=== PATIENT | female | born 1965 | race American Indian/Alaskan Native ===

== ENCOUNTER 2017-04-13 20:10 | Emergency (ER) | payer BC, OTHER ==
[2017-04-13 22:52] LABS: CHLORIDE,CL 107 mmol/L (101-111); SODIUM,NA 141 mmol/L (135-145)
[2017-04-14] MEDS ORDERED: Sodium Chloride 0.9% 10 ML Syringe FLUSH PRN (01:39)
[2017-04-14] MEDS ORDERED: HYDROmorphone 1 MG/ML Syringe IVPUSH ONE (01:39)
[2017-04-14] MEDS ORDERED: Sodium Chloride 0.9% 1,000 ML IV ONE (01:39)
[2017-04-14] MEDS ORDERED: Iopamidol 612 MG/ML 100 ML Bottle IVPUSH ONE (02:24)
--- NOTE | 2017-04-14 03:04 | EDM.PDOC ---
ED HPI GENERAL MEDICAL PROBLEM - General Chief Complaint: Abdominal Pain Stated Complaint: STOMACH PAIN Time Seen by Provider: 04/14/17 01:32 Source of Information: Reports: Patient, RN, RN Notes Reviewed History Limitations: Reports: No Limitations - History of Present Illness INITIAL COMMENTS - FREE TEXT/NARRATIVE: Pt presents to ER with c/o pain in the LUQ. She states the pain began early evening today, and the pain comes and goes. She states the pain is a sharp pain and rates the pain 7/10 when present. Patient admits to chills, but denies N/V/D , CP, SOB, constipation. Onset: Today Right Upper Abdomen Pain Score (Numeric/FACES): 7 - Related Data Allergies Allergy/AdvReac Type Severity Reaction Status Date / Time nitrofurantoin Allergy Fever Verified 04/13/17 21:55 [From Macrobid] Home Meds: Home Meds Aspirin [Halfprin] 81 mg PO DAILY 02/20/13 [History] Folic Acid 1 mg PO DAILY 02/20/13 [History] Hydrocodone/Acetaminophen [Hydrocodon-Acetaminophen 5-500] 1 tab PO Q4H PRN [History] Ibuprofen [Advil] 200 mg PO Q6H PRN 02/20/13 [History] Methotrexate 12.5 mg SUBCUT ASDIRECTED 02/20/13 [History] Pnv51/Iron Fum/Fa/Om-3/Dha/Epa [ Multi + Dha Softgel] 1 each PO DAILY [History] amLODIPine [Norvasc] 5 mg PO DAILY 02/20/13 [History] predniSONE [Prednisone] 1 tab PO BID 10/22/13 [History] Adalimumab [Humira Pen] 40 mg SQ ASDIRECTED 10/23/14 [History] Past Medical History HEENT History: Reports: Impaired Vision Other HEENT History: Glasses Cardiovascular History: Reports: High Cholesterol, Hypertension Respiratory History: Reports: None Gastrointestinal History: Reports: GERD Genitourinary History: Reports: None 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: Musculoskeletal History: Reports: Arthritis, RA Other Musculoskeletal History: left ankle pain; DDD CERVICAL Neurological History: Reports: None Psychiatric History: Reports: Depression Endocrine/Metabolic History: Reports: Obesity/BMI 30+ Hematologic History: Reports: Anemia Immunologic History: Reports: None Oncologic (Cancer) History: Reports: None Dermatologic History: Reports: None - Infectious Disease History Infectious Disease History: Reports: Chicken Pox - Past Surgical History Head Surgeries/Procedures: Reports: None GI Surgical History: Reports: Appendectomy Musculoskeletal Surgical History: Reports: Arthroscopic Knee Social & Family History - Family History Family Medical History: Noncontributory - Tobacco Use Smoking Status *Q: Never Smoker Second Hand Smoke Exposure: No - Caffeine Use Caffeine Use: Reports: Soda - Alcohol Use Days Per Week of Alcohol Use: 0 - Recreational Drug Use Recreational Drug Use: No ED ROS GENERAL - Review of Systems Review Of Systems: ROS reveals no pertinent complaints other than HPI. ED EXAM, GI/ABD - Physical Exam Exam: See Below Exam Limited By: No Limitations General Appearance: Alert, WD/WN, Moderate Distress Eyes: Bilateral: Normal Appearance, EOMI Ears: Normal External Exam, Hearing Grossly Normal Nose: Normal Inspection Throat/Mouth: Normal Inspection, Normal Voice, No Airway Compromise Head: Atraumatic, Normocephalic Neck: Normal Inspection, Supple, Non-Tender, Full Range of Motion Respiratory/Chest: No Respiratory Distress, Lungs Clear, Normal Breath Sounds, No Accessory Muscle Use, Chest Non-Tender Cardiovascular: Normal Peripheral Pulses, Regular Rate, Rhythm, No Edema, No Gallop, No JVD, No Murmur, No Rub GI/Abdominal Exam: Normal Bowel Sounds, Soft, No Organomegaly, No Distention, No Abnormal Bruit, No Mass, Tender (RUQ) (Female) Exam: Deferred Rectal (Female) Exam: Deferred Back Exam: Normal Inspection, Full Range of Motion Extremities: Normal Inspection, Normal Range of Motion, Non-Tender, Normal Capillary Refill, No Pedal Edema Neurological: Alert, Oriented, CN II-XII Intact, Normal Cognition, Normal Gait, Normal Reflexes, No Motor/Sensory Deficits Psychiatric: Anxious, Tearful Skin Exam: Warm, Dry, Intact, Normal Color, No Rash Lymphatic: No Adenopathy Course - Vital Signs Last Recorded V/S: Last Vital Signs Temp 96.4 F 04/13/17 21:56 Pulse 78 04/14/17 03:17 Resp 18 04/14/17 03:17 BP 144/56 H 04/14/17 03:17 Pulse Ox 98 04/14/17 03:17 - Orders/Labs/Meds Orders: Active Orders 24 hr Category Date Time Status Peripheral IV Care [RC] . DIRECTED Care 04/14/17 01:40 Active Abdomen Pelvis w Cont [CT] Urgent Exams 04/14/17 01:37 Taken CULTURE BLOOD [BC] Stat Lab 04/13/17 22:25 Received CULTURE BLOOD [BC] Stat Lab 04/13/17 22:28 Received Blood Culture x2 Reflex Set [OM.PC] Stat Oth 04/13/17 22:10 Ordered Peripheral IV Insertion Adult [OM.PC] Stat Oth 04/14/17 01:39 Ordered Labs: Laboratory Tests 04/13/17 04/13/17 04/13/17 Range/Units 22:15 22:25 22:28 WBC 9.5 (5.0-10.0) 10^3/uL RBC 4.15 L (4.2-5.4) 10^6/uL Hgb 12.1 (12.0-16.0) g/dL Hct 36.3 L (37.0-47.0) % MCV 87.5 (80-100) fL MCH 29.2 (27.0-34.0) pg MCHC 33.3 (33.0-35.0) g/dL Plt Count 284 (150-450) 10^3/uL Neut % (Auto) 56.0 (42.2-75.2) % Lymph % (Auto) 30.2 (20.5-50.1) % [place] % (Auto) 10.5 H (2-8) % Eos % (Auto) 3.1 H (1.0-3.0) % Baso % (Auto) 0.2 (0.0-1.0) % Sodium 141 (135-145) mmol/L Potassium 3.6 (3.6-5.0) mmol/L Chloride 107 (101-111) mmol/L Carbon Dioxide 25.0 (21.0-31.0) mmol/L Anion Gap 12.6 BUN 12 (7-18) mg/dL Creatinine 0.5 L (0.6-1.3) mg/dL Est Cr Clr Drug Dosing 135.79 mL/min Estimated GFR (MDRD) > 60 BUN/Creatinine Ratio 24.00 Glucose 113 H (74-105) mg/dL Lactic Acid (0.5-2.2) mmol/L Calcium 8.7 (8.4-10.2) mg/dl Total Bilirubin 0.7 (0.2-1.0) mg/dL AST 35 (10-42) IU/L ALT 31 (10-60) IU/L Alkaline Phosphatase 65 (42-121) IU/L Total Protein 7.5 (6.7-8.2) g/dl Albumin 3.9 (3.2-5.5) g/dl Globulin 3.6 Albumin/Globulin Ratio 1.08 Amylase 40 (28-100) U/L Lipase 22 (22-51) U/L Urine Color Dark yellow (YELLOW) Urine Appearance Cloudy (CLEAR) Urine pH 5.5 (5.0-9.0) Ur Specific [place] >= 1.030 (1.005-1.030) Urine Protein Trace H (NEGATIVE) Urine Glucose (UA) Negative (NEGATIVE) Urine Ketones Negative (NEGATIVE) Urine Occult Blood Negative (NEGATIVE) Urine Nitrite Negative (NEGATIVE) Urine Bilirubin Negative (NEGATIVE) Urine Urobilinogen 0.2 (0.2-1.0) mg/dL Ur Leukocyte Esterase Negative (NEGATIVE) Urine RBC 0-5 /HPF Urine WBC 5-10 H (0-5/HPF) /HPF Ur Epithelial Cells Moderate H /HPF Amorphous Sediment Few (0/HPF) /HPF Urine Bacteria Rare (0-FEW/HPF) /HPF Urine Mucus Many H /LPF 04/13/17 Range/Units 22:28 WBC (5.0-10.0) 10^3/uL RBC (4.2-5.4) 10^6/uL Hgb (12.0-16.0) g/dL Hct (37.0-47.0) % MCV (80-100) fL MCH (27.0-34.0) pg MCHC (33.0-35.0) g/dL Plt Count (150-450) 10^3/uL Neut % (Auto) (42.2-75.2) % Lymph % (Auto) (20.5-50.1) % [place] % (Auto) (2-8) % Eos % (Auto) (1.0-3.0) % Baso % (Auto) (0.0-1.0) % Sodium (135-145) mmol/L Potassium (3.6-5.0) mmol/L Chloride (101-111) mmol/L Carbon Dioxide (21.0-31.0) mmol/L Anion Gap BUN (7-18) mg/dL Creatinine (0.6-1.3) mg/dL Est Cr Clr Drug Dosing mL/min Estimated GFR (MDRD) BUN/Creatinine Ratio Glucose (74-105) mg/dL Lactic Acid 1.6 (0.5-2.2) mmol/L Calcium (8.4-10.2) mg/dl Total Bilirubin (0.2-1.0) mg/dL AST (10-42) IU/L ALT (10-60) IU/L Alkaline Phosphatase (42-121) IU/L Total Protein (6.7-8.2) g/dl Albumin (3.2-5.5) g/dl Globulin Albumin/Globulin Ratio Amylase (28-100) U/L Lipase (22-51) U/L Urine Color (YELLOW) Urine Appearance (CLEAR) Urine pH (5.0-9.0) Ur Specific [place] (1.005-1.030) Urine Protein (NEGATIVE) Urine Glucose (UA) (NEGATIVE) Urine Ketones (NEGATIVE) Urine Occult Blood (NEGATIVE) Urine Nitrite (NEGATIVE) Urine Bilirubin (NEGATIVE) Urine Urobilinogen (0.2-1.0) mg/dL Ur Leukocyte Esterase (NEGATIVE) Urine RBC /HPF Urine WBC (0-5/HPF) /HPF Ur Epithelial Cells /HPF Amorphous Sediment (0/HPF) /HPF Urine Bacteria (0-FEW/HPF) /HPF Urine Mucus /LPF Meds: Medications Discontinued Medications Generic Name Dose Route Start Last Admin Trade Name Freq PRN Reason Stop Dose Admin Hydromorphone HCl 0.5 mg 04/14/17 01:39 04/14/17 02:36 Dilaudid IVPUSH 04/14/17 01:40 0.5 mg ONETIME ONE Administration Sodium Chloride 1,000 mls @ 999 mls/hr 04/14/17 01:39 04/14/17 02:35 Normal Saline IV 04/14/17 02:39 999 mls/hr .BOLUS ONE Administration Iopamidol 100 ml 04/14/17 02:24 04/14/17 02:27 Isovue-300 (61%) IVPUSH 04/14/17 02:25 100 ml ONETIME ONE Administration Sodium Chloride 10 ml 04/14/17 01:39 04/14/17 02:36 Saline Flush FLUSH 10 ml ASDIRECTED PRN Administration Keep Vein Open - Radiology Interpretation Free Text/Narrative:: Chest/Abdomen/Pelvis CT: No acute findings See rad report Departure - Departure Time of Disposition: 03:03 Disposition: Home, Self-Care 01 Condition: Fair Clinical Impression: Abdominal pain Qualifiers: Abdominal location: right upper quadrant Qualified Code(s): R10.11 - Right upper quadrant pain - Discharge Information Instructions: Abdominal Pain, Adult, [id number] Forms: ED Department Discharge Additional Instructions: Drink plenty of water May use Miralax or like generic once or twice per day to increase bowel movements Follow up with your primary care facility this week - My Orders Last 24 Hours: My Active Orders 04/13/17 22:10 Blood Culture x2 Reflex Set [OM.PC] Stat 04/13/17 22:25 CULTURE BLOOD [BC] Stat 04/13/17 22:28 CULTURE BLOOD [BC] Stat 04/14/17 01:37 Abdomen Pelvis w Cont [CT] Urgent 04/14/17 01:39 Peripheral IV Insertion Adult [OM.PC] Stat 04/14/17 01:40 Peripheral IV Care [RC] . DIRECTED - Assessment/Plan Last 24 Hours: My Active Orders 04/13/17 22:10 Blood Culture x2 Reflex Set [OM.PC] Stat 04/13/17 22:25 CULTURE BLOOD [BC] Stat 04/13/17 22:28 CULTURE BLOOD [BC] Stat 04/14/17 01:37 Abdomen Pelvis w Cont [CT] Urgent 04/14/17 01:39 Peripheral IV Insertion Adult [OM.PC] Stat 04/14/17 01:40 Peripheral IV Care [RC] . DIRECTED
[2017-04-14 03:19] VITALS: BP 144/56
== END 2017-04-14 03:15 | disposition home or self-care (01) ==
LOC: DL.ED 20:10
DX: R10.11 Right upper quadrant pain (principal); I10 Essential (primary) hypertension; E78.00 Pure hypercholesterolemia, unspecified; K21.9 Gastro-esophageal reflux disease without esophagitis; F32.9 Major depressive disorder, single episode, unspecified; Z79.899 Other long term (current) drug therapy; Z79.82 Long term (current) use of aspirin; Z88.8 Allergy status to other drugs, medicaments and biological substances
CPT/HCPCS: 36415; 74177; 80053; 81001; 82150; 83605; 83690; 85025; 87040; 96365; 96375; 99284; J1170; J7030; J7050; Q9967

== ENCOUNTER 2017-07-06 21:35 | Emergency (ER) | payer BC ==
[2017-07-07] MEDS ORDERED: Iopamidol 612 MG/ML 100 ML Bottle IVPUSH ONE (00:28)
[2017-07-07] MEDS ORDERED: GI Cocktail Oral Solution 30 ML PO ONE (03:34)
[2017-07-07] MEDS ORDERED: Acetaminophen/HYDROcodone 325-10 MG Tab PO ONE (03:34)
[2017-07-07 07:41] LABS: ANION GAP 9.7; CHLORIDE,CL 108 mmol/L (101-111); SODIUM,NA 139 mmol/L (135-145)
== END 2017-07-07 03:46 | disposition home or self-care (01) ==
LOC: DL.ED 21:35
DX: K59.00 Constipation, unspecified (principal)
CPT/HCPCS: 36415; 74177; 80053; 82150; 83690; 85025; 96360; 96361; 99284; Q9967; A9270-GY

== ENCOUNTER 2017-07-23 07:01 | Day surgery (SDC) | payer BC, OTHER ==
[~2017-07-23 07:01] MED LIST: Dextrose 5%-0.45% NaCl 1,000 ML IV SCH; Midazolam 1 MG/ML 2 ML SDV ONE; Sodium Chloride 0.9% 10 ML Syringe FLUSH PRN; fentaNYL 100 MCG/2 ML SDV ONE
[2017-07-23] MEDS ORDERED: fentaNYL 100 MCG/2 ML SDV IV ONE ×3 (07:02→08:07)
[2017-07-23] MEDS ORDERED: Midazolam 1 MG/ML 2 ML SDV IV ONE ×3 (07:02→08:08)
--- NOTE | 2017-07-23 09:41 | OR ---
DATE: 07/23/2017 PROCEDURE PERFORMED: Esophagogastroduodenoscopy and multiple pinch biopsies. INSTRUMENT USED: GIF-Q180 Olympus video panendoscope. PREMEDICATIONS: No oral topical anesthesia used. Fentanyl 100 mcg intravenous and Versed 2 mg intravenous. The procedure was done under pulse oximetry, BP recording, and cardiac exercise physiologist. INDICATIONS: The patient with intermittent high dysphagia as well as regurgitation and dyspepsia, unexplained and not responsive to medical measures, on long-term NSAIDs with history of rheumatoid arthritis. Esophagogastroduodenoscopy is performed for detection of any active erosive lesions, Perez esophagus and/or malignancy also under consideration, H. pylori status to be determined, esophageal dilatations if indicated, endoscopic hemostasis therapy if needed. DESCRIPTION OF PROCEDURE: The scope was passed with ease. Adequate visualization of the esophagus was made from proximal to distal areas. No upper esophageal lesions identified. No distal esophageal stricture. No uphill or downhill esophageal varices. No Kaylene-Reagan tear. No evidence of erosive esophagitis by [place] criteria. No esophageal polyp or tumor mass identified. Z-line was seen at around 40 cm distal to the oral verge, configuration consistent with grade 1 by ZAP classification. No proximal gastric varices noted. Gastric fundus examination by retroflexion showed no polypoid lesions. No gastric ulcer, malignant mass, or vascular ectasia identified. Numerous gastric antral erosions were noted without bleeding from them. Duodenal bulb showed no ulcer. Visualized second part of the duodenum was unremarkable. Multiple pinch biopsies were taken from the gastric antrum and proximal body and sent for PyloriTek test for H. pylori, and if negative in an hour, tissue was to be sent for histopathology. No bleeding was noted from any of the visualized areas at the completion of the examination. IMPRESSION: Gastric antral erosions. The patient tolerated the procedure well. [facility] /[id number]
[2017-07-23 11:24] VITALS: BP 124/70
--- NOTE | 2017-07-23 12:41 | LETTER ---
07/23/2017 SANDRA Dorantes [facility] [address] [place] [address] RE: GABBY METZ : 1965 Dear Ms. Mejiael: Ms. Gabby Metz had esophagogastroduodenoscopy done this morning and she tolerated the procedure well. I herewith send a copy of the endoscopy note and photographs for your review. She is being recommended to keep away from NSAIDs and is put on omeprazole 20 mg p.o. b.i.d. for now. Thank you. Sincerely, [facility] /[id number]
== END 2017-07-23 10:16 | disposition home or self-care (01) ==
LOC: DL.ENDO 07:01
PROVIDERS: ATTEND Internal Medicine Gastroenterology
DX: R13.19 Other dysphagia (principal); K29.50 Unspecified chronic gastritis without bleeding; K31.9 Disease of stomach and duodenum, unspecified; E66.09 Other obesity due to excess calories; K21.9 Gastro-esophageal reflux disease without esophagitis; M06.9 Rheumatoid arthritis, unspecified; F41.1 Generalized anxiety disorder; Z79.1 Long term (current) use of non-steroidal anti-inflammatories (NSAID); Z88.5 Allergy status to narcotic agent
CPT/HCPCS: 43239; 87077; J7042; J2250; J3010

== ENCOUNTER 2017-07-29 06:12 | Day surgery (SDC) | payer BC, OTHER ==
[2017-07-29] MEDS ORDERED: fentaNYL 100 MCG/2 ML SDV IV ONE ×5 (06:13→06:59)
[2017-07-29] MEDS ORDERED: Midazolam 1 MG/ML 2 ML SDV IV ONE ×9 (06:13→07:04)
[2017-07-29] MEDS ORDERED: Midazolam 1 MG/ML 2 ML SDV ONE (06:16)
[2017-07-29] MEDS ORDERED: fentaNYL 100 MCG/2 ML SDV ONE (06:16)
[2017-07-29] MEDS ORDERED: Dextrose 5%-0.45% NaCl 1,000 ML IV SCH (06:30)
--- NOTE | 2017-07-29 07:51 | OR ---
DATE: 07/29/2017 PROCEDURE PERFORMED: Total colonoscopy. INSTRUMENT USED: CF-H180AL Olympus videocolonoscope. PREMEDICATIONS: Fentanyl 150 mcg intravenous and Versed 5 mg intravenous. Nasal O2 cannula. The procedure was done under pulse oximetry, BP recording, and nurse monitoring. INDICATIONS: The patient with progressive constipation and rectal bleeding, unexplained and not responsive to medical measures. Colonoscopic examination is done for detection of any polypoid lesions and removal, endoscopic hemostasis therapy if needed. DESCRIPTION OF PROCEDURE: Initial rectal exam was unremarkable. Rigid anoscopy showed small internal hemorrhoids without bleeding from them. The colonoscope was passed with ease. Few scattered diverticula were noted in the distal left colon along with some deformity. The colon was found to be tortuous and redundant. There was some moderate amount of fecal material that had to be aspirated, bowel preparation was less than adequate. The scope was passed with ease up to the ileocecal area, photographs were taken of the normal-appearing cecum identified by double-bulged ileocecal folds. No bleeding was noted from any of the visualized areas at the commencement of the examination. No stricture. No vascular ectasia. No large isolated ulcerations seen. No evidence of diffuse inflammatory bowel disease in the form of friability, contact bleeding, or ulcerations. No polyp or tumor mass identified. Probing the proximal sides of folds and flexures, using adequate distention and clearing of the stool material, withdrawal of the scope was made, cecum to rectum time over 6 minutes. No bleeding was noted from any of the visualized areas at the completion of examination. IMPRESSION: 1. Internal hemorrhoids. 2. Diverticulosis. The patient tolerated the procedure well. [facility] /[id number]
[2017-07-29 10:14] VITALS: BP 142/87
--- NOTE | 2017-07-29 14:20 | LETTER ---
07/29/2017 Edith Ventura NP [facility] [address] [place] [address] RE: GABBY METZ : 1965 Dear Ms. Ventura: Ms. Gabby Metz had colonoscopic examination done this mornin and she tolerated the procedure well. I herewith send a copy of the endoscopy note and photographs for your review. She is put on Citrucel 1 tablespoon p.o. daily, response to be noted. Thank you. Sincerely, [facility] /[id number]
== END 2017-07-29 09:15 | disposition home or self-care (01) ==
LOC: DL.ENDO 06:12
PROVIDERS: ATTEND Internal Medicine Gastroenterology
DX: K59.00 Constipation, unspecified (principal); K62.5 Hemorrhage of anus and rectum; K64.8 Other hemorrhoids; K57.30 Diverticulosis of large intestine without perforation or abscess without bleeding; E66.09 Other obesity due to excess calories; F41.1 Generalized anxiety disorder; K21.9 Gastro-esophageal reflux disease without esophagitis; K58.9 Irritable bowel syndrome, unspecified; Z88.5 Allergy status to narcotic agent; Z88.8 Allergy status to other drugs, medicaments and biological substances
CPT/HCPCS: 45378; J2250; J3010; J7042

== ENCOUNTER 2017-07-31 20:14 | Emergency (ER) | payer OTHER, BC ==
[2017-07-31 21:07] VITALS: BP 148/72
--- NOTE | 2017-07-31 22:28 | EDM.PDOC ---
ED HPI GENERAL MEDICAL PROBLEM - General Chief Complaint: Lower Extremity Injury/Pain Stated Complaint: LEG PAIN [id number] Time Seen by Provider: 07/31/17 22:24 Source of Information: Reports: Patient History Limitations: Reports: No Limitations - History of Present Illness INITIAL COMMENTS - FREE TEXT/NARRATIVE: fell while at work in bathroom on wet slippery floor. Pain to left ankle and lateral knee. No loss of consciousness. 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 Left Ankle Pain Score (Numeric/FACES): 5 - Related Data Allergies Allergy/AdvReac Type Severity Reaction Status Date / Time hydrocodone Allergy Itching Verified 07/31/17 21:02 nitrofurantoin Allergy Fever Verified 07/31/17 21:02 [From Macrobid] tramadol Allergy Itching Verified 07/31/17 21:02 Home Meds: Home Meds Aspirin [Halfprin] 81 mg PO DAILY 02/20/13 [History] Folic Acid 1 mg PO DAILY 02/20/13 [History] Methotrexate 12.5 mg SUBCUT ASDIRECTED 02/20/13 [History] amLODIPine [Norvasc] 5 mg PO DAILY 02/20/13 [History] Adalimumab [Humira Pen] 40 mg SQ ASDIRECTED 10/23/14 [History] Cholecalciferol (Vitamin D3) [Vitamin D3] 1,000 units PO DAILY 07/21/17 [History ] Cyclobenzaprine [Flexeril] 10 mg PO ASDIRECTED PRN 07/21/17 [History] Gabapentin [Neurontin] 300 mg PO TID 07/21/17 [History] Metoprolol Succinate [Toprol XL] 25 mg PO DAILY 07/21/17 [History] Omeprazole 20 mg PO DAILY 07/21/17 [History] Past Medical History HEENT History: Reports: Impaired Vision Other HEENT History: Glasses Cardiovascular History: Reports: High Cholesterol, Hypertension Other Cardiovascular History: CHOLESTEROL IS IMPROVED PER PATIENT Respiratory History: Reports: None Gastrointestinal History: Reports: GERD, Other (See Below) Other Gastrointestinal History: HAS BEEN GETTING CONSTIPATION WILL HAVE COLONOSCOPY Genitourinary History: Reports: None 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: , 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 (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 Below) 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 Musculoskeletal History: Reports: Arthritis, RA Other Musculoskeletal History: left ankle pain; DDD CERVICAL Neurological History: Reports: None Psychiatric History: Reports: None Endocrine/Metabolic History: Reports: Obesity/BMI 30+ Hematologic History: Reports: Anemia Immunologic History: Reports: None Oncologic (Cancer) History: Reports: None Dermatologic History: Reports: None - Infectious Disease History Infectious Disease History: Reports: Chicken Pox - Past Surgical History Head Surgeries/Procedures: Reports: None HEENT Surgical History: Reports: None Cardiovascular Surgical History: Reports: None GI Surgical History: Reports: Appendectomy Female Surgical History: Reports: Cystoscopy, Tubal Ligation, Other (See Below) Other Female Surgeries/Procedures: CYSTOSCOPY; VAGINAL D & C Endocrine Surgical History: Reports: None Musculoskeletal Surgical History: Reports: Arthroscopic Knee, Shoulder Surgery, Other (See Below) Other Musculoskeletal Surgeries/Procedures:: EMG 2 EXTREMITIES. S/P LEFT ANKLE STABILIZATION. X2 ROTATOR CUFF SURGERY TO LEFT AND X1 TO RIGHT SHOULDER Social & Family History - Family History Family Medical History: Noncontributory - Tobacco Use Smoking Status *Q: Unknown Ever Smoked - Caffeine Use Caffeine Use: Reports: Soda Other Caffeine Use: 1-2 cans DAILY - Recreational Drug Use Recreational Drug Use: No Review of Systems - Review of Systems Review Of Systems: ROS reveals no pertinent complaints other than HPI. ED EXAM, GENERAL - Physical Exam Exam: See Below Exam Limited By: No Limitations General Appearance: Alert, No Apparent Distress Eye Exam: Bilateral Eye: EOMI Nose: Normal Inspection Throat/Mouth: Normal Voice Head: Atraumatic, Normocephalic Neck: Full Range of Motion Respiratory/Chest: No Respiratory Distress Cardiovascular: Normal Peripheral Pulses, Regular Rate, Rhythm Extremities: Normal Range of Motion (slow), Limited Range of Motion (mild left ankle, lateral swelling no ecchymosis), Other (2cm swelling lateral lower patella, mild effsion. ). No: Redness Neurological: Alert, Oriented, Normal Cognition Psychiatric: Normal Affect, Normal Mood Skin Exam: Warm, Dry, Intact, Normal Color Course - Vital Signs Last Recorded V/S: Last Vital Signs Temp 97.2 F 07/31/17 21:05 Pulse 98 07/31/17 21:05 Resp 16 07/31/17 21:05 BP 148/72 H 07/31/17 21:05 Pulse Ox 98 07/31/17 21:05 - Radiology Interpretation Free Text/Narrative:: xray left knee and ankle negative for fracture. Departure - Departure Time of Disposition: 22:26 Disposition: Home, Self-Care 01 Condition: Good Clinical Impression: Sprain of left ankle Qualifiers: Encounter type: initial encounter Involved ligament of ankle: unspecified ligament Qualified Code(s): S93.402A - Sprain of unspecified ligament of left ankle, initial encounter Left knee sprain Qualifiers: Encounter type: initial encounter Involved ligament of knee: lateral collateral ligament Qualified Code(s): S83.422A - Sprain of lateral collateral ligament of left knee, initial encounter Contusion of knee, left Qualifiers: Encounter type: initial encounter Qualified Code(s): S80.02XA - Contusion of left knee, initial encounter - Discharge Information Instructions: Ankle Sprain, [id number], Knee Sprain, Adult, [id number] Forms: ED Department Discharge Additional Instructions: ice rest elevation, franci wrap tylenol or ibuprofen for discomfort weight bearing as tolerated follow up if not improving
== END 2017-07-31 22:35 | disposition home or self-care (01) ==
LOC: DL.ED 20:14
DX: S93.402A Sprain of unspecified ligament of left ankle, initial encounter (principal); S83.422A Sprain of lateral collateral ligament of left knee, initial encounter; W19.XXXA Unspecified fall, initial encounter; Y99.0 Civilian activity done for income or pay
CPT/HCPCS: 73562-LT; 73610-LT; 99283

== ENCOUNTER 2018-03-17 07:28 | Day surgery (SDC) | payer OTHER ==
[2018-03-17] MEDS ORDERED: Dexamethasone 4 MG/ML SDV IV ONE (07:29)
[2018-03-17] MEDS ORDERED: Midazolam 1 MG/ML 2 ML SDV IV ONE (07:29)
[2018-03-17] MEDS ORDERED: Sodium Chloride 0.9% 10 ML Syringe IV ONE (07:29)
[2018-03-17] MEDS ORDERED: Timolol Maleate 0.5% Ophth Soln 5 ML Bottle EYELF ONE (07:30)
[2018-03-17] MEDS ORDERED: Povidone-Iodine 5% Sterile Ophth Soln 30 ML Bottle EYELF ONE ×2 (07:30→09:08)
[2018-03-17] MEDS ORDERED: Proparacaine 0.5% Ophth Soln 15 ML Bottle EYELF ONE (07:30)
[2018-03-17] MEDS ORDERED: Moxifloxacin 0.5% Ophth Soln 3 ML Bottle EYELF ONE (07:30)
[2018-03-17] MEDS ORDERED: Phenylephrine 10% Ophth Soln 5 ML Bot EYELF ONE (07:30)
[2018-03-17] MEDS ORDERED: Ondansetron 4 MG/2 ML SDV IVPUSH PRN (07:30)
[2018-03-17] MEDS ORDERED: Sodium Chloride 0.9% 10 ML Syringe FLUSH PRN (07:30)
[2018-03-17] MEDS ORDERED: Acetaminophen 325 MG Tab PO PRN (07:30)
[2018-03-17] MEDS ORDERED: Phenylephrine 10% Ophth Soln 5 ML Bot EYELF PRN (07:30)
[2018-03-17] MEDS ORDERED: Cataract Ophth Solution EYELF ONE (07:30)
[2018-03-17] MEDS ORDERED: Tetracaine HCl/PF 0.5% 4 ML Bottle EYELF ONE (09:08)
[2018-03-17] MEDS ORDERED: Apraclonidine 0.5% Ophth Soln 5 ML Bot EYELF ONE (09:09)
[2018-03-17] MEDS ORDERED: Diclofenac Sodium 0.1% Ophth Soln 5 ML Bottle EYELF ONE (09:09)
[2018-03-17] MEDS ORDERED: Chondroitin Sulfate/Hyaluronate Sodium Ophth Inj 0.75 ML Syringe EYELF ONE (09:10)
[2018-03-17] MEDS ORDERED: Dexamethasone/Neomycin/Polymyxin B Ophth Oint 3.5 GM Tube EYELF ONE (09:10)
[2018-03-17] MEDS ORDERED: Balanced Salt Solution Ophth Irrig 500 ML Bottle IOCULAR ONE (09:10)
[2018-03-17] MEDS ORDERED: Lidocaine 1% 30 ML SDV ONE (09:11)
[2018-03-17] MEDS ORDERED: Vancomycin 500 MG SDV EYELF ONE (09:11)
--- NOTE | 2018-03-17 09:41 | OR ---
DATE: 03/17/2018 PREOPERATIVE DIAGNOSIS: Visually significant mixed cataract, left eye. POSTOPERATIVE DIAGNOSIS: Visually significant mixed cataract, left eye. PROCEDURE: Extracapsular cataract extraction with intraocular lens implant, left eye. ANESTHESIA: Topical/local MAC. COMPLICATIONS: None. INDICATION: Ms. Metz was seen in the clinic with complaints of blurred vision, difficulty with bright lights and glare and halos. Examination reveals mixed nuclear and posterior subcapsular cataract. I explained options; I offered surgery; and I explained risks including the potential for infection, retinal detachment, and loss of vision amongst others. She has significant preexisting corneal astigmatism. We have discussed implant options, and she requested a toric implant. She understands that she may still require glasses for some activities. OPERATIVE DESCRIPTION: After informed consent was obtained and the risks, benefits, and alternatives were explained, the patient was brought to the operative suite and topical anesthesia was administered. The patient was then prepped and draped in the sterile fashion, and attention was placed on the left eye. A sterile lid speculum was placed into the left eye to allow operative exposure. A full-thickness paracentesis was made in the temporal portion of the operative eye. Preservative-free lidocaine 0.1 mL was injected into the anterior chamber followed by viscoelastic. A full-thickness corneal incision was then made into the anterior chamber. A bent needle cystotome was used to create a small esther in the anterior capsule. The capsulorrhexis forceps was then used to create a 360-degree curvilinear capsulorrhexis. The nucleus was then removed using a phacoemulsification handpiece, and the remaining cortical material was then removed with irrigation and aspiration handpiece. Following removal of the cortical material, the capsular bag was then inspected and noted to be free of any holes or tears. Viscoelastic was then injected into the capsular bag, and the intraocular lens was inserted into the capsular bag. The implant was oriented to correspond with preoperative corneal maguire made with the patient in the upright position. The viscoelastic material was then removed from both the anterior and posterior chambers and from behind the IOL. The lens and capsular bag were then reinspected. The IOL was well centered and the capsular bag intact. The wound and paracentesis sites were inspected and hydrated with balanced saline solution. Both were found to be self-sealing. The intraocular pressure was assessed digitally and found to be within normal range. A good red reflex was noted at the completion of the procedure. No complications occurred during the operation. At the completion of the procedure, Maxitrol, Voltaren, and Iopidine drops were placed into the operative eye. A sterile eye shield was placed over the operative eye, and the patient was transported to the postoperative recovery area having tolerated the procedure well. Postoperative instructions were given along with a postoperative appointment. The patient was advised to call with any questions or concerns. [facility] /[id number]
[2018-03-17 13:22] VITALS: BP 129/70
== END 2018-03-17 10:21 | disposition home or self-care (01) ==
LOC: DL.SDS 07:28
PROVIDERS: ATTEND Ophthalmology
DX: H25.812 Combined forms of age-related cataract, left eye (principal); H26.9 Unspecified cataract; I10 Essential (primary) hypertension; E66.01 Morbid (severe) obesity due to excess calories; Z68.41 Body mass index [BMI] 40.0-44.9, adult; E03.9 Hypothyroidism, unspecified; K21.9 Gastro-esophageal reflux disease without esophagitis; Z87.891 Personal history of nicotine dependence; Z79.890 Hormone replacement therapy; Z79.899 Other long term (current) drug therapy
CPT/HCPCS: 66984; A9270; J1100; J2250; J3370; 00142; V2787

== ENCOUNTER 2018-03-24 09:52 | Day surgery (SDC) | payer OTHER ==
[2018-03-24] MEDS ORDERED: Midazolam 1 MG/ML 2 ML SDV IV ONE (09:53)
[2018-03-24] MEDS ORDERED: Dexamethasone 4 MG/ML SDV IV ONE (09:53)
[2018-03-24] MEDS ORDERED: Sodium Chloride 0.9% 10 ML Syringe IV ONE (09:53)
[2018-03-24] MEDS ORDERED: Moxifloxacin 0.5% Ophth Soln 3 ML Bottle EYERT ONE (10:00)
[2018-03-24] MEDS ORDERED: Timolol Maleate 0.5% Ophth Soln 5 ML Bottle EYERT ONE (10:00)
[2018-03-24] MEDS ORDERED: Sodium Chloride 0.9% 10 ML Syringe FLUSH PRN (10:00)
[2018-03-24] MEDS ORDERED: Cataract Ophth Solution EYERT ONE (10:00)
[2018-03-24] MEDS ORDERED: Acetaminophen 325 MG Tab PO PRN (10:00)
[2018-03-24] MEDS ORDERED: Proparacaine 0.5% Ophth Soln 15 ML Bottle EYERT ONE (10:00)
[2018-03-24] MEDS ORDERED: Ondansetron 4 MG/2 ML SDV IVPUSH PRN (10:00)
[2018-03-24] MEDS ORDERED: Phenylephrine 10% Ophth Soln 5 ML Bot EYERT PRN (10:00)
[2018-03-24] MEDS ORDERED: Povidone-Iodine 5% Sterile Ophth Soln 30 ML Bottle EYERT ONE ×2 (10:00→10:46)
[2018-03-24] MEDS ORDERED: Phenylephrine 10% Ophth Soln 5 ML Bot EYERT ONE (10:00)
[2018-03-24] MEDS ORDERED: Tetracaine HCl/PF 0.5% 4 ML Bottle EYERT ONE (10:46)
[2018-03-24] MEDS ORDERED: Lidocaine 1% 30 ML SDV ONE (10:46)
[2018-03-24] MEDS ORDERED: Apraclonidine 0.5% Ophth Soln 5 ML Bot EYERT ONE (10:47)
[2018-03-24] MEDS ORDERED: Diclofenac Sodium 0.1% Ophth Soln 5 ML Bottle EYERT ONE (10:47)
[2018-03-24] MEDS ORDERED: Dexamethasone/Neomycin/Polymyxin B Ophth Oint 3.5 GM Tube EYERT ONE (10:47)
[2018-03-24] MEDS ORDERED: Balanced Salt Solution Ophth Irrig 500 ML Bottle IOCULAR ONE (10:48)
[2018-03-24] MEDS ORDERED: Chondroitin Sulfate/Hyaluronate Sodium Ophth Inj 0.75 ML Syringe EYERT ONE (10:48)
[2018-03-24] MEDS ORDERED: Vancomycin 500 MG SDV EYERT ONE (10:48)
[2018-03-24 12:16] VITALS: BP 126/83
--- NOTE | 2018-03-24 14:05 | OR ---
DATE: 03/24/2018 PREOPERATIVE DIAGNOSIS: Visually significant mixed cataract, right eye. POSTOPERATIVE DIAGNOSIS: Visually significant mixed cataract, right eye. PROCEDURE: Extracapsular cataract extraction with intraocular lens implant, right eye. ANESTHESIA: Topical/local MAC. COMPLICATIONS: None. INDICATION: Ms. Metz was seen in the clinic. She is unhappy with her vision. She has difficulty with glare and halo and difficulty with bright lights. Examination reveals mixed nuclear and posterior subcapsular cataract. I explained options; offered cataract surgery; and I explained risks preoperatively including the potential for infection, retinal detachment, loss of vision, and need for additional surgery amongst others. We discussed implant options. She requested surgery with a toric implant. She understands that she may still require glasses for some activities. She voiced an understanding with respect to risks, limitations, and wished to proceed. OPERATIVE DESCRIPTION: After informed consent was obtained and the risks, benefits, and alternatives were explained, the patient was brought to the operative suite and topical anesthesia was administered. The patient was then prepped and draped in the sterile fashion, and attention was placed on the right eye. A sterile lid speculum was placed into the right eye to allow operative exposure. A full-thickness paracentesis was made in the temporal portion of the operative eye. Preservative-free lidocaine 0.1 mL was injected into the anterior chamber followed by viscoelastic. A full-thickness corneal incision was then made into the anterior chamber. A bent needle cystotome was used to create a small esther in the anterior capsule. The capsulorrhexis forceps was then used to create a 360-degree curvilinear capsulorrhexis. The nucleus was then removed using a phacoemulsification handpiece, and the remaining cortical material was then removed with irrigation and aspiration handpiece. Following removal of the cortical material, the capsular bag was then inspected and noted to be free of any holes or tears. Viscoelastic was then injected into the capsular bag, and the intraocular lens was inserted into the capsular bag. The implant was oriented to correspond with preoperative corneal maguire made with the patient in the upright position. The viscoelastic material was then removed from both the anterior and posterior chambers and from behind the IOL. The lens and capsular bag were then reinspected. The IOL was well centered and the capsular bag intact. The wound and paracentesis sites were inspected and hydrated with balanced saline solution. Both were found to be self-sealing. The intraocular pressure was assessed digitally and found to be within normal range. A good red reflex was noted at the completion of the procedure. No complications occurred during the operation. At the completion of the procedure, Maxitrol, Voltaren, and Iopidine drops were placed into the operative eye. A sterile eye shield was placed over the operative eye, and the patient was transported to the postoperative recovery area having tolerated the procedure well. Postoperative instructions were given along with a postoperative appointment. The patient was advised to call with any questions or concerns. [facility] /[phone]
== END 2018-03-24 11:50 | disposition home or self-care (01) ==
LOC: DL.SDS 09:52
PROVIDERS: ATTEND Ophthalmology
DX: H25.811 Combined forms of age-related cataract, right eye (principal); I10 Essential (primary) hypertension; K21.9 Gastro-esophageal reflux disease without esophagitis; E03.9 Hypothyroidism, unspecified; Z87.891 Personal history of nicotine dependence; Z79.890 Hormone replacement therapy; Z88.1 Allergy status to other antibiotic agents; Z98.42 Cataract extraction status, left eye
CPT/HCPCS: 00142; 66984; A9270; J1100; J2250; J3370; V2787

== ENCOUNTER 2018-07-14 11:03 | Emergency (ER) | payer OTHER ==
[2018-07-14 10:26] VITALS: BP 150/85
[~2018-07-14 11:03] MED LIST changes: -Dextrose 5%-0.45% NaCl 1,000 ML IV SCH; +Metoclopramide 10 MG/2 ML SDV IVPUSH ONE; -Midazolam 1 MG/ML 2 ML SDV ONE; +Sodium Chloride 0.9% 1,000 ML IV ONE; -Sodium Chloride 0.9% 10 ML Syringe FLUSH PRN; -fentaNYL 100 MCG/2 ML SDV ONE
--- NOTE | 2018-07-14 11:04 | EDM.PDOC ---
ED HPI GENERAL MEDICAL PROBLEM - General Chief Complaint: Headache Stated Complaint: HEADACHE Time Seen by Provider: 07/14/18 10:50 Source of Information: Reports: Patient History Limitations: Reports: No Limitations - History of Present Illness INITIAL COMMENTS - FREE TEXT/NARRATIVE: This 52 yo female patient was sent to the ED from the [facility] due to a 2 month history of a headache. The patient reports her headache got much worse last night. The patient reports she has been taking Oxycodone and Tylenol , but has not been having any symptom relief. The patient reports she has been seen several times for her headaches, but has not had any further testing at this time. 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: Reports: Acetaminophen, Other Medication(s) (Oxycodone) Headache Pain Score (Numeric/FACES): 7 - Related Data Allergies Allergy/AdvReac Type Severity Reaction Status Date / Time hydrocodone Allergy Itching Verified 07/14/18 10:22 nitrofurantoin Allergy Fever Verified 07/14/18 10:22 [From Macrobid] tramadol Allergy Itching Verified 07/14/18 10:22 Home Meds: Home Meds Aspirin [Halfprin] 81 mg PO DAILY 02/20/13 [History] Folic Acid 1 mg PO DAILY 02/20/13 [History] Methotrexate 22.5 mg SUBCUT ASDIRECTED 02/20/13 [History] amLODIPine [Norvasc] 5 mg PO BEDTIME 02/20/13 [History] Cyclobenzaprine [Flexeril] 20 mg PO BEDTIME PRN 07/21/17 [History] Gabapentin [Neurontin] 300 mg PO TID 07/21/17 [History] Metoprolol Succinate [Toprol XL] 25 mg PO BEDTIME 07/21/17 [History] Omeprazole 20 mg PO DAILY 07/21/17 [History] InFLIXimab [Remicade] 100 mg SQ ASDIRECTED 03/01/18 [History] Docusate Sodium [Stool Softener] 100 mg PO ASDIRECTED 03/16/18 [History] Levothyroxine [Synthroid] 50 mcg PO DAILY 03/16/18 [History] Moxifloxacin [Vigamox 0.5% Ophth Soln] 1 drop EYELF ASDIRECTED 03/16/18 [History ] oxyCODONE HCl/Acetaminophen [Oxycodone-Acetaminophen 5-325] 1 - 2 tab PO Q4HR [History] Past Medical History HEENT History: Reports: Cataract, Impaired Vision Other HEENT History: Glasses Cardiovascular History: Reports: High Cholesterol, Hypertension Other Cardiovascular History: CHOLESTEROL IS IMPROVED PER PATIENT Respiratory History: Reports: Bronchitis, Recurrent Gastrointestinal History: Reports: Chronic Constipation, GERD, Other (See Below) Other Gastrointestinal History: HAS BEEN GETTING CONSTIPATION WILL HAVE COLONOSCOPY Genitourinary History: Reports: None DENTURE CONTOUR WIRE SPECIALIST History: Reports: , Other (See Below) Other DENTURE CONTOUR WIRE SPECIALIST History: ELECTIVE TERMINATION Musculoskeletal History: Reports: Arthritis, RA Other Musculoskeletal History: left ankle pain; DDD CERVICAL Neurological History: Reports: None Psychiatric History: Reports: None Endocrine/Metabolic History: Reports: Hypothyroidism, Obesity/BMI 30+ Hematologic History: Reports: Anemia Immunologic History: Reports: None Oncologic (Cancer) History: Reports: None Dermatologic History: Reports: Other (See Below) Other Dermatologic History: skin to right shoulder area - Infectious Disease History Infectious Disease History: Reports: Chicken Pox, Influenza, MRSA - Past Surgical History Head Surgeries/Procedures: Reports: None HEENT Surgical History: Reports: Cataract Surgery Cardiovascular Surgical History: Reports: None GI Surgical History: Reports: Appendectomy, Colonoscopy, EGD Female Surgical History: Reports: Cystoscopy, Tubal Ligation, Other (See Below) Other Female Surgeries/Procedures: CYSTOSCOPY; VAGINAL D & C Musculoskeletal Surgical History: Reports: Arthroscopic Knee, Shoulder Surgery, Other (See Below) Other Musculoskeletal Surgeries/Procedures:: EMG 2 EXTREMITIES. S/P LEFT ANKLE STABILIZATION. X2 ROTATOR CUFF SURGERY TO LEFT AND X1 TO RIGHT SHOULDER Dermatological Surgical History: Reports: Skin Graft Social & Family History - Family History Family Medical History: Noncontributory - Tobacco Use Smoking Status *Q: Former Smoker Used Tobacco, but Quit: Yes Month/Year Tobacco Last Used: ? - Caffeine Use Caffeine Use: Reports: Soda Other Caffeine Use: 1-2 cans daily - Recreational Drug Use Recreational Drug Use: No - Living Situation & Occupation Living situation: Reports: , with Spouse ED ROS GENERAL - Review of Systems Review Of Systems: ROS reveals no pertinent complaints other than HPI. - Physical Exam Exam: See Below Exam Limited By: No Limitations General Appearance: Alert, WD/WN, Moderate Distress Eye Exam: Bilateral Eye: EOMI, Normal Inspection, PERRL Ears: Normal External Exam, Normal Canal, Hearing Grossly Normal, Normal TMs Nose: Normal Inspection, Normal Mucosa, No Blood Throat/Mouth: Normal Inspection, Normal Lips, Normal Teeth, Normal Gums, Normal Oropharynx, Normal Voice, No Airway Compromise Head Exam: Atraumatic, Normocephalic Neck: Normal Inspection, Supple, Non-Tender, Full Range of Motion Respiratory/Chest: No Respiratory Distress Cardiovascular: Normal Peripheral Pulses, Regular Rate, Rhythm, No Edema, No Gallop, No JVD, No Murmur, No Rub GI/Abdominal: Normal Bowel Sounds, Soft, Non-Tender, No Organomegaly, No Distention, No Abnormal Bruit, No Mass (Female) Exam: Deferred Rectal (Female) Exam: Deferred Neuro Exam (Abbreviated): Alert, Oriented, CN II-XII Intact, Normal Cognition, Normal Gait, Normal Reflexes, No Motor/Sensory Deficits Back Exam: Normal Inspection, Full Range of Motion, NT Extremities: Normal Inspection, No Pedal Edema, Normal Capillary Refill, Other ( The patient has pain in her right shoulder due to skin grafting and chronic pain in her right hip) Psychiatric: Depressed Mood, Tearful Skin Exam: Warm, Dry, Intact, Normal Color, No Rash Course - Vital Signs Last Recorded V/S: Last Vital Signs Temp 36.2 C 07/14/18 10:22 Pulse 66 07/14/18 10:22 Resp 16 07/14/18 10:22 BP 150/85 H 07/14/18 10:22 Pulse Ox 98 07/14/18 10:22 - Orders/Labs/Meds Orders: Active Orders 24 hr Category Date Time Status EKG Documentation Completion [RC] URGENT Care 07/14/18 10:18 Ordered CULTURE URINE [RM] Stat Lab 07/14/18 10:37 Received Labs: Laboratory Tests 07/14/18 07/14/18 07/14/18 Range/Units 10:37 10:37 11:05 WBC 9.8 (5.0-10.0) 10^3/uL RBC 4.70 (4.2-5.4) 10^6/uL Hgb 11.9 L (12.0-16.0) g/dL Hct 38.1 (37.0-47.0) % MCV 81.1 (80-100) fL MCH 25.3 L (27.0-34.0) pg MCHC 31.2 L (33.0-35.0) g/dL Plt Count 344 (150-450) 10^3/uL Neut % (Auto) 65.2 (42.2-75.2) % Lymph % (Auto) 21.9 (20.5-50.1) % [place] % (Auto) 9.1 H (2-8) % Eos % (Auto) 3.5 H (1.0-3.0) % Baso % (Auto) 0.3 (0.0-1.0) % Sodium (135-145) mmol/L Potassium (3.6-5.0) mmol/L Chloride (101-111) mmol/L Carbon Dioxide (21.0-31.0) mmol/L Anion Gap BUN (7-18) mg/dL Creatinine (0.6-1.3) mg/dL Est Cr Clr Drug Dosing mL/min Estimated GFR (MDRD) BUN/Creatinine Ratio Glucose (74-105) mg/dL Calcium (8.4-10.2) mg/dl Total Bilirubin (0.2-1.0) mg/dL AST (10-42) IU/L ALT (10-60) IU/L Alkaline Phosphatase (42-121) IU/L Ammonia (11-35) umol/L Troponin I (0.00-0.02) ng/ml Total Protein (6.7-8.2) g/dl Albumin (3.2-5.5) g/dl Globulin Albumin/Globulin Ratio Urine Color Yellow (YELLOW) Urine Appearance Clear (CLEAR) Urine pH 6.0 (5.0-9.0) Ur Specific [place] 1.015 (1.005-1.030) Urine Protein Negative (NEGATIVE) Urine Glucose (UA) Negative (NEGATIVE) Urine Ketones Negative (NEGATIVE) Urine Occult Blood Negative (NEGATIVE) Urine Nitrite Negative (NEGATIVE) Urine Bilirubin Negative (NEGATIVE) Urine Urobilinogen 0.2 (0.2-1.0) mg/dL Ur Leukocyte Esterase Trace H (NEGATIVE) Urine RBC 0-5 /HPF Urine WBC 5-10 H (0-5/HPF) /HPF Ur Epithelial Cells Few (NOT SEEN) /HPF Urine Bacteria Moderate H (0-FEW/HPF) /HPF Urine Mucus Few H (NOT SEEN) /LPF Urine Opiates Screen Negative (NEGATIVE) Ur Oxycodone Screen Positive H (NEGATIVE) Urine Methadone Screen Negative (NEGATIVE) Ur Barbiturates Screen Negative (NEGATIVE) U Tricyclic Antidepress Negative (NEGATIVE) Ur Phencyclidine Scrn Negative (NEGATIVE) Ur Amphetamine Screen Negative (NEGATIVE) U Methamphetamines Scrn Negative (NEGATIVE) Urine MDMA Screen Negative (NEGATIVE) U Benzodiazepines Scrn Negative (NEGATIVE) Urine Cocaine Screen Negative (NEGATIVE) U Marijuana (THC) Screen Negative (NEGATIVE) Ethyl Alcohol mg/dL 07/14/18 07/14/18 07/14/18 Range/Units 11:05 11:05 11:05 WBC (5.0-10.0) 10^3/uL RBC (4.2-5.4) 10^6/uL Hgb (12.0-16.0) g/dL Hct (37.0-47.0) % MCV (80-100) fL MCH (27.0-34.0) pg MCHC (33.0-35.0) g/dL Plt Count (150-450) 10^3/uL Neut % (Auto) (42.2-75.2) % Lymph % (Auto) (20.5-50.1) % [place] % (Auto) (2-8) % Eos % (Auto) (1.0-3.0) % Baso % (Auto) (0.0-1.0) % Sodium 139 (135-145) mmol/L Potassium 4.1 (3.6-5.0) mmol/L Chloride 107 (101-111) mmol/L Carbon Dioxide 23.0 (21.0-31.0) mmol/L Anion Gap 13.1 BUN 12 (7-18) mg/dL Creatinine 0.6 (0.6-1.3) mg/dL Est Cr Clr Drug Dosing 111.90 mL/min Estimated GFR (MDRD) > 60 BUN/Creatinine Ratio 20.00 Glucose 112 H (74-105) mg/dL Calcium 8.7 (8.4-10.2) mg/dl Total Bilirubin 0.5 (0.2-1.0) mg/dL AST 51 H (10-42) IU/L ALT 37 (10-60) IU/L Alkaline Phosphatase 64 (42-121) IU/L Ammonia 15 (11-35) umol/L Troponin I < 0.02 (0.00-0.02) ng/ml Total Protein 7.2 (6.7-8.2) g/dl Albumin 3.7 (3.2-5.5) g/dl Globulin 3.5 Albumin/Globulin Ratio 1.06 Urine Color (YELLOW) Urine Appearance (CLEAR) Urine pH (5.0-9.0) Ur Specific [place] (1.005-1.030) Urine Protein (NEGATIVE) Urine Glucose (UA) (NEGATIVE) Urine Ketones (NEGATIVE) Urine Occult Blood (NEGATIVE) Urine Nitrite (NEGATIVE) Urine Bilirubin (NEGATIVE) Urine Urobilinogen (0.2-1.0) mg/dL Ur Leukocyte Esterase (NEGATIVE) Urine RBC /HPF Urine WBC (0-5/HPF) /HPF Ur Epithelial Cells (NOT SEEN) /HPF Urine Bacteria (0-FEW/HPF) /HPF Urine Mucus (NOT SEEN) /LPF Urine Opiates Screen (NEGATIVE) Ur Oxycodone Screen (NEGATIVE) Urine Methadone Screen (NEGATIVE) Ur Barbiturates Screen (NEGATIVE) U Tricyclic Antidepress (NEGATIVE) Ur Phencyclidine Scrn (NEGATIVE) Ur Amphetamine Screen (NEGATIVE) U Methamphetamines Scrn (NEGATIVE) Urine MDMA Screen (NEGATIVE) U Benzodiazepines Scrn (NEGATIVE) Urine Cocaine Screen (NEGATIVE) U Marijuana (THC) Screen (NEGATIVE) Ethyl Alcohol < 5 mg/dL Meds: Medications Discontinued Medications Generic Name Dose Route Start Last Admin Trade Name Malissa PRN Reason Stop Dose Admin Sodium Chloride 1,000 mls @ 999 mls/hr 07/14/18 10:31 07/14/18 11:16 Normal Saline IV 07/14/18 11:31 999 mls/hr .BOLUS ONE Administration Ketorolac Tromethamine 30 mg 07/14/18 11:38 07/14/18 11:44 Toradol IVPUSH 07/14/18 11:39 30 mg ONETIME ONE Administration Metoclopramide HCl 10 mg 07/14/18 10:33 07/14/18 11:16 Reglan IVPUSH 07/14/18 10:34 10 mg ONETIME ONE Administration - Re-Assessments/Exams Free Text/Narrative Re-Assessment/Exam: 07/14/18 11:45 The patient reports her headache has somewhat improved, but it continues to be present. The patient reports increased pressure and pain with palpation of her entire head. Departure - Departure Time of Disposition: 12:24 Disposition: Home, Self-Care 01 Condition: Fair Clinical Impression: Migraine - Discharge Information *PRESCRIPTION DRUG MONITORING PROGRAM REVIEWED*: Not Applicable *COPY OF PRESCRIPTION DRUG MONITORING REPORT IN PATIENT BLAKE: Not Applicable Instructions: Migraine Headache, [id number] Forms: ED Department Discharge Care Plan Goals: The patient was advised of the examination, CT and lab results during the visit. The patient was given IV fluids and IV Toradol while in the ED. The patient was encouraged to increase her oral fluid intake over the next 48 hours. The patient should continue to take her medications as prescribed. The patient should follow-up with her primary care facility for continued evaluation and management. If the patient has any additional symptoms or concerns, the patient should either return to the emergency department or visit her primary care facility. - My Orders Last 24 Hours: My Active Orders 07/14/18 10:18 EKG Documentation Completion [RC] URGENT 07/14/18 10:37 CULTURE URINE [RM] Stat - Assessment/Plan Last 24 Hours: My Active Orders 07/14/18 10:18 EKG Documentation Completion [RC] URGENT 07/14/18 10:37 CULTURE URINE [RM] Stat
[2018-07-14 11:35] LABS: ANION GAP 13.1; CHLORIDE,CL 107 mmol/L (101-111); SODIUM,NA 139 mmol/L (135-145)
[2018-07-14] MEDS ORDERED: Ketorolac 30 MG/ML SDV IVPUSH ONE (11:38)
--- NOTE | 2018-07-14 12:05 | CT ---
Clinical history: 52-year-old female with increasing headache over the past 2 months. Rule out intracranial mass, hydrocephalus or other abnormality. No known trauma. Scan technique: Volume acquisition of data unenhanced emergency CT scan of the head and brain obtained with the patient was lying supine on a Siemens multi slice scanner [place], [place]. All data archived in the PACS system for storage, reformatting axial/sagittal/coronal planes and study (bone/brain windows). Interpretation: 1. Physiologic dense midline pineal and symmetric choroid plexus calcifications (extracranial hair "Bun", posteriorly). 2. Symmetric abbott-white matter pattern with underlying mirror-image normal ventricular system. 3. Cerebellum/brainstem unremarkable. Symmetric pneumatization paranasal sinuses. Sclerotic mastoid sinuses. 4. No supratentorial or posterior fossa mass lesion. Normal TMJs. 5. No focal areas of ischemic infarct or signs of encephalomalacia. No intracranial arachnoid cysts. 6. No sign of acute intracerebral/intraventricular/subarachnoid bleed. No extracerebral/intracranial epidural/subdural hematoma. CONCLUSION: Negative exam.
== END 2018-07-14 12:54 | disposition home or self-care (01) ==
LOC: DL.ED 11:03
DX: G43.909 Migraine, unspecified, not intractable, without status migrainosus (principal); E78.00 Pure hypercholesterolemia, unspecified; I10 Essential (primary) hypertension; E03.9 Hypothyroidism, unspecified; Z87.891 Personal history of nicotine dependence; Z88.5 Allergy status to narcotic agent; Z88.8 Allergy status to other drugs, medicaments and biological substances; Z79.899 Other long term (current) drug therapy; Z79.82 Long term (current) use of aspirin
CPT/HCPCS: 36415; 70450; 80053; 80305; 81001; 82140; 84484; 85025; 87086; 93005; 96361; 96374; 96375; 99284; G0480; J1885; J2765; J7030; 87088; 87186

== ENCOUNTER 2019-02-22 00:20 | Emergency (ER) | payer OTHER ==
[2019-02-22 00:35] VITALS: BP 142/75; PULSE 85
[2019-02-22] MEDS ORDERED: HYDROmorphone 1 MG/ML Syringe IVPUSH ONE (00:58)
[2019-02-22] MEDS ORDERED: Metoclopramide 10 MG/2 ML SDV IVPUSH ONE (01:01)
[2019-02-22 01:12] LABS: CHLORIDE,CL 108 mmol/L (101-111); SODIUM,NA 142 mmol/L (135-145)
--- NOTE | 2019-02-22 01:12 | EDM.PDOC ---
ED HPI GENERAL MEDICAL PROBLEM - General Chief Complaint: Abdominal Pain Stated Complaint: SICK Time Seen by Provider: 02/22/19 00:57 Source of Information: Reports: Patient, RN History Limitations: Reports: No Limitations - History of Present Illness INITIAL COMMENTS - FREE TEXT/NARRATIVE: 53-year-old female who presents to the ER with complaints of abdominal pain 6 hours. Patient reports pain began after eating fried potatoes. Pain was gradual from the onset and then became intense. Pain is rated as a 7 on a 10 and describes a shooting. Pain is worst in the right upper quadrant and also generalized. Pain does not radiate.Patient reports nausea and vomiting 3 episodes. She denies any fevers or chills. Patient states she's had this abdominal pain before but it was not related to food. She denies any history of similar fluids. Denies any hematemesis, or diarrhea. She does have a history of chronic constipation and acid reflux. She reports taking ibuprofen prior to ER visit with no relief. Treatments PATIENT SUPPORT TECH: Reports: IV/IO Right Upper Abdomen Pain Score (Numeric/FACES): 7 - Related Data Allergies Allergy/AdvReac Type Severity Reaction Status Date / Time hydrocodone Allergy Itching Verified 02/22/19 00:36 nitrofurantoin Allergy Fever Verified 02/22/19 00:36 [From Macrobid] tramadol Allergy Itching Verified 02/22/19 00:36 Home Meds: Home Meds Aspirin [Halfprin] 81 mg PO DAILY 02/20/13 [History] Folic Acid 1 mg PO DAILY 02/20/13 [History] Methotrexate 22.5 mg SUBCUT ASDIRECTED 02/20/13 [History] amLODIPine [Norvasc] 5 mg PO BEDTIME 02/20/13 [History] Cyclobenzaprine [Flexeril] 20 mg PO BEDTIME PRN 07/21/17 [History] Gabapentin [Neurontin] 300 mg PO TID 07/21/17 [History] Metoprolol Succinate [Toprol XL] 25 mg PO BEDTIME 07/21/17 [History] Omeprazole 20 mg PO DAILY 07/21/17 [History] Docusate Sodium [Stool Softener] 100 mg PO ASDIRECTED 03/16/18 [History] Levothyroxine [Synthroid] 50 mcg PO DAILY 03/16/18 [History] Moxifloxacin [Vigamox 0.5% Ophth Soln] 1 drop EYELF ASDIRECTED 03/16/18 [History ] Past Medical History HEENT History: Reports: Cataract, Impaired Vision Other HEENT History: Glasses Cardiovascular History: Reports: High Cholesterol, Hypertension Other Cardiovascular History: CHOLESTEROL IS IMPROVED PER PATIENT Respiratory History: Reports: Bronchitis, Recurrent Gastrointestinal History: Reports: Chronic Constipation, GERD Other Gastrointestinal History: HAS BEEN GETTING CONSTIPATION WILL HAVE COLONOSCOPY Genitourinary History: Reports: None STONE CIRCULAR SAWYER History: Reports: , Other (See Below) Other STONE CIRCULAR SAWYER History: ELECTIVE TERMINATION Musculoskeletal History: Reports: Arthritis, RA Other Musculoskeletal History: left ankle pain; DDD CERVICAL Neurological History: Reports: None Psychiatric History: Reports: None Endocrine/Metabolic History: Reports: Hypothyroidism, Obesity/BMI 30+ Hematologic History: Reports: Anemia Immunologic History: Reports: None Oncologic (Cancer) History: Reports: None Dermatologic History: Reports: Other (See Below) Other Dermatologic History: skin to right shoulder area - Infectious Disease History Infectious Disease History: Reports: Chicken Pox, Influenza, MRSA - Past Surgical History Head Surgeries/Procedures: Reports: None HEENT Surgical History: Reports: Cataract Surgery Cardiovascular Surgical History: Reports: None GI Surgical History: Reports: Appendectomy, Colonoscopy, EGD Female Surgical History: Reports: Cystoscopy, Tubal Ligation, Other (See Below) Other Female Surgeries/Procedures: CYSTOSCOPY; VAGINAL D & C Musculoskeletal Surgical History: Reports: Arthroscopic Knee, Shoulder Surgery, Other (See Below) Other Musculoskeletal Surgeries/Procedures:: EMG 2 EXTREMITIES. S/P LEFT ANKLE STABILIZATION. X2 ROTATOR CUFF SURGERY TO LEFT AND X1 TO RIGHT SHOULDER Dermatological Surgical History: Reports: Skin Graft Social & Family History - Family History Family Medical History: Noncontributory - Tobacco Use Smoking Status *Q: Never Smoker Second Hand Smoke Exposure: No - Caffeine Use Caffeine Use: Reports: Soda Other Caffeine Use: 1-2 cans daily - Recreational Drug Use Recreational Drug Use: No - Living Situation & Occupation Living situation: Reports: , with Spouse ED ROS GENERAL - Review of Systems Review Of Systems: Comprehensive ROS is negative, except as noted in HPI. ED EXAM, GI/ABD - Physical Exam Exam: See Below Exam Limited By: No Limitations General Appearance: Alert, Moderate Distress Respiratory/Chest: No Respiratory Distress, Lungs Clear, Normal Breath Sounds, No Accessory Muscle Use, Chest Non-Tender Cardiovascular: Normal Peripheral Pulses, Regular Rate, Rhythm, No Edema, No Gallop, No JVD, No Murmur, No Rub GI/Abdominal Exam: Soft, Tender (Generalized) Neurological: Alert, Oriented, CN II-XII Intact, Normal Cognition, Normal Gait, Normal Reflexes, No Motor/Sensory Deficits Skin Exam: Warm, Dry, Intact, Normal Color, No Rash Lymphatic: No Adenopathy Course - Vital Signs Last Recorded V/S: Last Vital Signs Temp 98.3 F 02/22/19 00:34 Pulse 85 02/22/19 00:34 Resp 18 02/22/19 00:34 BP 142/75 H 02/22/19 00:34 Pulse Ox 97 02/22/19 00:34 - Orders/Labs/Meds Labs: Laboratory Tests 02/22/19 02/22/19 02/22/19 Range/Units 00:35 00:35 00:35 WBC 8.8 (5.0-10.0) 10^3/uL RBC 4.42 (4.2-5.4) 10^6/uL Hgb 12.8 (12.0-16.0) g/dL Hct 38.7 (37.0-47.0) % MCV 87.6 D (80-100) fL MCH 29.0 (27.0-34.0) pg MCHC 33.1 (33.0-35.0) g/dL Plt Count 233 (150-450) 10^3/uL Neut % (Auto) 77.8 H (42.2-75.2) % Lymph % (Auto) 12.2 L (20.5-50.1) % Morris % (Auto) 6.3 (2-8) % Eos % (Auto) 3.5 H (1.0-3.0) % Baso % (Auto) 0.2 (0.0-1.0) % Sodium 142 (135-145) mmol/L Potassium 4.0 (3.6-5.0) mmol/L Chloride 108 (101-111) mmol/L Carbon Dioxide 26.0 (21.0-31.0) mmol/L Anion Gap 12.0 BUN 16 (7-18) mg/dL Creatinine 0.7 (0.6-1.3) mg/dL Est Cr Clr Drug Dosing 94.84 mL/min Estimated GFR (MDRD) > 60 BUN/Creatinine Ratio 22.85 Glucose 103 (74-105) mg/dL Lactic Acid 1.3 (0.5-2.2) mmol/L Calcium 8.4 (8.4-10.2) mg/dl Total Bilirubin 0.8 (0.2-1.0) mg/dL AST 87 H (10-42) IU/L ALT 90 H (10-60) IU/L Alkaline Phosphatase 79 (42-121) IU/L C-Reactive Protein (0.0-1.3) mg/dL Total Protein 7.5 (6.7-8.2) g/dl Albumin 4.0 (3.2-5.5) g/dl Globulin 3.5 Albumin/Globulin Ratio 1.14 Amylase 45 (28-100) U/L Lipase 46 (22-51) U/L 02/22/19 Range/Units 00:35 WBC (5.0-10.0) 10^3/uL RBC (4.2-5.4) 10^6/uL Hgb (12.0-16.0) g/dL Hct (37.0-47.0) % MCV (80-100) fL MCH (27.0-34.0) pg MCHC (33.0-35.0) g/dL Plt Count (150-450) 10^3/uL Neut % (Auto) (42.2-75.2) % Lymph % (Auto) (20.5-50.1) % Morris % (Auto) (2-8) % Eos % (Auto) (1.0-3.0) % Baso % (Auto) (0.0-1.0) % Sodium (135-145) mmol/L Potassium (3.6-5.0) mmol/L Chloride (101-111) mmol/L Carbon Dioxide (21.0-31.0) mmol/L Anion Gap BUN (7-18) mg/dL Creatinine (0.6-1.3) mg/dL Est Cr Clr Drug Dosing mL/min Estimated GFR (MDRD) BUN/Creatinine Ratio Glucose (74-105) mg/dL Lactic Acid (0.5-2.2) mmol/L Calcium (8.4-10.2) mg/dl Total Bilirubin (0.2-1.0) mg/dL AST (10-42) IU/L ALT (10-60) IU/L Alkaline Phosphatase (42-121) IU/L C-Reactive Protein 1.0 (0.0-1.3) mg/dL Total Protein (6.7-8.2) g/dl Albumin (3.2-5.5) g/dl Globulin Albumin/Globulin Ratio Amylase (28-100) U/L Lipase (22-51) U/L Meds: Medications Discontinued Medications Generic Name Dose Route Start Last Admin Trade Name Freq PRN Reason Stop Dose Admin Hydromorphone HCl 0.5 mg 02/22/19 00:58 02/22/19 01:11 Dilaudid IVPUSH 02/22/19 00:59 0.5 mg ONETIME ONE Administration Iopamidol 100 ml 02/22/19 01:27 02/22/19 02:04 Isovue-300 (61%) IVPUSH 02/22/19 01:28 100 ml ONETIME ONE Administration Metoclopramide HCl 10 mg 02/22/19 01:01 02/22/19 01:11 Reglan IVPUSH 02/22/19 01:02 10 mg ONETIME ONE Administration - Radiology Interpretation Free Text/Narrative:: PROCEDURE INFORMATION: Exam: CT Abdomen And Pelvis With Contrast Exam date and time: 02/22/2019 1:49 AM Age: 53 years old Clinical indication: Abdominal pain; Localized; Upper; Prior surgery; Surgery date: 6+ months; Surgery type: Appendectomy; Additional info: Cholecystitis? TECHNIQUE: Imaging protocol: Computed tomography of the abdomen and pelvis with intravenous contrast. Radiation optimization: All CT scans at this facility use at least one of these dose optimization techniques: automated exposure control; mA and/or kV adjustment per patient size (includes targeted exams where dose is matched to clinical indication); or iterative reconstruction. Contrast material: ISOVUE 300; Contrast volume: 100 ml; Contrast route: LAC; COMPARISON: CT Abdomen Pelvis wo Cont 09/26/2018 8:35 PM FINDINGS: Liver: There is hypoattenuation of the hepatic parenchyma compatible with fatty infiltration. Gallbladder and bile ducts: Normal. No calcified stones. No ductal dilation. Pancreas: Normal. No ductal dilation. Spleen: Normal. No splenomegaly. Adrenals: Normal. No mass. Kidneys and ureters: Normal. No hydronephrosis. Stomach and bowel: Unremarkable. No obstruction. No mucosal thickening. Appendix: Status post appendectomy. Intraperitoneal space: Unremarkable. No free air. No significant fluid collection. Vasculature: Unremarkable. No abdominal aortic aneurysm. Lymph nodes: Unremarkable. No enlarged lymph nodes. Bladder: Unremarkable as visualized. Reproductive: Calcifications are seen within the uterus compatible with calcified uterine fibroids. Bones/joints: Unremarkable. No acute fracture. Soft tissues: Unremarkable. IMPRESSION: 1. There are no acute abdominal findings. 2. Fatty infiltration of the liver 3. Calcified uterine fibroids Thank you for allowing us to participate in the care of your patient. Dictated and Authenticated by: Spencer Corrigan MD 02/22/2019 3:24 AM Central Time ([place] & [place]) - Re-Assessments/Exams Free Text/Narrative Re-Assessment/Exam: 53 year old female who presents to the ER with complaints of generalized abdominal pain with nausea that was relieved with Reglan. Pain was treated with 0.5 mg of Dilaudid. Pain and nausea resolved. Labs and CT abdomen done and results discussed with patient. She was encouraged to avoid fatty and fried foods. Instructions included in the AVS. Departure - Departure Time of Disposition: 00:34 Disposition: Home, Self-Care 01 Condition: Fair Clinical Impression: Fatty liver Abdominal pain Qualifiers: Abdominal location: generalized Qualified Code(s): R10.84 - Generalized abdominal pain - Discharge Information Instructions: Fatty Liver Referrals: Molina Dowling MD [Primary Care Provider] - Forms: ED Department Discharge Additional Instructions: Follow-up with PCP at clinic. Sepsis Event Note - Evaluation Sepsis Screening Result: No Definite Risk - Focused Exam Date Exam was Performed: 02/23/19 Time Exam was Performed: 03:40
[2019-02-22] MEDS ORDERED: Iopamidol 612 MG/ML 100 ML Bottle IVPUSH ONE (01:27)
== END 2019-02-22 03:37 | disposition home or self-care (01) ==
LOC: DL.ED 00:20
DX: K76.0 Fatty (change of) liver, not elsewhere classified (principal); R10.84 Generalized abdominal pain; I10 Essential (primary) hypertension; K21.9 Gastro-esophageal reflux disease without esophagitis; E03.9 Hypothyroidism, unspecified; E66.9 Obesity, unspecified; Z88.5 Allergy status to narcotic agent; Z88.1 Allergy status to other antibiotic agents; Z79.82 Long term (current) use of aspirin; Z79.899 Other long term (current) drug therapy; Z79.890 Hormone replacement therapy; Z68.38 Body mass index [BMI] 38.0-38.9, adult
CPT/HCPCS: 36415; 74177; 80053; 82150; 83605; 83690; 85025; 86140; 96374; 96375; 99283; 99284; J1170; J2765; Q9967

== ENCOUNTER 2019-03-08 22:12 | Emergency (ER) | payer OTHER ==
[2019-03-08 22:21] VITALS: BP 148/76; PULSE 90
[2019-03-08 22:45] LABS: ANION GAP 12.5; CHLORIDE,CL 108 mmol/L (101-111); SODIUM,NA 141 mmol/L (135-145)
[2019-03-08] MEDS ORDERED: Ondansetron 4 MG/2 ML SDV IVPUSH ONE (22:53)
--- NOTE | 2019-03-08 22:58 | EDM.PDOC ---
ED HPI GENERAL MEDICAL PROBLEM - General Chief Complaint: Abdominal Pain Stated Complaint: STOMACH PAIN Time Seen by Provider: 03/08/19 22:45 Source of Information: Reports: Patient History Limitations: Reports: No Limitations - History of Present Illness INITIAL COMMENTS - FREE TEXT/NARRATIVE: This 53 yo female patient reports to the ED with right upper quadrant abdominal pain. The patient reports she was seen in the ED on [address] for similar symptoms. The patient reports she did follow-up in the clinic yesterday and had a ultrasound today. The patient reports her provider was going to order a dye study to be done in the near future to check the functioning of the gallbladder. The patient reports she had chicken broth and jello for lunch and jello this evening. The patient reports she took Zofran at 1700 today and took Tylenol at about 2000 tonight, but continues to have increased abdominal pain. Onset: Today Duration: Constant, Getting Worse Location: Reports: Abdomen (RUQ) Quality: Reports: Ache, Sharp, Stabbing Severity: Moderate Improves with: Reports: None Worsens with: Reports: None Context: Reports: Other Associated Symptoms: Reports: No Other Symptoms Treatments SUPERVISOR CHLORINE LIQUEFACTION: Reports: Acetaminophen, Other Medication(s) (Zofran) Right Upper Abdomen Pain Score (Numeric/FACES): 7 - Related Data Allergies Allergy/AdvReac Type Severity Reaction Status Date / Time hydrocodone Allergy Itching Verified 03/08/19 22:21 nitrofurantoin Allergy Fever Verified 03/08/19 22:21 [From Macrobid] tramadol Allergy Itching Verified 03/08/19 22:21 Home Meds: Home Meds Aspirin [Halfprin] 81 mg PO DAILY 02/20/13 [History] Folic Acid 1 mg PO DAILY 02/20/13 [History] Methotrexate 22.5 mg SUBCUT ASDIRECTED 02/20/13 [History] amLODIPine [Norvasc] 5 mg PO BEDTIME 02/20/13 [History] Cyclobenzaprine [Flexeril] 20 mg PO BEDTIME PRN 07/21/17 [History] Gabapentin [Neurontin] 300 mg PO TID 07/21/17 [History] Metoprolol Succinate [Toprol XL] 25 mg PO BEDTIME 07/21/17 [History] Omeprazole 20 mg PO DAILY 07/21/17 [History] Docusate Sodium [Stool Softener] 100 mg PO ASDIRECTED 03/16/18 [History] Levothyroxine [Synthroid] 50 mcg PO DAILY 03/16/18 [History] Moxifloxacin [Vigamox 0.5% Ophth Soln] 1 drop EYELF ASDIRECTED 03/16/18 [History ] Past Medical History HEENT History: Reports: Cataract, Impaired Vision Other HEENT History: Glasses Cardiovascular History: Reports: High Cholesterol, Hypertension Other Cardiovascular History: CHOLESTEROL IS IMPROVED PER PATIENT Respiratory History: Reports: Bronchitis, Recurrent Gastrointestinal History: Reports: Chronic Constipation, GERD Other Gastrointestinal History: HAS BEEN GETTING CONSTIPATION WILL HAVE COLONOSCOPY Genitourinary History: Reports: None ACUTE CARE ASSISTANT History: Reports: , Other (See Below) Other ACUTE CARE ASSISTANT History: ELECTIVE TERMINATION Musculoskeletal History: Reports: Arthritis, RA Other Musculoskeletal History: left ankle pain; DDD CERVICAL Neurological History: Reports: None Psychiatric History: Reports: None Endocrine/Metabolic History: Reports: Hypothyroidism, Obesity/BMI 30+ Hematologic History: Reports: Anemia Immunologic History: Reports: None Oncologic (Cancer) History: Reports: None Dermatologic History: Reports: Other (See Below) Other Dermatologic History: skin to right shoulder area - Infectious Disease History Infectious Disease History: Reports: Chicken Pox, Influenza, MRSA - Past Surgical History Head Surgeries/Procedures: Reports: None HEENT Surgical History: Reports: Cataract Surgery Cardiovascular Surgical History: Reports: None GI Surgical History: Reports: Appendectomy, Colonoscopy, EGD Female Surgical History: Reports: Cystoscopy, Tubal Ligation, Other (See Below) Other Female Surgeries/Procedures: CYSTOSCOPY; VAGINAL D & C Musculoskeletal Surgical History: Reports: Arthroscopic Knee, Shoulder Surgery, Other (See Below) Other Musculoskeletal Surgeries/Procedures:: EMG 2 EXTREMITIES. S/P LEFT ANKLE STABILIZATION. X2 ROTATOR CUFF SURGERY TO LEFT AND X1 TO RIGHT SHOULDER Dermatological Surgical History: Reports: Skin Graft Social & Family History - Family History Family Medical History: Noncontributory - Tobacco Use Smoking Status *Q: Never Smoker - Caffeine Use Caffeine Use: Reports: None Other Caffeine Use: 1-2 cans daily - Recreational Drug Use Recreational Drug Use: No - Living Situation & Occupation Living situation: Reports: , with Spouse ED ROS GENERAL - Review of Systems Review Of Systems: Comprehensive ROS is negative, except as noted in HPI. ED EXAM, GI/ABD - Physical Exam Exam: See Below Exam Limited By: No Limitations General Appearance: Alert, WD/WN, Moderate Distress Eyes: Bilateral: Normal Appearance, EOMI Ears: Normal External Exam, Normal Canal, Hearing Grossly Normal, Normal TMs Nose: Normal Inspection, Normal Mucosa, No Blood Throat/Mouth: Normal Inspection, Normal Lips, Normal Teeth, Normal Gums, Normal Oropharynx, Normal Voice, No Airway Compromise Head: Atraumatic, Normocephalic Neck: Normal Inspection, Supple, Non-Tender, Full Range of Motion Respiratory/Chest: No Respiratory Distress, Lungs Clear, Normal Breath Sounds, No Accessory Muscle Use, Chest Non-Tender Cardiovascular: Normal Peripheral Pulses, Regular Rate, Rhythm, No Edema, No Gallop, No JVD, No Murmur, No Rub GI/Abdominal Exam: Guarding, Tender (RUQ) (Female) Exam: Deferred Rectal (Female) Exam: Deferred Back Exam: Normal Inspection, Full Range of Motion, NT Extremities: Normal Inspection, Normal Range of Motion, Non-Tender, Normal Capillary Refill, No Pedal Edema Neurological: Alert, Oriented, CN II-XII Intact, Normal Cognition, Normal Gait, Normal Reflexes, No Motor/Sensory Deficits Psychiatric: Normal Affect, Normal Mood Skin Exam: Warm, Dry, Intact, Normal Color, No Rash Lymphatic: No Adenopathy Course - Vital Signs Last Recorded V/S: Last Vital Signs Temp 36.4 C 03/08/19 22:17 Pulse 90 03/08/19 22:17 Resp 20 03/08/19 22:17 BP 148/76 H 03/08/19 22:17 Pulse Ox 97 03/08/19 22:17 - Orders/Labs/Meds Orders: Active Orders 24 hr Category Date Time Status CULTURE BLOOD [BC] Stat Lab 03/08/19 22:26 Received CULTURE URINE [RM] Urgent Lab 03/08/19 22:55 Received Labs: Laboratory Tests 03/08/19 03/08/19 03/08/19 Range/Units 22:26 22:26 22:26 WBC (5.0-10.0) 10^3/uL RBC (4.2-5.4) 10^6/uL Hgb (12.0-16.0) g/dL Hct (37.0-47.0) % MCV (80-100) fL MCH (27.0-34.0) pg MCHC (33.0-35.0) g/dL Plt Count (150-450) 10^3/uL Neut % (Auto) (42.2-75.2) % Lymph % (Auto) (20.5-50.1) % Wells % (Auto) (2-8) % Eos % (Auto) (1.0-3.0) % Baso % (Auto) (0.0-1.0) % Sodium (135-145) mmol/L Potassium (3.6-5.0) mmol/L Chloride (101-111) mmol/L Carbon Dioxide (21.0-31.0) mmol/L Anion Gap BUN (7-18) mg/dL Creatinine (0.6-1.3) mg/dL Est Cr Clr Drug Dosing mL/min Estimated GFR (MDRD) BUN/Creatinine Ratio Glucose (74-105) mg/dL Lactic Acid 1.0 (0.5-2.0) mmol/L Calcium (8.4-10.2) mg/dl Total Bilirubin (0.2-1.0) mg/dL AST (10-42) IU/L ALT (10-60) IU/L Alkaline Phosphatase (42-121) IU/L Ammonia 47 H (11-35) umol/L Total Protein (6.7-8.2) g/dl Albumin (3.2-5.5) g/dl Globulin Albumin/Globulin Ratio Amylase 43 (28-100) U/L Lipase 45 (22-51) U/L Urine Color (YELLOW) Urine Appearance (CLEAR) Urine pH (5.0-9.0) Ur Specific Eldridge (1.005-1.030) Urine Protein (NEGATIVE) Urine Glucose (UA) (NEGATIVE) Urine Ketones (NEGATIVE) Urine Occult Blood (NEGATIVE) Urine Nitrite (NEGATIVE) Urine Bilirubin (NEGATIVE) Urine Urobilinogen (0.2-1.0) mg/dL Ur Leukocyte Esterase (NEGATIVE) Urine RBC /HPF Urine WBC (0-5/HPF) /HPF Ur Epithelial Cells (NOT SEEN) /HPF Amorphous Sediment (NOT SEEN) /HPF Urine Bacteria (0-FEW/HPF) /HPF Urine Mucus (NOT SEEN) /LPF 03/08/19 03/08/19 03/08/19 Range/Units 22:26 22:26 22:55 WBC 7.6 (5.0-10.0) 10^3/uL RBC 4.37 (4.2-5.4) 10^6/uL Hgb 12.7 (12.0-16.0) g/dL Hct 37.4 (37.0-47.0) % MCV 85.6 (80-100) fL MCH 29.1 (27.0-34.0) pg MCHC 34.0 (33.0-35.0) g/dL Plt Count 267 (150-450) 10^3/uL Neut % (Auto) 61.7 (42.2-75.2) % Lymph % (Auto) 21.0 (20.5-50.1) % Wells % (Auto) 12.1 H (2-8) % Eos % (Auto) 4.9 H (1.0-3.0) % Baso % (Auto) 0.3 (0.0-1.0) % Sodium 141 (135-145) mmol/L Potassium 3.5 L (3.6-5.0) mmol/L Chloride 108 (101-111) mmol/L Carbon Dioxide 24.0 (21.0-31.0) mmol/L Anion Gap 12.5 BUN 9 (7-18) mg/dL Creatinine 0.6 (0.6-1.3) mg/dL Est Cr Clr Drug Dosing 110.64 mL/min Estimated GFR (MDRD) > 60 BUN/Creatinine Ratio 15.00 Glucose 89 (74-105) mg/dL Lactic Acid (0.5-2.0) mmol/L Calcium 9.2 (8.4-10.2) mg/dl Total Bilirubin 0.6 (0.2-1.0) mg/dL AST 47 H (10-42) IU/L ALT 53 (10-60) IU/L Alkaline Phosphatase 70 (42-121) IU/L Ammonia (11-35) umol/L Total Protein 7.8 (6.7-8.2) g/dl Albumin 4.1 (3.2-5.5) g/dl Globulin 3.7 Albumin/Globulin Ratio 1.11 Amylase (28-100) U/L Lipase (22-51) U/L Urine Color Light yellow (YELLOW) Urine Appearance Clear (CLEAR) Urine pH 6.5 (5.0-9.0) Ur Specific Eldridge 1.010 (1.005-1.030) Urine Protein Negative (NEGATIVE) Urine Glucose (UA) Negative (NEGATIVE) Urine Ketones Negative (NEGATIVE) Urine Occult Blood Negative (NEGATIVE) Urine Nitrite Negative (NEGATIVE) Urine Bilirubin Negative (NEGATIVE) Urine Urobilinogen 0.2 (0.2-1.0) mg/dL Ur Leukocyte Esterase Small H (NEGATIVE) Urine RBC 0-5 /HPF Urine WBC 5-10 H (0-5/HPF) /HPF Ur Epithelial Cells Rare (NOT SEEN) /HPF Amorphous Sediment Rare (NOT SEEN) /HPF Urine Bacteria Rare (0-FEW/HPF) /HPF Urine Mucus Rare (NOT SEEN) /LPF Meds: Medications Discontinued Medications Generic Name Dose Route Start Last Admin Trade Name Freq PRN Reason Stop Dose Admin Hydromorphone HCl 0.5 mg 03/08/19 23:39 Dilaudid IVPUSH 03/08/19 23:40 ONETIME ONE Ondansetron HCl 4 mg 03/08/19 22:53 03/08/19 23:00 Zofran IVPUSH 03/08/19 22:54 4 mg ONETIME ONE Administration - Re-Assessments/Exams Free Text/Narrative Re-Assessment/Exam: 03/08/19 23:40 The patient was advised of the lab result. The patient reports her nausea seems to be better, but she continues to have abdominal pain. The patient does want to have the remainder of the testing done through the clinic as she has planned. The patient was given an IV dose of Dilaudid for her abdominal pain while in the ED. 03/08/19 23:55 The patient reports the medication given for pain was helping and she is ready to go home. The patient agrees to follow-up with her primary care facility for continued evaluation and management. Departure - Departure Time of Disposition: 23:55 Disposition: Home, Self-Care 01 Condition: Fair Clinical Impression: Abdominal pain Qualifiers: Abdominal location: generalized Qualified Code(s): R10.84 - Generalized abdominal pain - Discharge Information *PRESCRIPTION DRUG MONITORING PROGRAM REVIEWED*: Yes *COPY OF PRESCRIPTION DRUG MONITORING REPORT IN PATIENT BLAKE: Yes Instructions: Abdominal Pain, Adult, [id number] Forms: ED Department Discharge Care Plan Goals: The patient was advised of the examination and lab results during the visit. The patient was given IV Zofran and IV Dilaudid while in the ED. The patient was encouraged to follow-up with her primary care facility for continued evaluation and further treatment. If the patient has any additional symptoms or concerns, the patient should either return to the emergency department or visit her primary care facility. Sepsis Event Note - Evaluation Sepsis Screening Result: No Definite Risk - Focused Exam Vital Signs: Vital Signs Temp Pulse Resp BP Pulse Ox 03/08/19 22:17 36.4 C 90 20 148/76 H 97 Date Exam was Performed: 03/08/19 Time Exam was Performed: 23:40 - My Orders Last 24 Hours: My Active Orders 03/08/19 22:26 CULTURE BLOOD [BC] Stat 03/08/19 22:55 CULTURE URINE [RM] Urgent - Assessment/Plan Last 24 Hours: My Active Orders 03/08/19 22:26 CULTURE BLOOD [BC] Stat 03/08/19 22:55 CULTURE URINE [RM] Urgent
[2019-03-08] MEDS ORDERED: HYDROmorphone 1 MG/ML Syringe IVPUSH ONE (23:39)
== END 2019-03-09 | disposition home or self-care (01) ==
LOC: DL.ED 22:12
DX: R10.84 Generalized abdominal pain (principal); I10 Essential (primary) hypertension; K21.9 Gastro-esophageal reflux disease without esophagitis; E03.9 Hypothyroidism, unspecified; E66.9 Obesity, unspecified; Z88.5 Allergy status to narcotic agent; Z88.1 Allergy status to other antibiotic agents; Z79.82 Long term (current) use of aspirin; Z79.899 Other long term (current) drug therapy; Z79.890 Hormone replacement therapy; Z68.37 Body mass index [BMI] 37.0-37.9, adult
CPT/HCPCS: 36415; 80053; 81001; 82140; 82150; 83605; 83690; 85025; 87040; 87086; 99283; J1170; J2405; 96374; 96375; 99284-25

== ENCOUNTER 2019-03-09 17:06 | Emergency (ER) | payer OTHER ==
[2019-03-09 17:10] VITALS: BP 125/58; PULSE 67
[2019-03-09 17:52] LABS: ANION GAP 11.4; CHLORIDE,CL 106 mmol/L (101-111); SODIUM,NA 140 mmol/L (135-145)
[2019-03-09] MEDS ORDERED: Butorphanol 2 MG/ML SDV IM ONE (18:15)
--- NOTE | 2019-03-09 18:21 | EDM.PDOC ---
ED HPI GENERAL MEDICAL PROBLEM - General Chief Complaint: Abdominal Pain Stated Complaint: UNKNOWN Time Seen by Provider: 03/09/19 18:16 Source of Information: Reports: Patient, Old Records History Limitations: Reports: No Limitations - History of Present Illness INITIAL COMMENTS - FREE TEXT/NARRATIVE: been having this pain since August. been in monthly with mostly normal labs. was at [facility] today and was told to come here since GB US showed no stones and HIDA scan won't be till . been eating fatless foods past few months and still waiting for surgical consult. Right Upper Abdomen Pain Score (Numeric/FACES): 3 - Related Data Allergies Allergy/AdvReac Type Severity Reaction Status Date / Time hydrocodone Allergy Itching Verified 03/09/19 17:14 nitrofurantoin Allergy Fever Verified 03/09/19 17:14 [From Macrobid] tramadol Allergy Itching Verified 03/09/19 17:14 Home Meds: Home Meds Aspirin [Halfprin] 81 mg PO DAILY 02/20/13 [History] Folic Acid 1 mg PO DAILY 02/20/13 [History] Methotrexate 22.5 mg SUBCUT ASDIRECTED 02/20/13 [History] amLODIPine [Norvasc] 5 mg PO BEDTIME 02/20/13 [History] Cyclobenzaprine [Flexeril] 20 mg PO BEDTIME PRN 07/21/17 [History] Gabapentin [Neurontin] 300 mg PO TID 07/21/17 [History] Metoprolol Succinate [Toprol XL] 25 mg PO BEDTIME 07/21/17 [History] Omeprazole 20 mg PO DAILY 07/21/17 [History] Docusate Sodium [Stool Softener] 100 mg PO ASDIRECTED 03/16/18 [History] Levothyroxine [Synthroid] 50 mcg PO DAILY 03/16/18 [History] Moxifloxacin [Vigamox 0.5% Ophth Soln] 1 drop EYELF ASDIRECTED 03/16/18 [History ] Past Medical History HEENT History: Reports: Cataract, Impaired Vision Other HEENT History: Glasses Cardiovascular History: Reports: High Cholesterol, Hypertension Other Cardiovascular History: CHOLESTEROL IS IMPROVED PER PATIENT Respiratory History: Reports: Bronchitis, Recurrent Gastrointestinal History: Reports: Chronic Constipation, GERD Other Gastrointestinal History: HAS BEEN GETTING CONSTIPATION WILL HAVE COLONOSCOPY Genitourinary History: Reports: None MANAGER MECHANICAL History: Reports: , Other (See Below) Other MANAGER MECHANICAL History: ELECTIVE TERMINATION Musculoskeletal History: Reports: Arthritis, RA Other Musculoskeletal History: left ankle pain; DDD CERVICAL Neurological History: Reports: None Psychiatric History: Reports: None Endocrine/Metabolic History: Reports: Hypothyroidism, Obesity/BMI 30+ Hematologic History: Reports: Anemia Immunologic History: Reports: None Oncologic (Cancer) History: Reports: None Dermatologic History: Reports: Other (See Below) Other Dermatologic History: skin to right shoulder area - Infectious Disease History Infectious Disease History: Reports: Chicken Pox, Influenza, MRSA - Past Surgical History Head Surgeries/Procedures: Reports: None HEENT Surgical History: Reports: Cataract Surgery Cardiovascular Surgical History: Reports: None GI Surgical History: Reports: Appendectomy, Colonoscopy, EGD Female Surgical History: Reports: Cystoscopy, Tubal Ligation, Other (See Below) Other Female Surgeries/Procedures: CYSTOSCOPY; VAGINAL D & C Musculoskeletal Surgical History: Reports: Arthroscopic Knee, Shoulder Surgery, Other (See Below) Other Musculoskeletal Surgeries/Procedures:: EMG 2 EXTREMITIES. S/P LEFT ANKLE STABILIZATION. X2 ROTATOR CUFF SURGERY TO LEFT AND X1 TO RIGHT SHOULDER Dermatological Surgical History: Reports: Skin Graft Social & Family History - Family History Family Medical History: Noncontributory - Tobacco Use Smoking Status *Q: Never Smoker Second Hand Smoke Exposure: No - Caffeine Use Caffeine Use: Reports: Soda Other Caffeine Use: 1-2 cans daily - Recreational Drug Use Recreational Drug Use: No - Living Situation & Occupation Living situation: Reports: , with Spouse ED ROS GENERAL - Review of Systems Review Of Systems: Comprehensive ROS is negative, except as noted in HPI. ED EXAM, GI/ABD - Physical Exam Exam: See Below Exam Limited By: No Limitations General Appearance: Alert, WD/WN, Mild Distress, Moderate Distress, Other ( crying). No: Active Emesis Ears: Hearing Grossly Normal Throat/Mouth: Normal Voice, No Airway Compromise Head: Atraumatic Neck: Non-Tender, Full Range of Motion Respiratory/Chest: No Respiratory Distress Cardiovascular: Regular Rate, Rhythm GI/Abdominal Exam: Tender, Other (upper abd). No: Distended, Guarding, Rigid, Rebound Neurological: Alert, Oriented, Normal Cognition, Normal Gait, No Motor/Sensory Deficits Psychiatric: Flat Affect, Tearful Skin Exam: Warm, Dry, Normal Color Lymphatic: No Adenopathy Course - Vital Signs Last Recorded V/S: Last Vital Signs Temp 36.3 C 03/09/19 17:09 Pulse 67 03/09/19 17:09 Resp 18 03/09/19 17:09 BP 125/58 L 03/09/19 17:09 Pulse Ox 92 L 03/09/19 17:09 - Orders/Labs/Meds Labs: Laboratory Tests 03/09/19 03/09/19 Range/Units 17:25 17:25 WBC 7.1 (5.0-10.0) 10^3/uL RBC 4.24 (4.2-5.4) 10^6/uL Hgb 12.2 (12.0-16.0) g/dL Hct 36.8 L (37.0-47.0) % MCV 86.8 (80-100) fL MCH 28.8 (27.0-34.0) pg MCHC 33.2 (33.0-35.0) g/dL Plt Count 275 (150-450) 10^3/uL Neut % (Auto) 56.1 (42.2-75.2) % Lymph % (Auto) 28.4 (20.5-50.1) % Wake % (Auto) 10.4 H (2-8) % Eos % (Auto) 4.8 H (1.0-3.0) % Baso % (Auto) 0.3 (0.0-1.0) % Sodium 140 (135-145) mmol/L Potassium 3.4 L (3.6-5.0) mmol/L Chloride 106 (101-111) mmol/L Carbon Dioxide 26.0 (21.0-31.0) mmol/L Anion Gap 11.4 BUN 12 (7-18) mg/dL Creatinine 0.7 (0.6-1.3) mg/dL Est Cr Clr Drug Dosing 94.84 mL/min Estimated GFR (MDRD) > 60 BUN/Creatinine Ratio 17.14 Glucose 92 (74-105) mg/dL Calcium 8.9 (8.4-10.2) mg/dl Total Bilirubin 0.7 (0.2-1.0) mg/dL AST 64 H (10-42) IU/L ALT 61 H (10-60) IU/L Alkaline Phosphatase 62 (42-121) IU/L Total Protein 7.5 (6.7-8.2) g/dl Albumin 4.0 (3.2-5.5) g/dl Globulin 3.5 Albumin/Globulin Ratio 1.14 Amylase 41 (28-100) U/L Lipase 42 (22-51) U/L Meds: Medications Discontinued Medications Generic Name Dose Route Start Last Admin Trade Name Freq PRN Reason Stop Dose Admin Butorphanol Tartrate 2 mg 03/09/19 18:15 Stadol IM 03/09/19 18:16 ONETIME ONE - Re-Assessments/Exams Free Text/Narrative Re-Assessment/Exam: 03/09/19 18:19 results discussed with pt. Departure - Departure Time of Disposition: 18:20 Disposition: Home, Self-Care 01 Condition: Good Clinical Impression: Fatty liver, Elevated LFTs Abdominal pain Qualifiers: Abdominal location: generalized Qualified Code(s): R10.84 - Generalized abdominal pain - Discharge Information Additional Instructions: 1) return Thursday to see surgeon rx givne; bentyl 10mg bid x 12 Sepsis Event Note - Evaluation Sepsis Screening Result: No Definite Risk - Focused Exam Vital Signs: Vital Signs Temp Pulse Resp BP Pulse Ox 03/09/19 17:09 36.3 C 67 18 125/58 L 92 L Date Exam was Performed: 03/09/19 Time Exam was Performed: 18:16
== END 2019-03-09 18:28 | disposition home or self-care (01) ==
LOC: DL.ED 17:06
DX: K76.0 Fatty (change of) liver, not elsewhere classified (principal); R94.5 Abnormal results of liver function studies; R10.84 Generalized abdominal pain; Z88.5 Allergy status to narcotic agent; Z88.1 Allergy status to other antibiotic agents; Z88.6 Allergy status to analgesic agent; Z79.82 Long term (current) use of aspirin; I10 Essential (primary) hypertension; E66.9 Obesity, unspecified; E03.9 Hypothyroidism, unspecified; Z79.890 Hormone replacement therapy; Z79.899 Other long term (current) drug therapy; K21.9 Gastro-esophageal reflux disease without esophagitis
CPT/HCPCS: 36415; 80053; 82150; 83690; 85025; 96372; 99284; J0595

== ENCOUNTER 2019-04-14 06:22 | Day surgery (SDC) | payer OTHER ==
[~2019-04-14 06:22] MED LIST changes: +Benzocaine 20% Topical Spray UD MUCMEM ONE; +Dextrose 5%-0.45% NaCl 1,000 ML IV SCH; -Metoclopramide 10 MG/2 ML SDV IVPUSH ONE; +Midazolam 1 MG/ML 2 ML SDV ONE; -Sodium Chloride 0.9% 1,000 ML IV ONE; +fentaNYL 100 MCG/2 ML SDV ONE
[2019-04-14] MEDS ORDERED: fentaNYL 100 MCG/2 ML SDV IV ONE ×4 (06:23→08:07)
[2019-04-14] MEDS ORDERED: Midazolam 1 MG/ML 2 ML SDV IV ONE ×5 (06:23→07:56)
[2019-04-14] MEDS ORDERED: Benzocaine 20% Topical Spray UD MUCMEM ONE (07:53)
--- NOTE | 2019-04-14 08:40 | OR ---
DATE: 04/14/2019 PREOPERATIVE DIAGNOSIS: Abdominal pain. POSTOPERATIVE DIAGNOSIS: Abdominal pain. PROCEDURE: Total colonoscopy. ANESTHESIA: Conscious sedation. SPECIMEN: None. OPERATIVE FINDINGS: Normal colonoscopy with only a few scattered left-sided diverticula. These should be of no consequence. INDICATIONS FOR PROCEDURE: This 53-year-old female presented to the Surgery Clinic for evaluation of abdominal pain, mostly in the right upper quadrant. She has an ultrasound and HIDA scan that were negative as their thoughts were related to gallbladder disease. However, her symptoms do not appear to be that. She has not had a colonoscopy for over 10 years. PROCEDURE IN DETAIL: After adequate preparation, a colonoscope was inserted into the rectum. This was easily passed all the way to the cecum. Confirmation of the cecum was made by visualization of the ileocecal valve and the appendiceal opening. The patient has had appendectomy, but I could still see the appendiceal ostomy. The bowel prep was very good. On withdrawal of the scope, the only abnormalities noted were 2 or 3 visible diverticula in the left colon. These were very small and would be of no consequence. Anal and rectal examinations are normal by scope. Air was suctioned from the colon and the scope removed. [facility] /[id number]
--- NOTE | 2019-04-14 10:05 | OR ---
DATE: 04/14/2019 PREOPERATIVE DIAGNOSES: Gastroesophageal reflux disease and epigastric right upper quadrant abdominal pain. POSTOPERATIVE DIAGNOSES: Gastroesophageal reflux disease and epigastric right upper quadrant abdominal pain. PROCEDURE: Esophagogastroduodenoscopy. ANESTHESIA: Conscious sedation with IV Versed and fentanyl. SPECIMEN: None. OPERATIVE FINDINGS: Normal esophagogastroduodenoscopy. RECOMMENDATION: Followup as needed. INDICATION FOR PROCEDURE: This 53-year-old female had presented to my clinic with complaints of epigastric and right upper quadrant pain. She has some reflux symptoms. Initially, her clinic felt this was related to gallbladder disease, but her ultrasound and HIDA ejection fraction are normal. PROCEDURE IN DETAIL: After adequate preparation, the gastroscope was inserted into the esophagus. This was passed down to the EG junction. Examination shows no evidence of reflux esophagitis or hiatal hernia. The scope was advanced into the stomach. Both forward and retroflexed views were done and are normal. The scope was advanced through the pylorus and the first and second part of the duodenum were also normal. Air was suctioned from the stomach, and the scope removed. [facility] /[id number] CC: Molina Dowling MD [facility] [address] [place] [address]
[2019-04-14 10:42] VITALS: BP 130/77; PULSE 59
== END 2019-04-14 10:27 | disposition home or self-care (01) ==
LOC: DL.ENDO 06:22
PROVIDERS: ATTEND Surgery
DX: K21.9 Gastro-esophageal reflux disease without esophagitis (principal); K57.30 Diverticulosis of large intestine without perforation or abscess without bleeding; R10.11 Right upper quadrant pain; I10 Essential (primary) hypertension; Z90.49 Acquired absence of other specified parts of digestive tract; Z88.1 Allergy status to other antibiotic agents; Z79.899 Other long term (current) drug therapy
CPT/HCPCS: 43235; 45378; A9270; J2250; J3010; J7042; G0121

== ENCOUNTER 2020-01-17 21:05 | Observation (INO) | payer OTHER ==
[2020-01-17] MEDS ORDERED: Aspirin 81 MG Tab.Chew PO ONE (21:10)
--- NOTE | 2020-01-17 21:10 | EDM.PDOC ---
ED HPI GENERAL MEDICAL PROBLEM - General Stated Complaint: LEFT SHOULDER NUMB, CHEST PAINS Time Seen by Provider: 01/17/20 21:15 Source of Information: Reports: Patient History Limitations: Reports: No Limitations - History of Present Illness INITIAL COMMENTS - FREE TEXT/NARRATIVE: ED with c/o chest pain onset one hour ago, intermittent pressure chest sharp to left shoulder, SOB at onset, less at rest. Cardiology workup last week for stable angina, Cardiac cath scheduled for Thursday. Had nitro at home but has not used. Walking in [employer] with first onset, worse after carrying dogfood into daughter's house. No dizziness. Pain improved now 7-8 at worst, currently 2- 3/10. No nausea or sweating. COVID testing done Thursday Left Chest Pain Score (Numeric/FACES): 3 - Related Data Allergies Allergy/AdvReac Type Severity Reaction Status Date / Time hydrocodone Allergy Itching Verified 04/14/19 06:41 nitrofurantoin Allergy Fever Verified 04/14/19 06:41 [From Macrobid] tramadol Allergy Itching Verified 04/14/19 06:41 Home Meds: Home Meds Aspirin [Halfprin] 81 mg PO DAILY 02/20/13 [History] Folic Acid 1 mg PO DAILY 02/20/13 [History] Methotrexate 22.5 mg SUBCUT .WEEKLY 02/20/13 [History] amLODIPine [Norvasc] 5 mg PO BEDTIME 02/20/13 [History] Metoprolol Succinate [Toprol XL] 25 mg PO BEDTIME 07/21/17 [History] Omeprazole 20 mg PO DAILY 07/21/17 [History] Docusate Sodium [Stool Softener] 100 mg PO BEDTIME 03/16/18 [History] Levothyroxine [Synthroid] 50 mcg PO DAILY 03/16/18 [History] Calcium Carbonate/Vitamin D3 [Calcium 250+D] 1 tab PO BEDTIME 04/12/19 [History] Multivit with Iron,Minerals [Complete Senior] 1 tab PO BEDTIME 04/12/19 [History] Potassium Chloride 20 meq PO BEDTIME 04/12/19 [History] Tofacitinib Citrate [Xeljanz Xr] 11 mg PO BEDTIME 04/12/19 [History] Past Medical History HEENT History: Reports: Cataract, Impaired Vision Other HEENT History: Glasses Cardiovascular History: Reports: High Cholesterol, Hypertension Other Cardiovascular History: CHOLESTEROL IS IMPROVED PER PATIENT Respiratory History: Reports: Bronchitis, Recurrent Gastrointestinal History: Reports: Chronic Constipation, Colon Polyp, GERD, Other (See Below) Other Gastrointestinal History: HAS BEEN GETTING CONSTIPATION WILL HAVE COLONOSCOPY Genitourinary History: Reports: None 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: , 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 , 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 , Other (See Below) Other TUNNEL KILN FIRER History: ELECTIVE TERMINATION Musculoskeletal History: Reports: Arthritis, RA Other Musculoskeletal History: left ankle pain; DDD CERVICAL Neurological History: Reports: None Psychiatric History: Reports: None Endocrine/Metabolic History: Reports: Hypothyroidism, Obesity/BMI 30+ Hematologic History: Reports: Anemia Immunologic History: Reports: None Oncologic (Cancer) History: Reports: None Dermatologic History: Reports: Other (See Below) Other Dermatologic History: skin to right shoulder area - Infectious Disease History Infectious Disease History: Reports: Chicken Pox, Influenza, MRSA - Past Surgical History Head Surgeries/Procedures: Reports: None HEENT Surgical History: Reports: Cataract Surgery, Oral Surgery Cardiovascular Surgical History: Reports: None Respiratory Surgical History: Reports: None GI Surgical History: Reports: Appendectomy, Colonoscopy, EGD, Polypectomy Female Surgical History: Reports: Cystoscopy, D&C, Tubal Ligation, Other (See Below) Other Female Surgeries/Procedures: CYSTOSCOPY; VAGINAL D & C. BLADDER SLING Endocrine Surgical History: Reports: None Neurological Surgical History: Reports: None Musculoskeletal Surgical History: Reports: Arthroscopic Knee, Shoulder Surgery, Other (See Below) Other Musculoskeletal Surgeries/Procedures:: EMG 2 EXTREMITIES. S/P LEFT ANKLE STABILIZATION. X2 ROTATOR CUFF SURGERY TO LEFT AND X1 TO RIGHT SHOULDER Oncologic Surgical History: Reports: None Dermatological Surgical History: Reports: Plastic Surgical Reconstruction/Repair, Skin Graft Social & Family History - Family History Family Medical History: No Pertinent Family History - Caffeine Use Caffeine Use: Reports: Soda Other Caffeine Use: 1-2 cans daily - Living Situation & Occupation Living situation: Reports: , with Spouse ED ROS GENERAL - Review of Systems Review Of Systems: Comprehensive ROS is negative, except as noted in HPI. ED EXAM, GENERAL - Physical Exam Exam: See Below Exam Limited By: No Limitations General Appearance: Alert, Anxious, Mild Distress Eye Exam: Bilateral Eye: EOMI, PERRL Ears: Normal External Exam, Hearing Grossly Normal Nose: Normal Inspection Throat/Mouth: Normal Inspection Head: Atraumatic, Normocephalic Neck: Normal Inspection Respiratory/Chest: No Respiratory Distress, Lungs Clear, Normal Breath Sounds Cardiovascular: Normal Peripheral Pulses, Regular Rate, Rhythm, No Murmur GI/Abdominal: Normal Bowel Sounds, Soft, Non-Tender Extremities: Normal Inspection Neurological: Alert, Oriented, Normal Cognition Psychiatric: Anxious (mild) Skin Exam: Warm, Dry, Intact, Normal Color Course - Vital Signs Last Recorded V/S: Last Vital Signs Temp 97.8 F 01/17/20 21:12 Pulse 90 01/17/20 21:12 Resp 18 01/17/20 21:12 BP 145/67 H 01/17/20 21:31 Pulse Ox 97 01/17/20 21:12 - Orders/Labs/Meds Orders: Active Orders 24 hr Category Date Time Status Admission Diagnosis [ADT] Stat ADT 01/17/20 22:20 Ordered Admission Status [Patient Status] [ADT] Routine ADT 01/17/20 22:20 Ordered Cardiac Monitoring [RC] . DIRECTED Care 01/17/20 22:20 Ordered EKG Documentation Completion [RC] AM Care 01/17/20 21:07 Active Sodium Chloride 0.9% [Normal Saline] 1,000 ml Med 01/17/20 21:24 Active IV .BOLUS Medication Orders Sodium Chloride (Normal Saline) 1,000 mls @ 25 mls/hr IV .BOLUS ONE Stop: 01/19/20 13:23 Last Admin: 01/17/20 21:32 Dose: 25 mls/hr Documented by: ELI Labs: Laboratory Tests 01/17/20 01/17/20 01/17/20 Range/Units 21:19 21:19 21:19 WBC 9.4 (5.0-10.0) 10^3/uL RBC 4.23 (4.2-5.4) 10^6/uL Hgb 12.7 (12.0-16.0) g/dL Hct 37.5 (37.0-47.0) % MCV 88.7 (80-100) fL MCH 30.0 (27.0-34.0) pg MCHC 33.9 (33.0-35.0) g/dL Plt Count 296 (150-450) 10^3/uL Neut % (Auto) 65.5 (42.2-75.2) % Lymph % (Auto) 24.0 (20.5-50.1) % [place]shaw % (Auto) 7.8 (2-8) % Eos % (Auto) 2.4 (1.0-3.0) % Baso % (Auto) 0.3 (0.0-1.0) % PT 9.9 (9.0-12.0) SEC INR 1.0 (0.9-1.2) D-Dimer, Quantitative 388 (0-400) ng/mL Sodium 141 (136-145) mmol/L Potassium 3.4 L (3.5-5.1) mmol/L Chloride 104 (98-107) mmol/L Carbon Dioxide 24 (21-32) mmol/L Anion Gap 16.4 H (7-13) mEq/L BUN 11 (7-18) mg/dL Creatinine 0.80 (0.55-1.02) mg/dL Est Cr Clr Drug Dosing 79.08 mL/min Estimated GFR (MDRD) > 60 BUN/Creatinine Ratio 13.8 (No establ ref range) Glucose 118 H (74-99) mg/dL Calcium 8.8 (8.5-10.1) mg/dL Magnesium 1.8 (1.8-2.4) mg/dL Total Bilirubin 0.4 (0.2-1.0) mg/dL AST 26 (15-37) U/L ALT 40 (14-59) U/L Alkaline Phosphatase 81 (46-116) U/L Troponin I < 0.017 (0.000-0.056) ng/mL B-Natriuretic Peptide (0-100) pg/ml Total Protein 7.8 (6.4-8.2) g/dL Albumin 3.8 (3.4-5.0) g/dL Globulin 4.0 Albumin/Globulin Ratio 0.9 TSH, Ultra Sensitive (0.36-3.74) uIU/mL 11/17/20 Range/Units 21:19 WBC (5.0-10.0) 10^3/uL RBC (4.2-5.4) 10^6/uL Hgb (12.0-16.0) g/dL Hct (37.0-47.0) % MCV (80-100) fL MCH (27.0-34.0) pg MCHC (33.0-35.0) g/dL Plt Count (150-450) 10^3/uL Neut % (Auto) (42.2-75.2) % Lymph % (Auto) (20.5-50.1) % [place]shaw % (Auto) (2-8) % Eos % (Auto) (1.0-3.0) % Baso % (Auto) (0.0-1.0) % PT (9.0-12.0) SEC INR (0.9-1.2) D-Dimer, Quantitative (0-400) ng/mL Sodium (136-145) mmol/L Potassium (3.5-5.1) mmol/L Chloride (98-107) mmol/L Carbon Dioxide (21-32) mmol/L Anion Gap (7-13) mEq/L BUN (7-18) mg/dL Creatinine (0.55-1.02) mg/dL Est Cr Clr Drug Dosing mL/min Estimated GFR (MDRD) BUN/Creatinine Ratio (No establ ref range) Glucose (74-99) mg/dL Calcium (8.5-10.1) mg/dL Magnesium (1.8-2.4) mg/dL Total Bilirubin (0.2-1.0) mg/dL AST (15-37) U/L ALT (14-59) U/L Alkaline Phosphatase (46-116) U/L Troponin I (0.000-0.056) ng/mL B-Natriuretic Peptide 12 (0-100) pg/ml Total Protein (6.4-8.2) g/dL Albumin (3.4-5.0) g/dL Globulin Albumin/Globulin Ratio TSH, Ultra Sensitive 5.36 H (0.36-3.74) uIU/mL Meds: Medications Generic Name Dose Route Start Last Admin Trade Name Freq PRN Reason Stop Dose Admin Sodium Chloride 1,000 mls @ 25 mls/hr 01/17/20 21:24 01/17/20 21:32 Normal Saline IV 01/19/20 13:23 25 mls/hr .BOLUS ONE Administration Discontinued Medications Generic Name Dose Route Start Last Admin Trade Name Freq PRN Reason Stop Dose Admin Aspirin 324 mg 01/17/20 21:10 01/17/20 21:21 Aspirin PO 01/17/20 21:11 324 mg ONETIME ONE Administration Nitroglycerin 0.4 mg 01/17/20 21:24 01/17/20 21:31 Nitrostat SL 01/17/20 21:25 0.4 mg ONETIME ONE Administration - Re-Assessments/Exams Free Text/Narrative Re-Assessment/Exam: 01/17/20 21:56 chest pain improving. "Almost gone". Initial troponin negative. 01/17/20 22:[address] [facility], EKG reviewed non specific T wave. Recommend repeat troponin 2-4 hours, if negative discharge home on Lipitor and Imdur and plan for Cardiac cath as scheduled on Thursday, If repeat positve then will need tx. [facility] no beds currently available. 01/17/20 22:[address] Yolanda MOSS Hospitalist, will admit Observation, stable angina with repeat Troponin in 4 hours Departure - Departure Time of Disposition: 22:22 Disposition: Refer to Observation Condition: Good Clinical Impression: Anginal pain, Exertional dyspnea, Hx of rheumatoid arthritis, Hypothyroidism Sepsis Event Note (ED) - Focused Exam Vital Signs: Vital Signs Temp Pulse Resp BP BP Pulse Ox 01/17/20 21:31 145/67 H 01/17/20 21:12 97.8 F 90 18 145/67 H 97 - My Orders Last 24 Hours: My Active Orders 01/17/20 21:07 EKG Documentation Completion [RC] AM 01/17/20 21:24 Sodium Chloride 0.9% [Normal Saline] 1,000 ml IV .BOLUS 01/17/20 22:20 Admission Diagnosis [ADT] Stat Admission Status [Patient Status] [ADT] Routine Cardiac Monitoring [RC] . DIRECTED - Assessment/Plan Last 24 Hours: My Active Orders 01/17/20 21:07 EKG Documentation Completion [RC] AM 01/17/20 21:24 Sodium Chloride 0.9% [Normal Saline] 1,000 ml IV .BOLUS 01/17/20 22:20 Admission Diagnosis [ADT] Stat Admission Status [Patient Status] [ADT] Routine Cardiac Monitoring [RC] . DIRECTED
[2020-01-17] MEDS ORDERED: Sodium Chloride 0.9% 1,000 ML IV ONE (21:24)
[2020-01-17] MEDS ORDERED: Nitroglycerin 0.4 MG Tab.SL SL ONE (21:24)
--- NOTE | 2020-01-17 21:43 | CR ---
PROCEDURE INFORMATION: Exam: XR Chest, 1 View Exam date and time: 01/17/2020 9:29 PM Age: 54 years old Clinical indication: Chest pain; Type not specified TECHNIQUE: Imaging protocol: XR of the chest Views: 1 view. COMPARISON: CR Chest 2V 03/01/2018 1:06 PM FINDINGS: Lungs: Unremarkable. No consolidation. Pleural space: Unremarkable. No pleural effusion. No pneumothorax. Heart/Mediastinum: Unremarkable. No cardiomegaly. Bones/joints: Unremarkable. IMPRESSION: No acute findings.
[2020-01-17 21:48] LABS: ANION GAP 16.4 mEq/L (7-13); CHLORIDE,CL 104 mmol/L (98-107); SODIUM,NA 141 mmol/L (136-145)
[2020-01-17] MEDS ORDERED: Acetaminophen 325 MG Tab PO PRN (23:21)
[2020-01-17] MEDS ORDERED: TOFACITINIB CITRATE 11 MG PO SCH (23:25)
[2020-01-17] MEDS ORDERED: Potassium Chloride 10 MEQ Tab.ER PO ONE (23:27)
--- NOTE | 2020-01-17 23:27 | PCM.HP ---
H&P History of Present Illness - General Date of Service: 01/17/20 Admit Problem/Dx: Admission Diagnosis/Problem Admission Diagnosis/Problem Chest pain Source of Information: Patient History Limitations: Reports: No Limitations - History of Present Illness Initial Comments - Free Text/Narative: Patient is a 54-year-old female with a medical history of hypertension, hypothyroidism, rheumatoid arthritis, GERD, hypercholesterolemia, anemia, recent diagnosis of stable angina who presented with complaint of chest pain. Patient has been having exertional chest pain and she recently had a stress EKG and nuclear medicine stress test which showed reversible ischemia in the inf erior wall. She is scheduled for an angiogram on 01/20/2020. Today, patient was [facility] [employer] when she suddenly developed severe, sharp left-sided chest pain that was nonradiating. She had to stop and pain forward. The pain resolved after about 1 minute. She did not take the s ublingual nitroglycerin that she had because she was not sure whether to use it. She decided to drive home, and while driving the symptom return but this time it felt more like chest pressure and numbness of her left arm. She came to the ER instead. Her symptom resolved after receiving sublingual nitroglycerin in the ER. Labs showed potassium of 3.4, troponin was negative, EKG had no acute ST changes. Left Chest Pain Score (Numeric/FACES): 3 - Related Data Allergies/Adverse Reactions: Allergies Allergy/AdvReac Type Severity Reaction Status Date / Time hydrocodone Allergy Itching Verified 01/17/20 23:02 nitrofurantoin Allergy Fever Verified 01/17/20 23:02 [From Macrobid] tramadol Allergy Itching Verified 01/17/20 23:02 Home Medications: Home Meds Aspirin [Halfprin] 81 mg PO DAILY 02/20/13 [History] Folic Acid 1 mg PO DAILY 02/20/13 [History] amLODIPine [Norvasc] 5 mg PO BEDTIME 02/20/13 [History] Metoprolol Succinate [Toprol XL] 25 mg PO BEDTIME 07/21/17 [History] Omeprazole 20 mg PO DAILY 07/21/17 [History] Levothyroxine [Synthroid] 50 mcg PO DAILY 03/16/18 [History] Calcium Carbonate/Vitamin D3 [Calcium 250+D] 1 tab PO BEDTIME 04/12/19 [History] Multivit with Iron,Minerals [Complete Senior] 1 tab PO BEDTIME 04/12/19 [History] Potassium Chloride 20 meq PO BEDTIME 04/12/19 [History] Tofacitinib Citrate [Xeljanz Xr] 11 mg PO BEDTIME 04/12/19 [History] Methotrexate 10 mg PO WEEKLY 01/17/20 [History] Past Medical History HEENT History: Reports: Cataract, Impaired Vision Other HEENT History: Glasses Cardiovascular History: Reports: High Cholesterol, Hypertension Other Cardiovascular History: CHOLESTEROL IS IMPROVED PER PATIENT Respiratory History: Reports: Bronchitis, Recurrent Gastrointestinal History: Reports: Chronic Constipation, Colon Polyp, GERD, Other (See Below) Other Gastrointestinal History: HAS BEEN GETTING CONSTIPATION WILL HAVE COLONOSCOPY Genitourinary History: Reports: None 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: Reports: , Spontaneous , Therapeutic , Other (See Below) 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 Musculoskeletal History: Reports: Arthritis, RA Other Musculoskeletal History: left ankle pain; DDD CERVICAL Neurological History: Reports: None Psychiatric History: Reports: None Endocrine/Metabolic History: Reports: Hypothyroidism, Obesity/BMI 30+ Hematologic History: Reports: Anemia Immunologic History: Reports: None Oncologic (Cancer) History: Reports: None Dermatologic History: Reports: Other (See Below) Other Dermatologic History: skin to right shoulder area - Infectious Disease History Infectious Disease History: Reports: Chicken Pox, Influenza, MRSA - Past Surgical History Head Surgeries/Procedures: Reports: None HEENT Surgical History: Reports: Cataract Surgery, Oral Surgery Cardiovascular Surgical History: Reports: None Respiratory Surgical History: Reports: None GI Surgical History: Reports: Appendectomy, Colonoscopy, EGD, Polypectomy Female Surgical History: Reports: Cystoscopy, D&C, Tubal Ligation, Other (See Below) Other Female Surgeries/Procedures: CYSTOSCOPY; VAGINAL D & C. BLADDER SLING Endocrine Surgical History: Reports: None Neurological Surgical History: Reports: None Musculoskeletal Surgical History: Reports: Arthroscopic Knee, Shoulder Surgery, Other (See Below) Other Musculoskeletal Surgeries/Procedures:: EMG 2 EXTREMITIES. S/P LEFT ANKLE STABILIZATION. X2 ROTATOR CUFF SURGERY TO LEFT AND X1 TO RIGHT SHOULDER Oncologic Surgical History: Reports: None Dermatological Surgical History: Reports: Plastic Surgical Reconstruction/Repair, Skin Graft Social & Family History - Family History Family Medical History: No Pertinent Family History - Tobacco Use Tobacco Use Status *Q: Former Tobacco User Years of Tobacco use: 15 Packs/Tins Daily: 0.5 Used Tobacco, but Quit: Yes Month/Year Tobacco Last Used: Second Hand Smoke Exposure: No - Caffeine Use Caffeine Use: Reports: None Other Caffeine Use: 1-2 cans daily - Recreational Drug Use Recreational Drug Use: No - Living Situation & Occupation Living situation: Reports: , with Spouse H&P Review of Systems - Review of Systems: Review Of Systems: See Below General: Reports: No Symptoms HEENT: Reports: No Symptoms Pulmonary: Reports: No Symptoms Cardiovascular: Reports: Chest Pain Gastrointestinal: Reports: No Symptoms Genitourinary: Reports: No Symptoms Musculoskeletal: Reports: No Symptoms Skin: Reports: No Symptoms Psychiatric: Reports: No Symptoms Neurological: Reports: No Symptoms Hematologic/Lymphatic: Reports: No Symptoms Immunologic: Reports: No Symptoms Exam - Exam Exam: See Below - Vital Signs Vital Signs: Last Vital Signs Temp 97.8 F 01/17/20 21:12 Pulse 90 01/17/20 21:12 Resp 18 01/17/20 21:12 BP 145/67 H 01/17/20 21:31 Pulse Ox 97 01/17/20 21:12 Weight: 239 lb 6 oz - Exam General: Alert, Oriented, 4 HEENT: PERRLA, Hearing Intact, Mucosa Moist & [place], Nares Patent, Normal Nasal Septum, Posterior Pharynx Clear, Conjunctiva Clear, EOMI, EACs Clear, TMs Clear Neck: Supple, Trachea Midline, 2 Lungs: Clear to Auscultation, Normal Respiratory Effort Cardiovascular: Regular Rate, Regular Rhythm GI/Abdominal Exam: Normal Bowel Sounds, Soft, Non-Tender, No Organomegaly, No Distention, No Abnormal Bruit, No Mass, Pelvis Stable Back Exam: Normal Inspection, Full Range of Motion, NT Extremities: Normal Inspection, Normal Range of Motion, Non-Tender, No Pedal Edema, Normal Capillary Refill Skin: Warm, Dry, Intact Neurological: Cranial Nerves Intact, Reflexes Equal Bilateral Neuro Extensive - Mental Status: Alert, Oriented x3, Normal Mood/Affect, Normal Cognition Neuro Extensive - Motor, Sensory, Reflexes: CN II-XII Intact, Normal Gait, Normal Reflexes Psychiatric: Alert, Normal Affect, Normal Mood - Patient Data Lab Results Last 24 hrs: Laboratory Results - last 24 hr 01/17/20 01/17/20 01/17/20 Range/Units 21:19 21:19 21:19 WBC 9.4 (5.0-10.0) 10^3/uL RBC 4.23 (4.2-5.4) 10^6/uL Hgb 12.7 (12.0-16.0) g/dL Hct 37.5 (37.0-47.0) % MCV 88.7 (80-100) fL MCH 30.0 (27.0-34.0) pg MCHC 33.9 (33.0-35.0) g/dL Plt Count 296 (150-450) 10^3/uL Neut % (Auto) 65.5 (42.2-75.2) % Lymph % (Auto) 24.0 (20.5-50.1) % [place] % (Auto) 7.8 (2-8) % Eos % (Auto) 2.4 (1.0-3.0) % Baso % (Auto) 0.3 (0.0-1.0) % PT 9.9 (9.0-12.0) SEC INR 1.0 (0.9-1.2) D-Dimer, Quantitative 388 (0-400) ng/mL Sodium 141 (136-145) mmol/L Potassium 3.4 L (3.5-5.1) mmol/L Chloride 104 (98-107) mmol/L Carbon Dioxide 24 (21-32) mmol/L Anion Gap 16.4 H (7-13) mEq/L BUN 11 (7-18) mg/dL Creatinine 0.80 (0.55-1.02) mg/dL Est Cr Clr Drug Dosing 79.08 mL/min Estimated GFR (MDRD) > 60 BUN/Creatinine Ratio 13.8 (No establ ref range) Glucose 118 H (74-99) mg/dL Calcium 8.8 (8.5-10.1) mg/dL Magnesium 1.8 (1.8-2.4) mg/dL Total Bilirubin 0.4 (0.2-1.0) mg/dL AST 26 (15-37) U/L ALT 40 (14-59) U/L Alkaline Phosphatase 81 (46-116) U/L Troponin I < 0.017 (0.000-0.056) ng/mL B-Natriuretic Peptide (0-100) pg/ml Total Protein 7.8 (6.4-8.2) g/dL Albumin 3.8 (3.4-5.0) g/dL Globulin 4.0 Albumin/Globulin Ratio 0.9 TSH, Ultra Sensitive (0.36-3.74) uIU/mL //20 Range/Units 21:19 WBC (5.0-10.0) 10^3/uL RBC (4.2-5.4) 10^6/uL Hgb (12.0-16.0) g/dL Hct (37.0-47.0) % MCV (80-100) fL MCH (27.0-34.0) pg MCHC (33.0-35.0) g/dL Plt Count (150-450) 10^3/uL Neut % (Auto) (42.2-75.2) % Lymph % (Auto) (20.5-50.1) % [place] % (Auto) (2-8) % Eos % (Auto) (1.0-3.0) % Baso % (Auto) (0.0-1.0) % PT (9.0-12.0) SEC INR (0.9-1.2) D-Dimer, Quantitative (0-400) ng/mL Sodium (136-145) mmol/L Potassium (3.5-5.1) mmol/L Chloride (98-107) mmol/L Carbon Dioxide (21-32) mmol/L Anion Gap (7-13) mEq/L BUN (7-18) mg/dL Creatinine (0.55-1.02) mg/dL Est Cr Clr Drug Dosing mL/min Estimated GFR (MDRD) BUN/Creatinine Ratio (No establ ref range) Glucose (74-99) mg/dL Calcium (8.5-10.1) mg/dL Magnesium (1.8-2.4) mg/dL Total Bilirubin (0.2-1.0) mg/dL AST (15-37) U/L ALT (14-59) U/L Alkaline Phosphatase (46-116) U/L Troponin I (0.000-0.056) ng/mL B-Natriuretic Peptide 12 (0-100) pg/ml Total Protein (6.4-8.2) g/dL Albumin (3.4-5.0) g/dL Globulin Albumin/Globulin Ratio TSH, Ultra Sensitive 5.36 H (0.36-3.74) uIU/mL Result Diagrams: 01/17/20 21:19 01/17/20 21:19 Problem List Initiated/Reviewed/Updated: Yes (1) Orders Last 24hrs: Active Orders 24 hr Category Date Time Status Admission Diagnosis [ADT] Stat ADT 01/17/20 22:20 Ordered Admission Status [Patient Status] [ADT] Routine ADT 01/17/20 22:20 Active Cardiac Monitoring [RC] . DIRECTED Care 01/17/20 22:20 Active EKG Documentation Completion [RC] AM Care 01/17/20 21:07 Active Oxygen Therapy [RC] PRN Care 01/17/20 23:21 Ordered Up ad Marilyn [RC] ASDIRECTED Care 01/17/20 23:21 Ordered VTE/DVT Education [RC] PER UNIT ROUTINE Care 01/17/20 23:21 Ordered Vital Signs [RC] Q4H Care 01/17/20 23:21 Ordered Regular Diet [DIET] Diet 01/17/20 Breakfast Ordered TROPONIN I [CHEM] Q4H Lab 01/18/20 02:00 Ordered TROPONIN I [CHEM] Q4H Lab 01/18/20 06:00 Ordered Acetaminophen [TylenoL] Med 01/17/20 23:21 Ordered 650 mg PO Q4H PRN Aspirin [Halfprin] Med 01/18/20 09:00 Ordered 81 mg PO DAILY Calcium Carbonate/Vitamin D3 [Calcium 250+D] Med 01/18/20 21:00 Ordered 1 tab PO BEDTIME Enoxaparin [Lovenox] Med 01/18/20 09:00 Ordered 40 mg SUBCUT DAILY Folic Acid Med 01/18/20 09:00 Ordered 1 mg PO DAILY Levothyroxine [Synthroid] Med 01/18/20 09:00 Ordered 50 mcg PO DAILY Metoprolol Succinate [Toprol XL] Med 01/18/20 21:00 Ordered 25 mg PO BEDTIME Multivit with Iron,Minerals [Complete Senior] Med 01/18/20 21:00 Ordered 1 tab PO BEDTIME Omeprazole Med 01/18/20 09:00 Ordered 20 mg PO DAILY Potassium Chloride [Potassium Chloride] Med 01/18/20 21:00 Ordered 20 meq PO BEDTIME Sodium Chloride 0.9% [Normal Saline] 1,000 ml Med 01/17/20 21:24 Active IV .BOLUS Tofacitinib Citrate [Xeljanz Xr] Med 01/17/20 23:25 Ordered 11 mg PO BEDTIME amLODIPine [Norvasc] Med 01/18/20 21:00 Ordered 5 mg PO BEDTIME Resuscitation Status Routine Resus Stat 01/17/20 23:21 Ordered Medication Orders Acetaminophen (Tylenol) 650 mg PO Q4H PRN PRN Reason: Pain (Mild 1-3)/fever Aspirin (Halfprin) 81 mg PO DAILY N[facility] Enoxaparin Sodium (Lovenox) 40 mg SUBCUT DAILY N[facility] Folic Acid (Folic Acid) 1 mg PO DAILY [facility] Sodium Chloride (Normal Saline) 1,000 mls @ 25 mls/hr IV .BOLUS ONE Stop: 01/19/20 13:23 Last Admin: 01/17/20 21:32 Dose: 25 mls/hr Documented by: ELI Levothyroxine Sodium (Synthroid) 50 mcg PO DAILY [facility] Metoprolol Succinate (Toprol Xl) 25 mg PO BEDTIME N[facility] Non-Formulary Medication (Amlodipine [Norvasc]) 5 mg PO BEDTIME N[facility] Non-Formulary Medication (Calcium Carbonate/Vitamin D3 [Calcium 250+D]) 1 tab PO BEDTIME N[facility] Non-Formulary Medication (Multivit With Iron,Minerals [Complete Senior]) 1 tab PO BEDTIME N[facility] Non-Formulary Medication (Potassium Chloride [Potassium Chloride]) 20 meq PO BEDTIME N[facility] Non-Formulary Medication (Tofacitinib Citrate [Xeljanz Xr]) 11 mg PO BEDTIME [facility] Omeprazole (Omeprazole) 20 mg PO DAILY [facility] Assessment/Plan Comment:: Stable angina Troponin negative and initial EKG without acute ST changes. Trend troponin every 4 hourly As needed sublingual nitroglycerin Discharge in a.m. if negative troponin. Patient to follow-up with her plans for angiogram. Hypokalemia Potassium 3.4 Replaced Hypothyroidism Resume home Synthroid Hypertension Resume home antihypertensives GERD Resume home PPI Rheumatoid arthritis Resume home Xeljanz DVT prophylaxis: Lovenox CODE STATUS: Full code
[2020-01-17] MEDS ORDERED: Sodium Chloride 0.9% 10 ML Syringe FLUSH PRN (23:59)
[2020-01-18] MEDS ORDERED: Nitroglycerin 0.4 MG Tab.SL SL PRN
[2020-01-18] MEDS ORDERED: Omeprazole 20 MG Cap.CR PO SCH (06:00)
[2020-01-18] MEDS ORDERED: Levothyroxine 50 MCG Tab PO SCH (06:00)
[2020-01-18 07:32] LABS: ANION GAP 15.8 mEq/L (7-13); CHLORIDE,CL 106 mmol/L (98-107); SODIUM,NA 143 mmol/L (136-145)
[2020-01-18] MEDS ORDERED: metFORMIN 500 MG Tab PO SCH (08:00)
[2020-01-18] MEDS ORDERED: Enoxaparin 40 MG/0.4 ML Syringe SUBCUT SCH (09:00)
[2020-01-18] MEDS ORDERED: Aspirin 81 MG Tab.EC PO SCH (09:00)
[2020-01-18] MEDS ORDERED: Folic Acid 1 MG Tab PO SCH (09:00)
--- NOTE | 2020-01-18 10:51 | PCM.PN ---
- General Info Date of Service: 01/18/20 Admission Dx/Problem (Free Text): Admission Diagnosis/Problem Admission Diagnosis/Problem Chest pain - Patient Data Vitals - Most Recent: Last Vital Signs Temp 97.4 F 01/17/20 23:21 Pulse 80 01/17/20 23:21 Resp 16 01/17/20 23:21 BP 138/67 01/17/20 23:21 Pulse Ox 95 01/17/20 23:21 Weight - Most Recent: 239 lb 6 oz I&O - Last 24 Hours: Intake & Output 01/17/20 01/18/20 01/18/20 22:59 06:59 14:59 Intake Total 100 Balance 100 Lab Results Last 24 Hours: Laboratory Results - last 24 hr 01/17/20 01/17/20 01/17/20 Range/Units 21:19 21:19 21:19 WBC 9.4 (5.0-10.0) 10^3/uL RBC 4.23 (4.2-5.4) 10^6/uL Hgb 12.7 (12.0-16.0) g/dL Hct 37.5 (37.0-47.0) % MCV 88.7 (80-100) fL MCH 30.0 (27.0-34.0) pg MCHC 33.9 (33.0-35.0) g/dL Plt Count 296 (150-450) 10^3/uL Neut % (Auto) 65.5 (42.2-75.2) % Lymph % (Auto) 24.0 (20.5-50.1) % [place] % (Auto) 7.8 (2-8) % Eos % (Auto) 2.4 (1.0-3.0) % Baso % (Auto) 0.3 (0.0-1.0) % PT 9.9 (9.0-12.0) SEC INR 1.0 (0.9-1.2) D-Dimer, Quantitative 388 (0-400) ng/mL Sodium 141 (136-145) mmol/L Potassium 3.4 L (3.5-5.1) mmol/L Chloride 104 (98-107) mmol/L Carbon Dioxide 24 (21-32) mmol/L Anion Gap 16.4 H (7-13) mEq/L BUN 11 (7-18) mg/dL Creatinine 0.80 (0.55-1.02) mg/dL Est Cr Clr Drug Dosing 79.08 mL/min Estimated GFR (MDRD) > 60 BUN/Creatinine Ratio 13.8 (No establ ref range) Glucose 118 H (74-99) mg/dL Calcium 8.8 (8.5-10.1) mg/dL Magnesium 1.8 (1.8-2.4) mg/dL Total Bilirubin 0.4 (0.2-1.0) mg/dL AST 26 (15-37) U/L ALT 40 (14-59) U/L Alkaline Phosphatase 81 (46-116) U/L Troponin I < 0.017 (0.000-0.056) ng/mL B-Natriuretic Peptide (0-100) pg/ml Total Protein 7.8 (6.4-8.2) g/dL Albumin 3.8 (3.4-5.0) g/dL Globulin 4.0 Albumin/Globulin Ratio 0.9 TSH, Ultra Sensitive (0.36-3.74) uIU/mL 01/17/20 01/18/20 01/18/20 Range/Units 21:19 02:03 06:25 WBC (5.0-10.0) 10^3/uL RBC (4.2-5.4) 10^6/uL Hgb (12.0-16.0) g/dL Hct (37.0-47.0) % MCV (80-100) fL MCH (27.0-34.0) pg MCHC (33.0-35.0) g/dL Plt Count (150-450) 10^3/uL Neut % (Auto) (42.2-75.2) % Lymph % (Auto) (20.5-50.1) % [place] % (Auto) (2-8) % Eos % (Auto) (1.0-3.0) % Baso % (Auto) (0.0-1.0) % PT (9.0-12.0) SEC INR (0.9-1.2) D-Dimer, Quantitative (0-400) ng/mL Sodium (136-145) mmol/L Potassium (3.5-5.1) mmol/L Chloride (98-107) mmol/L Carbon Dioxide (21-32) mmol/L Anion Gap (7-13) mEq/L BUN (7-18) mg/dL Creatinine (0.55-1.02) mg/dL Est Cr Clr Drug Dosing mL/min Estimated GFR (MDRD) BUN/Creatinine Ratio (No establ ref range) Glucose (74-99) mg/dL Calcium (8.5-10.1) mg/dL Magnesium (1.8-2.4) mg/dL Total Bilirubin (0.2-1.0) mg/dL AST (15-37) U/L ALT (14-59) U/L Alkaline Phosphatase (46-116) U/L Troponin I < 0.017 < 0.017 (0.000-0.056) ng/mL B-Natriuretic Peptide 12 (0-100) pg/ml Total Protein (6.4-8.2) g/dL Albumin (3.4-5.0) g/dL Globulin Albumin/Globulin Ratio TSH, Ultra Sensitive 5.36 H (0.36-3.74) uIU/mL 01/18/20 01/18/20 Range/Units 06:25 06:25 WBC 6.8 (5.0-10.0) 10^3/uL RBC 4.08 L (4.2-5.4) 10^6/uL Hgb 12.0 (12.0-16.0) g/dL Hct 36.5 L (37.0-47.0) % MCV 89.5 (80-100) fL MCH 29.4 (27.0-34.0) pg MCHC 32.9 L (33.0-35.0) g/dL Plt Count 274 (150-450) 10^3/uL Neut % (Auto) (42.2-75.2) % Lymph % (Auto) (20.5-50.1) % [place] % (Auto) (2-8) % Eos % (Auto) (1.0-3.0) % Baso % (Auto) (0.0-1.0) % PT (9.0-12.0) SEC INR (0.9-1.2) D-Dimer, Quantitative (0-400) ng/mL Sodium 143 (136-145) mmol/L Potassium 3.8 (3.5-5.1) mmol/L Chloride 106 (98-107) mmol/L Carbon Dioxide 25 (21-32) mmol/L Anion Gap 15.8 H (7-13) mEq/L BUN 12 (7-18) mg/dL Creatinine 0.64 (0.55-1.02) mg/dL Est Cr Clr Drug Dosing 102.55 mL/min Estimated GFR (MDRD) > 60 BUN/Creatinine Ratio (No establ ref range) Glucose 89 (74-99) mg/dL Calcium 8.6 (8.5-10.1) mg/dL Magnesium (1.8-2.4) mg/dL Total Bilirubin (0.2-1.0) mg/dL AST (15-37) U/L ALT (14-59) U/L Alkaline Phosphatase (46-116) U/L Troponin I (0.000-0.056) ng/mL B-Natriuretic Peptide (0-100) pg/ml Total Protein (6.4-8.2) g/dL Albumin (3.4-5.0) g/dL Globulin Albumin/Globulin Ratio TSH, Ultra Sensitive (0.36-3.74) uIU/mL Med Orders - Current: Current Medications Acetaminophen (Tylenol) 650 mg PO Q4H PRN PRN Reason: Pain (Mild 1-3)/fever Amlodipine Besylate (Norvasc) 5 mg PO BEDTIME [facility] Aspirin (Halfprin) 81 mg PO DAILY [facility] Last Admin: 01/18/20 08:54 Dose: 81 mg Documented by: Calcium Carbonate (Calcium Carbonate/Vitamin D 1250 Mg-200 Unit) 1 tab PO BEDTIME [facility] Enoxaparin Sodium (Lovenox) 40 mg SUBCUT DAILY [facility] Last Admin: 01/18/20 08:54 Dose: 40 mg Documented by: Folic Acid (Folic Acid) 1 mg PO DAILY [facility] Last Admin: 01/18/20 08:54 Dose: 1 mg Documented by: Sodium Chloride (Normal Saline) 1,000 mls @ 25 mls/hr IV .BOLUS ONE Stop: 01/19/20 13:23 Last Admin: 01/17/20 21:32 Dose: 25 mls/hr Documented by: Levothyroxine Sodium (Synthroid) 50 mcg PO ACBREAKFAST [facility] Last Admin: 01/18/20 05:58 Dose: 50 mcg Documented by: Metoprolol Succinate (Toprol Xl) 25 mg PO BEDTIME [facility] Multivitamins/Minerals (Vitamins And Minerals) 1 tab PO BEDTIME [facility] Nitroglycerin (Nitrostat) 0.4 mg SL Q5M PRN PRN Reason: Chest Pain Non-Formulary Medication (Tofacitinib Citrate [Xeljanz Xr]) 11 mg PO BEDTIME [facility] Omeprazole (Omeprazole) 20 mg PO ACBREAKFAST [facility] Last Admin: 01/18/20 05:58 Dose: 20 mg Documented by: Potassium Chloride (Klor-Con 10) 20 meq PO BEDTIME [facility] Sodium Chloride (Saline Flush) 10 ml FLUSH ASDIRECTED PRN PRN Reason: Keep Vein Open Discontinued Medications Aspirin (Aspirin) 324 mg PO ONETIME ONE Stop: 01/17/20 21:11 Last Admin: 01/17/20 21:21 Dose: 324 mg Documented by: Metformin HCl (Glucophage) 500 mg PO BIDMEALS [facility] Nitroglycerin (Nitrostat) 0.4 mg SL ONETIME ONE Stop: 01/17/20 21:25 Last Admin: 01/17/20 21:31 Dose: 0.4 mg Documented by: Potassium Chloride (Klor-Con 10) 40 meq PO ONETIME ONE Stop: 01/17/20 23:28 Last Admin: 01/17/20 23:47 Dose: 40 meq Documented by: Sepsis Event Note - Evaluation Sepsis Screening Result: No Definite Risk - Focused Exam Vital Signs: Vital Signs Temp Pulse Resp BP Pulse Ox 01/17/20 23:21 97.4 F 80 16 138/67 95 - Plan Plan:: Stable angina Troponin negative and initial EKG without acute ST changes. Trend troponin every 4 hourly As needed sublingual nitroglycerin Discharge in a.m. if negative troponin. Patient to follow-up with her plans for angiogram. Hypokalemia Potassium 3.4 Replaced Hypothyroidism Resume home Synthroid Hypertension Resume home antihypertensives GERD Resume home PPI Rheumatoid arthritis Resume home Xeljanz DVT prophylaxis: Lovenox CODE STATUS: Full code
--- NOTE | 2020-01-18 11:01 | PCM.DCSUM1 ---
Discharge Summary - Hospital Course Free Text/Narrative:: Patient is a 54-year-old female with a medical history of hypertension, hypothyroidism, rheumatoid arthritis, GERD, hypercholesterolemia, anemia, recent diagnosis of stable angina who presented with complaint of chest pain. She was admitted for ACS evaluation. ACS has been ruled out. Troponin remain negative. EKG showed no dynamic ST changes. She was discharged home in stable condition with plan to follow-up with PCP. Patient had appointment with cardiology for angiogram on Thursday. She was advised to follow-up with appointment. She verbalized understanding. Diagnosis: Stroke: No - Discharge Data Discharge Date: 01/18/20 Discharge Disposition: Home, Self-Care 01 Condition: Good - Referral to Home Health Primary Care Physician: Molina Dowling MD - Discharge Plan *PRESCRIPTION DRUG MONITORING PROGRAM REVIEWED*: Not Applicable *COPY OF PRESCRIPTION DRUG MONITORING REPORT IN PATIENT BLAKE: Not Applicable Home Medications: Home Meds Aspirin [Halfprin] 81 mg PO DAILY 02/20/13 [History] Folic Acid 1 mg PO DAILY 02/20/13 [History] amLODIPine [Norvasc] 5 mg PO BEDTIME 02/20/13 [History] Metoprolol Succinate [Toprol XL] 25 mg PO BEDTIME 07/21/17 [History] Omeprazole 20 mg PO DAILY 07/21/17 [History] Levothyroxine [Synthroid] 50 mcg PO DAILY 03/16/18 [History] Calcium Carbonate/Vitamin D3 [Calcium 250+D] 1 tab PO BEDTIME 04/12/19 [History] Multivit with Iron,Minerals [Complete Senior] 1 tab PO BEDTIME 04/12/19 [History] Potassium Chloride 20 meq PO BEDTIME 04/12/19 [History] Tofacitinib Citrate [Xeljanz Xr] 11 mg PO BEDTIME 04/12/19 [History] Methotrexate 10 mg PO WEEKLY 01/17/20 [History] Patient Handouts: Nonspecific Chest Pain, Adult, [id number] Referrals: Molina Dowling MD [Primary Care Provider] - - Discharge Summary/Plan Comment DC Time >30 min.: Yes - Patient Data Vitals - Most Recent: Last Vital Signs Temp 97.4 F 01/17/20 23:21 Pulse 80 01/17/20 23:21 Resp 16 01/17/20 23:21 BP 138/67 01/17/20 23:21 Pulse Ox 95 11/17/20 23:21 Weight - Most Recent: 239 lb 6 oz I&O - Last 24 hours: Intake & Output 01/17/20 01/18/20 01/18/20 22:59 06:59 14:59 Intake Total 100 Balance 100 Lab Results - Last 24 hrs: Laboratory Results - last 24 hr 01/17/20 01/17/20 01/17/20 Range/Units 21:19 21:19 21:19 WBC 9.4 (5.0-10.0) 10^3/uL RBC 4.23 (4.2-5.4) 10^6/uL Hgb 12.7 (12.0-16.0) g/dL Hct 37.5 (37.0-47.0) % MCV 88.7 (80-100) fL MCH 30.0 (27.0-34.0) pg MCHC 33.9 (33.0-35.0) g/dL Plt Count 296 (150-450) 10^3/uL Neut % (Auto) 65.5 (42.2-75.2) % Lymph % (Auto) 24.0 (20.5-50.1) % Gilchrist % (Auto) 7.8 (2-8) % Eos % (Auto) 2.4 (1.0-3.0) % Baso % (Auto) 0.3 (0.0-1.0) % PT 9.9 (9.0-12.0) SEC INR 1.0 (0.9-1.2) D-Dimer, Quantitative 388 (0-400) ng/mL Sodium 141 (136-145) mmol/L Potassium 3.4 L (3.5-5.1) mmol/L Chloride 104 (98-107) mmol/L Carbon Dioxide 24 (21-32) mmol/L Anion Gap 16.4 H (7-13) mEq/L BUN 11 (7-18) mg/dL Creatinine 0.80 (0.55-1.02) mg/dL Est Cr Clr Drug Dosing 79.08 mL/min Estimated GFR (MDRD) > 60 BUN/Creatinine Ratio 13.8 (No establ ref range) Glucose 118 H (74-99) mg/dL Calcium 8.8 (8.5-10.1) mg/dL Magnesium 1.8 (1.8-2.4) mg/dL Total Bilirubin 0.4 (0.2-1.0) mg/dL AST 26 (15-37) U/L ALT 40 (14-59) U/L Alkaline Phosphatase 81 (46-116) U/L Troponin I < 0.017 (0.000-0.056) ng/mL B-Natriuretic Peptide (0-100) pg/ml Total Protein 7.8 (6.4-8.2) g/dL Albumin 3.8 (3.4-5.0) g/dL Globulin 4.0 Albumin/Globulin Ratio 0.9 TSH, Ultra Sensitive (0.36-3.74) uIU/mL 01/17/20 01/18/20 01/18/20 Range/Units 21:19 02:03 06:25 WBC (5.0-10.0) 10^3/uL RBC (4.2-5.4) 10^6/uL Hgb (12.0-16.0) g/dL Hct (37.0-47.0) % MCV (80-100) fL MCH (27.0-34.0) pg MCHC (33.0-35.0) g/dL Plt Count (150-450) 10^3/uL Neut % (Auto) (42.2-75.2) % Lymph % (Auto) (20.5-50.1) % Gilchrist % (Auto) (2-8) % Eos % (Auto) (1.0-3.0) % Baso % (Auto) (0.0-1.0) % PT (9.0-12.0) SEC INR (0.9-1.2) D-Dimer, Quantitative (0-400) ng/mL Sodium (136-145) mmol/L Potassium (3.5-5.1) mmol/L Chloride (98-107) mmol/L Carbon Dioxide (21-32) mmol/L Anion Gap (7-13) mEq/L BUN (7-18) mg/dL Creatinine (0.55-1.02) mg/dL Est Cr Clr Drug Dosing mL/min Estimated GFR (MDRD) BUN/Creatinine Ratio (No establ ref range) Glucose (74-99) mg/dL Calcium (8.5-10.1) mg/dL Magnesium (1.8-2.4) mg/dL Total Bilirubin (0.2-1.0) mg/dL AST (15-37) U/L ALT (14-59) U/L Alkaline Phosphatase (46-116) U/L Troponin I < 0.017 < 0.017 (0.000-0.056) ng/mL B-Natriuretic Peptide 12 (0-100) pg/ml Total Protein (6.4-8.2) g/dL Albumin (3.4-5.0) g/dL Globulin Albumin/Globulin Ratio TSH, Ultra Sensitive 5.36 H (0.36-3.74) uIU/mL 01/18/20 01/18/20 Range/Units 06:25 06:25 WBC 6.8 (5.0-10.0) 10^3/uL RBC 4.08 L (4.2-5.4) 10^6/uL Hgb 12.0 (12.0-16.0) g/dL Hct 36.5 L (37.0-47.0) % MCV 89.5 (80-100) fL MCH 29.4 (27.0-34.0) pg MCHC 32.9 L (33.0-35.0) g/dL Plt Count 274 (150-450) 10^3/uL Neut % (Auto) (42.2-75.2) % Lymph % (Auto) (20.5-50.1) % Gilchrist % (Auto) (2-8) % Eos % (Auto) (1.0-3.0) % Baso % (Auto) (0.0-1.0) % PT (9.0-12.0) SEC INR (0.9-1.2) D-Dimer, Quantitative (0-400) ng/mL Sodium 143 (136-145) mmol/L Potassium 3.8 (3.5-5.1) mmol/L Chloride 106 (98-107) mmol/L Carbon Dioxide 25 (21-32) mmol/L Anion Gap 15.8 H (7-13) mEq/L BUN 12 (7-18) mg/dL Creatinine 0.64 (0.55-1.02) mg/dL Est Cr Clr Drug Dosing 102.55 mL/min Estimated GFR (MDRD) > 60 BUN/Creatinine Ratio (No establ ref range) Glucose 89 (74-99) mg/dL Calcium 8.6 (8.5-10.1) mg/dL Magnesium (1.8-2.4) mg/dL Total Bilirubin (0.2-1.0) mg/dL AST (15-37) U/L ALT (14-59) U/L Alkaline Phosphatase (46-116) U/L Troponin I (0.000-0.056) ng/mL B-Natriuretic Peptide (0-100) pg/ml Total Protein (6.4-8.2) g/dL Albumin (3.4-5.0) g/dL Globulin Albumin/Globulin Ratio TSH, Ultra Sensitive (0.36-3.74) uIU/mL Med Orders - Current: Current Medications Acetaminophen (Tylenol) 650 mg PO Q4H PRN PRN Reason: Pain (Mild 1-3)/fever Amlodipine Besylate (Norvasc) 5 mg PO BEDTIME [facility] Aspirin (Halfprin) 81 mg PO DAILY [facility] Last Admin: 01/18/20 08:54 Dose: 81 mg Documented by: Calcium Carbonate (Calcium Carbonate/Vitamin D 1250 Mg-200 Unit) 1 tab PO BEDTIME NICKI Enoxaparin Sodium (Lovenox) 40 mg SUBCUT DAILY [facility] Last Admin: 01/18/20 08:54 Dose: 40 mg Documented by: Folic Acid (Folic Acid) 1 mg PO DAILY [facility] Last Admin: 01/18/20 08:54 Dose: 1 mg Documented by: Sodium Chloride (Normal Saline) 1,000 mls @ 25 mls/hr IV .BOLUS ONE Stop: 01/19/20 13:23 Last Admin: 01/17/20 21:32 Dose: 25 mls/hr Documented by: Levothyroxine Sodium (Synthroid) 50 mcg PO ACBREAKFAST [facility] Last Admin: 01/18/20 05:58 Dose: 50 mcg Documented by: Metoprolol Succinate (Toprol Xl) 25 mg PO BEDTIME NICKI Multivitamins/Minerals (Vitamins And Minerals) 1 tab PO BEDTIME NICKI Nitroglycerin (Nitrostat) 0.4 mg SL Q5M PRN PRN Reason: Chest Pain Non-Formulary Medication (Tofacitinib Citrate [Xeljanz Xr]) 11 mg PO BEDTIME NICKI Omeprazole (Omeprazole) 20 mg PO ACBREAKFAST NICKI Last Admin: 01/18/20 05:58 Dose: 20 mg Documented by: Potassium Chloride (Klor-Con 10) 20 meq PO BEDTIME NICKI Sodium Chloride (Saline Flush) 10 ml FLUSH ASDIRECTED PRN PRN Reason: Keep Vein Open Discontinued Medications Aspirin (Aspirin) 324 mg PO ONETIME ONE Stop: 01/17/20 21:11 Last Admin: 01/17/20 21:21 Dose: 324 mg Documented by: Metformin HCl (Glucophage) 500 mg PO BIDMEALS [facility] Nitroglycerin (Nitrostat) 0.4 mg SL ONETIME ONE Stop: 01/17/20 21:25 Last Admin: 01/17/20 21:31 Dose: 0.4 mg Documented by: Potassium Chloride (Klor-Con 10) 40 meq PO ONETIME ONE Stop: 01/17/20 23:28 Last Admin: 01/17/20 23:47 Dose: 40 meq Documented by:
[2020-01-18 14:29] VITALS: BP 136/80; PULSE 80
[2020-01-18] MEDS ORDERED: Multivitamins, Therapeutic with Minerals Tab PO SCH (21:00)
[2020-01-18] MEDS ORDERED: Potassium Chloride 10 MEQ Tab.ER PO SCH (21:00)
[2020-01-18] MEDS ORDERED: Calcium Carbonate/Vitamin D3 1250 MG-200 Unit Tab PO SCH (21:00)
[2020-01-18] MEDS ORDERED: Metoprolol Succinate 25 MG Tab.ER PO SCH (21:00)
[2020-01-18] MEDS ORDERED: amLODIPine 5 MG Tab PO SCH (21:00)
== END 2020-01-18 13:15 | disposition home or self-care (01) ==
LOC: DL.ED 21:05 → DL.MS 22:20
PROVIDERS: ADMIT Internal Medicine; ATTEND Student in an Organized Health Care Education/Training Program
DX: I20.8 Other forms of angina pectoris (principal); I10 Essential (primary) hypertension; E03.9 Hypothyroidism, unspecified; M06.9 Rheumatoid arthritis, unspecified; E78.00 Pure hypercholesterolemia, unspecified; K21.9 Gastro-esophageal reflux disease without esophagitis; E87.6 Hypokalemia; Z88.5 Allergy status to narcotic agent; Z88.8 Allergy status to other drugs, medicaments and biological substances; Z79.82 Long term (current) use of aspirin; Z79.899 Other long term (current) drug therapy; Z79.890 Hormone replacement therapy; Z98.890 Other specified postprocedural states; Z87.891 Personal history of nicotine dependence
CPT/HCPCS: 36415; 71045; 80048; 80053; 83735; 83880; 84443; 84484; 85025; 85027; 85379; 85610; 93005; 96372; 99285-25; A9270-GY; G0378; J1650; J7030

== ENCOUNTER 2020-01-27 12:23 | Emergency (ER) | payer OTHER ==
--- NOTE | 2020-01-27 13:26 | EDM.PDOC ---
ED HPI GENERAL MEDICAL PROBLEM - General Stated Complaint: LEFT EYE PROBLEMS Time Seen by Provider: 01/27/20 13:15 Source of Information: Reports: Patient, RN, RN Notes Reviewed History Limitations: Reports: No Limitations - History of Present Illness INITIAL COMMENTS - FREE TEXT/NARRATIVE: Patient presents to the ED via personal vehicle with complaints of swelling, pain, and erythema to the left eyelid. The patient reports about one week ago she was cleaning out dirty/kari vents at work and subsequently had debris fall into her left eye. She reports she flushed her eye for several minutes with w ater, but continued to note tearing and discomfort in the left eye over the past weekend. On 01/23/2020, she presented to the [facility] where she was diagnosed with two corneal abrasions; she was started on polymyxin/trimethoprim drops. On Thursday morning, 01/24/2020, the patient noted swelling, pain, and erythema to the medial, superior aspect of her left eyelid. These symptoms have progressively worsened in that time. She continues to experience clear drainage from the left eye despite the eyedrops. She denies fever, shaking chills, vision changes, or purulent/colored eye drainage. She has not taken any additional medications for this problem. - Related Data Allergies Allergy/AdvReac Type Severity Reaction Status Date / Time hydrocodone Allergy Itching Verified 01/17/20 23:02 nitrofurantoin Allergy Fever Verified 01/17/20 23:02 [From Macrobid] tramadol Allergy Itching Verified 01/17/20 23:02 Home Meds: Home Meds Aspirin [Halfprin] 81 mg PO DAILY 02/20/13 [History] Folic Acid 1 mg PO DAILY 02/20/13 [History] amLODIPine [Norvasc] 5 mg PO BEDTIME 02/20/13 [History] Metoprolol Succinate [Toprol XL] 25 mg PO BEDTIME 07/21/17 [History] Omeprazole 20 mg PO DAILY 07/21/17 [History] Levothyroxine [Synthroid] 50 mcg PO DAILY 03/16/18 [History] Calcium Carbonate/Vitamin D3 [Calcium 250+D] 1 tab PO BEDTIME 04/12/19 [History] Multivit with Iron,Minerals [Complete Senior] 1 tab PO BEDTIME 04/12/19 [History] Potassium Chloride 20 meq PO BEDTIME 04/12/19 [History] Tofacitinib Citrate [Xeljanz Xr] 11 mg PO BEDTIME 04/12/19 [History] Methotrexate 10 mg PO WEEKLY 01/17/20 [History] Past Medical History HEENT History: Reports: Cataract, Impaired Vision Other HEENT History: Glasses Cardiovascular History: Reports: High Cholesterol, Hypertension Other Cardiovascular History: CHOLESTEROL IS IMPROVED PER PATIENT Respiratory History: Reports: Bronchitis, Recurrent Gastrointestinal History: Reports: Chronic Constipation, Colon Polyp, GERD, Other (See Below) Other Gastrointestinal History: HAS BEEN GETTING CONSTIPATION WILL HAVE COLONOSCOPY Genitourinary History: Reports: None EMBEDDED NURSE History: Reports: , Spontaneous , Therapeutic , Other (See Below) Other EMBEDDED NURSE History: ELECTIVE TERMINATION Musculoskeletal History: Reports: Arthritis, RA Other Musculoskeletal History: left ankle pain; DDD CERVICAL Neurological History: Reports: None Psychiatric History: Reports: None Endocrine/Metabolic History: Reports: Hypothyroidism, Obesity/BMI 30+ Hematologic History: Reports: Anemia Immunologic History: Reports: None Oncologic (Cancer) History: Reports: None Dermatologic History: Reports: Other (See Below) Other Dermatologic History: skin to right shoulder area - Infectious Disease History Infectious Disease History: Reports: Chicken Pox, Influenza, MRSA - Past Surgical History Head Surgeries/Procedures: Reports: None HEENT Surgical History: Reports: Cataract Surgery, Oral Surgery Cardiovascular Surgical History: Reports: None Respiratory Surgical History: Reports: None GI Surgical History: Reports: Appendectomy, Colonoscopy, EGD, Polypectomy Female Surgical History: Reports: Cystoscopy, D&C, Tubal Ligation, Other (See Below) Other Female Surgeries/Procedures: CYSTOSCOPY; VAGINAL D & C. BLADDER SLING Endocrine Surgical History: Reports: None Neurological Surgical History: Reports: None Musculoskeletal Surgical History: Reports: Arthroscopic Knee, Shoulder Surgery, Other (See Below) Other Musculoskeletal Surgeries/Procedures:: EMG 2 EXTREMITIES. S/P LEFT ANKLE STABILIZATION. X2 ROTATOR CUFF SURGERY TO LEFT AND X1 TO RIGHT SHOULDER Oncologic Surgical History: Reports: None Dermatological Surgical History: Reports: Plastic Surgical Reconstruction/Repair, Skin Graft Social & Family History - Family History Family Medical History: No Pertinent Family History - Caffeine Use Caffeine Use: Reports: None Other Caffeine Use: 1-2 cans daily - Living Situation & Occupation Living situation: Reports: , with Spouse ED ROS ENT - Review of Systems Review Of Systems: Comprehensive ROS is negative, except as noted in HPI. ED EXAM, ENT - Physical Exam Exam: See Below Exam Limited By: No Limitations General Appearance: Alert, WD/WN, No Apparent Distress Eye Exam: Left Eye: Other (Erythema and edema to medial, superior eyelid), Bilateral Eye: EOMI, PERRL Ears: Normal External Exam, Normal Canal, Hearing Grossly Normal, Normal TMs Nose: Normal Inspection, Normal Mucousa. No: Nasal Discharge, Nasal Swelling, Nasal Tenderness Mouth/Throat: Normal Inspection, Normal Gums, Normal Lips, Normal Oropharynx, Normal Teeth Head: Atraumatic, Normocephalic Neck: Normal Inspection, Supple, Non-Tender, Full Range of Motion. No: Lymphadenopathy (L), Lymphadenopathy (R) Neurological: Alert, Oriented, CN II-XII Intact, Normal Cognition, Normal Gait, No Motor/Sensory Deficits Psychiatric: Normal Affect, Normal Mood Skin: Warm, Erythema (To left upper eyelid), Increased Warmth (To left upper eyelid). No: Ecchymosis, Petechiae, Rash Course - Vital Signs Last Recorded V/S: Last Vital Signs Temp 97.5 F 01/27/20 12:28 Pulse 83 01/27/20 12:28 Resp 18 01/27/20 12:28 BP 145/81 H 01/27/20 12:28 Pulse Ox 100 01/27/20 12:28 - Re-Assessments/Exams Free Text/Narrative Re-Assessment/Exam: 01/27/2020 Will treat eyelid infection with Bactrim. Discussed use of warm/cold compresses. Patient instructed to continue with previously prescribe eyedrops. Patient verbalized understanding and agreement with the plan of care. Departure - Departure Time of Disposition: 13:25 Disposition: Home, Self-Care 01 Condition: Good Clinical Impression: Hordeolum externum left upper eyelid, Eyelid dermatitis, infectious - Discharge Information *PRESCRIPTION DRUG MONITORING PROGRAM REVIEWED*: Not Applicable *COPY OF PRESCRIPTION DRUG MONITORING REPORT IN PATIENT BLAKE: Not Applicable Instructions: Jose A Referrals: Molina Dowling MD [Primary Care Provider] - Forms: ED Department Discharge Additional Instructions: Rx: Bactrim Drink plenty of water to stay hydrated. Take all of your antibiotics until gone. Follow up with primary care provider, or emergency department, with worsening swelling, worsening pain, vision changes, fever, or shaking chills
[2020-01-27 16:08] VITALS: BP 145/81; PULSE 83
== END 2020-01-27 14:00 | disposition home or self-care (01) ==
LOC: DL.ED 12:23
DX: H00.014 Hordeolum externum left upper eyelid (principal); H01.9 Unspecified inflammation of eyelid; I10 Essential (primary) hypertension; K21.9 Gastro-esophageal reflux disease without esophagitis; E03.9 Hypothyroidism, unspecified; M06.9 Rheumatoid arthritis, unspecified; D64.9 Anemia, unspecified; E66.9 Obesity, unspecified; Z68.30 Body mass index [BMI] 30.0-30.9, adult; Z88.5 Allergy status to narcotic agent; Z88.1 Allergy status to other antibiotic agents; Z79.899 Other long term (current) drug therapy; Z79.82 Long term (current) use of aspirin
CPT/HCPCS: 99283

== ENCOUNTER 2020-04-10 05:30 | Day surgery (SDC) | payer OTHER ==
[~2020-04-10 05:30] MED LIST changes: -Benzocaine 20% Topical Spray UD MUCMEM ONE; -Midazolam 1 MG/ML 2 ML SDV ONE; -fentaNYL 100 MCG/2 ML SDV ONE
[2020-04-10] MEDS ORDERED: Midazolam 1 MG/ML 2 ML SDV IV ONE ×3 (05:31→06:28)
[2020-04-10] MEDS ORDERED: fentaNYL 100 MCG/2 ML SDV IV ONE ×3 (05:31→06:27)
[2020-04-10] MEDS ORDERED: Midazolam 1 MG/ML 2 ML SDV ONE (06:14)
[2020-04-10] MEDS ORDERED: fentaNYL 100 MCG/2 ML SDV ONE (06:14)
--- NOTE | 2020-04-10 07:42 | OR ---
DATE: 04/10/2020 PROCEDURE: Esophagogastroduodenoscopy, NBI, APC therapy, and biopsies. INSTRUMENT USED: [id number]-HQ190 Olympus video panendoscope, APC probe. PREMEDICATIONS: Fentanyl 100 mcg intravenous, Versed 2 mg intravenous, nasal O2 cannula. The procedure was done under pulse oximetry, BP recording, and hall monitor. INDICATION: The patient with known rheumatoid arthritis, on PPI with frequent choking spells and related throat discomfort, unexplained, not responsive to PPI___therapy. Esophagogastroduodenoscopy is performed for detection of any active erosive lesions, Perez esophagus and/or malignancy also under consideration, H. pylori status to be determined, esophageal biopsies to be obtained for esophageal eosinophilia if indicated, esophageal dilatations if indicated, endoscopic hemostasis therapy if needed. DESCRIPTION OF PROCEDURE: The scope was passed with ease. Adequate visualization of the esophagus was made from proximal to distal areas. No upper esophageal lesions identified. No distal esophageal stricture. No uphill or downhill esophageal viruses. No Kaylene-Reagan tear. No evidence of erosive esophagitis by Purdys criteria. No esophageal polyp or tumor mass identified. Z-line was seen at around 40 cm distal to the oral verge, configuration consistent with grade 1 by ZAP classification. No proximal gastric varices noted. Gastric fundus examination by retroflexion showed no polypoid lesions. No gastric ulcer or malignant mass identified. "Watermelon stomach" was noted without any bleeding from angiodysplastic areas. Using circumferential ACP probe, therapy was given to the angiodysplastic areas. Duodenal bulb showed no ulcer. Visualized second part of the duodenum was unremarkable. Multiple pinch biopsies were taken from the gastric antrum and proximal body and sent for PyloriTek test for H. pylori and histopathology. Four-quadrant biopsies were taken from the distal and proximal esophagus and sent for any histopathologic evidence of esophageal eosinophilia. No bleeding was noted from any of the visualized areas at the completion of examination. Photographs were taken of the duodenal bulb, gastric antrum, fundus, and distal esophagus. IMPRESSION: "Watermelon" stomach. The patient tolerated the procedure well. [facility] /[id number] [facility]
--- NOTE | 2020-04-10 08:12 | LETTER ---
04/10/2020 RE: GABBY METZ : 1965 [place] [address] [facility] [address] [place] [address] Dear Ms. Diggs: Ms. Gabby Metz had an esophagogastroduodenoscopy done this morning and she tolerated the procedure well. I herewith send a copy of the endoscopy note and photographs for your review. Thank you. Sincerely, [facility] /[id number]
[2020-04-11 07:21] VITALS: BP 108/87; PULSE 59
== END 2020-04-10 08:55 | disposition home or self-care (01) ==
LOC: DL.ENDO 05:30
PROVIDERS: ATTEND Internal Medicine Gastroenterology
DX: K29.50 Unspecified chronic gastritis without bleeding (principal); K31.819 Angiodysplasia of stomach and duodenum without bleeding; M06.9 Rheumatoid arthritis, unspecified; K64.8 Other hemorrhoids; Z88.5 Allergy status to narcotic agent; Z68.37 Body mass index [BMI] 37.0-37.9, adult
CPT/HCPCS: 43239; 87077; J2250; J3010; J7042

== ENCOUNTER 2020-04-14 11:48 | Emergency (ER) | payer OTHER ==
[2020-04-14 12:18] VITALS: BP 139/66; PULSE 70
[2020-04-14 13:05] LABS: ANION GAP 14.5 mEq/L (7-13); CHLORIDE,CL 104 mmol/L (98-107); SODIUM,NA 142 mmol/L (136-145)
--- NOTE | 2020-04-14 14:09 | EDM.PDOC ---
ED HPI GENERAL MEDICAL PROBLEM - General Chief Complaint: Abdominal Pain Stated Complaint: STOMACH ISSUES Time Seen by Provider: 04/14/20 12:50 Source of Information: Reports: Patient, Old Records, RN, RN Notes Reviewed History Limitations: Reports: No Limitations - History of Present Illness INITIAL COMMENTS - FREE TEXT/NARRATIVE: Patient presents to the ED via personal vehicle with complaints of abdominal pain, nausea, and one bout of emesis. The patient reports the abdominal pain began about three days ago, 04/11/20, following an EGD the day; the EGD was performed to due slow esophageal transit, biopsies were performed, patient has not yet received results. The patient states the pain is in the mid-abdominal area, bilaterally. She characterizes the pain as an ache. She denies fever, shaking chills, palpitations, dyspepsia, hematemesis, or melena. She does attest to a few watery stools that began one day ago, as well as hematochezia; the patient does report a history of hemorrhoids. The patient states she has not taken any medications today for these symptoms. She reports she took one dose of Ibuprofen one day ago which offered her some relief of pain. She denies tobacco, alcohol, or recreational drug use. She states she has not eaten today but has been able to drink some Gatorade/Poweraid. Lower Abdominal Pain Score (Numeric/FACES): 6 - Related Data Allergies Allergy/AdvReac Type Severity Reaction Status Date / Time hydrocodone Allergy Itching Verified 04/14/20 12:18 nitrofurantoin Allergy Fever Verified 04/14/20 12:18 [From Macrobid] tramadol Allergy Itching Verified 04/14/20 12:18 Home Meds: Home Meds Aspirin [Halfprin] 81 mg PO DAILY 02/20/13 [History] Folic Acid 1 mg PO DAILY 02/20/13 [History] amLODIPine [Norvasc] 5 mg PO BEDTIME 02/20/13 [History] Metoprolol Succinate [Toprol XL] 25 mg PO BEDTIME 07/21/17 [History] Levothyroxine [Synthroid] 50 mcg PO DAILY 03/16/18 [History] Calcium Carbonate/Vitamin D3 [Calcium 250+D] 1 tab PO BEDTIME 04/12/19 [History] Potassium Chloride 20 meq PO BEDTIME 04/12/19 [History] Tofacitinib Citrate [Xeljanz Xr] 11 mg PO BEDTIME 04/12/19 [History] Methotrexate 10 mg PO WEEKLY 01/17/20 [History] Cholecalciferol (Vitamin D3) [Vitamin D3] 2,000 units PO DAILY 04/09/20 [History ] Diclofenac Sodium [Voltaren 1% Gel] 1 applic TOP ASDIRECTED PRN 04/09/20 [History] Melatonin 5 mg PO BEDTIME PRN 04/09/20 [History] Nitroglycerin 0.4 mg SL ASDIRECTED PRN 04/09/20 [History] Pantoprazole [ProTONIX] 40 mg PO DAILY 04/09/20 [History] Past Medical History HEENT History: Reports: Cataract, Impaired Vision Other HEENT History: Glasses Cardiovascular History: Reports: High Cholesterol, Hypertension, Other (See Below) Other Cardiovascular History: CHOLESTEROL IS IMPROVED PER PATIENT. MITRAL VALVE INSUFFICIENCY AND AORTIC VALVE INSUFFICIENCY Respiratory History: Reports: Bronchitis, Recurrent Gastrointestinal History: Reports: Chronic Constipation, Colon Polyp, Diverticulosis, GERD, Hemorrhoids, Irritable Bowel Syndrome, Other (See Below) Other Gastrointestinal History: HAS BEEN GETTING CONSTIPATION WILL HAVE COLONOSCOPY Genitourinary History: Reports: None SYSTEMS INTEGRATION MANAGER History: Reports: , Spontaneous , Therapeutic , Other (See Below) Other SYSTEMS INTEGRATION MANAGER History: ELECTIVE TERMINATION Musculoskeletal History: Reports: Arthritis, RA Other Musculoskeletal History: left ankle pain; DDD CERVICAL Neurological History: Reports: None Psychiatric History: Reports: None Endocrine/Metabolic History: Reports: Hypothyroidism, Obesity/BMI 30+ Hematologic History: Reports: Anemia Immunologic History: Reports: None Oncologic (Cancer) History: Reports: None Dermatologic History: Reports: Other (See Below) Other Dermatologic History: skin to right shoulder area - Infectious Disease History Infectious Disease History: Reports: Chicken Pox, Influenza, MRSA - Past Surgical History Head Surgeries/Procedures: Reports: None HEENT Surgical History: Reports: Cataract Surgery, Oral Surgery Cardiovascular Surgical History: Reports: None Respiratory Surgical History: Reports: None GI Surgical History: Reports: Appendectomy, Colonoscopy, EGD, Polypectomy Other GI Surgeries/Procedures: EGD on Monday 04/10 Female Surgical History: Reports: Cystoscopy, D&C, Tubal Ligation, Other (See Below) Other Female Surgeries/Procedures: CYSTOSCOPY; VAGINAL D & C. BLADDER SLING Endocrine Surgical History: Reports: None Neurological Surgical History: Reports: None Musculoskeletal Surgical History: Reports: Arthroscopic Knee, Shoulder Surgery, Other (See Below) Other Musculoskeletal Surgeries/Procedures:: EMG 2 EXTREMITIES. S/P LEFT ANKLE STABILIZATION. X2 ROTATOR CUFF SURGERY TO LEFT AND X1 TO RIGHT SHOULDER Oncologic Surgical History: Reports: None Dermatological Surgical History: Reports: Plastic Surgical Reconstruction/Repair, Skin Graft Social & Family History - Family History Family Medical History: No Pertinent Family History - Tobacco Use Tobacco Use Status *Q: Never Tobacco User Second Hand Smoke Exposure: No - Caffeine Use Caffeine Use: Reports: Soda Other Caffeine Use: 1-2 cans daily - Recreational Drug Use Drug Use in Last 12 Months: No - Living Situation & Occupation Living situation: Reports: , with Spouse ED ROS GENERAL - Review of Systems Review Of Systems: Comprehensive ROS is negative, except as noted in HPI. ED EXAM, GI/ABD - Physical Exam Exam: See Below Exam Limited By: No Limitations General Appearance: Alert, No Apparent Distress Throat/Mouth: Normal Voice, No Airway Compromise. No: Normal Oropharynx (Dry mucous membranes) Respiratory/Chest: No Respiratory Distress, Lungs Clear, Normal Breath Sounds, No Accessory Muscle Use, Chest Non-Tender Cardiovascular: Normal Peripheral Pulses, Regular Rate, Rhythm, No Edema, No Gallop, No JVD, No Murmur, No Rub GI/Abdominal Exam: Soft, No Distention, No Abnormal Bruit, No Mass, Pelvis Stable, Tender (To palpation of bilateral mid-abdomen), Abnormal Bowel Sounds (Hypoactive bowel sounds) (Female) Exam: Deferred Rectal (Female) Exam: Deferred Back Exam: Normal Inspection, Full Range of Motion. No: CVA Tenderness (L), CVA Tenderness (R), Paraspinal Tenderness, Vertebral Tenderness Extremities: Normal Inspection, Normal Range of Motion, Non-Tender, Normal Capillary Refill, No Pedal Edema Neurological: Alert, Oriented, CN II-XII Intact, Normal Cognition, Normal Gait, No Motor/Sensory Deficits Psychiatric: Normal Affect, Normal Mood Skin Exam: Warm, Dry, Intact, Normal Color, No Rash. No: Ecchymosis, Erythema, Jaundice, Mottled, Pallor, Petechiae Lymphatic: No Adenopathy Course - Vital Signs Last Recorded V/S: Last Vital Signs Temp 97.4 F 04/14/20 12:10 Pulse 70 04/14/20 12:10 Resp 16 04/14/20 12:10 BP 139/66 04/14/20 12:10 Pulse Ox 100 04/14/20 12:10 - Orders/Labs/Meds Orders: Active Orders 24 hr Category Date Time Status CULTURE URINE [RM] Stat Lab 04/14/20 12:44 Results Labs: Laboratory Tests 04/14/20 04/14/20 04/14/20 Range/Units 12:40 12:40 12:40 WBC 6.3 (5.0-10.0) 10^3/uL RBC 4.23 (4.2-5.4) 10^6/uL Hgb 12.3 (12.0-16.0) g/dL Hct 37.2 (37.0-47.0) % MCV 87.9 (80-100) fL MCH 29.1 (27.0-34.0) pg MCHC 33.1 (33.0-35.0) g/dL Plt Count 266 (150-450) 10^3/uL Neut % (Auto) 54.1 (42.2-75.2) % Lymph % (Auto) 34.1 (20.5-50.1) % [place] % (Auto) 7.3 (2-8) % Eos % (Auto) 4.3 H (1.0-3.0) % Baso % (Auto) 0.2 (0.0-1.0) % Sodium 142 (136-145) mmol/L Potassium 3.5 (3.5-5.1) mmol/L Chloride 104 (98-107) mmol/L Carbon Dioxide 27 (21-32) mmol/L Anion Gap 14.5 H (7-13) mEq/L BUN 13 (7-18) mg/dL Creatinine 0.80 (0.55-1.02) mg/dL Est Cr Clr Drug Dosing 82.04 mL/min Estimated GFR (MDRD) > 60 BUN/Creatinine Ratio 16.2 (No establ ref range) Glucose 93 (74-99) mg/dL Lactic Acid 1.5 (0.4-2.0) mmol/L Calcium 8.5 (8.5-10.1) mg/dL Magnesium 1.8 (1.8-2.4) mg/dL Total Bilirubin 0.4 (0.2-1.0) mg/dL AST 30 (15-37) U/L ALT 55 (14-59) U/L Alkaline Phosphatase 90 (46-116) U/L C-Reactive Protein 0.6 (0.0-0.9) mg/dL Total Protein 8.0 (6.4-8.2) g/dL Albumin 3.8 (3.4-5.0) g/dL Globulin 4.2 Albumin/Globulin Ratio 0.9 Amylase (25-115) U/L Lipase (73-393) U/L Urine Color (YELLOW) Urine Appearance (CLEAR) Urine pH (5.0-9.0) Ur Specific [place] (1.005-1.030) Urine Protein (NEGATIVE) Urine Glucose (UA) (NEGATIVE) Urine Ketones (NEGATIVE) Urine Occult Blood (NEGATIVE) Urine Nitrite (NEGATIVE) Urine Bilirubin (NEGATIVE) Urine Urobilinogen (0.2-1.0) mg/dL Ur Leukocyte Esterase (NEGATIVE) Urine RBC /HPF Urine WBC (0-5/HPF) /HPF Ur Epithelial Cells (NOT SEEN) /HPF Urine Bacteria (0-FEW/HPF) /HPF Urine Mucus (NOT SEEN) /LPF 04/14/20 04/14/20 Range/Units 12:40 12:44 WBC (5.0-10.0) 10^3/uL RBC (4.2-5.4) 10^6/uL Hgb (12.0-16.0) g/dL Hct (37.0-47.0) % MCV (80-100) fL MCH (27.0-34.0) pg MCHC (33.0-35.0) g/dL Plt Count (150-450) 10^3/uL Neut % (Auto) (42.2-75.2) % Lymph % (Auto) (20.5-50.1) % [place] % (Auto) (2-8) % Eos % (Auto) (1.0-3.0) % Baso % (Auto) (0.0-1.0) % Sodium (136-145) mmol/L Potassium (3.5-5.1) mmol/L Chloride (98-107) mmol/L Carbon Dioxide (21-32) mmol/L Anion Gap (7-13) mEq/L BUN (7-18) mg/dL Creatinine (0.55-1.02) mg/dL Est Cr Clr Drug Dosing mL/min Estimated GFR (MDRD) BUN/Creatinine Ratio (No establ ref range) Glucose (74-99) mg/dL Lactic Acid (0.4-2.0) mmol/L Calcium (8.5-10.1) mg/dL Magnesium (1.8-2.4) mg/dL Total Bilirubin (0.2-1.0) mg/dL AST (15-37) U/L ALT (14-59) U/L Alkaline Phosphatase (46-116) U/L C-Reactive Protein (0.0-0.9) mg/dL Total Protein (6.4-8.2) g/dL Albumin (3.4-5.0) g/dL Globulin Albumin/Globulin Ratio Amylase 42 (25-115) U/L Lipase 141 (73-393) U/L Urine Color Yellow (YELLOW) Urine Appearance Slightly cloudy (CLEAR) Urine pH 5.5 (5.0-9.0) Ur Specific [place] 1.020 (1.005-1.030) Urine Protein Negative (NEGATIVE) Urine Glucose (UA) Negative (NEGATIVE) Urine Ketones Negative (NEGATIVE) Urine Occult Blood Negative (NEGATIVE) Urine Nitrite Negative (NEGATIVE) Urine Bilirubin Negative (NEGATIVE) Urine Urobilinogen 0.2 (0.2-1.0) mg/dL Ur Leukocyte Esterase Moderate H (NEGATIVE) Urine RBC 0-5 /HPF Urine WBC 20-30 H (0-5/HPF) /HPF Ur Epithelial Cells Few (NOT SEEN) /HPF Urine Bacteria Few (0-FEW/HPF) /HPF Urine Mucus Few H (NOT SEEN) /LPF - Re-Assessments/Exams Free Text/Narrative Re-Assessment/Exam: 04/14/20 CBC unremarkable for acute processes; WBC 6.3 without left shift, no anemia noted. CMP also unremarkable for acute processes; kidney function appropriate, liver enzymes WNL, no elevation or depression of electrolytes. Anion Gap slightly opened at 14. Lactic Acid WNL at 1.5. Amylase and Lipase appropriate. UA remarkable for leukocyte esterase and High WBC. Given patient's history, examination, and UA will avoid CT at this time as there us no evidence of systemic infection or acute processes. Discussed findings of lab work and examination with the patient. Discussed withholding scan at this time and treating for progressing UTI. Patient verbalized understanding and agreement with the plan of care. Departure - Departure Time of Disposition: 14:07 Disposition: Home, Self-Care 01 Condition: Good Clinical Impression: Urinary tract infection Qualifiers: Urinary tract infection type: acute cystitis Hematuria presence: without hematuria Qualified Code(s): N30.00 - Acute cystitis without hematuria Nausea & vomiting Qualifiers: Vomiting type: unspecified Vomiting Intractability: non-intractable Qualified Code(s): R11.2 - Nausea with vomiting, unspecified - Discharge Information *PRESCRIPTION DRUG MONITORING PROGRAM REVIEWED*: Not Applicable *COPY OF PRESCRIPTION DRUG MONITORING REPORT IN PATIENT BLAKE: Not Applicable Referrals: Molina Dowling MD [Primary Care Provider] - Forms: ED Department Discharge Additional Instructions: Rx: Bactrim Rx: Zofran ODT 1.) Take all of your antibiotic until it is gone. 2.) Drink plenty of water to stay hydrated. 3.) Eat small, frequent meals to avoid nausea. 4.) Follow up with your primary care provider, or the emergency department, with symptoms that do not improve with medication, fever, shaking chills, or inability to void. Sepsis Event Note (ED) - Evaluation Sepsis Screening Result: No Definite Risk - My Orders Last 24 Hours: My Active Orders 04/14/20 12:44 CULTURE URINE [RM] Stat - Assessment/Plan Last 24 Hours: My Active Orders 04/14/20 12:44 CULTURE URINE [RM] Stat
== END 2020-04-14 14:14 | disposition home or self-care (01) ==
LOC: DL.ED 11:48
DX: N30.00 Acute cystitis without hematuria (principal); R11.2 Nausea with vomiting, unspecified; I10 Essential (primary) hypertension; K21.9 Gastro-esophageal reflux disease without esophagitis; M06.9 Rheumatoid arthritis, unspecified; E03.9 Hypothyroidism, unspecified; E66.9 Obesity, unspecified; Z68.38 Body mass index [BMI] 38.0-38.9, adult; Z88.5 Allergy status to narcotic agent; Z88.1 Allergy status to other antibiotic agents; Z79.82 Long term (current) use of aspirin; Z79.899 Other long term (current) drug therapy
CPT/HCPCS: 36415; 80053; 81001; 82150; 83605; 83690; 83735; 85025; 86140; 87086; 87088; 87186; 99284

== ENCOUNTER 2020-05-01 06:46 | Emergency (ER) | payer OTHER ==
--- NOTE | 2020-05-01 06:49 | EDM.PDOC ---
<AngelPaul Meek - Last Filed: 05/01/20 09:17> ED HPI GENERAL MEDICAL PROBLEM - General Chief Complaint: Neuro Symptoms/Deficits Stated Complaint: [facility] Time Seen by Provider: 05/01/20 06:38 Source of Information: Reports: Patient, Old Records, Provider (Rubi Mckeon [employer]), RN, RN Notes Reviewed - History of Present Illness INITIAL COMMENTS - FREE TEXT/NARRATIVE: I assumed care of the pt from Rubi Mckeon [employer] at 0700HR shift change. Pt reports waking with sever "room spin" dizziness and nausea. No change to CC/HPI, Hx, ROS, exam, or lab results as documented by the [employer] for this encounter. Onset: Today, Sudden Onset Date: 05/01/20 Onset Time: 04:00 Duration: Intermittent, Recurring, Waxing/Waning Location: Reports: Generalized Quality: Reports: Other (Denies pain) Severity: Severe Improves with: Reports: Rest (and remaining still with eyes closed) Worsens with: Reports: Movement Associated Symptoms: Reports: No Other Symptoms - Related Data Allergies Allergy/AdvReac Type Severity Reaction Status Date / Time hydrocodone Allergy Itching Verified 05/01/20 06:53 nitrofurantoin Allergy Fever Verified 05/01/20 06:53 [From Macrobid] tramadol Allergy Itching Verified 05/01/20 06:53 Home Meds: Home Meds Aspirin [Halfprin] 81 mg PO DAILY 02/20/13 [History] Folic Acid 1 mg PO DAILY 02/20/13 [History] amLODIPine [Norvasc] 5 mg PO BEDTIME 02/20/13 [History] Metoprolol Succinate [Toprol XL] 25 mg PO BEDTIME 07/21/17 [History] Levothyroxine [Synthroid] 50 mcg PO DAILY 03/16/18 [History] Calcium Carbonate/Vitamin D3 [Calcium 250+D] 1 tab PO BEDTIME 04/12/19 [History] Potassium Chloride 20 meq PO BEDTIME 04/12/19 [History] Tofacitinib Citrate [Xeljanz Xr] 11 mg PO BEDTIME 04/12/19 [History] Methotrexate 10 mg PO WEEKLY 01/17/20 [History] Cholecalciferol (Vitamin D3) [Vitamin D3] 2,000 units PO DAILY 04/09/20 [His tory] Diclofenac Sodium [Voltaren 1% Gel] 1 applic TOP ASDIRECTED PRN 04/09/20 [History] Melatonin 5 mg PO BEDTIME PRN 04/09/20 [History] Nitroglycerin 0.4 mg SL ASDIRECTED PRN 04/09/20 [History] Pantoprazole [ProTONIX] 40 mg PO DAILY 04/09/20 [History] ED ROS GENERAL - Review of Systems Review Of Systems: Comprehensive ROS is negative, except as noted in HPI. ED EXAM, GI/ABD - Physical Exam Exam: See Below Exam Limited By: No Limitations General Appearance: Alert, WD/WN, No Apparent Distress, Obese Eyes: Bilateral: EOMI, Nystagmus (left lateral gaze nystagmus) Ears: Normal External Exam, Normal Canal, Hearing Grossly Normal, Normal TMs Nose: Normal Inspection, Normal Mucosa, No Blood Throat/Mouth: Normal Inspection, Normal Lips, Normal Teeth, Normal Gums, Normal Oropharynx, Normal Voice, No Airway Compromise Head: Atraumatic, Normocephalic Neck: Normal Inspection, Supple, Non-Tender, Full Range of Motion Respiratory/Chest: No Respiratory Distress, Lungs Clear, Normal Breath Sounds, No Accessory Muscle Use, Chest Non-Tender Cardiovascular: Normal Peripheral Pulses, Regular Rate, Rhythm, No Edema, No Gallop, No JVD, No Murmur, No Rub GI/Abdominal Exam: Normal Bowel Sounds, Soft, Non-Tender, No Organomegaly, No Distention, No Abnormal Bruit, No Mass, Pelvis Stable. No: Guarding, Rigid, Rebound Extremities: Normal Inspection Neurological: Alert, Oriented, CN II-XII Intact, Normal Cognition, Normal Gait, Normal Reflexes, No Motor/Sensory Deficits, Other (Reproducible vertiginous dizziness with head motion) Psychiatric: Normal Affect, Normal Mood Skin Exam: Warm, Dry, Intact, Normal Color, No Rash #1 Interpretation EKG Date: 05/01/20 Time: 07:29 Rhythm: Other (SR) Rate (Beats/Min): 61 [place]: LAD-Left [place] Deviation P-Wave: Present QRS: Other (LVH) ST-T: Other (T wave inversion lead III, aVF and flattened T waves in lateral leads) QT: Normal Comparison: No Change Departure - Departure Time of Disposition: 09:23 Disposition: Home, Self-Care 01 Condition: Good Clinical Impression: Vertigo - Discharge Information *PRESCRIPTION DRUG MONITORING PROGRAM REVIEWED*: Not Applicable *COPY OF PRESCRIPTION DRUG MONITORING REPORT IN PATIENT BLAKE: Not Applicable Instructions: Vertigo Forms: ED Department Discharge Additional Instructions: Rx: Meclizine 25mg: To be used up to four times a day as needed for dizziness (vertigo), may cause drowsiness. Rest today. Follow up in clinic if not improved in one week. <Rubi Mckeon - Last Filed: 05/01/20 19:51> ED HPI GENERAL MEDICAL PROBLEM - General Source of Information: Reports: Patient, Provider, RN, RN Notes Reviewed History Limitations: Reports: No Limitations - History of Present Illness INITIAL COMMENTS - FREE TEXT/NARRATIVE: Patient presents to the ED via [facility] with complaints of nausea and di zziness. The patient reports she was experiencing bilateral lower back pain yesterday to the point she needed to leave work for home; she does attest to a history of disk disease for which she receives steroid injections. She took Tylenol with little relief of this pain. She states she went to bed last night feeling "ok" but woke this morning with dizziness and nausea. She states she has never felt similar to this in the past. She denies fever, shaking chills, cough, sore throat, chest pain, palpitations, shortness of breath, vomiting, dysuria, hematuria, or diarrhea. She does attest to inability to completely void for the past week. She has not taken any medications for these symptoms. She denies tobacco, alcohol, or recreational drug use. She denies a history of cardiac events and reports a history of hyperlipidemia, DMII, and hypertension. Past Medical History HEENT History: Reports: Cataract, Impaired Vision Other HEENT History: Glasses Cardiovascular History: Reports: High Cholesterol, Hypertension, Other (See Below) Other Cardiovascular History: CHOLESTEROL IS IMPROVED PER PATIENT. 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: ELECTIVE TERMINATION Musculoskeletal History: Reports: Arthritis, RA Other Musculoskeletal History: left ankle pain; DDD CERVICAL Neurological History: Reports: None Psychiatric History: Reports: None Endocrine/Metabolic History: Reports: Hypothyroidism, Obesity/BMI 30+ Hematologic History: Reports: Anemia Immunologic History: Reports: None Oncologic (Cancer) History: Reports: None Dermatologic History: Reports: Other (See Below) Other Dermatologic History: skin to right shoulder area - Infectious Disease History Infectious Disease History: Reports: Chicken Pox, Influenza, MRSA - Past Surgical History Head Surgeries/Procedures: Reports: None HEENT Surgical History: Reports: Cataract Surgery, Oral Surgery Cardiovascular Surgical History: Reports: None Respiratory Surgical History: Reports: None GI Surgical History: Reports: Appendectomy, Colonoscopy, EGD, Polypectomy Other GI Surgeries/Procedures: EGD on Monday 04/10 Female Surgical History: Reports: Cystoscopy, D&C, Tubal Ligation, Other (See Below) Other Female Surgeries/Procedures: CYSTOSCOPY; VAGINAL D & C. BLADDER SLING Endocrine Surgical History: Reports: None Neurological Surgical History: Reports: None Musculoskeletal Surgical History: Reports: Arthroscopic Knee, Shoulder Surgery, Other (See Below) Other Musculoskeletal Surgeries/Procedures:: EMG 2 EXTREMITIES. S/P LEFT ANKLE STABILIZATION. X2 ROTATOR CUFF SURGERY TO LEFT AND X1 TO RIGHT SHOULDER Oncologic Surgical History: Reports: None Dermatological Surgical History: Reports: Plastic Surgical Reconstruction/Repair, Skin Graft Social & Family History - Family History Family Medical History: No Pertinent Family History - Caffeine Use Caffeine Use: Reports: Soda Other Caffeine Use: 1-2 cans daily - Living Situation & Occupation Living situation: Reports: , with Spouse ED ROS GENERAL - Review of Systems Review Of Systems: Comprehensive ROS is negative, except as noted in HPI. ED EXAM, GI/ABD - Physical Exam Exam: See Below Exam Limited By: No Limitations General Appearance: Alert, Mild Distress, Obese Eyes: Bilateral: Normal Appearance, EOMI Ears: Normal External Exam, Normal Canal, Hearing Grossly Normal, Normal TMs Nose: Normal Inspection, Normal Mucosa, No Blood Throat/Mouth: Normal Inspection, Normal Lips, Normal Teeth, Normal Gums, Normal Oropharynx, Normal Voice, No Airway Compromise Head: Atraumatic, Normocephalic Neck: Normal Inspection, Supple, Non-Tender, Full Range of Motion. No: Lymphadenopathy (L), Lymphadenopathy (R) Respiratory/Chest: No Respiratory Distress, Lungs Clear, Normal Breath Sounds, No Accessory Muscle Use, Chest Non-Tender Cardiovascular: Normal Peripheral Pulses, Regular Rate, Rhythm, No Edema, No Gallop, No JVD, No Murmur, No Rub GI/Abdominal Exam: Soft, Non-Tender, No Distention, No Mass, Pelvis Stable, Abnormal Bowel Sounds (Hypoactive) (Female) Exam: Deferred Rectal (Female) Exam: Deferred Back Exam: Normal Inspection, Full Range of Motion, CVA Tenderness (R). No: CVA Tenderness (L), Paraspinal Tenderness, Vertebral Tenderness Extremities: Normal Inspection, Normal Range of Motion, Non-Tender, Normal Capillary Refill, Pedal Edema (Trace edema, bilaterally) Neurological: Alert, Oriented, CN II-XII Intact, Normal Cognition, No Motor/Sensory Deficits Psychiatric: Normal Affect, Normal Mood Skin Exam: Warm, Intact, Normal Color, No Rash, Diaphoretic. No: Ecchymosis, Erythema, Jaundice, Mottled, Pallor Course - Vital Signs Last Recorded V/S: Last Vital Signs Temp 97.3 F 05/01/20 06:47 Pulse 73 05/01/20 06:47 Resp 20 05/01/20 06:47 BP 128/60 05/01/20 06:47 Pulse Ox 94 L 05/01/20 06:47 - Orders/Labs/Meds Orders: Active Orders 24 hr Category Date Time Status CULTURE BLOOD [BC] Stat Lab 05/01/20 07:02 Received Labs: Laboratory Tests 05/01/20 05/01/20 05/01/20 Range/Units 07:02 07:02 07:02 WBC 6.1 (5.0-10.0) 10^3/uL RBC 4.00 L (4.2-5.4) 10^6/uL Hgb 11.8 L (12.0-16.0) g/dL Hct 35.4 L (37.0-47.0) % MCV 88.5 (80-100) fL MCH 29.5 (27.0-34.0) pg MCHC 33.3 (33.0-35.0) g/dL Plt Count 232 (150-450) 10^3/uL Neut % (Auto) 61.8 (42.2-75.2) % Lymph % (Auto) 25.6 (20.5-50.1) % [place] % (Auto) 8.9 H (2-8) % Eos % (Auto) 3.4 H (1.0-3.0) % Baso % (Auto) 0.3 (0.0-1.0) % Sodium 142 (136-145) mmol/L Potassium 3.7 (3.5-5.1) mmol/L Chloride 107 (98-107) mmol/L Carbon Dioxide 26 (21-32) mmol/L Anion Gap 12.7 (7-13) mEq/L BUN 13 (7-18) mg/dL Creatinine 0.74 (0.55-1.02) mg/dL Est Cr Clr Drug Dosing 103.50 mL/min Estimated GFR (MDRD) > 60 BUN/Creatinine Ratio 17.6 (No establ ref range) Glucose 125 H (74-99) mg/dL Lactic Acid 1.5 (0.4-2.0) mmol/L Calcium 8.3 L (8.5-10.1) mg/dL Total Bilirubin 0.3 (0.2-1.0) mg/dL AST 28 (15-37) U/L ALT 55 (14-59) U/L Alkaline Phosphatase 93 (46-116) U/L Troponin I < 0.017 (0.000-0.056) ng/mL Total Protein 7.4 (6.4-8.2) g/dL Albumin 3.4 (3.4-5.0) g/dL Globulin 4.0 Albumin/Globulin Ratio 0.9 Amylase (25-115) U/L Lipase (73-393) U/L Urine Color (YELLOW) Urine Appearance (CLEAR) Urine pH (5.0-9.0) Ur Specific [place] (1.005-1.030) Urine Protein (NEGATIVE) Urine Glucose (UA) (NEGATIVE) Urine Ketones (NEGATIVE) Urine Occult Blood (NEGATIVE) Urine Nitrite (NEGATIVE) Urine Bilirubin (NEGATIVE) Urine Urobilinogen (0.2-1.0) mg/dL Ur Leukocyte Esterase (NEGATIVE) 05/01/20 05/01/20 Range/Units 07:02 07:07 WBC (5.0-10.0) 10^3/uL RBC (4.2-5.4) 10^6/uL Hgb (12.0-16.0) g/dL Hct (37.0-47.0) % MCV (80-100) fL MCH (27.0-34.0) pg MCHC (33.0-35.0) g/dL Plt Count (150-450) 10^3/uL Neut % (Auto) (42.2-75.2) % Lymph % (Auto) (20.5-50.1) % [place] % (Auto) (2-8) % Eos % (Auto) (1.0-3.0) % Baso % (Auto) (0.0-1.0) % Sodium (136-145) mmol/L Potassium (3.5-5.1) mmol/L Chloride (98-107) mmol/L Carbon Dioxide (21-32) mmol/L Anion Gap (7-13) mEq/L BUN (7-18) mg/dL Creatinine (0.55-1.02) mg/dL Est Cr Clr Drug Dosing mL/min Estimated GFR (MDRD) BUN/Creatinine Ratio (No establ ref range) Glucose (74-99) mg/dL Lactic Acid (0.4-2.0) mmol/L Calcium (8.5-10.1) mg/dL Total Bilirubin (0.2-1.0) mg/dL AST (15-37) U/L ALT (14-59) U/L Alkaline Phosphatase (46-116) U/L Troponin I (0.000-0.056) ng/mL Total Protein (6.4-8.2) g/dL Albumin (3.4-5.0) g/dL Globulin Albumin/Globulin Ratio Amylase 36 (25-115) U/L Lipase 114 (73-393) U/L Urine Color Yellow (YELLOW) Urine Appearance Clear (CLEAR) Urine pH 6.5 (5.0-9.0) Ur Specific [place] 1.025 (1.005-1.030) Urine Protein Negative (NEGATIVE) Urine Glucose (UA) Negative (NEGATIVE) Urine Ketones Negative (NEGATIVE) Urine Occult Blood Negative (NEGATIVE) Urine Nitrite Negative (NEGATIVE) Urine Bilirubin Negative (NEGATIVE) Urine Urobilinogen 0.2 (0.2-1.0) mg/dL Ur Leukocyte Esterase Negative (NEGATIVE) Meds: Medications Discontinued Medications Generic Name Dose Route Start Last Admin Trade Name Freq PRN Reason Stop Dose Admin Dexamethasone 20 mg 05/01/20 07:53 05/01/20 08:05 Decadron IVPUSH 05/01/20 07:54 20 mg ONETIME ONE Administration Diazepam 5 mg 05/01/20 07:54 05/01/20 08:03 Valium IVPUSH 05/01/20 07:55 5 mg ONETIME ONE Administration Sodium Chloride 1,000 mls @ 999 mls/hr 05/01/20 07:52 05/01/20 08:01 Normal Saline IV 05/01/20 08:52 999 mls/hr .BOLUS ONE Administration Meclizine HCl 25 mg 05/01/20 07:53 05/01/20 08:07 Antivert PO 05/01/20 07:54 25 mg ONETIME ONE Administration - My Orders Last 24 Hours: My Active Orders 05/01/20 07:02 CULTURE BLOOD [BC] Stat - Assessment/Plan Last 24 Hours: My Active Orders 05/01/20 07:02 CULTURE BLOOD [BC] Stat
[2020-05-01 06:52] VITALS: BP 128/60; PULSE 73
[2020-05-01 07:31] LABS: ANION GAP 12.7 mEq/L (7-13); CHLORIDE,CL 107 mmol/L (98-107); SODIUM,NA 142 mmol/L (136-145)
[2020-05-01] MEDS ORDERED: Sodium Chloride 0.9% 1,000 ML IV ONE (07:52)
[2020-05-01] MEDS ORDERED: Dexamethasone 4 MG/ML SDV IVPUSH ONE (07:53)
[2020-05-01] MEDS ORDERED: Meclizine 12.5 MG Tab PO ONE (07:53)
== END 2020-05-01 10:30 | disposition home or self-care (01) ==
LOC: DL.ED 06:46
DX: R42 Dizziness and giddiness (principal); E78.00 Pure hypercholesterolemia, unspecified; I10 Essential (primary) hypertension; K21.9 Gastro-esophageal reflux disease without esophagitis; M19.90 Unspecified osteoarthritis, unspecified site; E03.9 Hypothyroidism, unspecified; E66.9 Obesity, unspecified; Z88.5 Allergy status to narcotic agent; Z88.1 Allergy status to other antibiotic agents; Z79.82 Long term (current) use of aspirin; Z79.899 Other long term (current) drug therapy
CPT/HCPCS: 36415; 80053; 81003; 82150; 83605; 83690; 84484; 85025; 87040; 93005; 96374; 96375; 99284; A9270; J1100; J3360; J7030

== ENCOUNTER 2020-05-27 22:10 | Emergency (ER) | payer OTHER ==
[2020-05-27] MEDS ORDERED: Ondansetron 4 MG/2 ML SDV IVPUSH ONE (22:31)
[2020-05-27] MEDS ORDERED: Sodium Chloride 0.9% 1,000 ML IV ONE (22:31)
[2020-05-27 22:45] VITALS: BP 115/62; PULSE 101
[2020-05-27 23:10] LABS: ANION GAP 18.8 mEq/L (7-13); CHLORIDE,CL 107 mmol/L (98-107); SODIUM,NA 143 mmol/L (136-145)
--- NOTE | 2020-05-27 23:12 | EDM.PDOC ---
ED HPI GENERAL MEDICAL PROBLEM - General Chief Complaint: Abdominal Pain Stated Complaint: STOMACH PAIN, VOMITING, DIARRHEA Time Seen by Provider: 05/27/20 23:10 Source of Information: Reports: Patient, Old Records, RN, RN Notes Reviewed History Limitations: Reports: No Limitations - History of Present Illness INITIAL COMMENTS - FREE TEXT/NARRATIVE: Patient presents to the ED via personal vehicle for complaints of nausea, vomiting, and diarrhea. The patient states her symptoms began abruptly at approximately 1400 today and have progressively worsened in that time as she has experienced multiple bouts of emesis and loose stools throughout the day. Additionally, she attests to RUQ pain. She denies fever, shaking chills, vision changes, palpitations, dyspepsia, hematemesis, dysuria, hematuria, melena, or hematochezia. She does state her is currently ill with the same symptoms. She has taken one dose of Maalox which offered her no relief of symptoms. The patient states she is s/p appendectomy but still has her gallbladder. She denies tobacco, alcohol, or recreational drug use. Her last meal was at noon today. Abdomen Pain Score (Numeric/FACES): 7 - Related Data Allergies Allergy/AdvReac Type Severity Reaction Status Date / Time hydrocodone Allergy Itching Verified 05/01/20 06:53 nitrofurantoin Allergy Fever Verified 05/01/20 06:53 [From Macrobid] tramadol Allergy Itching Verified 05/01/20 06:53 Home Meds: Home Meds Aspirin [Halfprin] 81 mg PO DAILY 02/20/13 [History] Folic Acid 1 mg PO DAILY 02/20/13 [History] amLODIPine [Norvasc] 5 mg PO BEDTIME 02/20/13 [History] Metoprolol Succinate [Toprol XL] 25 mg PO BEDTIME 07/21/17 [History] Levothyroxine [Synthroid] 50 mcg PO DAILY 03/16/18 [History] Calcium Carbonate/Vitamin D3 [Calcium 250+D] 1 tab PO BEDTIME 04/12/19 [History] Potassium Chloride 20 meq PO BEDTIME 04/12/19 [History] Tofacitinib Citrate [Xeljanz Xr] 11 mg PO BEDTIME 04/12/19 [History] Methotrexate 10 mg PO WEEKLY 01/17/20 [History] Cholecalciferol (Vitamin D3) [Vitamin D3] 2,000 units PO DAILY 04/09/20 [History] Diclofenac Sodium [Voltaren 1% Gel] 1 applic TOP ASDIRECTED PRN 04/09/20 [History] Melatonin 5 mg PO BEDTIME PRN 04/09/20 [History] Nitroglycerin 0.4 mg SL ASDIRECTED PRN 04/09/20 [History] Pantoprazole [ProTONIX] 40 mg PO DAILY 04/09/20 [History] Past Medical History HEENT History: Reports: Cataract, Impaired Vision Other HEENT History: Glasses Cardiovascular History: Reports: High Cholesterol, Hypertension, Other (See Below) Other Cardiovascular History: CHOLESTEROL IS IMPROVED PER PATIENT. MITRAL VALVE INSUFFICIENCY AND AORTIC VALVE INSUFFICIENCY Respiratory History: Reports: Bronchitis, Recurrent Gastrointestinal History: Reports: Chronic Constipation, Colon Polyp, Diverticulosis, GERD, Hemorrhoids, Irritable Bowel Syndrome, Other (See Below) Other Gastrointestinal History: HAS BEEN GETTING CONSTIPATION WILL HAVE COLONOSCOPY Genitourinary History: Reports: None HONE OPERATOR History: Reports: , Spontaneous , Therapeutic , Other (See Below) Other HONE OPERATOR History: ELECTIVE TERMINATION Musculoskeletal History: Reports: Arthritis, RA Other Musculoskeletal History: left ankle pain; DDD CERVICAL Neurological History: Reports: None Psychiatric History: Reports: None Endocrine/Metabolic History: Reports: Hypothyroidism, Obesity/BMI 30+ Hematologic History: Reports: Anemia Immunologic History: Reports: None Oncologic (Cancer) History: Reports: None Dermatologic History: Reports: Other (See Below) Other Dermatologic History: skin to right shoulder area - Infectious Disease History Infectious Disease History: Reports: Chicken Pox, Influenza, MRSA - Past Surgical History Head Surgeries/Procedures: Reports: None HEENT Surgical History: Reports: Cataract Surgery, Oral Surgery Cardiovascular Surgical History: Reports: None Respiratory Surgical History: Reports: None GI Surgical History: Reports: Appendectomy, Colonoscopy, EGD, Polypectomy Other GI Surgeries/Procedures: EGD on Monday 04/10 Female Surgical History: Reports: Cystoscopy, D&C, Tubal Ligation, Other (See Below) Other Female Surgeries/Procedures: CYSTOSCOPY; VAGINAL D & C. BLADDER SLING Endocrine Surgical History: Reports: None Neurological Surgical History: Reports: None Musculoskeletal Surgical History: Reports: Arthroscopic Knee, Shoulder Surgery, Other (See Below) Other Musculoskeletal Surgeries/Procedures:: EMG 2 EXTREMITIES. S/P LEFT ANKLE STABILIZATION. X2 ROTATOR CUFF SURGERY TO LEFT AND X1 TO RIGHT SHOULDER Oncologic Surgical History: Reports: None Dermatological Surgical History: Reports: Plastic Surgical Reconstruction/Repair, Skin Graft Social & Family History - Family History Family Medical History: No Pertinent Family History - Tobacco Use Tobacco Use Status *Q: Never Tobacco User Second Hand Smoke Exposure: No - Caffeine Use Caffeine Use: Reports: Energy Drinks, Soda Other Caffeine Use: 1-2 cans daily - Recreational Drug Use Recreational Drug Use: No - Living Situation & Occupation Living situation: Reports: , with Spouse ED ROS GENERAL - Review of Systems Review Of Systems: Comprehensive ROS is negative, except as noted in HPI. ED EXAM, GI/ABD - Physical Exam Exam: See Below Exam Limited By: No Limitations General Appearance: Alert, Anxious, Obese Eyes: Bilateral: Normal Appearance, EOMI Nose: Normal Inspection, Normal Mucosa, No Blood Throat/Mouth: Normal Lips, Normal Teeth, Normal Gums, Normal Voice, No Airway Compromise, Other (Dry mucous membranes) Head: Atraumatic, Normocephalic Neck: Normal Inspection, Supple, Non-Tender, Full Range of Motion Respiratory/Chest: No Respiratory Distress, Lungs Clear, Normal Breath Sounds, No Accessory Muscle Use, Chest Non-Tender Cardiovascular: Normal Peripheral Pulses, Regular Rate, Rhythm, No Edema, No Gallop, No JVD, No Murmur, No Rub, Tachycardia GI/Abdominal Exam: Soft, No Distention, No Abnormal Bruit, No Mass, Pelvis Stable, Guarding, Tender (Diffuse to palpation of abdomen; patient states no difference in pain of various quadrants), Abnormal Bowel Sounds (Hyperative bowel sounds), Other (Abdomen not rigid; No reboud tenderness) (Female) Exam: Deferred Rectal (Female) Exam: Deferred Back Exam: Normal Inspection, Full Range of Motion, Other (No CVA tenderness, bilaterally) Extremities: Normal Inspection, Normal Range of Motion, Non-Tender, Normal Capillary Refill, No Pedal Edema Neurological: Alert, Oriented, CN II-XII Intact, Normal Cognition, Normal Gait, No Motor/Sensory Deficits Psychiatric: Anxious, Tearful Skin Exam: Warm, Dry, Intact, Normal Color, No Rash Course - Vital Signs Last Recorded V/S: Last Vital Signs Temp 98.3 F 05/27/20 22:22 Pulse 101 H 05/27/20 22:22 Resp 19 05/27/20 22:22 BP 115/62 05/27/20 22:22 Pulse Ox 96 05/27/20 22:22 - Orders/Labs/Meds Labs: Laboratory Tests 05/27/20 05/27/20 05/27/20 Range/Units 22:35 22:35 22:35 WBC 10.5 H (5.0-10.0) 10^3/uL RBC 4.18 L (4.2-5.4) 10^6/uL Hgb 12.3 (12.0-16.0) g/dL Hct 37.0 (37.0-47.0) % MCV 88.5 (80-100) fL MCH 29.4 (27.0-34.0) pg MCHC 33.2 (33.0-35.0) g/dL Plt Count 250 (150-450) 10^3/uL Neut % (Auto) 89.5 H (42.2-75.2) % Lymph % (Auto) 4.9 L (20.5-50.1) % [place] % (Auto) 4.3 (2-8) % Eos % (Auto) 1.2 (1.0-3.0) % Baso % (Auto) 0.1 (0.0-1.0) % Sodium 143 (136-145) mmol/L Potassium 3.8 (3.5-5.1) mmol/L Chloride 107 (98-107) mmol/L Carbon Dioxide 21 (21-32) mmol/L Anion Gap 18.8 H (7-13) mEq/L BUN 14 (7-18) mg/dL Creatinine 0.96 (0.55-1.02) mg/dL Est Cr Clr Drug Dosing 68.36 mL/min Estimated GFR (MDRD) > 60 BUN/Creatinine Ratio 14.6 (No establ ref range) Glucose 138 H (74-99) mg/dL Lactic Acid 1.7 (0.4-2.0) mmol/L Calcium 8.2 L (8.5-10.1) mg/dL Magnesium 1.9 (1.8-2.4) mg/dL Total Bilirubin 0.6 (0.2-1.0) mg/dL AST 46 H (15-37) U/L ALT 68 H (14-59) U/L Alkaline Phosphatase 86 (46-116) U/L C-Reactive Protein 1.1 H (0.0-0.9) mg/dL Total Protein 7.6 (6.4-8.2) g/dL Albumin 3.7 (3.4-5.0) g/dL Globulin 3.9 Albumin/Globulin Ratio 0.9 Amylase (25-115) U/L Lipase (73-393) U/L Urine Color (YELLOW) Urine Appearance (CLEAR) Urine pH (5.0-9.0) Ur Specific [place] (1.005-1.030) Urine Protein (NEGATIVE) Urine Glucose (UA) (NEGATIVE) Urine Ketones (NEGATIVE) Urine Occult Blood (NEGATIVE) Urine Nitrite (NEGATIVE) Urine Bilirubin (NEGATIVE) Urine Urobilinogen (0.2-1.0) mg/dL Ur Leukocyte Esterase (NEGATIVE) Urine RBC /HPF Urine WBC (0-5/HPF) /HPF Ur Epithelial Cells (NOT SEEN) /HPF Amorphous Sediment (NOT SEEN) /HPF Urine Bacteria (0-FEW/HPF) /HPF Urine Mucus (NOT SEEN) /LPF Urine Opiates Screen (NEGATIVE) Ur Oxycodone Screen (NEGATIVE) Urine Methadone Screen (NEGATIVE) Ur Barbiturates Screen (NEGATIVE) U Tricyclic Antidepress (NEGATIVE) Ur Phencyclidine Scrn (NEGATIVE) Ur Amphetamine Screen (NEGATIVE) U Methamphetamines Scrn (NEGATIVE) Urine MDMA Screen (NEGATIVE) U Benzodiazepines Scrn (NEGATIVE) Urine Cocaine Screen (NEGATIVE) U Marijuana (THC) Screen (NEGATIVE) Ethyl Alcohol < 3 (0) mg/dL 05/27/20 05/27/20 05/27/20 Range/Units 22:35 22:35 23:29 WBC (5.0-10.0) 10^3/uL RBC (4.2-5.4) 10^6/uL Hgb (12.0-16.0) g/dL Hct (37.0-47.0) % MCV (80-100) fL MCH (27.0-34.0) pg MCHC (33.0-35.0) g/dL Plt Count (150-450) 10^3/uL Neut % (Auto) (42.2-75.2) % Lymph % (Auto) (20.5-50.1) % [place] % (Auto) (2-8) % Eos % (Auto) (1.0-3.0) % Baso % (Auto) (0.0-1.0) % Sodium (136-145) mmol/L Potassium (3.5-5.1) mmol/L Chloride (98-107) mmol/L Carbon Dioxide (21-32) mmol/L Anion Gap (7-13) mEq/L BUN (7-18) mg/dL Creatinine (0.55-1.02) mg/dL Est Cr Clr Drug Dosing mL/min Estimated GFR (MDRD) BUN/Creatinine Ratio (No establ ref range) Glucose (74-99) mg/dL Lactic Acid (0.4-2.0) mmol/L Calcium (8.5-10.1) mg/dL Magnesium (1.8-2.4) mg/dL Total Bilirubin (0.2-1.0) mg/dL AST (15-37) U/L ALT (14-59) U/L Alkaline Phosphatase (46-116) U/L C-Reactive Protein (0.0-0.9) mg/dL Total Protein (6.4-8.2) g/dL Albumin (3.4-5.0) g/dL Globulin Albumin/Globulin Ratio Amylase 45 (25-115) U/L Lipase 169 (73-393) U/L Urine Color Yellow (YELLOW) Urine Appearance Clear (CLEAR) Urine pH 5.5 (5.0-9.0) Ur Specific [place] 1.020 (1.005-1.030) Urine Protein Negative (NEGATIVE) Urine Glucose (UA) Negative (NEGATIVE) Urine Ketones Negative (NEGATIVE) Urine Occult Blood Negative (NEGATIVE) Urine Nitrite Negative (NEGATIVE) Urine Bilirubin Negative (NEGATIVE) Urine Urobilinogen 0.2 (0.2-1.0) mg/dL Ur Leukocyte Esterase Trace H (NEGATIVE) Urine RBC Not seen /HPF Urine WBC 5-10 H (0-5/HPF) /HPF Ur Epithelial Cells Few (NOT SEEN) /HPF Amorphous Sediment Few (NOT SEEN) /HPF Urine Bacteria Rare (0-FEW/HPF) /HPF Urine Mucus Few H (NOT SEEN) /LPF Urine Opiates Screen (NEGATIVE) Ur Oxycodone Screen (NEGATIVE) Urine Methadone Screen (NEGATIVE) Ur Barbiturates Screen (NEGATIVE) U Tricyclic Antidepress (NEGATIVE) Ur Phencyclidine Scrn (NEGATIVE) Ur Amphetamine Screen (NEGATIVE) U Methamphetamines Scrn (NEGATIVE) Urine MDMA Screen (NEGATIVE) U Benzodiazepines Scrn (NEGATIVE) Urine Cocaine Screen (NEGATIVE) U Marijuana (THC) Screen (NEGATIVE) Ethyl Alcohol (0) mg/dL 05/27/20 Range/Units 23:29 WBC (5.0-10.0) 10^3/uL RBC (4.2-5.4) 10^6/uL Hgb (12.0-16.0) g/dL Hct (37.0-47.0) % MCV (80-100) fL MCH (27.0-34.0) pg MCHC (33.0-35.0) g/dL Plt Count (150-450) 10^3/uL Neut % (Auto) (42.2-75.2) % Lymph % (Auto) (20.5-50.1) % [place] % (Auto) (2-8) % Eos % (Auto) (1.0-3.0) % Baso % (Auto) (0.0-1.0) % Sodium (136-145) mmol/L Potassium (3.5-5.1) mmol/L Chloride (98-107) mmol/L Carbon Dioxide (21-32) mmol/L Anion Gap (7-13) mEq/L BUN (7-18) mg/dL Creatinine (0.55-1.02) mg/dL Est Cr Clr Drug Dosing mL/min Estimated GFR (MDRD) BUN/Creatinine Ratio (No establ ref range) Glucose (74-99) mg/dL Lactic Acid (0.4-2.0) mmol/L Calcium (8.5-10.1) mg/dL Magnesium (1.8-2.4) mg/dL Total Bilirubin (0.2-1.0) mg/dL AST (15-37) U/L ALT (14-59) U/L Alkaline Phosphatase (46-116) U/L C-Reactive Protein (0.0-0.9) mg/dL Total Protein (6.4-8.2) g/dL Albumin (3.4-5.0) g/dL Globulin Albumin/Globulin Ratio Amylase (25-115) U/L Lipase (73-393) U/L Urine Color (YELLOW) Urine Appearance (CLEAR) Urine pH (5.0-9.0) Ur Specific [place] (1.005-1.030) Urine Protein (NEGATIVE) Urine Glucose (UA) (NEGATIVE) Urine Ketones (NEGATIVE) Urine Occult Blood (NEGATIVE) Urine Nitrite (NEGATIVE) Urine Bilirubin (NEGATIVE) Urine Urobilinogen (0.2-1.0) mg/dL Ur Leukocyte Esterase (NEGATIVE) Urine RBC /HPF Urine WBC (0-5/HPF) /HPF Ur Epithelial Cells (NOT SEEN) /HPF Amorphous Sediment (NOT SEEN) /HPF Urine Bacteria (0-FEW/HPF) /HPF Urine Mucus (NOT SEEN) /LPF Urine Opiates Screen Negative (NEGATIVE) Ur Oxycodone Screen Negative (NEGATIVE) Urine Methadone Screen Negative (NEGATIVE) Ur Barbiturates Screen Negative (NEGATIVE) U Tricyclic Antidepress Negative (NEGATIVE) Ur Phencyclidine Scrn Negative (NEGATIVE) Ur Amphetamine Screen Negative (NEGATIVE) U Methamphetamines Scrn Negative (NEGATIVE) Urine MDMA Screen Negative (NEGATIVE) U Benzodiazepines Scrn Negative (NEGATIVE) Urine Cocaine Screen Negative (NEGATIVE) U Marijuana (THC) Screen Negative (NEGATIVE) Ethyl Alcohol (0) mg/dL Meds: Medications Discontinued Medications Generic Name Dose Route Start Last Admin Trade Name Freq PRN Reason Stop Dose Admin Sodium Chloride 1,000 mls @ 999 mls/hr 05/27/20 22:31 05/27/20 22:39 Normal Saline IV 05/27/20 23:31 999 mls/hr .BOLUS ONE Administration Ondansetron HCl 4 mg 05/27/20 22:31 05/27/20 22:39 Ondansetron 4 Mg/2 Ml Sdv IVPUSH 05/27/20 22:32 4 mg ONETIME ONE Administration - Re-Assessments/Exams Free Text/Narrative Re-Assessment/Exam: 05/28/20 Patient verbalized improvement in symptoms following IVF and Zofran administra tion. WBC slightly elevated at 10.5, left shift present; no anemia appreciated. UA remarkable for Leukocyte esterase and WBC, no blood or nitrites. Tox screen and ETOH negative. CMP fairly benign, electrolytes and kidney function appropriate. AST and ALT slightly elevated at 46 and 68, respectively. Amylase and Lipase WNL. Glucose elevated at 123. Discussed findings of examination and blood work with patient. Discussed forgoing imaging at this time as lab work and examination do not indicate need. Reviewed supportive cares for gastroenteritis as well as red flag signs and symptoms which would warrant reevaluation. Patient verbalized understanding and agreement with the plan of care. Departure - Departure Time of Disposition: 00:01 Disposition: Home, Self-Care 01 Condition: Good Clinical Impression: Gastroenteritis, Elevated liver function tests - Discharge Information *PRESCRIPTION DRUG MONITORING PROGRAM REVIEWED*: Not Applicable *COPY OF PRESCRIPTION DRUG MONITORING REPORT IN PATIENT BLAKE: Not Applicable Instructions: Viral Gastroenteritis, Adult, [id number], Nausea and Vomiting, Adult, [id number] Forms: ED Department Discharge Additional Instructions: 1.) Drink small sips of water frequently to stay hydrated; you may try Gatorade or Powerade, as well. 2.) Avoid solid food until you are done vomiting. Once it has stopped eat a diet that is easy on the stomach; clear liquids, bananas, applesauce, toast. Avoid spicy, high-fat, greasy foods. 3.) Follow up with your primary care provider or return to the emergency room should symptoms persist past three days. Sepsis Event Note (ED) - Evaluation Sepsis Screening Result: No Definite Risk
== END 2020-05-28 00:18 | disposition home or self-care (01) ==
LOC: DL.ED 22:10
DX: K52.9 Noninfective gastroenteritis and colitis, unspecified (principal); R79.89 Other specified abnormal findings of blood chemistry; I10 Essential (primary) hypertension; K21.9 Gastro-esophageal reflux disease without esophagitis; E03.9 Hypothyroidism, unspecified; M06.9 Rheumatoid arthritis, unspecified; E66.9 Obesity, unspecified; Z68.34 Body mass index [BMI] 34.0-34.9, adult; Z88.5 Allergy status to narcotic agent; Z88.1 Allergy status to other antibiotic agents; Z79.82 Long term (current) use of aspirin; Z79.899 Other long term (current) drug therapy
CPT/HCPCS: 36415; 80053; 80305; 80307; 81001; 82150; 83605; 83690; 83735; 85025; 86140; 87086; 96374; 99283; 99284; J2405; J7030

== ENCOUNTER 2020-06-14 10:40 | Emergency (ER) | payer OTHER ==
[2020-06-14 10:54] VITALS: BP 107/57; PULSE 77
--- NOTE | 2020-06-14 11:03 | EDM.PDOC ---
<Mohsen Veloz Fani - Last Filed: 06/14/20 12:41> ED HPI GENERAL MEDICAL PROBLEM - General Chief Complaint: Respiratory Problem Stated Complaint: IN BY AMBULANCE Time Seen by Provider: 06/14/20 11:00 Source of Information: Reports: Patient - History of Present Illness INITIAL COMMENTS - FREE TEXT/NARRATIVE: 54 y/o F c/o sob and nausea x 3 days. Diagnosed with COVID 3 days ago. Sob is worse laying flat and relieves sitting up. Nausea is constant and unrelieved by anything. She states she has had a fever as high as 103 which she has been treating with tylenol. Denies vision prob, cp, pelvic pn, difficulty voiding, extremity pn. Location: Reports: Chest - Related Data Allergies Allergy/AdvReac Type Severity Reaction Status Date / Time hydrocodone Allergy Itching Verified 05/01/20 06:53 nitrofurantoin Allergy Fever Verified 05/01/20 06:53 [From Macrobid] tramadol Allergy Itching Verified 05/01/20 06:53 Home Meds: Home Meds Aspirin [Halfprin] 81 mg PO DAILY 02/20/13 [History] Folic Acid 1 mg PO DAILY 02/20/13 [History] amLODIPine [Norvasc] 5 mg PO BEDTIME 02/20/13 [History] Metoprolol Succinate [Toprol XL] 25 mg PO BEDTIME 07/21/17 [History] Levothyroxine [Synthroid] 50 mcg PO DAILY 03/16/18 [History] Calcium Carbonate/Vitamin D3 [Calcium 250+D] 1 tab PO BEDTIME 04/12/19 [History] Potassium Chloride 20 meq PO BEDTIME 04/12/19 [History] Tofacitinib Citrate [Xeljanz Xr] 11 mg PO BEDTIME 04/12/19 [History] Methotrexate 10 mg PO WEEKLY 01/17/20 [History] Cholecalciferol (Vitamin D3) [Vitamin D3] 2,000 units PO DAILY 04/09/20 [History] Diclofenac Sodium [Voltaren 1% Gel] 1 applic TOP ASDIRECTED PRN 04/09/20 [History] Melatonin 5 mg PO BEDTIME PRN 04/09/20 [History] Nitroglycerin 0.4 mg SL ASDIRECTED PRN 04/09/20 [History] Pantoprazole [ProTONIX] 40 mg PO DAILY 04/09/20 [History] Past Medical History HEENT History: Reports: Cataract, Impaired Vision Other HEENT History: Glasses Cardiovascular History: Reports: High Cholesterol, Hypertension, Other (See Below) Other Cardiovascular History: CHOLESTEROL IS IMPROVED PER PATIENT. MITRAL VALVE INSUFFICIENCY AND AORTIC VALVE INSUFFICIENCY Respiratory History: Reports: Bronchitis, Recurrent Gastrointestinal History: Reports: Chronic Constipation, Colon Polyp, Diverticulosis, GERD, Hemorrhoids, Irritable Bowel Syndrome, Other (See Below) Other Gastrointestinal History: HAS BEEN GETTING CONSTIPATION WILL HAVE COLONOSCOPY Genitourinary History: Reports: None RUG DYER History: Reports: , Spontaneous , Therapeutic , Other (See Below) Other RUG DYER History: ELECTIVE TERMINATION Musculoskeletal History: Reports: Arthritis, RA Other Musculoskeletal History: left ankle pain; DDD CERVICAL Neurological History: Reports: None Psychiatric History: Reports: None Endocrine/Metabolic History: Reports: Hypothyroidism, Obesity/BMI 30+ Hematologic History: Reports: Anemia Immunologic History: Reports: None Oncologic (Cancer) History: Reports: None Dermatologic History: Reports: Other (See Below) Other Dermatologic History: skin to right shoulder area - Infectious Disease History Infectious Disease History: Reports: Chicken Pox, Influenza, MRSA - Past Surgical History Head Surgeries/Procedures: Reports: None HEENT Surgical History: Reports: Cataract Surgery, Oral Surgery Cardiovascular Surgical History: Reports: None Respiratory Surgical History: Reports: None GI Surgical History: Reports: Appendectomy, Colonoscopy, EGD, Polypectomy Other GI Surgeries/Procedures: EGD on Monday 04/10 Female Surgical History: Reports: Cystoscopy, D&C, Tubal Ligation, Other (See Below) Other Female Surgeries/Procedures: CYSTOSCOPY; VAGINAL D & C. BLADDER SLING Endocrine Surgical History: Reports: None Neurological Surgical History: Reports: None Musculoskeletal Surgical History: Reports: Arthroscopic Knee, Shoulder Surgery, Other (See Below) Other Musculoskeletal Surgeries/Procedures:: EMG 2 EXTREMITIES. S/P LEFT ANKLE STABILIZATION. X2 ROTATOR CUFF SURGERY TO LEFT AND X1 TO RIGHT SHOULDER Oncologic Surgical History: Reports: None Dermatological Surgical History: Reports: Plastic Surgical Reconstruction/Repair, Skin Graft Social & Family History - Family History Family Medical History: No Pertinent Family History - Caffeine Use Caffeine Use: Reports: Energy Drinks, Soda Other Caffeine Use: 1-2 cans daily - Living Situation & Occupation Living situation: Reports: , with Spouse ED ROS GENERAL - Review of Systems Review Of Systems: Comprehensive ROS is negative, except as noted in HPI. ED EXAM, GENERAL - Physical Exam Exam: See Below Exam Limited By: No Limitations General Appearance: Alert, No Apparent Distress Eye Exam: Bilateral Eye: PERRL Ears: Normal External Exam, Normal Canal, Hearing Grossly Normal, Normal TMs Nose: Normal Inspection, Normal Mucosa, No Blood Throat/Mouth: Normal Inspection, Normal Lips, Normal Teeth, Normal Gums, Normal Oropharynx, Normal Voice, No Airway Compromise Head: Atraumatic, Normocephalic Neck: Normal Inspection, Supple, Non-Tender, Full Range of Motion Respiratory/Chest: No Respiratory Distress, Lungs Clear, Normal Breath Sounds, No Accessory Muscle Use, Chest Non-Tender Cardiovascular: Normal Peripheral Pulses, Regular Rate, Rhythm, No Edema, No Gallop, No JVD, No Murmur, No Rub GI/Abdominal: Normal Bowel Sounds, Soft, Non-Tender, No Organomegaly, No Distention, No Abnormal Bruit, No Mass (Female) Exam: Deferred Rectal (Female) Exam: Deferred Back Exam: Normal Inspection, Full Range of Motion, NT Extremities: Normal Inspection, Normal Range of Motion, Non-Tender, Normal Capillary Refill, No Pedal Edema Neurological: Alert, Oriented, CN II-XII Intact, Normal Cognition, Normal Gait, Normal Reflexes, No Motor/Sensory Deficits Psychiatric: Normal Affect, Normal Mood Skin Exam: Warm, Dry, Intact, Normal Color, No Rash Lymphatic: No Adenopathy Course - Re-Assessments/Exams Free Text/Narrative Re-Assessment/Exam: 06/14/20 12:20 Discussed exam, labs and radiological findings with pt. Pt relays that she feels safe to be discharged and understands that she needs to monitor herself for any signs of worsening of her condition. 06/14/20 12:41 Departure - Departure Time of Disposition: 12:42 Disposition: Home, Self-Care 01 Condition: Good Clinical Impression: Pneumonia due to 2019 novel coronavirus - Discharge Information *PRESCRIPTION DRUG MONITORING PROGRAM REVIEWED*: Not Applicable *COPY OF PRESCRIPTION DRUG MONITORING REPORT IN PATIENT BLAKE: Not Applicable Instructions: COVID-19 Forms: ED Department Discharge Additional Instructions: RX: Azithromycin use tylenol or motrin for fever control and pain as needed. If any new symptoms or concerns develop contact your primary care provider or return to the ER. Sepsis Event Note (ED) - Evaluation Sepsis Screening Result: No Definite Risk <Black,Radha - Last Filed: 06/14/20 12:50> ED HPI GENERAL MEDICAL PROBLEM - General History Limitations: Reports: No Limitations - History of Present Illness Onset: Gradual #1 Interpretation EKG Date: 06/14/20 Time: 11:22 Rhythm: NSR Rate (Beats/Min): 79 [place]: Normal P-Wave: Present QRS: Normal ST-T: Normal QT: Normal Comparison: Change From Previous EKG Course - Vital Signs Last Recorded V/S: Last Vital Signs Temp 97.3 F 06/14/20 10:49 Pulse 77 06/14/20 10:49 Resp 18 06/14/20 10:49 BP 107/57 L 06/14/20 10:49 Pulse Ox 98 06/14/20 10:49 - Orders/Labs/Meds Orders: Active Orders 24 hr Category Date Time Status EKG Documentation Completion [RC] STAT Care 06/14/20 11:04 Active Labs: Laboratory Tests 06/14/20 06/14/20 06/14/20 Range/Units 11:02 11:02 11:02 WBC 2.8 L (5.0-10.0) 10^3/uL RBC 4.21 (4.2-5.4) 10^6/uL Hgb 12.1 (12.0-16.0) g/dL Hct 37.2 (37.0-47.0) % MCV 88.4 (80-100) fL MCH 28.7 (27.0-34.0) pg MCHC 32.5 L (33.0-35.0) g/dL Plt Count 186 (150-450) 10^3/uL Neut % (Auto) 63.0 (42.2-75.2) % Lymph % (Auto) 26.5 (20.5-50.1) % [place] % (Auto) 9.7 H (2-8) % Eos % (Auto) 0.4 L (1.0-3.0) % Baso % (Auto) 0.4 (0.0-1.0) % D-Dimer, Quantitative 350 (0-400) ng/mL Sodium 141 (136-145) mmol/L Potassium 3.5 (3.5-5.1) mmol/L Chloride 104 (98-107) mmol/L Carbon Dioxide 25 (21-32) mmol/L Anion Gap 15.5 H (7-13) mEq/L BUN 15 (7-18) mg/dL Creatinine 0.97 (0.55-1.02) mg/dL Est Cr Clr Drug Dosing 65.22 mL/min Estimated GFR (MDRD) > 60 BUN/Creatinine Ratio 15.5 (No establ ref range) Glucose 101 H (70-99) mg/dL Calcium 7.8 L (8.5-10.1) mg/dL Total Bilirubin 0.5 (0.2-1.0) mg/dL AST 73 H (15-37) U/L ALT 83 H (14-59) U/L Alkaline Phosphatase 70 (46-116) U/L Troponin I (0.000-0.056) ng/mL B-Natriuretic Peptide < 5 (0-100) pg/ml Total Protein 7.2 (6.4-8.2) g/dL Albumin 3.2 L (3.4-5.0) g/dL Globulin 4.0 Albumin/Globulin Ratio 0.80 04/15/21 Range/Units 11:02 WBC (5.0-10.0) 10^3/uL RBC (4.2-5.4) 10^6/uL Hgb (12.0-16.0) g/dL Hct (37.0-47.0) % MCV (80-100) fL MCH (27.0-34.0) pg MCHC (33.0-35.0) g/dL Plt Count (150-450) 10^3/uL Neut % (Auto) (42.2-75.2) % Lymph % (Auto) (20.5-50.1) % [place] % (Auto) (2-8) % Eos % (Auto) (1.0-3.0) % Baso % (Auto) (0.0-1.0) % D-Dimer, Quantitative (0-400) ng/mL Sodium (136-145) mmol/L Potassium (3.5-5.1) mmol/L Chloride (98-107) mmol/L Carbon Dioxide (21-32) mmol/L Anion Gap (7-13) mEq/L BUN (7-18) mg/dL Creatinine (0.55-1.02) mg/dL Est Cr Clr Drug Dosing mL/min Estimated GFR (MDRD) BUN/Creatinine Ratio (No establ ref range) Glucose (70-99) mg/dL Calcium (8.5-10.1) mg/dL Total Bilirubin (0.2-1.0) mg/dL AST (15-37) U/L ALT (14-59) U/L Alkaline Phosphatase (46-116) U/L Troponin I < 0.017 (0.000-0.056) ng/mL B-Natriuretic Peptide (0-100) pg/ml Total Protein (6.4-8.2) g/dL Albumin (3.4-5.0) g/dL Globulin Albumin/Globulin Ratio - Radiology Interpretation Free Text/Narrative:: Chest xray: PROCEDURE INFORMATION: Exam: XR Chest Exam date and time: 06/14/2020 11:08 AM Age: 54 years old Clinical indication: Shortness of breath; Additional info: Covid + SOB TECHNIQUE: Imaging protocol: XR of the chest. Views: 1 view. COMPARISON: No relevant prior studies available. FINDINGS: Lungs: Atelectatic and/or early infiltrative changes noted within the lung bases. Mild bilateral hyperinflation. Pleural spaces: Unremarkable. No pleural effusion. No pneumothorax. Heart/Mediastinum: Unremarkable. No cardiomegaly. Bones/joints: Unremarkable. IMPRESSION: 1. Atelectatic and/or early infiltrative changes noted within the lung bases. 2. Mild bilateral hyperinflation. Thank you for allowing us to participate in the care of your patient. Dictated and Authenticated by: Florencio Pinon DO 06/14/2020 11:18 AM Central Time ([place] & [place]) See rad report - Re-Assessments/Exams Free Text/Narrative Re-Assessment/Exam: 06/14/20 11:50 I personally performed or re-performed the physical examination and medical decision making. I have verified all student documentation or findings, including history, physical exam and/or medical decision making. 06/14/20 12:48 06/14/20 12:50 Sepsis Event Note (ED) - Focused Exam Vital Signs: Vital Signs Temp Pulse Resp BP Pulse Ox 06/14/20 10:49 97.3 F 77 18 107/57 L 98
--- NOTE | 2020-06-14 11:18 | CR ---
PROCEDURE INFORMATION: Exam: XR Chest Exam date and time: 06/14/2020 11:08 AM Age: 54 years old Clinical indication: Shortness of breath; Additional info: Covid + SOB TECHNIQUE: Imaging protocol: XR of the chest. Views: 1 view. COMPARISON: No relevant prior studies available. FINDINGS: Lungs: Atelectatic and/or early infiltrative changes noted within the lung bases. Mild bilateral hyperinflation. Pleural spaces: Unremarkable. No pleural effusion. No pneumothorax. Heart/Mediastinum: Unremarkable. No cardiomegaly. Bones/joints: Unremarkable. IMPRESSION: 1. Atelectatic and/or early infiltrative changes noted within the lung bases. 2. Mild bilateral hyperinflation.
[2020-06-14 11:28] LABS: ANION GAP 15.5 mEq/L (7-13); CHLORIDE,CL 104 mmol/L (98-107); SODIUM,NA 141 mmol/L (136-145)
== END 2020-06-14 13:03 | disposition home or self-care (01) ==
LOC: DL.ED 10:40
DX: U07.1 COVID-19 (principal); J12.82 Pneumonia due to coronavirus disease 2019; I10 Essential (primary) hypertension; K21.9 Gastro-esophageal reflux disease without esophagitis; M19.90 Unspecified osteoarthritis, unspecified site; E03.9 Hypothyroidism, unspecified; E66.9 Obesity, unspecified; Z68.39 Body mass index [BMI] 39.0-39.9, adult; Z88.5 Allergy status to narcotic agent; Z88.1 Allergy status to other antibiotic agents; Z79.82 Long term (current) use of aspirin; Z79.899 Other long term (current) drug therapy
CPT/HCPCS: 36415; 71045; 80053; 83880; 84484; 85025; 85379; 93005; 99285-25

== ENCOUNTER 2020-06-17 01:24 | Inpatient (IN) | payer OTHER ==
[2020-06-17] MEDS ORDERED: Sodium Chloride 0.9% 10 ML Syringe FLUSH PRN (02:04)
[2020-06-17] MEDS ORDERED: Ondansetron 4 MG/2 ML SDV ONE (02:05)
[2020-06-17] MEDS ORDERED: Ondansetron 4 MG/2 ML SDV IVPUSH ONE (02:06)
[2020-06-17] MEDS ORDERED: Sodium Chloride 0.9% 1,000 ML IV ONE (02:11)
--- NOTE | 2020-06-17 02:12 | EDM.PDOC ---
ED HPI GENERAL MEDICAL PROBLEM - General Chief Complaint: Respiratory Problem Stated Complaint: AMBULANCE Time Seen by Provider: 06/17/20 01:55 Source of Information: Reports: Patient History Limitations: Reports: No Limitations - History of Present Illness INITIAL COMMENTS - FREE TEXT/NARRATIVE: Pt is here for worsening shortness of breath. She has been on quarantine since 06/06 when her was diagnosed with COVID. On 06/10 she started to get short of breath with cough. She tested on 06/11 and found that she was positive for COVID. She has been treating herself at home, but her SOB has been getting worse. She was seen in the ER 2 days ago and was diagnosed with COVID pneumonia. She was started on azithromycin. She has been getting worse since that time. She has been trying to lay on her side and deal with it at home, but she can't breathe so she came in for evaluation. Onset: Gradual Duration: Getting Worse Generalized Pain Score (Numeric/FACES): 4 - Related Data Allergies Allergy/AdvReac Type Severity Reaction Status Date / Time hydrocodone Allergy Itching Verified 06/17/20 01:52 nitrofurantoin Allergy Fever Verified 06/17/20 01:52 [From Macrobid] tramadol Allergy Itching Verified 06/17/20 01:52 Home Meds: Home Meds Aspirin [Halfprin] 81 mg PO DAILY 02/20/13 [History] Folic Acid 1 mg PO DAILY 02/20/13 [History] amLODIPine [Norvasc] 5 mg PO BEDTIME 02/20/13 [History] Metoprolol Succinate [Toprol XL] 25 mg PO BEDTIME 07/21/17 [History] Levothyroxine [Synthroid] 50 mcg PO DAILY 03/16/18 [History] Calcium Carbonate/Vitamin D3 [Calcium 250+D] 1 tab PO BEDTIME 04/12/19 [History] Potassium Chloride 20 meq PO BEDTIME 04/12/19 [History] Tofacitinib Citrate [Xeljanz Xr] 11 mg PO BEDTIME 04/12/19 [History] Methotrexate 10 mg PO WEEKLY 01/17/20 [History] Cholecalciferol (Vitamin D3) [Vitamin D3] 2,000 units PO DAILY 04/09/20 [History] Diclofenac Sodium [Voltaren 1% Gel] 1 applic TOP ASDIRECTED PRN 04/09/20 [History] Melatonin 5 mg PO BEDTIME PRN 04/09/20 [History] Nitroglycerin 0.4 mg SL ASDIRECTED PRN 04/09/20 [History] Pantoprazole [ProTONIX] 40 mg PO DAILY 04/09/20 [History] Past Medical History HEENT History: Reports: Cataract, Impaired Vision Other HEENT History: Glasses Cardiovascular History: Reports: High Cholesterol, Hypertension, Other (See Below) Other Cardiovascular History: CHOLESTEROL IS IMPROVED PER PATIENT. MITRAL VALVE INSUFFICIENCY AND AORTIC VALVE INSUFFICIENCY Respiratory History: Reports: Bronchitis, Recurrent Gastrointestinal History: Reports: Chronic Constipation, Colon Polyp, Diverticulosis, GERD, Hemorrhoids, Irritable Bowel Syndrome, Other (See Below) Other Gastrointestinal History: HAS BEEN GETTING CONSTIPATION WILL HAVE COLONOSCOPY Genitourinary History: Reports: None BINMAN History: Reports: , Spontaneous , Therapeutic , Other (See Below) Other BINMAN History: ELECTIVE TERMINATION Musculoskeletal History: Reports: Arthritis, RA Other Musculoskeletal History: left ankle pain; DDD CERVICAL Neurological History: Reports: None Psychiatric History: Reports: None Endocrine/Metabolic History: Reports: Hypothyroidism, Obesity/BMI 30+ Hematologic History: Reports: Anemia Immunologic History: Reports: None Oncologic (Cancer) History: Reports: None Dermatologic History: Reports: Other (See Below) Other Dermatologic History: skin to right shoulder area - Infectious Disease History Infectious Disease History: Reports: Chicken Pox, Influenza, MRSA, Novel Coronavirus - Past Surgical History Head Surgeries/Procedures: Reports: None HEENT Surgical History: Reports: Cataract Surgery, Oral Surgery Cardiovascular Surgical History: Reports: None Respiratory Surgical History: Reports: None GI Surgical History: Reports: Appendectomy, Colonoscopy, EGD, Polypectomy Other GI Surgeries/Procedures: EGD on Monday 04/10 Female Surgical History: Reports: Cystoscopy, D&C, Tubal Ligation, Other (See Below) Other Female Surgeries/Procedures: CYSTOSCOPY; VAGINAL D & C. BLADDER SLING Endocrine Surgical History: Reports: None Neurological Surgical History: Reports: None Musculoskeletal Surgical History: Reports: Arthroscopic Knee, Shoulder Surgery, Other (See Below) Other Musculoskeletal Surgeries/Procedures:: EMG 2 EXTREMITIES. S/P LEFT ANKLE STABILIZATION. X2 ROTATOR CUFF SURGERY TO LEFT AND X1 TO RIGHT SHOULDER Oncologic Surgical History: Reports: None Dermatological Surgical History: Reports: Plastic Surgical Reconstruction/Repair, Skin Graft Social & Family History - Family History Family Medical History: No Pertinent Family History - Tobacco Use Tobacco Use Status *Q: Current Status Unknown - Caffeine Use Caffeine Use: Reports: None Other Caffeine Use: 1-2 cans daily - Recreational Drug Use Recreational Drug Use: No - Living Situation & Occupation Living situation: Reports: , with Spouse ED ROS GENERAL - Review of Systems Review Of Systems: Comprehensive ROS is negative, except as noted in HPI. ED EXAM, GENERAL - Physical Exam Exam: See Below Exam Limited By: No Limitations General Appearance: Alert, WD/WN, Mild Distress Eye Exam: Bilateral Eye: Normal Inspection Ears: Normal External Exam Nose: Normal Inspection, No Blood Throat/Mouth: Normal Inspection, Normal Voice, No Airway Compromise Head: Atraumatic, Normocephalic Neck: Normal Inspection, Supple, Non-Tender, Full Range of Motion Respiratory/Chest: Chest Non-Tender, Decreased Breath Sounds Cardiovascular: Normal Peripheral Pulses, Regular Rate, Rhythm, No Edema, No Murmur GI/Abdominal: Soft, Non-Tender, No Distention (Female) Exam: Deferred Rectal (Female) Exam: Deferred Back Exam: Normal Inspection, Full Range of Motion Extremities: Normal Inspection, Normal Range of Motion, Non-Tender, No Pedal Edema Neurological: Alert, Oriented, CN II-XII Intact, Normal Cognition, No Motor/Sensory Deficits Psychiatric: Normal Affect, Normal Mood Skin Exam: Warm, Dry, Intact, Normal Color, No Rash Lymphatic: No Adenopathy Course - Vital Signs Last Recorded V/S: Last Vital Signs Temp 100.1 F 06/17/20 03:38 Pulse 78 06/17/20 03:49 Resp 27 H 06/17/20 03:49 BP 104/47 L 06/17/20 03:49 Pulse Ox 91 L 06/17/20 03:49 - Orders/Labs/Meds Orders: Active Orders 24 hr Category Date Time Status Admission Status [Patient Status] [ADT] Routine ADT 06/17/20 04:08 Ordered Peripheral IV Care [RC] . DIRECTED Care 06/17/20 02:05 Ordered CULTURE BLOOD [BC] Stat Lab 06/17/20 02:05 Ordered CULTURE BLOOD [BC] Stat Lab 06/17/20 02:05 Ordered Sodium Chloride 0.9% [Saline Flush] Med 06/17/20 02:04 Ordered 10 ml FLUSH ASDIRECTED PRN Blood Culture x2 Reflex Set [OM.PC] Stat Oth 06/17/20 02:04 Ordered Peripheral IV Insertion Adult [OM.PC] Stat Oth 06/17/20 02:04 Ordered Medication Orders Sodium Chloride (Sodium Chloride 0.9% 10 Ml Syringe) 10 ml FLUSH ASDIRECTED PRN PRN Reason: Keep Vein Open Last Admin: 06/17/20 02:15 Dose: 10 ml Documented by: Labs: Laboratory Tests 06/17/20 06/17/20 06/17/20 Range/Units 01:50 01:50 01:50 WBC 3.5 L (5.0-10.0) 10^3/uL RBC 4.08 L (4.2-5.4) 10^6/uL Hgb 11.7 L (12.0-16.0) g/dL Hct 36.4 L (37.0-47.0) % MCV 89.2 (80-100) fL MCH 28.7 (27.0-34.0) pg MCHC 32.1 L (33.0-35.0) g/dL Plt Count 181 (150-450) 10^3/uL Neut % (Auto) 67.9 (42.2-75.2) % Lymph % (Auto) 23.2 (20.5-50.1) % [place] % (Auto) 8.3 H (2-8) % Eos % (Auto) 0.3 L (1.0-3.0) % Baso % (Auto) 0.3 (0.0-1.0) % D-Dimer, Quantitative 666 H (0-400) ng/mL Sodium 141 (136-145) mmol/L Potassium 3.7 (3.5-5.1) mmol/L Chloride 105 (98-107) mmol/L Carbon Dioxide 25 (21-32) mmol/L Anion Gap 14.7 H (7-13) mEq/L BUN 14 (7-18) mg/dL Creatinine 0.96 (0.55-1.02) mg/dL Est Cr Clr Drug Dosing 68.36 mL/min Estimated GFR (MDRD) > 60 BUN/Creatinine Ratio 14.6 (No establ ref range) Glucose 103 H (70-99) mg/dL Lactic Acid (0.4-2.0) mmol/L Calcium 7.9 L (8.5-10.1) mg/dL Total Bilirubin 0.4 (0.2-1.0) mg/dL AST 71 H (15-37) U/L ALT 75 H (14-59) U/L Alkaline Phosphatase 74 (46-116) U/L Troponin I < 0.017 (0.000-0.056) ng/mL Total Protein 7.5 (6.4-8.2) g/dL Albumin 3.2 L (3.4-5.0) g/dL Globulin 4.3 Albumin/Globulin Ratio 0.74 /18/ Range/Units 01:50 WBC (5.0-10.0) 10^3/uL RBC (4.2-5.4) 10^6/uL Hgb (12.0-16.0) g/dL Hct (37.0-47.0) % MCV (80-100) fL MCH (27.0-34.0) pg MCHC (33.0-35.0) g/dL Plt Count (150-450) 10^3/uL Neut % (Auto) (42.2-75.2) % Lymph % (Auto) (20.5-50.1) % [place] % (Auto) (2-8) % Eos % (Auto) (1.0-3.0) % Baso % (Auto) (0.0-1.0) % D-Dimer, Quantitative (0-400) ng/mL Sodium (136-145) mmol/L Potassium (3.5-5.1) mmol/L Chloride (98-107) mmol/L Carbon Dioxide (21-32) mmol/L Anion Gap (7-13) mEq/L BUN (7-18) mg/dL Creatinine (0.55-1.02) mg/dL Est Cr Clr Drug Dosing mL/min Estimated GFR (MDRD) BUN/Creatinine Ratio (No establ ref range) Glucose (70-99) mg/dL Lactic Acid 0.7 (0.4-2.0) mmol/L Calcium (8.5-10.1) mg/dL Total Bilirubin (0.2-1.0) mg/dL AST (15-37) U/L ALT (14-59) U/L Alkaline Phosphatase (46-116) U/L Troponin I (0.000-0.056) ng/mL Total Protein (6.4-8.2) g/dL Albumin (3.4-5.0) g/dL Globulin Albumin/Globulin Ratio Meds: Medications Generic Name Dose Route Start Last Admin Trade Name Freq PRN Reason Stop Dose Admin Sodium Chloride 10 ml 06/17/20 02:04 06/17/20 02:15 Sodium Chloride 0.9% 10 Ml Syringe FLUSH 10 ml ASDIRECTED PRN Administration Keep Vein Open Discontinued Medications Generic Name Dose Route Start Last Admin Trade Name Freq PRN Reason Stop Dose Admin Sodium Chloride 1,000 mls @ 999 mls/hr 06/17/20 02:11 06/17/20 02:16 Normal Saline IV 06/17/20 03:11 999 mls/hr .BOLUS ONE Administration Iopamidol 100 ml 06/17/20 02:51 06/17/20 02:57 Iopamidol 755 Mg/Ml 100 Ml Bottle IVPUSH 06/17/20 02:52 100 ml ONETIME ONE Administration Ondansetron HCl 4 mg 06/17/20 02:06 06/17/20 02:06 Ondansetron 4 Mg/2 Ml Sdv IVPUSH 06/17/20 02:07 4 mg ONETIME ONE Administration Ondansetron HCl Confirm 06/17/20 02:05 06/17/20 02:14 Ondansetron 4 Mg/2 Ml Sdv Administered 06/17/20 02:06 Not Given Dose 4 mg .ROUTE .[facility] ONE - Radiology Interpretation Free Text/Narrative:: CT Chest PE: 1. There is no evidence for pulmonary emboli. 2. Patchy bilateral ground-glass opacities compatible with an interstitial pneumonitis. Imaging features can be seen with COVID-19 pneumonia, though are nonspecific and can occur with a variety of infectious and noninfectious processes. Departure - Departure Time of Disposition: 04:12 Disposition: Admitted As Inpatient 67 Clinical Impression: Pneumonia due to COVID-19 virus - Discharge Information *PRESCRIPTION DRUG MONITORING PROGRAM REVIEWED*: Not Applicable *COPY OF PRESCRIPTION DRUG MONITORING REPORT IN PATIENT BLAKE: Not Applicable Forms: ED Department Discharge Sepsis Event Note (ED) - Evaluation Sepsis Screening Result: No Definite Risk - Focused Exam Vital Signs: Vital Signs Temp Pulse Resp BP Pulse Ox 06/17/20 03:49 78 27 H 104/47 L 91 L 06/17/20 03:38 100.1 F 77 27 H 111/96 H 89 L 06/17/20 02:44 99 F 78 26 H 112/54 L 94 L 06/17/20 01:46 99.2 F 71 19 108/35 L 92 L - My Orders Last 24 Hours: My Active Orders 06/17/20 02:04 Sodium Chloride 0.9% [Saline Flush] 10 ml FLUSH ASDIRECTED PRN Blood Culture x2 Reflex Set [OM.PC] Stat Peripheral IV Insertion Adult [OM.PC] Stat 06/17/20 02:05 Peripheral IV Care [RC] . DIRECTED CULTURE BLOOD [BC] Stat CULTURE BLOOD [BC] Stat 06/17/20 04:08 Admission Status [Patient Status] [ADT] Routine - Assessment/Plan Last 24 Hours: My Active Orders 06/17/20 02:04 Sodium Chloride 0.9% [Saline Flush] 10 ml FLUSH ASDIRECTED PRN Blood Culture x2 Reflex Set [OM.PC] Stat Peripheral IV Insertion Adult [OM.PC] Stat 06/17/20 02:05 Peripheral IV Care [RC] . DIRECTED CULTURE BLOOD [BC] Stat CULTURE BLOOD [BC] Stat 06/17/20 04:08 Admission Status [Patient Status] [ADT] Routine
[2020-06-17 02:24] LABS: ANION GAP 14.7 mEq/L (7-13); CHLORIDE,CL 105 mmol/L (98-107); SODIUM,NA 141 mmol/L (136-145)
[2020-06-17] MEDS ORDERED: Iopamidol 755 Mg/ML 100 ML Bottle IVPUSH ONE (02:51)
--- NOTE | 2020-06-17 03:53 | CT ---
PROCEDURE INFORMATION: Exam: CT Chest With Contrast; Diagnostic Exam date and time: 06/17/2020 2:44 AM Age: 54 years old Clinical indication: Other: Pe protocol d-dimer 666; Additional info: Covid, worsening shortness of breath TECHNIQUE: Imaging protocol: Diagnostic computed tomography of the chest with contrast. Radiation optimization: All CT scans at this facility use at least one of these dose optimization techniques: automated exposure control; mA and/or kV adjustment per patient size (includes targeted exams where dose is matched to clinical indication); or iterative reconstruction. Contrast material: [id number]; Contrast volume: 86 ml; Contrast route: INTRAVENOUS (IV); COMPARISON: CR Chest 1V Frontal 06/14/2020 11:08 AM FINDINGS: Lungs: There are patchy ground-glass opacities present within the hemithoraces bilaterally, findings compatible with a patchy bilateral interstitial pneumonia. Pleural spaces: Unremarkable. No pneumothorax. No pleural effusion. Heart: Unremarkable. No cardiomegaly. No pericardial effusion. Aorta: Unremarkable. No aortic aneurysm. Lymph nodes: Unremarkable. No enlarged lymph nodes. Bones/joints: Unremarkable. No acute fracture. Soft tissues: Unremarkable. IMPRESSION: 1. There is no evidence for pulmonary emboli. 2. Patchy bilateral ground-glass opacities compatible with an interstitial pneumonitis. Imaging features can be seen with COVID-19 pneumonia, though are nonspecific and can occur with a variety of infectious and noninfectious processes. (Reference: Dereck) REFERENCES: Dereck Duran et al., [employer] of [place] Expert Consensus Statement on Reporting Chest CT Findings Related to COVID-19. Endorsed by the Society of [employer], the [employer], and [employer]. Published May 25, 2019.
[2020-06-17] MEDS ORDERED: Ondansetron 4 MG in Sodium Chloride 0.9% 50 ML IV PRN (04:49)
[2020-06-17] MEDS ORDERED: REMDESIVIR 200 MG in Sodium Chloride 0.9% 250 ML IV ONE (04:50)
[2020-06-17] MEDS ORDERED: REMDESIVIR 200 MG ONE ×2 (05:01→05:06)
--- NOTE | 2020-06-17 05:01 | PCM.SN.2 ---
- Free Text/Narrative Note: START OF DOCTOR EMAMIS HISTORY AND PHYSICAL / CONSULTATION NOTE Chief Complaint: Shortness of breath History of Present Illness: The patient is a 54-year-old female who presents to complain of dyspnea. She states it started on the afternoon of June 17, 2020. The dyspnea was of gradual onset and progressively worsened. She admits to onset of fever, rigors, nausea, vomiting, cough which is occasionally productive. She admits to wheeze, abdominal pain, diarrhea. She admits to a nose mask. She denies she indicates she has been experiencing dysgeusia. She denies peripheral edema. The patient with tested positive COVID-19 on June 11, 2020. She presents for further evaluation Surgical History: Appendectomy, right eye cataract surgery, left eye cataract surgery, D&C, tubal ligation, bladder sling, left ankle surgery, right rotator cuff surgery, left rotator cuff surgery, skin graft, left knee arthroscopy Family History: Diabetes, coronary artery disease, hypertension, hyperlipidemia Social History: Tobacco: Former smoker Alcohol: Denies Caffeine: Cola Drugs: Never Allergies: Hydrocodone, nitrofurantoin, Ultram Code Status: Full Pertinent Laboratory Results / Pertinent Radiology Results / Pertinent Diagnostic Results / Pertinent Vital Signs: Blood pressure 104/47, pulse 78, respirations 27, temperature 100.1 degrees, 91% on 5 L, AST 71, ALT 75, hemoglobin 1.7 Physical Examination: General: -Alert -No acute distress -No dyspnea -Mild tachypnea -Morbidly obese Head: -Atraumatic -Normocephalic Eyes: -Pupils equally round and reactive to light and accommodation -Extraocular muscles intact Neurological: -Cranial nerves II-XII intact Neck: -No jugular venous distention -No thyromegaly -No cervical lymphadenopathy Heart: -Regular rate -Regular rhythm -No murmurs -No gallops -No rubs Lungs: -No wheeze -No rhonchi -No rales Abdomen: -Normal bowel sounds in all four quadrants -No rebound -No guarding -No tenderness Extremities: -2/4 pulse in all four extremities -No clubbing -No cyanosis -No edema -No calf tenderness present bilaterally -Negative Homans sign bilaterally Musculoskeletal: -5/5 bilateral upper extremity strength -5/5 bilateral lower extremity strength -Sensorium of bilateral upper extremities are equal and intact -Sensorium of bilateral lower extremities are equal and intact Additional Details / Additional Findings / Exceptions / Miscellaneous: Assessment / Plan: Presumed COVID-19 pneumonia. Remdesivir 200 mg IV x1 then 100 mg IV daily plus Proventil HFA: 90 maddison as per spray: 2 puffs every 4 hours plus dexamethasone set milligrams p.o. daily plus incentive spirometer to be used times hourly while awake Hypothyroidism Hepatic steatosis History of migraine Rheumatoid arthritis History of hyperammonemia Transaminitis. Will monitor LFTs periodically with CMP. This may be a sequelae of COVID-19 pneumonia Anemia. Will monitor hemoglobin levels intermittently. Check serum ferritin, iron panel, fecal occult blood Grade 1 diastolic dysfunction GERD. Protonix 40 mg p.o. daily Hyperlipidemia Hypertension Obesity. Patient becomes regarding left eye modification Constipation Diverticulosis IBS Degenerative disc disease Depression Angina Osteoarthritis Spinal stenosis DVT prophylaxis. Lovenox 40 mg subcutaneously every 12 hours Disposition: Anticipated discharge within 72 to 96 hours however this will depend on the patient's supplemental oxygen requirement. I will await input of the patient's home medications into the EMR system so that I may review them and reconcile them END OF DOCTOR EMAMIS HISTORY AND PHYSICAL / CONSULTATION NOTE
[2020-06-17] MEDS: Sodium Chloride 0.9% 10 ML Syringe FLUSH PRN (05:48)
[2020-06-17] MEDS: Acetaminophen 325 MG Tab PO PRN ×3 (05:51→22:32)
[2020-06-17] MEDS: Pantoprazole 40 MG Tab.CR PO SCH (05:52)
[2020-06-17] MEDS: Albuterol 6.7 GM Inhaler INH SCH ×5 (05:54→20:38)
[2020-06-17] MEDS ORDERED: Dexamethasone 6 MG TABLET PO ONE (06:00)
[2020-06-17] MEDS ORDERED: Dexamethasone 6 MG TABLET PO SCH (08:00)
[2020-06-17] MEDS: Enoxaparin 40 MG/0.4 ML Syringe SUBCUT SCH ×2 (08:23→20:38)
--- NOTE | 2020-06-17 08:23 | PCM.SN.2 ---
- Free Text/Narrative Note: START OF DOCTOR EMAMIS HISTORY AND PHYSICAL / CONSULTATION NOTE Chief Complaint: Shortness of breath History of Present Illness: The patient is a 54-year-old female who presents to complain of dyspnea. She states it started on the afternoon of June 17, 2020. The dyspnea was of gradual onset and progressively worsened. She admits to onset of fever, rigors, nausea, vomiting, cough which is occasionally productive. She admits to wheeze, abdominal pain, diarrhea. She admits to a nose mask. She denies she indicates she has been experiencing dysgeusia. She denies peripheral edema. The patient with tested positive COVID-19 on June 11, 2020. She presents for further evaluation Surgical History: Appendectomy, right eye cataract surgery, left eye cataract surgery, D&C, tubal ligation, bladder sling, left ankle surgery, right rotator cuff surgery, left rotator cuff surgery, skin graft, left knee arthroscopy Family History: Diabetes, coronary artery disease, hypertension, hyperlipidemia Social History: Tobacco: Former smoker Alcohol: Denies Caffeine: Cola Drugs: Never Allergies: Hydrocodone, nitrofurantoin, Ultram Code Status: Full Pertinent Laboratory Results / Pertinent Radiology Results / Pertinent Diagnostic Results / Pertinent Vital Signs: Blood pressure 104/47, pulse 78, respirations 27, temperature 100.1 degrees, 91% on 5 L, AST 71, ALT 75, hemoglobin 1.7 Physical Examination: General: -Alert -No acute distress -No dyspnea -Mild tachypnea -Morbidly obese Head: -Atraumatic -Normocephalic Eyes: -Pupils equally round and reactive to light and accommodation -Extraocular muscles intact Neurological: -Cranial nerves II-XII intact Neck: -No jugular venous distention -No thyromegaly -No cervical lymphadenopathy Heart: -Regular rate -Regular rhythm -No murmurs -No gallops -No rubs Lungs: -No wheeze -No rhonchi -No rales Abdomen: -Normal bowel sounds in all four quadrants -No rebound -No guarding -No tenderness Extremities: -2/4 pulse in all four extremities -No clubbing -No cyanosis -No edema -No calf tenderness present bilaterally -Negative Homans sign bilaterally Musculoskeletal: -5/5 bilateral upper extremity strength -5/5 bilateral lower extremity strength -Sensorium of bilateral upper extremities are equal and intact -Sensorium of bilateral lower extremities are equal and intact Additional Details / Additional Findings / Exceptions / Miscellaneous: Assessment / Plan: Presumed COVID-19 pneumonia. Remdesivir 200 mg IV x1 then 100 mg IV daily plus Proventil HFA: 90 maddison as per spray: 2 puffs every 4 hours plus dexamethasone set milligrams p.o. daily plus incentive spirometer to be used times hourly while awake. -----I spoke with Gabby left ear provided information about remdesivir treatment for his mild left there. I offered his no left pair the "patient and caregiver eat you a millimeters severe fact she" to read and review Hypothyroidism Hepatic steatosis History of migraine Rheumatoid arthritis History of hyperammonemia Transaminitis. Will monitor LFTs periodically with CMP. This may be a sequelae of COVID-19 pneumonia Anemia. Will monitor hemoglobin levels intermittently. Check serum ferritin, iron panel, fecal occult blood Grade 1 diastolic dysfunction GERD. Protonix 40 mg p.o. daily Hyperlipidemia Hypertension Obesity. Patient becomes regarding left eye modification Constipation Diverticulosis IBS Degenerative disc disease Depression Angina Osteoarthritis Spinal stenosis DVT prophylaxis. Lovenox 40 mg subcutaneously every 12 hours Disposition: Anticipated discharge within 72 to 96 hours however this will depend on the patient's supplemental oxygen requirement. I will await input of the patient's home medications into the EMR system so that I may review them and reconcile them END OF DOCTOR EMAMIS HISTORY AND PHYSICAL / CONSULTATION NOTE
[2020-06-17] MEDS: Oxymetazoline 0.05% Nasal Spray 30 ML Bottle NASBOTH PRN (22:31)
[2020-06-17] MEDS: Zolpidem 5 MG Tab PO PRN (22:32)
[2020-06-18] MEDS: Albuterol 6.7 GM Inhaler INH SCH ×6 (01:00→21:27)
[2020-06-18] MEDS: REMDESIVIR 100 MG in Sodium Chloride 0.9% 100 ML IV SCH (05:10)
[2020-06-18] MEDS: Pantoprazole 40 MG Tab.CR PO SCH (05:12)
[2020-06-18 06:33] LABS: ANION GAP 12.5 mEq/L (7-13); CHLORIDE,CL 108 mmol/L (98-107); SODIUM,NA 145 mmol/L (136-145)
--- NOTE | 2020-06-18 08:17 | PCM.SN.2 ---
- Free Text/Narrative Note: START OF DOCTOR EMAMIS PROGRESS NOTE Subjective: The patient currently rates her respiratory status is a 6 out of 10 at times her baseline. She denies fever, rigors, nausea, vomiting, wheeze. She states that she has occasional cough productive of yellow sputum. She denies abdominal pain and diarrhea. Overall she states that her respiratory status has improved. I explained to the patient her current medical condition and plan of care and I have answered all of her questions Objective: General: -Alert -No acute distress -No dyspnea -No tachypnea -Obese Heart: -Regular rate -Regular rhythm -No murmurs -No gallops -No rubs Lungs: -No wheeze -No rhonchi -No rales Abdomen: -Normal bowel sounds in all four quadrants -No rebound -No guarding -No tenderness Extremities: -2/4 pulse in all four extremities -No clubbing -No cyanosis -No edema Additional Details / Additional Findings / Exceptions / Miscellaneous: Pertinent Laboratory Results / Pertinent Radiology Results / Pertinent Diagnostic Results / Pertinent Vital Signs: Patient saturating 92% on 6 L, white blood count 2.9, AST 51 Assessment / Plan: Presumed COVID-19 pneumonia. Remdesivir 200 mg IV x1 then 100 mg IV daily plus Proventil HFA: 90 maddison as per spray: 2 puffs every 4 hours plus dexamethasone set milligrams p.o. daily plus incentive spirometer to be used times hourly while awake. -----I spoke with Gabby left ear provided information about remdesivir treatment for his mild left there. I offered his no left pair the "patient and caregiver eat you a millimeters severe fact she" to read and review Hypothyroidism Hepatic steatosis History of migraine Rheumatoid arthritis History of hyperammonemia Transaminitis. Will monitor LFTs periodically with CMP. This may be a sequelae of COVID-19 pneumonia Anemia. Will monitor hemoglobin levels intermittently. Iron panel consistent with iron deficiency however ferritin is elevated likely secondary to acute illness. Fecal occult pending. Recheck iron panel and ferritin upon discharge once acute illness resolves Grade 1 diastolic dysfunction GERD. Protonix 40 mg p.o. daily Hyperlipidemia Hypertension Obesity. Patient becomes regarding left eye modification Constipation Diverticulosis IBS Degenerative disc disease Depression Angina Osteoarthritis Spinal stenosis DVT prophylaxis. Lovenox 40 mg subcutaneously every 12 hours Disposition: Anticipate discharge once patient supplemental oxygen requirement is consistently 5 L/min or less END OF DOCTOR EMAMIS PROGRESS NOTE
[2020-06-18] MEDS: Dexamethasone 6 MG TABLET PO SCH (08:22)
[2020-06-18] MEDS: Enoxaparin 40 MG/0.4 ML Syringe SUBCUT SCH ×2 (08:22→21:27)
[2020-06-18] MEDS: Doxycycline Monohydrate 100 MG Cap PO SCH ×2 (09:08→21:28)
[2020-06-18] MEDS: Acetaminophen 325 MG Tab PO PRN ×2 (14:24→21:28)
[2020-06-18] MEDS: Oxymetazoline 0.05% Nasal Spray 30 ML Bottle NASBOTH PRN (21:27)
[2020-06-18] MEDS: Zolpidem 5 MG Tab PO PRN (21:28)
[2020-06-18] MEDS: Ondansetron 4 MG/2 ML SDV IVPUSH PRN (22:05)
[2020-06-19] MEDS: Albuterol 6.7 GM Inhaler INH SCH ×6 (01:35→20:03)
[2020-06-19] MEDS: REMDESIVIR 100 MG in Sodium Chloride 0.9% 100 ML IV SCH (05:38)
[2020-06-19] MEDS: Pantoprazole 40 MG Tab.CR PO SCH (05:39)
[2020-06-19 06:43] LABS: ANION GAP 13.9 mEq/L (7-13); CHLORIDE,CL 106 mmol/L (98-107); SODIUM,NA 145 mmol/L (136-145)
[2020-06-19] MEDS: Ondansetron 4 MG/2 ML SDV IVPUSH PRN (06:43)
[2020-06-19] MEDS: Doxycycline Monohydrate 100 MG Cap PO SCH ×2 (08:10→20:04)
[2020-06-19] MEDS: Dexamethasone 6 MG TABLET PO SCH (08:11)
[2020-06-19] MEDS: Enoxaparin 40 MG/0.4 ML Syringe SUBCUT SCH ×2 (08:11→20:04)
--- NOTE | 2020-06-19 08:17 | PCM.SN.2 ---
- Free Text/Narrative Note: START OF DOCTOR EMAMIS PROGRESS NOTE Subjective: The patient currently rates her respiratory status is a 6 out of 10 if 10 is her baseline. She denies fever, rigors. She admits to nausea. She denies emesis. She admits to cough productive of green sputum. She denies wheeze, abdominal pain, chest pain. I explained to the patient her current medical condition and plan of care and I have answered all of her questions Objective: General: -Alert -No acute distress -No dyspnea -No tachypnea -Obese Heart: -Regular rate -Regular rhythm -No murmurs -No gallops -No rubs Lungs: -No wheeze -No rhonchi -No rales Abdomen: -Normal bowel sounds in all four quadrants -No rebound -No guarding -No tenderness Extremities: -2/4 pulse in all four extremities -No clubbing -No cyanosis -No edema Additional Details / Additional Findings / Exceptions / Miscellaneous: Pertinent Laboratory Results / Pertinent Radiology Results / Pertinent Diagnostic Results / Pertinent Vital Signs: Respirations 24, patient satting 89% on high flow oxygen at 30 L/min with FiO2 of 60% Assessment / Plan: Presumed COVID-19 pneumonia. Remdesivir 200 mg IV x1 then 100 mg IV daily plus Proventil HFA: 90 maddison as per spray: 2 puffs every 4 hours plus dexamethasone set milligrams p.o. daily plus doxycycline 100 mg p.o. twice daily plus vitamin D 2000 IU p.o. daily plus incentive spirometer to be used times hourly while awake. -----I spoke with Gabby left ear provided information about remdesivir treatment for his mild left there. I offered his no left pair the "patient and caregiver eat you a millimeters severe fact she" to read and review Hypothyroidism. Synthroid 50 mcg p.o. daily Hepatic steatosis History of migraine Rheumatoid arthritis History of hyperammonemia Transaminitis. Will monitor LFTs periodically with CMP. This may be a sequelae of COVID-19 pneumonia Anemia. Will monitor hemoglobin levels intermittently. Iron panel consistent with iron deficiency however ferritin is elevated likely secondary to acute illness. Fecal occult pending. Recheck iron panel and ferritin upon discharge once acute illness resolves Grade 1 diastolic dysfunction GERD. Protonix 40 mg p.o. daily Hyperlipidemia Hypertension Obesity. Patient becomes regarding left eye modification Constipation Diverticulosis IBS Degenerative disc disease Depression Angina Osteoarthritis Spinal stenosis DVT prophylaxis. Lovenox 40 mg subcutaneously every 12 hours Disposition: Anticipate discharge once patient supplemental oxygen requirement is consistently 5 L/min or less END OF DOCTOR EMAMIS PROGRESS NOTE
[2020-06-19] MEDS ORDERED: Levothyroxine 50 MCG Tab PO SCH (09:00)
--- NOTE | 2020-06-19 10:14 | CR ---
EXAMINATION: Chest 1V Frontal SEX: Female AGE: 54 years CLINICAL HISTORY: 54-year-old obese female experiencing shortness of breath (SOB). Comparison films 14 June 2020 and 17 January 2020. INTERPRETATION: Abnormal. Radiographic appearance suspicious for probable viral COVID pneumonia. 1. *Multiple new scattered "groundglass" interstitial lung densities identified throughout the periphery of both lung leblanc. 2. Normal cardiac silhouette without signs of alveolar edema or dependent pleural fluid accumulation (effusions). 3. No new lung mass or hilar lymphadenopathy. 4. Bibasilar atelectasis reflecting generally poor inspiratory effort obese female. 5. No pneumothorax or pneumomediastinum Note: Hospitalist (Dr. Giovanni Coronado) notified by phone at 1000 hours.
[2020-06-19] MEDS: Acetaminophen 325 MG Tab PO PRN ×2 (12:05→20:04)
[2020-06-19] MEDS: Levothyroxine 75 MCG Tab PO SCH (12:05)
[2020-06-19] MEDS: Aspirin 81 MG Tab.EC PO SCH (12:05)
[2020-06-19] MEDS: Oxymetazoline 0.05% Nasal Spray 30 ML Bottle NASBOTH PRN (18:31)
[2020-06-19] MEDS: Zolpidem 5 MG Tab PO PRN (20:05)
[2020-06-20] MEDS: Acetaminophen 325 MG Tab PO PRN (00:04)
[2020-06-20] MEDS: Albuterol 6.7 GM Inhaler INH SCH ×6 (00:06→20:55)
[2020-06-20] MEDS: REMDESIVIR 100 MG in Sodium Chloride 0.9% 100 ML IV SCH (04:59)
[2020-06-20] MEDS: Levothyroxine 75 MCG Tab PO SCH (05:05)
[2020-06-20] MEDS: Pantoprazole 40 MG Tab.CR PO SCH (05:06)
[2020-06-20] MEDS: Ondansetron 4 MG/2 ML SDV IVPUSH PRN ×2 (06:15→10:07)
[2020-06-20 07:00] LABS: ANION GAP 13.4 mEq/L (7-13); CHLORIDE,CL 106 mmol/L (98-107); SODIUM,NA 145 mmol/L (136-145)
[2020-06-20] MEDS: Aspirin 81 MG Tab.EC PO SCH (08:38)
[2020-06-20] MEDS: Doxycycline Monohydrate 100 MG Cap PO SCH ×2 (08:39→20:54)
[2020-06-20] MEDS: Enoxaparin 40 MG/0.4 ML Syringe SUBCUT SCH ×2 (08:39→20:55)
[2020-06-20] MEDS: Dexamethasone 6 MG TABLET PO SCH (08:39)
[2020-06-20] MEDS ORDERED: Potassium Chloride 10 MEQ Tab.ER PO ONE (08:48)
--- NOTE | 2020-06-20 08:51 | PCM.SN.2 ---
- Free Text/Narrative Note: START OF DOCTOR LEONELA PROGRESS NOTE Subjective: The patient currently rates her respiratory status as a 5 out of 10-10 is her baseline. She denies fever or rigors. She states overnight she had an episode of nausea and emesis. She notes a cough which is productive of yellow sputum. She denies wheeze. The patient denies abdominal pain or chest pain. I explained to the patient her current medical condition and plan of care and I have answered all of her questions Objective: General: -Alert -No acute distress -No dyspnea -No tachypnea -Obese Heart: -Regular rate -Regular rhythm -No murmurs -No gallops -No rubs Lungs: -No wheeze -No rhonchi -No rales Abdomen: -Normal bowel sounds in all four quadrants -No rebound -No guarding -No tenderness Extremities: -2/4 pulse in all four extremities -No clubbing -No cyanosis -No edema Additional Details / Additional Findings / Exceptions / Miscellaneous: Pertinent Laboratory Results / Pertinent Radiology Results / Pertinent Diagnostic Results / Pertinent Vital Signs: Patient saturating 97% on high flow oxygen via nasal cannula at 30 L/min with FiO2 of 60%. Respirations 24 Assessment / Plan: Presumed COVID-19 pneumonia. Remdesivir 200 mg IV x1 then 100 mg IV daily plus Proventil HFA: 90 maddison as per spray: 2 puffs every 4 hours plus dexamethasone set milligrams p.o. daily plus doxycycline 100 mg p.o. twice daily plus vitamin D 2000 IU p.o. daily plus incentive spirometer to be used times hourly while awake. -----I spoke with Gabby shankar ear provided information about remdesivir treatment for his mild left there. I offered his no left pair the "patient and caregiver eat you a millimeters severe fact she" to read and review Hypothyroidism. Synthroid 75 mcg p.o. daily Hypokalemia. Will monitor potassium levels intermittently and supplement as necessary Hepatic steatosis History of migraine Rheumatoid arthritis History of hyperammonemia Transaminitis. Will monitor LFTs periodically with CMP. This may be a sequelae of COVID-19 pneumonia Anemia. Will monitor hemoglobin levels intermittently. Iron panel consistent with iron deficiency however ferritin is elevated likely secondary to acute illness. Fecal occult pending. Recheck iron panel and ferritin upon discharge once acute illness resolves Grade 1 diastolic dysfunction GERD. Protonix 40 mg p.o. daily Hyperlipidemia Hypertension Obesity. Patient becomes regarding left eye modification Constipation Diverticulosis IBS Degenerative disc disease Depression Angina Osteoarthritis Spinal stenosis DVT prophylaxis. Lovenox 40 mg subcutaneously every 12 hours Disposition: Anticipate discharge once patient supplemental oxygen requirement is consistently 5 L/min or less END OF DOCTOR EMAMIS PROGRESS NOTE
[2020-06-20] MEDS: Docusate Sodium 100 MG Cap PO SCH ×2 (09:54→20:55)
[2020-06-20] MEDS: [UNRECOGNIZED DRUG - REMARK] PO PRN ×2 (09:55→20:53)
[2020-06-20] MEDS: Cholecalciferol (Vitamin D3) 25 MCG Tab PO SCH (13:10)
[2020-06-20] MEDS: Zolpidem 5 MG Tab PO PRN (20:54)
[2020-06-20] MEDS: Oxymetazoline 0.05% Nasal Spray 30 ML Bottle NASBOTH PRN (21:02)
[2020-06-21] MEDS: Albuterol 6.7 GM Inhaler INH SCH ×7 (01:05→20:45)
[2020-06-21] MEDS: Ondansetron 4 MG/2 ML SDV IVPUSH PRN (05:05)
[2020-06-21] MEDS: REMDESIVIR 100 MG in Sodium Chloride 0.9% 100 ML IV SCH (05:08)
[2020-06-21] MEDS: Levothyroxine 75 MCG Tab PO SCH (05:14)
[2020-06-21] MEDS: Pantoprazole 40 MG Tab.CR PO SCH (05:15)
[2020-06-21] MEDS: Sodium Chloride 0.9% 10 ML Syringe FLUSH PRN ×3 (06:29→06:31)
[2020-06-21 06:55] LABS: ANION GAP 8.9 mEq/L (7-13); CHLORIDE,CL 104 mmol/L (98-107); SODIUM,NA 140 mmol/L (136-145)
--- NOTE | 2020-06-21 08:15 | PCM.SN.2 ---
- Free Text/Narrative Note: START OF DOCTOR LEONELA PROGRESS NOTE The patient complains of occasional cough which is nonproductive. She denies fever, rigors, nausea, vomiting, wheeze, abdominal pain, chest pain. From a respiratory standpoint, she indicates that her respiratory status has improved compared to my encounter with her on June 21, 2020. She currently rates her respiratory status is a 6 out of 10 at times her baseline. I explained to the patient her current medical condition and plan of care and I have answered all of her questions Objective: General: -Alert -No acute distress -No dyspnea -No tachypnea -Obese Heart: -iRegular rate -Regular rhythm -No murmurs -No gallops -No rubs Lungs: -No wheeze -No rhonchi -No rales Abdomen: -Normal bowel sounds in all four quadrants -No rebound -No guarding -No tenderness Extremities: -2/4 pulse in all four extremities -No clubbing -No cyanosis -No edema Additional Details / Additional Findings / Exceptions / Miscellaneous: Pertinent Laboratory Results / Pertinent Radiology Results / Pertinent Diagnostic Results / Pertinent Vital Signs: Heart rate 56, respiration 24, patient saturating 94% on high flow oxygen via nasal cannula 30 L/min with FiO2 of 63 Assessment / Plan: Presumed COVID-19 pneumonia. Remdesivir 200 mg IV x1 then 100 mg IV daily plus Proventil HFA: 90 maddison as per spray: 2 puffs every 4 hours plus dexamethasone set milligrams p.o. daily plus doxycycline 100 mg p.o. twice daily plus vitamin D 2000 IU p.o. daily plus incentive spirometer to be used times hourly while awake. -----I spoke with Gabby oneil provided information about remdesivir treatment for his mild left there. I offered his no left pair the "patient and caregiver eat you a millimeters severe fact she" to read and review Hypothyroidism. Synthroid 75 mcg p.o. daily Hypokalemia. Will monitor potassium levels intermittently and supplement as necessary Hepatic steatosis History of migraine Rheumatoid arthritis History of hyperammonemia Transaminitis. Resolved Anemia. Will monitor hemoglobin levels intermittently. Iron panel consistent with iron deficiency however ferritin is elevated likely secondary to acute illness. Fecal occult pending. Recheck iron panel and ferritin upon discharge once acute illness resolves Grade 1 diastolic dysfunction GERD. Protonix 40 mg p.o. daily Hyperlipidemia Hypertension Obesity. Patient becomes regarding left eye modification Constipation. Colace 200 mg p.o. twice daily Diverticulosis IBS Degenerative disc disease Depression Angina Osteoarthritis Spinal stenosis DVT prophylaxis. Lovenox 40 mg subcutaneously every 12 hours Disposition: Anticipate discharge once patient supplemental oxygen requirement is consistently 5 L/min or less END OF DOCTOR EMAMIS PROGRESS NOTE
[2020-06-21] MEDS: Doxycycline Monohydrate 100 MG Cap PO SCH ×2 (08:30→20:45)
[2020-06-21] MEDS: Cholecalciferol (Vitamin D3) 25 MCG Tab PO SCH (08:30)
[2020-06-21] MEDS: Enoxaparin 40 MG/0.4 ML Syringe SUBCUT SCH ×2 (08:31→20:45)
[2020-06-21] MEDS: Aspirin 81 MG Tab.EC PO SCH (08:31)
[2020-06-21] MEDS: Dexamethasone 6 MG TABLET PO SCH (08:31)
[2020-06-21] MEDS: Docusate Sodium 100 MG Cap PO SCH ×2 (08:31→20:45)
[2020-06-21] MEDS: [UNRECOGNIZED DRUG - REMARK] PO PRN (20:43)
[2020-06-21] MEDS: Melatonin 3 MG Tab PO PRN (20:44)
[2020-06-22] MEDS: Albuterol 6.7 GM Inhaler INH SCH ×7 (00:10→22:08)
[2020-06-22] MEDS: Levothyroxine 75 MCG Tab PO SCH (05:28)
[2020-06-22] MEDS: Pantoprazole 40 MG Tab.CR PO SCH (05:28)
--- NOTE | 2020-06-22 07:42 | PCM.SN.2 ---
- Free Text/Narrative Note: START OF DOCTOR LEONELA PROGRESS NOTE Subjective: The patient complains of occasional cough productive yellow sputum. Aside from this endorses no complaints. She denies fever, rigors, nausea, vomiting, wheeze, abdominal pain, chest pain. She states that her respiratory status has improved compared to my encounter with her on June 21, 2020. She currently rates her respiratory status is a 7 out of 10 of 10 is her baseline. I explained to the patient her current medical condition and plan of care and have answered all of her questions Objective: General: -Alert -No acute distress -No dyspnea -No tachypnea -Obese Heart: -iRegular rate -Regular rhythm -No murmurs -No gallops -No rubs Lungs: -No wheeze -No rhonchi -No rales Abdomen: -Normal bowel sounds in all four quadrants -No rebound -No guarding -No tenderness Extremities: -2/4 pulse in all four extremities -No clubbing -No cyanosis -No edema Additional Details / Additional Findings / Exceptions / Miscellaneous: Pertinent Laboratory Results / Pertinent Radiology Results / Pertinent Diagnostic Results / Pertinent Vital Signs: Heart rate 55, respirations 28, patient saturating at 5% on high flow nasal cannula at 30 L/min with FiO2 of 60% Assessment / Plan: Presumed COVID-19 pneumonia. Remdesivir 200 mg IV x1 then 100 mg IV daily plus Proventil HFA: 90 [place] as per spray: 2 puffs every 4 hours plus dexamethasone set milligrams p.o. daily plus doxycycline 100 mg p.o. twice daily plus vitamin D 2000 IU p.o. daily plus incentive spirometer to be used times hourly while awake. -----I spoke with Gabby shankar ear provided information about remdesivir treatment for his mild left there. I offered his no left pair the "patient and caregiver eat you a millimeters severe fact she" to read and review Hypothyroidism. Synthroid 75 mcg p.o. daily Hypokalemia. Will monitor potassium levels intermittently and supplement as nec essary Hepatic steatosis History of migraine Rheumatoid arthritis History of hyperammonemia Transaminitis. Resolved Anemia. Will monitor hemoglobin levels intermittently. Iron panel consistent with iron deficiency however ferritin is elevated likely secondary to acute illness. Fecal occult blood negative. Recheck iron panel and ferritin upon discharge once acute illness resolves Grade 1 diastolic dysfunction GERD. Protonix 40 mg p.o. daily Hyperlipidemia Hypertension Obesity. Patient becomes regarding left eye modification Constipation. Colace 200 mg p.o. twice daily Diverticulosis IBS Degenerative disc disease Depression Angina Osteoarthritis Spinal stenosis DVT prophylaxis. Lovenox 40 mg subcutaneously every 12 hours Disposition: Anticipate discharge once patient supplemental oxygen requirement is consistently 5 L/min or less. I will discuss with case management/social work whether the patient may be a candidate for discharge to LTAC for high flow oxy gen via nasal cannula given her slow progression END OF DOCTOR LEONELA PROGRESS NOTE
[2020-06-22] MEDS: Cholecalciferol (Vitamin D3) 25 MCG Tab PO SCH (08:30)
[2020-06-22] MEDS: Dexamethasone 6 MG TABLET PO SCH (08:30)
[2020-06-22] MEDS: Aspirin 81 MG Tab.EC PO SCH (08:30)
[2020-06-22] MEDS: Doxycycline Monohydrate 100 MG Cap PO SCH ×2 (08:30→21:59)
[2020-06-22] MEDS: Sodium Chloride 0.9% 10 ML Syringe FLUSH PRN ×2 (08:33→22:01)
[2020-06-22] MEDS: Enoxaparin 40 MG/0.4 ML Syringe SUBCUT SCH ×2 (08:33→21:59)
[2020-06-22] MEDS: Docusate Sodium 100 MG Cap PO SCH ×2 (08:40→21:58)
[2020-06-22] MEDS: Melatonin 3 MG Tab PO PRN (22:01)
[2020-06-23] MEDS: Albuterol 6.7 GM Inhaler INH SCH ×6 (00:54→20:40)
[2020-06-23] MEDS: Levothyroxine 75 MCG Tab PO SCH (05:48)
[2020-06-23] MEDS: Pantoprazole 40 MG Tab.CR PO SCH (05:49)
--- NOTE | 2020-06-23 07:51 | PCM.SN.2 ---
- Free Text/Narrative Note: START OF DOCTOR LEONELA PROGRESS NOTE Subjective: The patient indicates that her respiratory status has improved mildly compared to my catheter on May 1030.1. She currently rates her respiratory status as a 7 out of 10 at times her baseline. Overnight she denies fever, rigors, vomiting, cough, wheeze, abdominal pain, chest pain. She states that she had an episode of nausea which was transient. I explained to the patient her current medical condition and plan of care and I have answered all of her questions Objective: General: -Alert -No acute distress -No dyspnea -No tachypnea -Obese Heart: -iRegular rate -Regular rhythm -No murmurs -No gallops -No rubs Lungs: -No wheeze -No rhonchi -No rales Abdomen: -Normal bowel sounds in all four quadrants -No rebound -No guarding -No tenderness Extremities: -2/4 pulse in all four extremities -No clubbing -No cyanosis -No edema Additional Details / Additional Findings / Exceptions / Miscellaneous: Pertinent Laboratory Results / Pertinent Radiology Results / Pertinent Diagnostic Results / Pertinent Vital Signs: Heart rate 55, blood pressure 92/46, patient saturating 94% while receiving supplemental oxygen via nasal cannula at 30 L/min with FiO2 of 39 Assessment / Plan: Presumed COVID-19 pneumonia. Remdesivir 200 mg IV x1 then 100 mg IV daily plus Proventil HFA: 90 [place] as per spray: 2 puffs every 4 hours plus dexamethasone set milligrams p.o. daily plus doxycycline 100 mg p.o. twice daily plus vitamin D 2000 IU p.o. daily plus incentive spirometer to be used times hourly while awake. -----I spoke with Gabby oneil provided information about remdesivir treatment for his mild left there. I offered his no left pair the "patient and caregiver eat you a millimeters severe fact she" to read and review Hypothyroidism. Synthroid 75 mcg p.o. daily Hypokalemia. Will monitor potassium levels intermittently and supplement as n ecessary Hepatic steatosis History of migraine Rheumatoid arthritis History of hyperammonemia Transaminitis. Resolved Anemia. Will monitor hemoglobin levels intermittently. Iron panel consistent with iron deficiency however ferritin is elevated likely secondary to acute illness. Fecal occult blood positive. Recheck iron panel and ferritin upon discharge once acute illness resolves. Recheck fecal occult blood upon discharge when the patient is no longer receiving Lovenox 40 mg subcutaneously every 12 hours for DVT prophylaxis Grade 1 diastolic dysfunction GERD. Protonix 40 mg p.o. daily Hyperlipidemia Hypertension Obesity. Patient becomes regarding left eye modification Constipation. Colace 200 mg p.o. twice daily Diverticulosis IBS Degenerative disc disease Depression Angina Osteoarthritis Spinal stenosis DVT prophylaxis. Lovenox 40 mg subcutaneously every 12 hours Disposition: Anticipate discharge once patient supplemental oxygen requirement is consist ently 5 L/min or less. I will discuss with case management/social work whether the patient may be a candidate for discharge to LTAC for high flow oxygen via nasal cannula given her slow progression END OF DOCTOR GIPSON PROGRESS NOTE
[2020-06-23] MEDS: Aspirin 81 MG Tab.EC PO SCH (08:30)
[2020-06-23] MEDS: Doxycycline Monohydrate 100 MG Cap PO SCH ×2 (08:30→20:40)
[2020-06-23] MEDS: Dexamethasone 6 MG TABLET PO SCH (08:30)
[2020-06-23] MEDS: Enoxaparin 40 MG/0.4 ML Syringe SUBCUT SCH ×2 (08:30→20:41)
[2020-06-23] MEDS: Cholecalciferol (Vitamin D3) 25 MCG Tab PO SCH (08:30)
[2020-06-23] MEDS: Docusate Sodium 100 MG Cap PO SCH ×2 (08:30→20:40)
[2020-06-23] MEDS: Melatonin 3 MG Tab PO PRN (20:40)
[2020-06-23] MEDS: Sodium Chloride 0.9% 10 ML Syringe FLUSH PRN (20:45)
[2020-06-24] MEDS: Albuterol 6.7 GM Inhaler INH SCH ×6 (02:08→20:44)
[2020-06-24] MEDS: Pantoprazole 40 MG Tab.CR PO SCH (05:35)
[2020-06-24] MEDS: Levothyroxine 75 MCG Tab PO SCH (05:35)
--- NOTE | 2020-06-24 10:12 | PCM.PN ---
- General Info Date of Service: 06/24/20 Admission Dx/Problem (Free Text): Severe COVID-19 pneumonia Subjective Update: Gabby continues to improve. She was able to be weaned all the way down to 4 L of oxygen via nasal cannula. She states that she is much more able to get up and move around and ambulate without difficulty. She is using her incentive spirometer frequently. - Patient Data Vitals - Most Recent: Last Vital Signs Temp 97.4 F 06/24/20 08:00 Pulse 68 06/24/20 08:00 Resp 22 H 06/24/20 08:00 BP 97/45 L 06/24/20 08:00 Pulse Ox 95 06/24/20 08:00 Weight - Most Recent: 244 lb 6.4 oz I&O - Last 24 Hours: Intake & Output 06/23/20 06/24/20 06/24/20 22:59 06:59 14:59 Intake Total 750 400 Balance 750 400 Med Orders - Current: Current Medications Acetaminophen (Acetaminophen 325 Mg Tab) 650 mg PO Q4H PRN PRN Reason: Pain (Mild 1-3)/fever Last Admin: 06/20/20 00:04 Dose: 650 mg Documented by: Albuterol (Albuterol 6.7 Gm Inhaler) 0 gm INH Q4H [facility] Last Admin: 06/24/20 05:38 Dose: Not Given Documented by: Aspirin (Aspirin 81 Mg Tab.Ec) 81 mg PO DAILY [facility] Last Admin: 06/23/20 08:30 Dose: 81 mg Documented by: Cholecalciferol (Cholecalciferol (Vitamin D3) 25 Mcg Tab) 50 mcg PO DAILY [facility] Last Admin: 06/23/20 08:30 Dose: 50 mcg Documented by: Dexamethasone (Dexamethasone 6 Mg Tablet) 6 mg PO DAILY@0800 [facility] Last Admin: 06/23/20 08:30 Dose: 6 mg Documented by: Docusate Sodium (Docusate Sodium 100 Mg Cap) 200 mg PO BID [facility] Last Admin: 06/23/20 20:40 Dose: 200 mg Documented by: Doxycycline Monohydrate (Doxycycline Monohydrate 100 Mg Cap) 100 mg PO BID [facility] Last Admin: 06/23/20 20:40 Dose: 100 mg Documented by: Enoxaparin Sodium (Enoxaparin 40 Mg/0.4 Ml Syringe) 40 mg SUBCUT Q12HR [facility] Last Admin: 06/23/20 20:41 Dose: 40 mg Documented by: Levothyroxine Sodium (Levothyroxine 75 Mcg Tab) 75 mcg PO ACBREAKFAST [facility] Last Admin: 06/24/20 05:35 Dose: 75 mcg Documented by: Melatonin (Melatonin 3 Mg Tab) 6 mg PO BEDTIME PRN PRN Reason: Sleep, use first Last Admin: 06/23/20 20:40 Dose: 6 mg Documented by: Pseudoephedrine Hcl 30mg Tab Non-Form Med 1 each PO Q6H PRN PRN Reason: SINUS CONGESTION Last Admin: 06/21/20 20:43 Dose: 1 each Documented by: Ondansetron HCl (Ondansetron 4 Mg/2 Ml Sdv) 4 mg IVPUSH Q4H PRN PRN Reason: NAUSEA/VOMITING Last Admin: 06/21/20 05:05 Dose: 4 mg Documented by: Pantoprazole Sodium (Pantoprazole 40 Mg Tab.Cr) 40 mg PO ACBREAKFAST [facility] Last Admin: 06/24/20 05:35 Dose: 40 mg Documented by: Sodium Chloride (Sodium Chloride 0.9% 10 Ml Syringe) 10 ml FLUSH ASDIRECTED PRN PRN Reason: Keep Vein Open Last Admin: 06/23/20 20:45 Dose: 10 ml Documented by: Zolpidem Tartrate (Zolpidem 5 Mg Tab) 5 mg PO BEDTIME PRN PRN Reason: Sleep Last Admin: 06/20/20 20:54 Dose: 5 mg Documented by: Discontinued Medications Dexamethasone (Dexamethasone 6 Mg Tablet) 6 mg PO DAILY@0800 [facility] Dexamethasone (Dexamethasone 6 Mg Tablet) 6 mg PO ONETIME ONE Stop: 06/17/20 06:01 Last Admin: 06/17/20 06:03 Dose: 6 mg Documented by: Sodium Chloride (Normal Saline) 1,000 mls @ 999 mls/hr IV .BOLUS ONE Stop: 06/17/20 03:11 Last Admin: 06/17/20 02:16 Dose: 999 mls/hr Documented by: Ondansetron HCl 4 mg/ Sodium (Chloride) 52 mls @ 200 mls/hr IV Q4H PRN PRN Reason: Nausea/Vomiting Remdesivir 100 mg/ Sodium (Chloride) 100 mls @ 100 mls/hr IV Q24H [facility] Stop: 06/21/20 05:59 Last Infusion: 06/21/20 06:23 Dose: Infused Documented by: Remdesivir 200 mg/ Sodium (Chloride) 250 mls @ 250 mls/hr IV ONETIME ONE Stop: 06/17/20 05:49 Last Admin: 06/17/20 05:45 Dose: 250 mls/hr Documented by: Remdesivir (Remdesivir) Confirm Administered Dose 200 mls @ as directed .ROUTE .STK-MED ONE Stop: 06/17/20 05:02 Last Admin: 06/17/20 05:55 Dose: Not Given Documented by: Remdesivir (Remdesivir) Confirm Administered Dose 200 mls @ as directed .ROUTE .STK-MED ONE Stop: 06/17/20 05:07 Last Admin: 06/17/20 05:55 Dose: Not Given Documented by: Iopamidol (Iopamidol 755 Mg/Ml 100 Ml Bottle) 100 ml IVPUSH ONETIME ONE Stop: 06/17/20 02:52 Last Admin: 06/17/20 02:57 Dose: 100 ml Documented by: Ondansetron HCl (Ondansetron 4 Mg/2 Ml Sdv) 4 mg IVPUSH ONETIME ONE Stop: 06/17/20 02:07 Last Admin: 06/17/20 02:06 Dose: 4 mg Documented by: Ondansetron HCl (Ondansetron 4 Mg/2 Ml Sdv) Confirm Administered Dose 4 mg .ROUTE .STK-MED ONE Stop: 06/17/20 02:06 Last Admin: 06/17/20 02:14 Dose: Not Given Documented by: Oxymetazoline HCl (Oxymetazoline 0.05% Nasal [place] 30 Ml Bottle) 2 ml NASBOTH Q12H PRN PRN Reason: Congestion Last Admin: 06/18/20 21:27 Dose: 1 sprays Documented by: Oxymetazoline HCl (Oxymetazoline 0.05% Nasal [place] 30 Ml Bottle) 0 ml NASBOTH Q12H PRN PRN Reason: Congestion Stop: 06/20/20 22:17 Last Admin: 06/20/20 21:02 Dose: 1 spray Documented by: Potassium Chloride (Potassium Chloride 10 Meq Tab.Er) 40 meq PO ONETIME ONE Stop: 06/20/20 08:49 Last Admin: 06/20/20 09:26 Dose: 40 meq Documented by: Sodium Chloride (Sodium Chloride 0.9% 10 Ml Syringe) 10 ml FLUSH ASDIRECTED PRN PRN Reason: Keep Vein Open Last Admin: 06/17/20 02:15 Dose: 10 ml Documented by: - Exam Physical Findings Comments:: General: Gabby is a 54-year-old woman who is overall stable, no longer in respiratory distress Oropharynx is clear, mucous membranes are moist Heart: Regular rate and rhythm, 1 out of 6 systolic murmur heard over the left sternal border Lungs: Good air movement throughout, she still has a little bit of rhonchi in both bases, but much clearer Abdomen: Soft, nontender to palpation, normal bowel sounds throughout - Patient Data Result Diagrams: 06/18/20 06:10 06/21/20 06:30 Sepsis Event Note - Evaluation Sepsis Screening Result: Sepsis Risk - Focused Exam Vital Signs: Vital Signs Temp Pulse Resp BP Pulse Ox 06/24/20 08:00 97.4 F 68 22 H 97/45 L 95 06/24/20 04:06 50 L 24 H 93 L 06/24/20 00:05 51 L 25 H 97 - Problem List & Annotations (1) Pneumonia due to COVID-19 virus SNOMED Code(s): 371951868280652231 Code(s): U07.1 - COVID-19; J12.82 - PNEUMONIA DUE TO CORONAVIRUS DISEASE 2019 Status: Acute Priority: High Current Visit: No - Problem List Review Problem List Initiated/Reviewed/Updated: Yes - Assessment Assessment:: Assessment: 1. 54-year-old woman with severe COVID-19 pneumonia, resolving Plan: 1. She has been transitioned off all IV medication, and is being tapered nicely down off of her oxygen support. Nursing determined that she already has a CPAP ordered at home for her due to her sleep apnea, but this will also significantly help with her COVID-19 symptoms going forward. We will evaluate her again in the morning, she may possibly be ready for discharge tomorrow, but more likely in 2 days.
[2020-06-24] MEDS: Docusate Sodium 100 MG Cap PO SCH ×2 (10:41→20:45)
[2020-06-24] MEDS: Aspirin 81 MG Tab.EC PO SCH (10:42)
[2020-06-24] MEDS: Doxycycline Monohydrate 100 MG Cap PO SCH ×2 (10:42→20:45)
[2020-06-24] MEDS: Cholecalciferol (Vitamin D3) 25 MCG Tab PO SCH (10:42)
[2020-06-24] MEDS: Enoxaparin 40 MG/0.4 ML Syringe SUBCUT SCH ×2 (10:57→20:44)
[2020-06-24] MEDS: Dexamethasone 6 MG TABLET PO SCH (10:58)
[2020-06-25] MEDS: Melatonin 3 MG Tab PO PRN (01:39)
[2020-06-25] MEDS: Albuterol 6.7 GM Inhaler INH SCH ×4 (01:43→12:19)
[2020-06-25] MEDS: Pantoprazole 40 MG Tab.CR PO SCH (05:43)
[2020-06-25] MEDS: Levothyroxine 75 MCG Tab PO SCH (05:43)
[2020-06-25] MEDS: Enoxaparin 40 MG/0.4 ML Syringe SUBCUT SCH (09:16)
[2020-06-25] MEDS: Dexamethasone 6 MG TABLET PO SCH (09:17)
[2020-06-25] MEDS: Doxycycline Monohydrate 100 MG Cap PO SCH (09:17)
[2020-06-25] MEDS: Aspirin 81 MG Tab.EC PO SCH (09:17)
[2020-06-25] MEDS: Cholecalciferol (Vitamin D3) 25 MCG Tab PO SCH (09:17)
[2020-06-25] MEDS: Docusate Sodium 100 MG Cap PO SCH (09:17)
[2020-06-25 12:19] VITALS: BP 116/60; PULSE 66
--- NOTE | 2020-06-25 13:49 | PCM.DCSUM1 ---
Discharge Summary - Hospital Course Free Text/Narrative:: Gabby is a 54-year-old woman admitted on 06/17/2020 with severe COVID-19 pneumonia. She was placed on the remdesivir protocol immediately upon admission, as well as dexamethasone. She was also placed on high flow nasal cannula with a flow of 30. Over the next several hospital days, she was able to be slowly weaned off her FiO2, finally on hospital day #8 was able to be taken off of the high flow nasal cannula and graduated to a simple nasal cannula. To day, morning of discharge, she was able to ambulate on 2 to 3 L of oxygen via simple nasal cannula with oxygen saturations between 92 and 96%. She states overall she feels much better, although still quite fatigued. She is very happy, as her has also been approved for discharge from [facility] - Discharge Data Discharge Date: 06/25/20 Discharge Disposition: Home, Self-Care 01 Condition: Good - Referral to Home Health Date of Face to Face Encounter: 06/25/20 Primary Care Physician: PCP None Skilled Need: nursing home for education on oxygen use, assessment of respiratory status, and education on signs and symptoms of COVID-19 and Post COVID-19 syndrome - Discharge Diagnosis/Problem(s) (1) Pneumonia due to COVID-19 virus SNOMED Code(s): 385656474930715247 ICD Code: U07.1 - COVID-19; J12.82 - PNEUMONIA DUE TO CORONAVIRUS DISEASE 2019 Status: Acute Priority: High Current Visit: Yes - Discharge Plan *PRESCRIPTION DRUG MONITORING PROGRAM REVIEWED*: Not Applicable *COPY OF PRESCRIPTION DRUG MONITORING REPORT IN PATIENT BLAKE: Not Applicable Prescriptions/Med Rec: Albuterol Sulfate [Proair Hfa] 1 inh PO Q4H PRN #2 inhaler PRN Reason: breathing Home Medications: Home Meds Aspirin [Halfprin] 81 mg PO DAILY 02/20/13 [History] Folic Acid 1 mg PO DAILY 02/20/13 [History] amLODIPine [Norvasc] 5 mg PO BEDTIME 02/20/13 [History] Metoprolol Succinate [Toprol XL] 25 mg PO BEDTIME 07/21/17 [History] Potassium Chloride 20 meq PO BEDTIME 04/12/19 [History] Tofacitinib Citrate [Xeljanz Xr] 11 mg PO BEDTIME 04/12/19 [History] Methotrexate 10 mg PO WEEKLY 01/17/20 [History] Cholecalciferol (Vitamin D3) [Vitamin D3] 2,000 units PO DAILY 04/09/20 [History] Diclofenac Sodium [Voltaren 1% Gel] 1 applic TOP QID PRN 04/09/20 [History] Melatonin 10 mg PO BEDTIME PRN 04/09/20 [History] Pantoprazole [ProTONIX] 40 mg PO BIDAC 04/09/20 [History] Acetaminophen [Acetaminophen Extra Strength] 500 mg PO Q6H PRN 06/19/20 [History] Albuterol Sulfate 1 inh NEB Q4H 06/19/20 [History] Baclofen 10 mg PO BID 06/19/20 [History] Calcium Citrate/Vitamin D3 [Calcium Cit 315 mg-D3 250 Unit] 1 tab PO BID 06/19/20 [History] Carboxymethylcellulose Sodium [Artificial Tears] 2 drop EYEBOTH QID PRN 06/19/20 [History] Docusate Sodium/Sennosides [Senokot-S] 1 tab PO BID PRN 06/19/20 [History] Gabapentin [Neurontin] 200 mg PO BEDTIME 06/19/20 [History] Levothyroxine 75 mcg PO ACBREAKFAST 06/19/20 [History] Multivitamin with Minerals [Multiple Vitamin] 1 tab PO DAILY 06/19/20 [History] Nitroglycerin [Nitrostat] 0.4 mg SL .[id number] 06/19/20 [History] Simethicone 80 mg PO QID PRN 06/19/20 [History] cycloSPORINE [Restasis Multidose] 1 drop EYEBOTH BID 06/19/20 [History] Albuterol Sulfate [Proair Hfa] 1 inh PO Q4H PRN #2 inhaler 06/25/20 [Rx] Oxygen Therapy Mode: Nasal Cannula Oxygen Flow Rate (L/min): 3 (2-3 L/min ) Patient Handouts: Albuterol inhalation aerosol, Community-Acquired Pneumonia, Adult, [id number] Referrals: Rosa Diggs, STRATE[employer]TELLIGENCE OFFICER [Ordering Only Provider] - - Discharge Summary/Plan Comment DC Time >30 min.: No Discharge Summary/Plan Comment: Discharge diagnoses: 1. Severe COVID-19 pneumonia, requiring remdesivir and dexamethasone, resolving 2. Respiratory distress secondary to #1, resolved Plan: 1. She is discharged home today. She normally works at a local [employer], so I will have her off of work until she is seen by her primary care clinic in 5 days time. They will be able to reassess her at that time and see if she will be able to be released for work 2. She is still requiring oxygen support due to her resolving COVID-19 pneumonia. She will be requiring of 2 to 3 L of oxygen via nasal cannula with all activity due to that same Covid pneumonia. In order to support her at home, she will be provided supplies to have that oxygen available at home, as well as will need home health for [facility] education for oxygen use as well as signs and symptoms of COVID-19 to be aware of, and signs and symptoms of post COVID-19 syndrome. She will also need home health for assessment of respiratory status. 3. As above, she will have an appointment with Tasha Foley on 06/29/2020 - Patient Data Vitals - Most Recent: Last Vital Signs Temp 98.1 F 06/25/20 12:18 Pulse 66 06/25/20 12:18 Resp 18 06/25/20 12:18 BP 116/60 06/25/20 12:18 Pulse Ox 92 L 06/25/20 12:18 Weight - Most Recent: 244 lb 6.4 oz I&O - Last 24 hours: Intake & Output 06/24/20 06/25/20 06/25/20 22:59 06:59 14:59 Intake Total 710 150 450 Output Total 450 475 Balance 260 -325 450 Med Orders - Current: Current Medications Acetaminophen (Acetaminophen 325 Mg Tab) 650 mg PO Q4H PRN PRN Reason: Pain (Mild 1-3)/fever Last Admin: 06/20/20 00:04 Dose: 650 mg Documented by: Albuterol (Albuterol 6.7 Gm Inhaler) 0 gm INH Q4H [facility] Last Admin: 06/25/20 12:19 Dose: 2 puff Documented by: Aspirin (Aspirin 81 Mg Tab.Ec) 81 mg PO DAILY [facility] Last Admin: 06/25/20 09:17 Dose: 81 mg Documented by: Cholecalciferol (Cholecalciferol (Vitamin D3) 25 Mcg Tab) 50 mcg PO DAILY [facility] Last Admin: 06/25/20 09:17 Dose: 50 mcg Documented by: Dexamethasone (Dexamethasone 6 Mg Tablet) 6 mg PO DAILY@0800 [facility] Last Admin: 06/25/20 09:17 Dose: 6 mg Documented by: Docusate Sodium (Docusate Sodium 100 Mg Cap) 200 mg PO BID [facility] Last Admin: 06/25/20 09:17 Dose: 200 mg Documented by: Doxycycline Monohydrate (Doxycycline Monohydrate 100 Mg Cap) 100 mg PO BID [facility] Last Admin: 06/25/20 09:17 Dose: 100 mg Documented by: Enoxaparin Sodium (Enoxaparin 40 Mg/0.4 Ml Syringe) 40 mg SUBCUT Q12HR [facility] Last Admin: 06/25/20 09:16 Dose: 40 mg Documented by: Levothyroxine Sodium (Levothyroxine 75 Mcg Tab) 75 mcg PO ACBREAKFAST [facility] Last Admin: 06/25/20 05:43 Dose: 75 mcg Documented by: Melatonin (Melatonin 3 Mg Tab) 6 mg PO BEDTIME PRN PRN Reason: Sleep, use first Last Admin: 06/25/20 01:39 Dose: 6 mg Documented by: Pseudoephedrine Hcl 30mg Tab Non-Form Med 1 each PO Q6H PRN PRN Reason: SINUS CONGESTION Last Admin: 06/21/20 20:43 Dose: 1 each Documented by: Ondansetron HCl (Ondansetron 4 Mg/2 Ml Sdv) 4 mg IVPUSH Q4H PRN PRN Reason: NAUSEA/VOMITING Last Admin: 06/21/20 05:05 Dose: 4 mg Documented by: Pantoprazole Sodium (Pantoprazole 40 Mg Tab.Cr) 40 mg PO ACBREAKFAST [facility] Last Admin: 06/25/20 05:43 Dose: 40 mg Documented by: Sodium Chloride (Sodium Chloride 0.9% 10 Ml Syringe) 10 ml FLUSH ASDIRECTED PRN PRN Reason: Keep Vein Open Last Admin: 06/23/20 20:45 Dose: 10 ml Documented by: Zolpidem Tartrate (Zolpidem 5 Mg Tab) 5 mg PO BEDTIME PRN PRN Reason: Sleep Last Admin: 06/20/20 20:54 Dose: 5 mg Documented by: Discontinued Medications Dexamethasone (Dexamethasone 6 Mg Tablet) 6 mg PO DAILY@0800 [facility] Dexamethasone (Dexamethasone 6 Mg Tablet) 6 mg PO ONETIME ONE Stop: 06/17/20 06:01 Last Admin: 06/17/20 06:03 Dose: 6 mg Documented by: Sodium Chloride (Normal Saline) 1,000 mls @ 999 mls/hr IV .BOLUS ONE Stop: 06/17/20 03:11 Last Admin: 06/17/20 02:16 Dose: 999 mls/hr Documented by: Ondansetron HCl 4 mg/ Sodium (Chloride) 52 mls @ 200 mls/hr IV Q4H PRN PRN Reason: Nausea/Vomiting Remdesivir 100 mg/ Sodium (Chloride) 100 mls @ 100 mls/hr IV Q24H [facility] Stop: 06/21/20 05:59 Last Infusion: 06/21/20 06:23 Dose: Infused Documented by: Remdesivir 200 mg/ Sodium (Chloride) 250 mls @ 250 mls/hr IV ONETIME ONE Stop: 06/17/20 05:49 Last Admin: 06/17/20 05:45 Dose: 250 mls/hr Documented by: Remdesivir (Remdesivir) Confirm Administered Dose 200 mls @ as directed .ROUTE .STK-MED ONE Stop: 06/17/20 05:02 Last Admin: 06/17/20 05:55 Dose: Not Given Documented by: Remdesivir (Remdesivir) Confirm Administered Dose 200 mls @ as directed .ROUTE .STK-MED ONE Stop: 06/17/20 05:07 Last Admin: 06/17/20 05:55 Dose: Not Given Documented by: Iopamidol (Iopamidol 755 Mg/Ml 100 Ml Bottle) 100 ml IVPUSH ONETIME ONE Stop: 06/17/20 02:52 Last Admin: 06/17/20 02:57 Dose: 100 ml Documented by: Ondansetron HCl (Ondansetron 4 Mg/2 Ml Sdv) 4 mg IVPUSH ONETIME ONE Stop: 06/17/20 02:07 Last Admin: 06/17/20 02:06 Dose: 4 mg Documented by: Ondansetron HCl (Ondansetron 4 Mg/2 Ml Sdv) Confirm Administered Dose 4 mg .ROUTE .STK-MED ONE Stop: 06/17/20 02:06 Last Admin: 06/17/20 02:14 Dose: Not Given Documented by: Oxymetazoline HCl (Oxymetazoline 0.05% Nasal [place] 30 Ml Bottle) 2 ml NASBOTH Q12H PRN PRN Reason: Congestion Last Admin: 06/18/20 21:27 Dose: 1 sprays Documented by: Oxymetazoline HCl (Oxymetazoline 0.05% Nasal [place] 30 Ml Bottle) 0 ml NASBOTH Q12H PRN PRN Reason: Congestion Stop: 06/20/20 22:17 Last Admin: 06/20/20 21:02 Dose: 1 spray Documented by: Potassium Chloride (Potassium Chloride 10 Meq Tab.Er) 40 meq PO ONETIME ONE Stop: 06/20/20 08:49 Last Admin: 06/20/20 09:26 Dose: 40 meq Documented by: Sodium Chloride (Sodium Chloride 0.9% 10 Ml Syringe) 10 ml FLUSH ASDIRECTED PRN PRN Reason: Keep Vein Open Last Admin: 06/17/20 02:15 Dose: 10 ml Documented by:
== END 2020-06-25 16:00 | disposition home or self-care (01) | DRG 177 ==
LOC: DL.ED 01:24 → DL.MS 04:08
PROVIDERS: ADMIT Internal Medicine; ATTEND Family Medicine
PROC: XW033E5 Introduction of Remdesivir Anti-infective into Peripheral Vein, Percutaneous Approach, New Technology Group 5 (ICD-10-PCS; principal; 2020-06-17)
PROC: XW033F5 Introduction of Other New Technology Therapeutic Substance into Peripheral Vein, Percutaneous Approach, New Technology Group 5 (ICD-10-PCS; 2020-06-17)
DX: U07.1 COVID-19 (principal); J12.82 Pneumonia due to coronavirus disease 2019; H54.7 Unspecified visual loss; E78.5 Hyperlipidemia, unspecified; I10 Essential (primary) hypertension; K59.09 Other constipation; Z86.010 Personal history of colon polyps; K21.9 Gastro-esophageal reflux disease without esophagitis; E03.9 Hypothyroidism, unspecified; Z98.42 Cataract extraction status, left eye; Z98.41 Cataract extraction status, right eye; Z90.49 Acquired absence of other specified parts of digestive tract; Z98.51 Tubal ligation status; Z98.890 Other specified postprocedural states; E87.6 Hypokalemia; K76.0 Fatty (change of) liver, not elsewhere classified; M06.9 Rheumatoid arthritis, unspecified; D64.9 Anemia, unspecified; F32.9 Major depressive disorder, single episode, unspecified; M19.90 Unspecified osteoarthritis, unspecified site; M48.00 Spinal stenosis, site unspecified; I20.9 Angina pectoris, unspecified; K57.90 Diverticulosis of intestine, part unspecified, without perforation or abscess without bleeding; K58.9 Irritable bowel syndrome, unspecified; Z88.8 Allergy status to other drugs, medicaments and biological substances
CPT/HCPCS: 36415; 71045; 71260; 80053; 80074; 82248; 82272; 82728; 83540; 83550; 83605; 84484; 85025; 85379; 85610; 87040; 94010; 94660; 96374; 99284; 99285-25; A9270-GY; J1650; J2405; J7030; J7050; J8540; Q9967

== ENCOUNTER 2020-09-30 17:02 | Emergency (ER) | payer OTHER ==
[2020-09-30 17:33] VITALS: BP 155/77; PULSE 94
[2020-09-30] MEDS ORDERED: Penicillin G Benzathine/Procaine 600-600 1.2 Millunits/2 ML Syringe IM ONE (18:03)
[2020-09-30] MEDS ORDERED: GI Cocktail Oral Solution 30 ML PO ONE (18:04)
[2020-09-30 18:07] LABS: CORONAVIRUS COVID-19 NAA POSITIVE (NEGATIVE)
[2020-09-30] MEDS ORDERED: Dexamethasone 6 MG TABLET PO ONE (18:07)
[2020-09-30] MEDS ORDERED: Azithromycin 250 MG Tab PO ONE (18:08)
[2020-09-30] MEDS ORDERED: Benzonatate 100 MG Cap PO ONE (18:08)
--- NOTE | 2020-09-30 18:27 | EDM.PDOC ---
Scribed by Leann Forrest 09/30/20 1826 for Paul Ortiz MD <Paul Ortiz - Last Filed: 09/30/20 18:51> ED HPI GENERAL MEDICAL PROBLEM - General Chief Complaint: Respiratory Problem Stated Complaint: SORE THROAT, BODY ACHES, COUGH Time Seen by Provider: 09/30/20 17:35 Source of Information: Reports: Patient, Old Records, RN, RN Notes Reviewed History Limitations: Reports: No Limitations - History of Present Illness INITIAL COMMENTS - FREE TEXT/NARRATIVE: Patient presents to ED by POV stating she started having body aches last night, woke this morning and worked all day despite harsh dry cough and severe sore throat. Just prior to presentation started having chills. Body aches continue. Denies chest pain, rash, or shortness of breath. Pt rates sore throat and body pain 10/09. Denies any known sick exposures. Pt states she had the [employer] COVID vaccine a few weeks ago. Onset: Sudden Onset Date: 09/29/20 Duration: Constant, Getting Worse Location: Reports: Head, Chest, Generalized Quality: Reports: Ache Severity: Severe Improves with: Reports: None Worsens with: Reports: None Associated Symptoms: Reports: No Other Symptoms throat Pain Score (Numeric/FACES): 8 - Related Data Allergies Allergy/AdvReac Type Severity Reaction Status Date / Time hydrocodone Allergy Itching Verified 06/17/20 01:52 nitrofurantoin Allergy Fever Verified 06/17/20 01:52 [From Macrobid] tramadol Allergy Itching Verified 06/17/20 01:52 Home Meds: Home Meds Aspirin [Halfprin] 81 mg PO DAILY 02/20/13 [History] Folic Acid 1 mg PO DAILY 02/20/13 [History] amLODIPine [Norvasc] 5 mg PO BEDTIME 02/20/13 [History] Metoprolol Succinate [Toprol XL] 25 mg PO BEDTIME 07/21/17 [History] Potassium Chloride 20 meq PO BEDTIME 04/12/19 [History] Tofacitinib Citrate [Xeljanz Xr] 11 mg PO BEDTIME 04/12/19 [History] Methotrexate 10 mg PO WEEKLY 01/17/20 [History] Cholecalciferol (Vitamin D3) [Vitamin D3] 2,000 units PO DAILY 04/09/20 [History] Diclofenac Sodium [Voltaren 1% Gel] 1 applic TOP QID PRN 04/09/20 [History] Melatonin 10 mg PO BEDTIME PRN 04/09/20 [History] Pantoprazole [ProTONIX] 40 mg PO BIDAC 04/09/20 [History] Acetaminophen [Acetaminophen Extra Strength] 500 mg PO Q6H PRN 06/19/20 [History] Albuterol Sulfate 1 inh NEB Q4H 06/19/20 [History] Baclofen 10 mg PO BID 06/19/20 [History] Calcium Citrate/Vitamin D3 [Calcium Cit 315 mg-D3 250 Unit] 1 tab PO BID 06/19/20 [History] Carboxymethylcellulose Sodium [Artificial Tears] 2 drop EYEBOTH QID PRN 06/19/20 [History] Docusate Sodium/Sennosides [Senokot-S] 1 tab PO BID PRN 06/19/20 [History] Gabapentin [Neurontin] 200 mg PO BEDTIME 06/19/20 [History] Levothyroxine 75 mcg PO ACBREAKFAST 06/19/20 [History] Multivitamin with Minerals [Multiple Vitamin] 1 tab PO DAILY 06/19/20 [History] Nitroglycerin [Nitrostat] 0.4 mg SL [id number] 06/19/20 [History] Simethicone 80 mg PO QID PRN 06/19/20 [History] cycloSPORINE [Restasis Multidose] 1 drop EYEBOTH BID 06/19/20 [History] Albuterol Sulfate [Proair Hfa] 1 inh PO Q4H PRN #2 inhaler 06/25/20 [Rx] Past Medical History HEENT History: Reports: Cataract, Impaired Vision Other HEENT History: Glasses Cardiovascular History: Reports: High Cholesterol, Hypertension, Other (See Below) Other Cardiovascular History: CHOLESTEROL IS IMPROVED PER PATIENT. 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: , Spontaneous , Therapeutic , Other (See Below) Other DRAWING MACHINE OPERATOR History: ELECTIVE TERMINATION Musculoskeletal History: Reports: Arthritis, RA Other Musculoskeletal History: left ankle pain; DDD CERVICAL Neurological History: Reports: None Psychiatric History: Reports: None Endocrine/Metabolic History: Reports: Hypothyroidism, Obesity/BMI 30+ Hematologic History: Reports: Anemia Immunologic History: Reports: None Oncologic (Cancer) History: Reports: None Dermatologic History: Reports: Other (See Below) Other Dermatologic History: skin to right shoulder area - Infectious Disease History Infectious Disease History: Reports: Chicken Pox, Influenza, MRSA, Novel Coronavirus - Past Surgical History Head Surgeries/Procedures: Reports: None HEENT Surgical History: Reports: Cataract Surgery, Oral Surgery Cardiovascular Surgical History: Reports: None Respiratory Surgical History: Reports: None GI Surgical History: Reports: Appendectomy, Colonoscopy, EGD, Polypectomy Female Surgical History: Reports: Cystoscopy, D&C, Tubal Ligation, Other (See Below) Other Female Surgeries/Procedures: CYSTOSCOPY; VAGINAL D & C. BLADDER SLING Endocrine Surgical History: Reports: None Neurological Surgical History: Reports: None Musculoskeletal Surgical History: Reports: Arthroscopic Knee, Shoulder Surgery, Other (See Below) Other Musculoskeletal Surgeries/Procedures:: EMG 2 EXTREMITIES. S/P LEFT ANKLE STABILIZATION. X2 ROTATOR CUFF SURGERY TO LEFT AND X1 TO RIGHT SHOULDER Oncologic Surgical History: Reports: None Dermatological Surgical History: Reports: Plastic Surgical Reconst ruction/Repair, Skin Graft Social & Family History - Family History Family Medical History: No Pertinent Family History - Caffeine Use Caffeine Use: Reports: Soda Other Caffeine Use: 1-2 cans daily - Living Situation & Occupation Living situation: Reports: , with Spouse, with Family Occupation: Employed ED ROS GENERAL - Review of Systems Review Of Systems: Comprehensive ROS is negative, except as noted in HPI. ED EXAM, GENERAL - Physical Exam Exam: See Below Exam Limited By: No Limitations General Appearance: Alert, WD/WN, No Apparent Distress, Obese, Other (Ill, but non-toxic appearing) Eye Exam: Bilateral Eye: Normal Inspection Ears: Normal External Exam, Normal Canal, Hearing Grossly Normal, Normal TMs Nose: Normal Inspection, Normal Mucosa, No Blood Throat/Mouth: Normal Lips, Normal Teeth, Normal Gums, Normal Voice, No Airway Compromise, Other (Pharyngeal erythema, no exudates) Head: Atraumatic, Normocephalic Neck: Normal Inspection, Supple, Non-Tender, Full Range of Motion Respiratory/Chest: No Respiratory Distress, Lungs Clear, Normal Breath Sounds, No Accessory Muscle Use, Chest Non-Tender, Other (Dry cough) Cardiovascular: Normal Peripheral Pulses, Regular Rate, Rhythm, No Edema, No Murmur GI/Abdominal: Normal Bowel Sounds, Soft, Non-Tender, No Distention, Other (Benign obese abdomen) (Female) Exam: Deferred Rectal (Female) Exam: Deferred Back Exam: Normal Inspection Extremities: Normal Inspection, Normal Range of Motion, Non-Tender, Normal Capillary Refill, No Pedal Edema Neurological: Alert, Oriented, CN II-XII Intact, Normal Cognition, Normal Gait, No Motor/Sensory Deficits Psychiatric: Normal Affect, Normal Mood, Anxious, Tearful Skin Exam: Warm, Dry, Intact, Normal Color, No Rash Course - Orders/Labs/Meds Labs: Rapid strep: Positive. 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 Departure - Departure Disposition: Home, Self-Care 01 Clinical Impression: COVID-19 virus infection, Strep pharyngitis - Discharge Information *PRESCRIPTION DRUG MONITORING PROGRAM REVIEWED*: Not Applicable *COPY OF PRESCRIPTION DRUG MONITORING REPORT IN PATIENT BLAKE: Not Applicable Instructions: COVID-19: What Your Test Results Mean - CDC, COVID-19 Frequently Asked Questions, Strep Throat, Adult, [id number], 10 Things You Can Do to Manage Your COVID-19 Symptoms at Home - CDC, COVID-19: Quarantine vs. Isolation - CDC, Prevent the Spread of COVID-19 if You Are Sick - CDC Forms: ED Department Discharge Additional Instructions: Follow up with your primary care facility if no improvement RX: Azithromycin 250mg orally for the next 4 days Prednisone 40mg orally once daily for the next 4 days Return to the ER with any worsening of symptoms (increased SOB, uncontrollable fever, etc.) May use Tylenol and/or Ibuprofen as directed for boday aches/fever Drink plenty of water to stay hydrated <Radha Black - Last Filed: 09/30/20 20:40> Course - Vital Signs Last Recorded V/S: Last Vital Signs Temp 98.8 F 09/30/20 17:28 Pulse 94 09/30/20 17:28 Resp 20 09/30/20 17:28 BP 155/77 H 09/30/20 17:28 Pulse Ox 100 09/30/20 17:28 - Orders/Labs/Meds Orders: Active Orders 24 hr Category Date Time Status CULTURE BLOOD [BC] Stat Lab 09/30/20 18:38 Received Labs: Laboratory Tests 09/30/20 09/30/20 09/30/20 Range/Units 17:14 18:38 18:38 WBC 13.2 H (5.0-10.0) 10^3/uL RBC 4.38 (4.2-5.4) 10^6/uL Hgb 12.8 (12.0-16.0) g/dL Hct 38.9 (37.0-47.0) % MCV 88.8 (80-100) fL MCH 29.2 (27.0-34.0) pg MCHC 32.9 L (33.0-35.0) g/dL Plt Count 263 (150-450) 10^3/uL Neut % (Auto) 81.2 H (42.2-75.2) % Lymph % (Auto) 10.5 L (20.5-50.1) % [place] % (Auto) 6.5 (2-8) % Eos % (Auto) 1.7 (1.0-3.0) % Baso % (Auto) 0.1 (0.0-1.0) % D-Dimer, Quantitative (0-400) ng/mL Sodium 142 (136-145) mmol/L Potassium 3.4 L (3.5-5.1) mmol/L Chloride 103 (98-107) mmol/L Carbon Dioxide 27 (21-32) mmol/L Anion Gap 15.4 H (7-13) mEq/L BUN 14 (7-18) mg/dL Creatinine 0.85 (0.55-1.02) mg/dL Est Cr Clr Drug Dosing 74.43 mL/min Estimated GFR (MDRD) > 60 BUN/Creatinine Ratio 16.5 (No establ ref range) Glucose 112 H (70-99) mg/dL Lactic Acid (0.4-2.0) mmol/L Calcium 8.5 (8.5-10.1) mg/dL Ferritin (8-252) mg/mL Total Bilirubin 0.5 (0.2-1.0) mg/dL AST 35 (15-37) U/L ALT 55 (14-59) U/L Alkaline Phosphatase 97 (46-116) U/L Lactate Dehydrogenase 243 H (81-234) U/L Troponin I High Sens 6 (<=51) pg/mL C-Reactive Protein 2.4 H (0.0-0.9) mg/dL B-Natriuretic Peptide 28 (0-100) pg/ml Total Protein 8.2 (6.4-8.2) g/dL Albumin 3.8 (3.4-5.0) g/dL Globulin 4.4 Albumin/Globulin Ratio 0.9 Influenza Type A RNA Negative (NEGATIVE) Influenza Type B RNA Negative (NEGATIVE) SARS-CoV-2 RNA (BECK) Positive H (NEGATIVE) 09/30/20 09/30/20 09/30/20 Range/Units 18:38 18:38 18:38 WBC (5.0-10.0) 10^3/uL RBC (4.2-5.4) 10^6/uL Hgb (12.0-16.0) g/dL Hct (37.0-47.0) % MCV (80-100) fL MCH (27.0-34.0) pg MCHC (33.0-35.0) g/dL Plt Count (150-450) 10^3/uL Neut % (Auto) (42.2-75.2) % Lymph % (Auto) (20.5-50.1) % [place] % (Auto) (2-8) % Eos % (Auto) (1.0-3.0) % Baso % (Auto) (0.0-1.0) % D-Dimer, Quantitative 717 H (0-400) ng/mL Sodium (136-145) mmol/L Potassium (3.5-5.1) mmol/L Chloride (98-107) mmol/L Carbon Dioxide (21-32) mmol/L Anion Gap (7-13) mEq/L BUN (7-18) mg/dL Creatinine (0.55-1.02) mg/dL Est Cr Clr Drug Dosing mL/min Estimated GFR (MDRD) BUN/Creatinine Ratio (No establ ref range) Glucose (70-99) mg/dL Lactic Acid 1.4 (0.4-2.0) mmol/L Calcium (8.5-10.1) mg/dL Ferritin 44 (8-252) mg/mL Total Bilirubin (0.2-1.0) mg/dL AST (15-37) U/L ALT (14-59) U/L Alkaline Phosphatase (46-116) U/L Lactate Dehydrogenase (81-234) U/L Troponin I High Sens (<=51) pg/mL C-Reactive Protein (0.0-0.9) mg/dL B-Natriuretic Peptide (0-100) pg/ml Total Protein (6.4-8.2) g/dL Albumin (3.4-5.0) g/dL Globulin Albumin/Globulin Ratio Influenza Type A RNA (NEGATIVE) Influenza Type B RNA (NEGATIVE) SARS-CoV-2 RNA (BECK) (NEGATIVE) Meds: Medications Discontinued Medications Generic Name Dose Route Start Last Admin Trade Name Freq PRN Reason Stop Dose Admin Acetaminophen 650 mg 09/30/20 19:03 09/30/20 19:14 Acetaminophen 325 Mg Tab PO 09/30/20 19:04 650 mg NOW ONE Administration Al Hydroxide/Mg Hydroxide 30 ml 09/30/20 18:04 09/30/20 18:45 Gi Cocktail Oral Solution 30 Ml PO 09/30/20 18:05 30 ml ONETIME ONE Administration Azithromycin 500 mg 09/30/20 18:08 09/30/20 18:40 Azithromycin 250 Mg Tab PO 09/30/20 18:09 500 mg ONETIME ONE Administration Benzonatate 200 mg 09/30/20 18:08 09/30/20 18:41 Benzonatate 100 Mg Cap PO 09/30/20 18:09 200 mg ONETIME ONE Administration Dexamethasone 6 mg 09/30/20 18:07 09/30/20 18:41 Dexamethasone 6 Mg Tablet PO 09/30/20 18:08 6 mg ONETIME ONE Administration Penicillin G Procaine/Benzathine 1.2 millunits 09/30/20 18:03 09/30/20 18:43 Penicillin G Benzathine/Procaine 600-600 1.2 Millunits/2 Ml Syringe IM 09/30/20 18:04 1.2 millunits ONETIME ONE Administration - Radiology Interpretation Free Text/Narrative:: Chest CT wo contrast: PROCEDURE INFORMATION: Exam: CT Chest Without Contrast; Diagnostic Exam date and time: 09/30/2020 7:19 PM Age: 54 years old Clinical indication: Cough; Additional info: Covid postitive, cough TECHNIQUE: Imaging protocol: Diagnostic computed tomography of the chest without contrast. Radiation optimization: All CT scans at this facility use at least one of these dose optimization techniques: automated exposure control; mA and/or kV adjustment per patient size (includes targeted exams where dose is matched to clinical indication); or iterative reconstruction. COMPARISON: CT Chest w Cont 06/17/2020 2:44 AM FINDINGS: Lungs: A couple of linear foci of atelectasis or scarring. No significant ground-glass densities, linear interstitial pulmonary thickening, or consolidation. No suspicious pulmonary nodules. Pleural spaces: Unremarkable. No pneumothorax. No pleural effusion. Heart: Normal heart size. No pericardial effusion. Aorta: No aortic aneurysm. Lymph nodes: No enlarged axillary, mediastinal, or hilar lymph nodes. Bones/joints: Age appropriate spondylosis. There are no suspicious lytic or osteosclerotic lesions. There are no vertebral compression fractures. Soft tissues: Unremarkable. IMPRESSION: No pneumonia. The pneumonitis present on the comparison study has cleared. Thank you for allowing us to participate in the care of your patient. Dictated and Authenticated by: Myles Zepeda MD 09/30/2020 8:15 PM Central Time ([place] & [place]) See rad report Departure - Departure Time of Disposition: 20:25 Condition: Fair Sepsis Event Note (ED) - Focused Exam Vital Signs: Vital Signs Temp Pulse Resp BP Pulse Ox 09/30/20 17:28 98.8 F 94 20 155/77 H 100 I have read and agree with the documentation that has been completed regarding this visit. By signing this record, I attest that the documentation was completed in my physical presence and is an accurate record of the encounter.
[2020-09-30] MEDS ORDERED: Acetaminophen 325 MG Tab PO ONE (19:03)
[2020-09-30 19:07] LABS: ANION GAP 15.4 mEq/L (7-13); CHLORIDE,CL 103 mmol/L (98-107); SODIUM,NA 142 mmol/L (136-145)
--- NOTE | 2020-09-30 20:16 | CT ---
PROCEDURE INFORMATION: Exam: CT Chest Without Contrast; Diagnostic Exam date and time: 09/30/2020 7:19 PM Age: 54 years old Clinical indication: Cough; Additional info: Covid postitive, cough TECHNIQUE: Imaging protocol: Diagnostic computed tomography of the chest without contrast. Radiation optimization: All CT scans at this facility use at least one of these dose optimization techniques: automated exposure control; mA and/or kV adjustment per patient size (includes targeted exams where dose is matched to clinical indication); or iterative reconstruction. COMPARISON: CT Chest w Cont 06/17/2020 2:44 AM FINDINGS: Lungs: A couple of linear foci of atelectasis or scarring. No significant ground-glass densities, linear interstitial pulmonary thickening, or consolidation. No suspicious pulmonary nodules. Pleural spaces: Unremarkable. No pneumothorax. No pleural effusion. Heart: Normal heart size. No pericardial effusion. Aorta: No aortic aneurysm. Lymph nodes: No enlarged axillary, mediastinal, or hilar lymph nodes. Bones/joints: Age appropriate spondylosis. There are no suspicious lytic or osteosclerotic lesions. There are no vertebral compression fractures. Soft tissues: Unremarkable. IMPRESSION: No pneumonia. The pneumonitis present on the comparison study has cleared.
== END 2020-09-30 20:35 | disposition home or self-care (01) ==
LOC: DL.ED 17:02
DX: U07.1 COVID-19 (principal); J02.0 Streptococcal pharyngitis; E78.00 Pure hypercholesterolemia, unspecified; I10 Essential (primary) hypertension; K21.9 Gastro-esophageal reflux disease without esophagitis; E03.9 Hypothyroidism, unspecified; E66.9 Obesity, unspecified; Z68.38 Body mass index [BMI] 38.0-38.9, adult; Z79.82 Long term (current) use of aspirin; Z79.899 Other long term (current) drug therapy; Z88.5 Allergy status to narcotic agent; Z88.1 Allergy status to other antibiotic agents
CPT/HCPCS: 0240U; 36415; 71250; 80053; 82728; 83605; 83615; 83880; 84484; 85025; 85379; 86140; 87040; 87430; 96372; 99284; A9270; J0558; J8540; 99283

== ENCOUNTER 2020-12-13 18:32 | Emergency (ER) | payer OTHER ==
--- NOTE | 2020-12-13 20:06 | EDM.PDOC ---
ED HPI GENERAL MEDICAL PROBLEM - General Chief Complaint: Upper Extremity Injury/Pain Stated Complaint: ARTHRITIS FLARE UP IN RIGHT ARM/SHOULDER Time Seen by Provider: 12/13/20 19:50 Source of Information: Reports: Patient History Limitations: Reports: No Limitations - History of Present Illness INITIAL COMMENTS - FREE TEXT/NARRATIVE: This 54 yo female patient reports to the ED with right shoulder pain that started yesterday, but has been getting worse. The patient did not get into the clinic due to having to go to [place]. The patient reports she took 1 Tylenol (500 mg) and 1 ibuprofen (200 mg) three different times today with no symptom relief. The patient reports she has Gabapentin at home, but normally takes it at night, so has not taken any since last night. The patient reports she has arthritis and has noticed other joints with increased pain over the past 2 days. The patient reports he symptoms seem to get worse in cold, wet weather. 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 DIRECTOR: Reports: Acetaminophen, NSAIDS Right Shoulder Pain Score (Numeric/FACES): 7 - Related Data Allergies Allergy/AdvReac Type Severity Reaction Status Date / Time hydrocodone Allergy Itching Verified 12/13/20 20:43 nitrofurantoin Allergy Fever Verified 12/13/20 20:43 [From Macrobid] tramadol Allergy Itching Verified 12/13/20 20:43 Home Meds: Home Meds Aspirin [Halfprin] 81 mg PO DAILY 02/20/13 [History] Folic Acid 1 mg PO DAILY 02/20/13 [History] amLODIPine [Norvasc] 5 mg PO BEDTIME 02/20/13 [History] Metoprolol Succinate [Toprol XL] 25 mg PO BEDTIME 07/21/17 [History] Potassium Chloride 20 meq PO BEDTIME 04/12/19 [History] Tofacitinib Citrate [Xeljanz Xr] 11 mg PO BEDTIME 04/12/19 [History] Methotrexate 10 mg PO WEEKLY 01/17/20 [History] Cholecalciferol (Vitamin D3) [Vitamin D3] 2,000 units PO DAILY 04/09/20 [History] Diclofenac Sodium [Voltaren 1% Gel] 1 applic TOP QID PRN 04/09/20 [History] Melatonin 10 mg PO BEDTIME PRN 04/09/20 [History] Pantoprazole [ProTONIX] 40 mg PO BIDAC 04/09/20 [History] Acetaminophen [Acetaminophen Extra Strength] 500 mg PO Q6H PRN 06/19/20 [History] Albuterol Sulfate 1 inh NEB Q4H 06/19/20 [History] Baclofen 10 mg PO BID 06/19/20 [History] Calcium Citrate/Vitamin D3 [Calcium Cit 315 mg-D3 250 Unit] 1 tab PO BID 06/19/20 [History] Carboxymethylcellulose Sodium [Artificial Tears] 2 drop EYEBOTH QID PRN 06/19/20 [History] Docusate Sodium/Sennosides [Senokot-S] 1 tab PO BID PRN 06/19/20 [History] Gabapentin [Neurontin] 200 mg PO BEDTIME 06/19/20 [History] Levothyroxine 75 mcg PO ACBREAKFAST 06/19/20 [History] Multivitamin with Minerals [Multiple Vitamin] 1 tab PO DAILY 06/19/20 [History] Nitroglycerin [Nitrostat] 0.4 mg SL .[id number] 06/19/20 [History] Simethicone 80 mg PO QID PRN 06/19/20 [History] cycloSPORINE [Restasis Multidose] 1 drop EYEBOTH BID 06/19/20 [History] Albuterol Sulfate [Proair Hfa] 1 inh PO Q4H PRN #2 inhaler 06/25/20 [Rx] Past Medical History HEENT History: Reports: Cataract, Impaired Vision Other HEENT History: Glasses Cardiovascular History: Reports: High Cholesterol, Hypertension, Other (See Below) Other Cardiovascular History: CHOLESTEROL IS IMPROVED PER PATIENT. 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: , Spontaneous , Therapeutic , Other (See Below) Other BOILER WATER TESTER History: ELECTIVE TERMINATION Musculoskeletal History: Reports: Arthritis, RA Other Musculoskeletal History: left ankle pain; DDD CERVICAL Neurological History: Reports: None Psychiatric History: Reports: None Endocrine/Metabolic History: Reports: Hypothyroidism, Obesity/BMI 30+ Hematologic History: Reports: Anemia Immunologic History: Reports: None Oncologic (Cancer) History: Reports: None Dermatologic History: Reports: Other (See Below) Other Dermatologic History: skin to right shoulder area - Infectious Disease History Infectious Disease History: Reports: Chicken Pox, Influenza, MRSA, Novel Coronavirus - Past Surgical History Head Surgeries/Procedures: Reports: None HEENT Surgical History: Reports: Cataract Surgery, Oral Surgery Cardiovascular Surgical History: Reports: None Respiratory Surgical History: Reports: None GI Surgical History: Reports: Appendectomy, Colonoscopy, EGD, Polypectomy Other GI Surgeries/Procedures: EGD on Monday 04/10 Female Surgical History: Reports: Cystoscopy, D&C, Tubal Ligation, Other (See Below) Other Female Surgeries/Procedures: CYSTOSCOPY; VAGINAL D & C. BLADDER SLING Endocrine Surgical History: Reports: None Neurological Surgical History: Reports: None Musculoskeletal Surgical History: Reports: Arthroscopic Knee, Shoulder Surgery, Other (See Below) Other Musculoskeletal Surgeries/Procedures:: EMG 2 EXTREMITIES. S/P LEFT ANKLE STABILIZATION. X2 ROTATOR CUFF SURGERY TO LEFT AND X1 TO RIGHT SHOULDER Oncologic Surgical History: Reports: None Dermatological Surgical History: Reports: Plastic Surgical Reconstruction/Repair, Skin Graft Social & Family History - Family History Family Medical History: No Pertinent Family History - Caffeine Use Caffeine Use: Reports: Soda Other Caffeine Use: 1-2 cans daily - Living Situation & Occupation Living situation: Reports: , with Spouse, with Family Occupation: Employed Review of Systems - Review of Systems Review Of Systems: Comprehensive ROS is negative, except as noted in HPI. ED EXAM, GENERAL - Physical Exam Exam: See Below Exam Limited By: No Limitations General Appearance: Alert, WD/WN, Moderate Distress, Obese Eye Exam: Bilateral Eye: EOMI, Normal Inspection, PERRL Ears: Normal External Exam, Normal Canal, Hearing Grossly Normal, Normal TMs Nose: Normal Inspection, Normal Mucosa, No Blood Throat/Mouth: Normal Inspection, Normal Lips, Normal Teeth, Normal Gums, Normal Oropharynx, Normal Voice, No Airway Compromise Head: Atraumatic, Normocephalic Neck: Normal Inspection, Supple, Non-Tender, Full Range of Motion Respiratory/Chest: No Respiratory Distress, Lungs Clear, Normal Breath Sounds, No Accessory Muscle Use, Chest Non-Tender Cardiovascular: Normal Peripheral Pulses, Regular Rate, Rhythm, No Edema, No Gallop, No JVD, No Murmur, No Rub GI/Abdominal: Normal Bowel Sounds, Soft, Non-Tender, No Organomegaly, No Distention, No Abnormal Bruit, No Mass (Female) Exam: Deferred Rectal (Female) Exam: Deferred Back Exam: Normal Inspection, Full Range of Motion, NT Extremities: Arm Pain (Right shoulder pain with no history of trauma or injury. The patient also has redness of her 2nd and 3rd MCP joints. ) Neurological: Alert, Oriented, CN II-XII Intact, Normal Cognition, Normal Gait, Normal Reflexes, No Motor/Sensory Deficits Psychiatric: Normal Affect, Normal Mood Skin Exam: Warm, Dry, Intact, Normal Color, No Rash Lymphatic: No Adenopathy Course - Vital Signs Last Recorded V/S: Last Vital Signs Temp 98.9 F 12/13/20 19:20 Pulse 92 12/13/20 19:20 Resp 20 12/13/20 19:20 BP 159/104 H 12/13/20 19:20 Pulse Ox 97 12/13/20 19:20 - Orders/Labs/Meds Orders: Active Orders 24 hr Category Date Time Status Shoulder Comp Rt [CR] Urgent Exams 12/13/20 20:00 Ordered DME for Discharge [COMM] Urgent Oth 12/13/20 20:45 Ordered Meds: Medications Discontinued Medications Generic Name Dose Route Start Last Admin Trade Name Freq PRN Reason Stop Dose Admin Hydrocodone Bitart/Acetaminophen 1 tab 12/13/20 20:42 Acetaminophen/Hydrocodone 325-10 Mg Tab PO 12/13/20 20:43 ONETIME ONE Methylprednisolone Sodium Succinate 125 mg 12/13/20 20:41 Methylprednisolone Sodium Succinate 125 Mg/2 Ml Sdv IM 12/13/20 20:42 ONETIME ONE Departure - Departure Time of Disposition: 20:46 Disposition: Home, Self-Care 01 Condition: Fair Clinical Impression: Right shoulder pain Qualifiers: Chronicity: acute Qualified Code(s): M25.511 - Pain in right shoulder Right shoulder strain Qualifiers: Encounter type: initial encounter Qualified Code(s): S46.911A - Strain of unspecified muscle, fascia and tendon at shoulder and upper arm level, right arm, initial encounter - Discharge Information *PRESCRIPTION DRUG MONITORING PROGRAM REVIEWED*: Not Applicable *COPY OF PRESCRIPTION DRUG MONITORING REPORT IN PATIENT BLAKE: Not Applicable Instructions: Shoulder Pain, [id number], How to use a Sling, [id number] Forms: ED Department Discharge Care Plan Goals: The patient was advised of the examination and x-ray results during the visit. The patient was given an injection of SoluMedrol and an oral dose of [place] (10/325) while in the emergency department. The patient was discharged with a script for [place] (5/325) #8 to take 1 by mouth every 6 hours as needed for pain. The patient was placed in a sling to immobilize her right shoulder. The patient was encouraged to follow-up with her primary care facility for continued evaluation and management. If the patient has any additional symptoms or concerns, the patient should either return to the emergency department or visit her primary care facility. Sepsis Event Note (ED) - Focused Exam Vital Signs: Vital Signs Temp Pulse Resp BP Pulse Ox 12/13/20 19:20 98.9 F 92 20 159/104 H 97 - My Orders Last 24 Hours: My Active Orders 12/13/20 20:00 Shoulder Comp Rt [CR] Urgent 12/13/20 20:45 DME for Discharge [COMM] Urgent - Assessment/Plan Last 24 Hours: My Active Orders 12/13/20 20:00 Shoulder Comp Rt [CR] Urgent 12/13/20 20:45 DME for Discharge [COMM] Urgent
[2020-12-13] MEDS ORDERED: methylPREDNISolone Sodium Succinate 125 MG/2 ML SDV IM ONE (20:41)
[2020-12-13 20:42] VITALS: BP 159/104; PULSE 92
[2020-12-13] MEDS ORDERED: Acetaminophen/HYDROcodone 325-10 MG Tab PO ONE (20:42)
--- NOTE | 2020-12-13 21:12 | CR ---
PROCEDURE INFORMATION: Exam: XR Right Shoulder Exam date and time: 12/13/2020 8:15 PM Age: 54 years old Clinical indication: Other: Pain--no known trauma; Additional info: Right shoulder pain TECHNIQUE: Imaging protocol: XR Right shoulder. Views: 2 or more views. COMPARISON: CT Chest wo Cont, Chest wo Cont 09/30/2020 7:19 PM FINDINGS: Bones/joints: Bone island in the right humeral head. No acute fracture. No dislocation. Small osteophytes at the right glenoid. Bones are mildly osteopenic. Lungs: The visualized right lung is clear. Heart/Mediastinum: Mild hypertrophic changes at the right acromioclavicular joint. Soft tissues: No soft tissue swelling. No radiopaque foreign body. IMPRESSION: 1. No acute fracture. Followup imaging recommended in 7-14 days if clinical concern for fracture persists. 2. Mild degenerative changes present at the right shoulder. 3. Incidental/nonacute findings are listed in the report.
== END 2020-12-13 21:28 | disposition home or self-care (01) ==
LOC: DL.ED 18:32
DX: S46.911A Strain of unspecified muscle, fascia and tendon at shoulder and upper arm level, right arm, initial encounter (principal); E78.00 Pure hypercholesterolemia, unspecified; I10 Essential (primary) hypertension; K21.9 Gastro-esophageal reflux disease without esophagitis; E03.9 Hypothyroidism, unspecified; E66.9 Obesity, unspecified; Z68.30 Body mass index [BMI] 30.0-30.9, adult; Z88.5 Allergy status to narcotic agent; Z88.1 Allergy status to other antibiotic agents; Z79.82 Long term (current) use of aspirin; Z79.899 Other long term (current) drug therapy; X58.XXXA Exposure to other specified factors, initial encounter
CPT/HCPCS: 73030-RT; 96372; 99283-25; A9270-GY; J2930

== ENCOUNTER 2021-04-21 22:38 | Emergency (ER) | payer OTHER ==
[2021-04-22 01:01] VITALS: BP 156/90; PULSE 78
[2021-04-22 01:20] LABS: CORONAVIRUS COVID-19 NAA NEGATIVE (NEGATIVE)
[2021-04-22] MEDS ORDERED: GI Cocktail Oral Solution 30 ML PO ONE (01:43)
[2021-04-22] MEDS ORDERED: Pantoprazole 40 MG Vial IVPUSH ONE (01:43)
== END 2021-04-22 02:32 | disposition home or self-care (01) ==
LOC: DL.ED 22:38
DX: K21.9 Gastro-esophageal reflux disease without esophagitis (principal); E78.00 Pure hypercholesterolemia, unspecified; I10 Essential (primary) hypertension; E03.9 Hypothyroidism, unspecified; E66.9 Obesity, unspecified; Z68.38 Body mass index [BMI] 38.0-38.9, adult; Z88.5 Allergy status to narcotic agent; Z88.1 Allergy status to other antibiotic agents; Z79.82 Long term (current) use of aspirin; Z79.899 Other long term (current) drug therapy; Z20.822 Contact with and (suspected) exposure to COVID-19
CPT/HCPCS: 0240U; 87081; 87430; 96374; 99284; A9270; C9113

== ENCOUNTER 2021-05-24 05:51 | Day surgery (SDC) | payer OTHER ==
[2021-05-24] MEDS ORDERED: fentaNYL 100 MCG/2 ML SDV IV ONE ×7 (05:52→07:28)
[2021-05-24] MEDS ORDERED: Midazolam 1 MG/ML 2 ML SDV IV ONE ×7 (05:52→07:23)
[2021-05-24] MEDS ORDERED: fentaNYL 100 MCG/2 ML SDV ONE (06:03)
[2021-05-24] MEDS ORDERED: Midazolam 1 MG/ML 2 ML SDV ONE (06:03)
[2021-05-24] MEDS ORDERED: Dextrose 5%-0.45% NaCl 1,000 ML IV SCH (06:30)
[2021-05-24 10:03] VITALS: BP 128/67; PULSE 65
== END 2021-05-24 09:40 | disposition home or self-care (01) ==
LOC: DL.ENDO 05:51
PROVIDERS: ATTEND Internal Medicine Gastroenterology
DX: K57.31 Diverticulosis of large intestine without perforation or abscess with bleeding (principal); K64.8 Other hemorrhoids; E66.09 Other obesity due to excess calories; F41.1 Generalized anxiety disorder; M06.9 Rheumatoid arthritis, unspecified; K21.9 Gastro-esophageal reflux disease without esophagitis; Z68.37 Body mass index [BMI] 37.0-37.9, adult
CPT/HCPCS: 45378; J2250; J3010; J7042

== ENCOUNTER 2021-08-03 21:36 | Emergency (ER) | payer OTHER ==
[2021-08-03] MEDS ORDERED: Acetaminophen/HYDROcodone 325-5 MG Tab PO ONE (21:37)
[2021-08-03] MEDS ORDERED: predniSONE 10 MG Tab PO ONE (21:37)
[2021-08-03 21:46] VITALS: PULSE 72
[2021-08-03] MEDS ORDERED: predniSONE 20 MG Tab PO ONE (22:35)
[2021-08-03 22:45] LABS: ANION GAP 12.7 mEq/L (7-13); CHLORIDE,CL 110 mmol/L (98-107); SODIUM,NA 146 mmol/L (136-145)
[2021-08-03] MEDS ORDERED: predniSONE 10 MG Tab ONE (22:53)
[2021-08-03] MEDS ORDERED: Acetaminophen/HYDROcodone 325-5 MG Tab ONE (22:53)
[2021-08-03 23:11] VITALS: BP 142/76
== END 2021-08-03 23:01 | disposition home or self-care (01) ==
LOC: DL.ED 21:36
DX: M25.562 Pain in left knee (principal); I11.0 Hypertensive heart disease with heart failure; I50.9 Heart failure, unspecified; E78.00 Pure hypercholesterolemia, unspecified; E03.9 Hypothyroidism, unspecified; E66.9 Obesity, unspecified; Z68.37 Body mass index [BMI] 37.0-37.9, adult; Z88.5 Allergy status to narcotic agent; Z88.1 Allergy status to other antibiotic agents; Z79.82 Long term (current) use of aspirin; Z79.899 Other long term (current) drug therapy
CPT/HCPCS: 36415; 73562; 80053; 83605; 85025; 86140; 87040; 99283; A9270; J7512

== ENCOUNTER 2022-01-12 09:04 | Emergency (ER) | payer OTHER ==
[2022-01-12 09:35] VITALS: BP 147/97; PULSE 64
[2022-01-12] MEDS ORDERED: methylPREDNISolone Sodium Succinate 125 MG/2 ML SDV IM ONE (10:01)
== END 2022-01-12 10:15 | disposition home or self-care (01) ==
LOC: DL.ED 09:04
DX: M25.511 Pain in right shoulder (principal); M25.512 Pain in left shoulder; M06.9 Rheumatoid arthritis, unspecified; I11.0 Hypertensive heart disease with heart failure; I50.9 Heart failure, unspecified; I48.91 Unspecified atrial fibrillation; E78.00 Pure hypercholesterolemia, unspecified; E03.9 Hypothyroidism, unspecified; E66.9 Obesity, unspecified; Z88.5 Allergy status to narcotic agent; Z88.1 Allergy status to other antibiotic agents; Z79.899 Other long term (current) drug therapy; Z79.52 Long term (current) use of systemic steroids; Z68.41 Body mass index [BMI] 40.0-44.9, adult
CPT/HCPCS: 96372; 99283; J2930

== ENCOUNTER 2022-03-06 00:29 | Emergency (ER) | payer OTHER ==
[2022-03-06] MEDS ORDERED: Cyclobenzaprine 10 MG Tab PO ONE (00:30)
[2022-03-06 01:17] VITALS: BP 137/90; PULSE 81
[2022-03-06] MEDS ORDERED: methylPREDNISolone Sodium Succinate 125 MG/2 ML SDV IM ONE (02:19)
[2022-03-06] MEDS ORDERED: Cyclobenzaprine 10 MG Tab ONE (02:35)
== END 2022-03-06 02:54 | disposition home or self-care (01) ==
LOC: DL.ED 00:29
DX: M25.562 Pain in left knee (principal); M25.531 Pain in right wrist; G89.29 Other chronic pain; M19.90 Unspecified osteoarthritis, unspecified site; E78.00 Pure hypercholesterolemia, unspecified; I11.0 Hypertensive heart disease with heart failure; I50.9 Heart failure, unspecified; K21.9 Gastro-esophageal reflux disease without esophagitis; E03.9 Hypothyroidism, unspecified; E66.9 Obesity, unspecified; Z68.41 Body mass index [BMI] 40.0-44.9, adult; Z86.16 Personal history of COVID-19; Z88.5 Allergy status to narcotic agent; Z88.1 Allergy status to other antibiotic agents; Z79.82 Long term (current) use of aspirin; Z79.899 Other long term (current) drug therapy; Z87.891 Personal history of nicotine dependence
CPT/HCPCS: 96372; 99283; A9270; J2930

== ENCOUNTER 2022-06-07 09:32 | Emergency (ER) | payer OTHER ==
[2022-06-07] MEDS ORDERED: Ondansetron 4 MG Tab.DIS PO ONE (09:40)
[2022-06-07] MEDS ORDERED: Acetaminophen/oxyCODONE 325-5 MG Tab PO ONE (09:40)
[2022-06-07 09:44] VITALS: BP 138/72; PULSE 105
== END 2022-06-07 11:30 | disposition home or self-care (01) ==
LOC: DL.ED 09:32
DX: S20.211A Contusion of right front wall of thorax, initial encounter (principal); S80.01XA Contusion of right knee, initial encounter; M25.461 Effusion, right knee; E78.00 Pure hypercholesterolemia, unspecified; I11.0 Hypertensive heart disease with heart failure; I50.9 Heart failure, unspecified; E03.9 Hypothyroidism, unspecified; E66.9 Obesity, unspecified; Z88.1 Allergy status to other antibiotic agents; Z79.82 Long term (current) use of aspirin; Z79.899 Other long term (current) drug therapy; Z68.41 Body mass index [BMI] 40.0-44.9, adult; Z86.16 Personal history of COVID-19; W00.0XXA Fall on same level due to ice and snow, initial encounter
CPT/HCPCS: 71100-RT; 73562-RT; 99283; A9270-GY

== ENCOUNTER 2022-07-25 20:52 | Emergency (ER) | payer OTHER ==
[2022-07-25 21:28] VITALS: BP 128/113; PULSE 123
[2022-07-25] MEDS ORDERED: Oseltamivir 75 MG Cap PO ONE (22:24)
[2022-07-25] MEDS ORDERED: Sodium Chloride 0.9% 10 ML Syringe FLUSH PRN (22:24)
[2022-07-25] MEDS ORDERED: Metoclopramide 10 MG/2 ML SDV IVPUSH ONE (22:24)
[2022-07-25] MEDS ORDERED: Ketorolac 30 MG/ML SDV IVPUSH ONE (22:24)
[2022-07-25] MEDS ORDERED: Take Home: Oseltamivir 75 MG Cap, 2 Cap Pack PO ONE ×3 (23:19→23:35)
== END 2022-07-26 | disposition home or self-care (01) ==
LOC: DL.ED 20:52
DX: J10.1 Influenza due to other identified influenza virus with other respiratory manifestations (principal); M79.10 Myalgia, unspecified site; B34.9 Viral infection, unspecified; R51.9 Headache, unspecified; I11.0 Hypertensive heart disease with heart failure; I50.9 Heart failure, unspecified; K21.9 Gastro-esophageal reflux disease without esophagitis; E03.9 Hypothyroidism, unspecified; E66.9 Obesity, unspecified; Z68.41 Body mass index [BMI] 40.0-44.9, adult; Z86.16 Personal history of COVID-19; Z79.899 Other long term (current) drug therapy; Z79.82 Long term (current) use of aspirin; Z88.1 Allergy status to other antibiotic agents
CPT/HCPCS: 87804; 96374; 96375; 99283; A9270; J1885; J2765; J3490

== ENCOUNTER 2022-10-05 21:55 | Emergency (ER) | payer OTHER ==
[2022-10-05] MEDS ORDERED: Sodium Chloride 0.9% 10 ML Syringe FLUSH PRN (22:09)
[2022-10-05] MEDS ORDERED: Ketorolac 30 MG/ML SDV IVPUSH ONE (22:11)
[2022-10-05 22:26] LABS: BASOPHILS PERCENT AUTO 0.3 % (0.0-1.0); EOSINOPHILS PERCENT AUTO 1.6 % (1.0-3.0); HEMATOCRIT 38.7 % (37.0-47.0); HEMOGLOBIN 12.2 g/dL (12.0-16.0); LYMPHOCYTES PERCENT AUTO 16.6 % (20.5-50.1); MEAN CORPUSCULAR HEMOGLOBIN 28.6 pg (27.0-34.0); MEAN CORPUSCULAR HGB CONC 31.5 g/dL (33.0-35.0); MEAN CORPUSCULAR VOLUME 90.8 fL (80-100); MONOCYTES PERCENT AUTO 7.7 % (2-8); NEUTROPHILS PERCENT AUTO 73.8 % (42.2-75.2); PLATELET COUNT,PLT 328 10^3/uL (150-450); RED BLOOD CELL COUNT 4.26 10^6/uL (4.2-5.4); WHITE BLOOD CELL COUNT,WBC 11.2 10^3/uL (5.0-10.0)
[2022-10-05 22:41] LABS: A/G RATIO 0.9; ALBUMIN 3.6 g/dL (3.4-5.0); ANION GAP 13.4 mEq/L (7-13); BILIRUBIN TOTAL 0.3 mg/dL (0.2-1.0); BUN/CREATININE RATIO 16.7 (No establ ref range); CALCIUM 8.8 mg/dL (8.5-10.1); CREATININE 0.84 mg/dL (0.55-1.02); EST CRCL DRUG DOSING (CG) 76.34 mL/min; POTASSIUM,K 3.4 mmol/L (3.5-5.1); PROTEIN TOTAL,TP 7.5 g/dL (6.4-8.2)
[2022-10-05] MEDS ORDERED: Iopamidol 612 MG/ML 100 ML Bottle IVPUSH ONE (23:01)
[2022-10-05 23:19] LABS: APPEARANCE,URINE CLEAR (CLEAR); BILIRUBIN,URINE NEGATIVE (NEGATIVE); COLOR,URINE YELLOW (YELLOW); GLUCOSE,URINE NEGATIVE (NEGATIVE); KETONES,URINE NEGATIVE (NEGATIVE); LEUKOCYTE ESTERASE,URINE NEGATIVE (NEGATIVE); NITRITE,URINE NEGATIVE (NEGATIVE); OCCULT BLOOD,URINE NEGATIVE (NEGATIVE); PROTEIN,URINE NEGATIVE (NEGATIVE); UROBILINOGEN,URINE 0.2 mg/dL (0.2-1.0)
[2022-10-05 23:27] LABS: BACTERIA,URINE FEW /HPF (0-FEW/HPF); EPITHELIAL CELLS,URINE FEW /HPF (NOT SEEN); MUCUS,URINE FEW /LPF (NOT SEEN); RBC,URINE 0-5 /HPF (0-5); WBC,URINE 0-5 /HPF (0-5/HPF)
[2022-10-06] MEDS ORDERED: Amoxicillin/Clavulanate K 875-125 MG Tab PO ONE (00:08)
[2022-10-06 00:23] VITALS: BP 176/82; PULSE 79
== END 2022-10-06 00:17 | disposition home or self-care (01) ==
LOC: DL.ED 21:55
DX: K57.92 Diverticulitis of intestine, part unspecified, without perforation or abscess without bleeding (principal); E78.00 Pure hypercholesterolemia, unspecified; K21.9 Gastro-esophageal reflux disease without esophagitis; I10 Essential (primary) hypertension; E66.9 Obesity, unspecified; Z68.41 Body mass index [BMI] 40.0-44.9, adult; Z79.82 Long term (current) use of aspirin; Z79.899 Other long term (current) drug therapy; Z88.8 Allergy status to other drugs, medicaments and biological substances
CPT/HCPCS: 36415; 74177; 80053; 81001; 85025; 96374; 99284; A9270; J1885; Q9967; J3490

== ENCOUNTER 2022-10-08 02:45 | Emergency (ER) | payer OTHER ==
[~2022-10-08 02:45] MED LIST changes: -Dextrose 5%-0.45% NaCl 1,000 ML IV SCH; +HYDROmorphone 1 MG/ML Syringe IVPUSH ONE; +Ondansetron 4 MG/2 ML SDV IVPUSH ONE
[2022-10-08 02:55] VITALS: BP 136/82; PULSE 92
[2022-10-08 02:56] LABS: BASOPHILS PERCENT AUTO 0.1 % (0.0-1.0); EOSINOPHILS PERCENT AUTO 0.4 % (1.0-3.0); HEMATOCRIT 36.1 % (37.0-47.0); HEMOGLOBIN 11.5 g/dL (12.0-16.0); LYMPHOCYTES PERCENT AUTO 8.8 % (20.5-50.1); MEAN CORPUSCULAR HEMOGLOBIN 28.4 pg (27.0-34.0); MEAN CORPUSCULAR HGB CONC 31.9 g/dL (33.0-35.0); MEAN CORPUSCULAR VOLUME 89.1 fL (80-100); MONOCYTES PERCENT AUTO 6.5 % (2-8); NEUTROPHILS PERCENT AUTO 84.2 % (42.2-75.2); PLATELET COUNT,PLT 262 10^3/uL (150-450); RED BLOOD CELL COUNT 4.05 10^6/uL (4.2-5.4); WHITE BLOOD CELL COUNT,WBC 17.9 10^3/uL (5.0-10.0)
[2022-10-08] MEDS ORDERED: Lactated Ringers 1,000 ML IV ONE ×2 (03:14→04:13)
[2022-10-08] MEDS ORDERED: Iopamidol 612 MG/ML 100 ML Bottle IVPUSH ONE (03:15)
[2022-10-08 03:22] LABS: LACTIC ACID 1.1 mmol/L (0.4-2.0)
[2022-10-08 03:25] LABS: ALANINE AMINOTRANSFERASE,ALT 34 U/L (14-59); ALBUMIN 3.1 g/dL (3.4-5.0); ALKALINE PHOSPHATASE 87 U/L (46-116); ANION GAP 14.1 mEq/L (7-13); ASPARTATE AMNIOTRANSFERASE,AST 16 U/L (15-37); BILIRUBIN TOTAL 0.6 mg/dL (0.2-1.0); BLOOD UREA NITROGEN,BUN 18 mg/dL (7-18); BUN/CREATININE RATIO 16.1 (No establ ref range); CALCIUM 8.8 mg/dL (8.5-10.1); CARBON DIOXIDE,CO2 27 mmol/L (21-32); CHLORIDE,CL 103 mmol/L (98-107); CREATININE 1.12 mg/dL (0.55-1.02); EST CRCL DRUG DOSING (CG) 57.25 mL/min; GLUCOSE RANDOM 133 mg/dL (70-99); LIPASE 52 U/L (73-393); MAGNESIUM 1.8 mg/dL (1.8-2.4); POTASSIUM,K 3.1 mmol/L (3.5-5.1); PROTEIN TOTAL,TP 7.3 g/dL (6.4-8.2); SODIUM,NA 141 mmol/L (136-145)
[2022-10-08 03:26] LABS: A/G RATIO 0.74; ESTIMATED GFR 58 mL/min (>=60)
[2022-10-08 03:44] LABS: C-REACTIVE PROTEIN > 36.0 mg/dL (0.0-0.9)
[2022-10-08] MEDS ORDERED: Meropenem 1 GM SDV IVPUSH ONE (04:06)
[2022-10-08] MEDS ORDERED: Clindamycin in 0.9 % Sod Chlor 900 MG in Premix Bag 1 BAG IV ONE ×2 (04:07)
[2022-10-08] MEDS ORDERED: HYDROmorphone 1 MG/ML Syringe IVPUSH ONE (04:43)
== END 2022-10-08 04:50 ==
LOC: DL.ED 02:45
DX: K57.20 Diverticulitis of large intestine with perforation and abscess without bleeding (principal); K66.8 Other specified disorders of peritoneum; E87.6 Hypokalemia; R73.9 Hyperglycemia, unspecified; I11.0 Hypertensive heart disease with heart failure; I50.9 Heart failure, unspecified; E78.00 Pure hypercholesterolemia, unspecified; K21.9 Gastro-esophageal reflux disease without esophagitis; M19.90 Unspecified osteoarthritis, unspecified site; E03.9 Hypothyroidism, unspecified; E66.9 Obesity, unspecified; Z68.41 Body mass index [BMI] 40.0-44.9, adult; Z88.8 Allergy status to other drugs, medicaments and biological substances; Z79.82 Long term (current) use of aspirin; Z79.899 Other long term (current) drug therapy; Z86.16 Personal history of COVID-19
CPT/HCPCS: 36415; 74177; 80053; 83605; 83690; 83735; 85025; 86140; 87040; 96361; 96365; 96375; 96376; 99285; 99285-25; J1170; J2185; J2405; J3490; J7120; Q9967

== ENCOUNTER 2022-12-02 20:48 | Emergency (ER) | payer OTHER ==
[2022-12-02 21:40] LABS: BASOPHILS PERCENT AUTO 0.2 % (0.0-1.0); EOSINOPHILS PERCENT AUTO 1.2 % (1.0-3.0); HEMATOCRIT 34.2 % (37.0-47.0); HEMOGLOBIN 10.5 g/dL (12.0-16.0); LYMPHOCYTES PERCENT AUTO 12.3 % (20.5-50.1); MEAN CORPUSCULAR HEMOGLOBIN 27.1 pg (27.0-34.0); MEAN CORPUSCULAR HGB CONC 30.7 g/dL (33.0-35.0); MEAN CORPUSCULAR VOLUME 88.4 fL (80-100); MONOCYTES PERCENT AUTO 7.9 % (2-8); NEUTROPHILS PERCENT AUTO 78.4 % (42.2-75.2); PLATELET COUNT,PLT 309 10^3/uL (150-450); RED BLOOD CELL COUNT 3.87 10^6/uL (4.2-5.4); WHITE BLOOD CELL COUNT,WBC 12.9 10^3/uL (5.0-10.0)
[2022-12-02 21:58] LABS: ALANINE AMINOTRANSFERASE,ALT 32 U/L (14-59); ALBUMIN 2.9 g/dL (3.4-5.0); ALKALINE PHOSPHATASE 93 U/L (46-116); ANION GAP 10.5 mEq/L (7-13); ASPARTATE AMNIOTRANSFERASE,AST 15 U/L (15-37); B-TYPE NATRIURETIC PEPTIDE,BNP 22 pg/ml (0-100); BILIRUBIN TOTAL 0.6 mg/dL (0.2-1.0); BLOOD UREA NITROGEN,BUN 16 mg/dL (7-18); BUN/CREATININE RATIO 18.8 (No establ ref range); C-REACTIVE PROTEIN 15.25 ng/dL (<=0.30); CALCIUM 8.6 mg/dL (8.5-10.1); CARBON DIOXIDE,CO2 32 mmol/L (21-32); CHLORIDE,CL 102 mmol/L (98-107); CREATININE 0.85 mg/dL (0.55-1.02); EST CRCL DRUG DOSING (CG) 75.44 mL/min; GLUCOSE RANDOM 112 mg/dL (70-99); LIPASE 34 U/L (16-77); MAGNESIUM 1.5 mg/dL (1.8-2.4); POTASSIUM,K 3.5 mmol/L (3.5-5.1); SODIUM,NA 141 mmol/L (136-145)
[2022-12-02 22:03] LABS: LACTIC ACID 1.7 mmol/L (0.4-2.0)
[2022-12-02 22:05] LABS: A/G RATIO 0.71; ESTIMATED GFR 81 mL/min (>=60); ETHANOL BLOOD MEDICAL < 3 mg/dL (0)
[2022-12-02] MEDS: Ondansetron 4 MG/2 ML SDV IVPUSH ONE (22:19)
[2022-12-02] MEDS: Acetaminophen 500 MG Tab PO ONE (22:21)
[2022-12-02] MEDS: Lactated Ringers 1,000 ML IV ONE (22:21)
[2022-12-02] MEDS: fentaNYL 100 MCG/2 ML SDV IVPUSH ONE (22:22)
[2022-12-02 22:32] LABS: CORONAVIRUS COVID-19 NAA NEGATIVE (NEGATIVE); INFLUENZA A NAA NEGATIVE (NEGATIVE); INFLUENZA B NAA NEGATIVE (NEGATIVE); RESPIRATORY SYNCYTIAL VIR NAA NEGATIVE (NEGATIVE)
[2022-12-02 22:32] LABS: APPEARANCE,URINE CLEAR (CLEAR); BILIRUBIN,URINE NEGATIVE (NEGATIVE); COLOR,URINE YELLOW (YELLOW); GLUCOSE,URINE NEGATIVE (NEGATIVE); KETONES,URINE NEGATIVE (NEGATIVE); LEUKOCYTE ESTERASE,URINE TRACE (NEGATIVE); NITRITE,URINE NEGATIVE (NEGATIVE); OCCULT BLOOD,URINE NEGATIVE (NEGATIVE); PROTEIN,URINE NEGATIVE (NEGATIVE); UROBILINOGEN,URINE 0.2 mg/dL (0.2-1.0)
[2022-12-02 22:37] LABS: AMPHETAMINES,URINE NEGATIVE (NEGATIVE); BARBITURATES,URINE NEGATIVE (NEGATIVE); BENZODIAZEPINE,URINE NEGATIVE (NEGATIVE); MDMA (ECSTASY), URINE NEGATIVE (NEGATIVE); METHADONE,URINE NEGATIVE (NEGATIVE); METHAMPHETAMINES,URINE NEGATIVE (NEGATIVE); OPIATES,URINE POSITIVE (NEGATIVE); OXYCODONE,URINE NEGATIVE (NEGATIVE); PHENCYCLIDINE,URINE NEGATIVE (NEGATIVE); TCA,URINE NEGATIVE (NEGATIVE)
[2022-12-02 22:43] LABS: BACTERIA,URINE FEW /HPF (0-FEW/HPF); EPITHELIAL CELLS,URINE FEW /HPF (NOT SEEN); RBC,URINE 0-5 /HPF (0-5)
[2022-12-03] MEDS: Iopamidol 612 MG/ML 100 ML Bottle IVPUSH ONE (00:20)
[2022-12-03] MEDS: Lactated Ringers 1,000 ML IV ONE (00:40)
[2022-12-03] MEDS: Pantoprazole 40 MG Vial IVPUSH ONE (00:44)
[2022-12-03] MEDS: Ketorolac 30 MG/ML SDV IVPUSH ONE (00:50)
[2022-12-03] MEDS: Ertapenem 1 GM Vial IVPUSH ONE (00:58)
[2022-12-03 01:03] VITALS: BP 164/86; PULSE 120
[2022-12-03] MEDS: Ibuprofen 600 MG Tab PO ONE (01:05)
[2022-12-03] MEDS: DAPTOmycin 500 MG Vial IVPUSH ONE (01:35)
== END 2022-12-03 02:04 ==
LOC: DL.ED 20:48
DX: A41.9 Sepsis, unspecified organism (principal); K57.30 Diverticulosis of large intestine without perforation or abscess without bleeding; K57.32 Diverticulitis of large intestine without perforation or abscess without bleeding; I11.0 Hypertensive heart disease with heart failure; I50.9 Heart failure, unspecified; K21.9 Gastro-esophageal reflux disease without esophagitis; E03.9 Hypothyroidism, unspecified; E66.9 Obesity, unspecified; Z68.41 Body mass index [BMI] 40.0-44.9, adult; Z86.16 Personal history of COVID-19; Z88.1 Allergy status to other antibiotic agents; Z88.5 Allergy status to narcotic agent; Z79.899 Other long term (current) drug therapy; Z79.82 Long term (current) use of aspirin
CPT/HCPCS: 0241U; 36415; 74177; 80053; 80305; 80307; 81001; 83605; 83690; 83735; 83880; 84145; 84484; 85025; 86140; 87040; 87081; 87086; 87088; 87186; 87430; 96374; 96375; 99285; A9270; C9113; J0878; J1335; J1885; J2405; J3010; J7120; Q9967

== ENCOUNTER 2023-01-11 09:59 | Emergency (ER) | payer OTHER ==
[2023-01-11 10:17] VITALS: BP 160/99; PULSE 104
[2023-01-11] MEDS ORDERED: methylPREDNISolone Sodium Succinate 125 MG/2 ML SDV IM ONE (10:25)
[2023-01-11] MEDS ORDERED: Take Home: Acetaminophen/oxyCODONE 325-5 MG, 5 Tab Pack PO ONE (10:29)
== END 2023-01-11 10:50 | disposition home or self-care (01) ==
LOC: DL.ED 09:59
DX: M06.89 Other specified rheumatoid arthritis, multiple sites (principal); I11.0 Hypertensive heart disease with heart failure; I50.9 Heart failure, unspecified; E78.00 Pure hypercholesterolemia, unspecified; K21.9 Gastro-esophageal reflux disease without esophagitis; M19.90 Unspecified osteoarthritis, unspecified site; E03.9 Hypothyroidism, unspecified; E66.9 Obesity, unspecified; Z86.16 Personal history of COVID-19; Z90.49 Acquired absence of other specified parts of digestive tract; Z79.82 Long term (current) use of aspirin; Z79.899 Other long term (current) drug therapy; Z88.5 Allergy status to narcotic agent; Z88.1 Allergy status to other antibiotic agents; Z68.41 Body mass index [BMI] 40.0-44.9, adult
CPT/HCPCS: 96372; 99283; 99284; A9270-GY; J2930

== ENCOUNTER 2023-04-19 10:16 | Emergency (ER) | payer OTHER ==
[2023-04-19 10:36] VITALS: BP 157/78; PULSE 90
[2023-04-19] MEDS: Take Home: Doxycycline 100 MG Cap, 4 Cap Pack PO ONE (10:53)
== END 2023-04-19 11:01 | disposition home or self-care (01) ==
LOC: DL.ED 10:16
DX: J01.00 Acute maxillary sinusitis, unspecified (principal); I11.0 Hypertensive heart disease with heart failure; I50.9 Heart failure, unspecified; E78.00 Pure hypercholesterolemia, unspecified; K21.9 Gastro-esophageal reflux disease without esophagitis; E03.9 Hypothyroidism, unspecified; E66.9 Obesity, unspecified; Z86.16 Personal history of COVID-19; Z79.899 Other long term (current) drug therapy; Z79.82 Long term (current) use of aspirin; Z88.5 Allergy status to narcotic agent; Z88.8 Allergy status to other drugs, medicaments and biological substances; Z68.38 Body mass index [BMI] 38.0-38.9, adult
CPT/HCPCS: 99283; A9270

== ENCOUNTER 2023-04-21 13:33 | Emergency (ER) | payer OTHER ==
[2023-04-21] MEDS: HYDROmorphone 0.5 MG/0.5 ML Syringe IVPUSH ONE ×2 (14:00→18:53)
[2023-04-21] MEDS: Acetaminophen 325 MG Tab PO ONE (14:00)
[2023-04-21] MEDS: Sodium Chloride 0.9% 10 ML Syringe FLUSH PRN (14:00)
[2023-04-21 14:03] LABS: EOSINOPHILS PERCENT AUTO 0.6 % (1.0-3.0); HEMATOCRIT 35.1 % (37.0-47.0); HEMOGLOBIN 10.9 g/dL (12.0-16.0); LYMPHOCYTES PERCENT AUTO 5.9 % (20.5-50.1); MEAN CORPUSCULAR HEMOGLOBIN 28.8 pg (27.0-34.0); MEAN CORPUSCULAR HGB CONC 31.1 g/dL (33.0-35.0); MEAN CORPUSCULAR VOLUME 92.6 fL (80-100); MONOCYTES PERCENT AUTO 3.8 % (2-8); NEUTROPHILS PERCENT AUTO 89.7 % (42.2-75.2); PLATELET COUNT,PLT 266 10^3/uL (150-450); RED BLOOD CELL COUNT 3.79 10^6/uL (4.2-5.4); WHITE BLOOD CELL COUNT,WBC 23.1 10^3/uL (5.0-10.0)
[2023-04-21] MEDS: Ondansetron 4 MG/2 ML SDV IVPUSH ONE (14:09)
[2023-04-21 14:19] LABS: APPEARANCE,URINE CLEAR (CLEAR); BILIRUBIN,URINE NEGATIVE (NEGATIVE); COLOR,URINE YELLOW (YELLOW); GLUCOSE,URINE NEGATIVE (NEGATIVE); KETONES,URINE NEGATIVE (NEGATIVE); LEUKOCYTE ESTERASE,URINE NEGATIVE (NEGATIVE); NITRITE,URINE NEGATIVE (NEGATIVE); OCCULT BLOOD,URINE NEGATIVE (NEGATIVE); PH,URINE 8.5 (5.0-9.0); PROTEIN,URINE NEGATIVE (NEGATIVE); UROBILINOGEN,URINE 0.2 mg/dL (0.2-1.0)
[2023-04-21 14:25] LABS: ALBUMIN 3.1 g/dL (3.4-5.0); ANION GAP 15.7 mEq/L (7-13); BILIRUBIN TOTAL 0.7 mg/dL (0.2-1.0); BUN/CREATININE RATIO 17.4 (No establ ref range); CALCIUM 8.7 mg/dL (8.5-10.1); CREATININE 0.69 mg/dL (0.55-1.02); EST CRCL DRUG DOSING (CG) 164.28 mL/min; POTASSIUM,K 4.7 mmol/L (3.5-5.1); PROTEIN TOTAL,TP 7.4 g/dL (6.4-8.2)
[2023-04-21 14:26] LABS: A/G RATIO 0.72
[2023-04-21 14:27] LABS: AMPHETAMINES,URINE NEGATIVE (NEGATIVE); BARBITURATES,URINE NEGATIVE (NEGATIVE); BENZODIAZEPINE,URINE NEGATIVE (NEGATIVE); MDMA (ECSTASY), URINE NEGATIVE (NEGATIVE); METHADONE,URINE NEGATIVE (NEGATIVE); METHAMPHETAMINES,URINE NEGATIVE (NEGATIVE); OPIATES,URINE POSITIVE (NEGATIVE); PHENCYCLIDINE,URINE NEGATIVE (NEGATIVE); TCA,URINE NEGATIVE (NEGATIVE)
[2023-04-21 14:28] LABS: OXYCODONE,URINE NEGATIVE (NEGATIVE)
[2023-04-21] MEDS: Iopamidol 612 MG/ML 100 ML Bottle IARTIC ONE (14:39)
[2023-04-21] MEDS: Sodium Chloride 0.9% 1,000 ML IV ONE (14:45)
[2023-04-21] MEDS: Sodium Chloride 0.9% 1,000 ML IV SCH (14:45)
[2023-04-21] MEDS: cefTRIAXone 1 GM Vial IVPUSH ONE (14:45)
[2023-04-21] MEDS: metroNIDAZOLE/Normal Saline 500 MG in Premix Bag 1 BAG IV ONE (16:29)
[2023-04-21 18:10] VITALS: BP 144/79; PULSE 89
== END 2023-04-21 18:54 ==
LOC: DL.ED 13:33
DX: A41.9 Sepsis, unspecified organism (principal); L02.211 Cutaneous abscess of abdominal wall; I11.0 Hypertensive heart disease with heart failure; I50.9 Heart failure, unspecified; E78.00 Pure hypercholesterolemia, unspecified; K21.9 Gastro-esophageal reflux disease without esophagitis; E66.9 Obesity, unspecified; E03.9 Hypothyroidism, unspecified; Z88.5 Allergy status to narcotic agent; Z88.8 Allergy status to other drugs, medicaments and biological substances; Z79.82 Long term (current) use of aspirin; Z79.899 Other long term (current) drug therapy; Z86.16 Personal history of COVID-19; Z90.49 Acquired absence of other specified parts of digestive tract
CPT/HCPCS: 36415; 71045; 74177; 80053; 80305; 81003; 83605; 85025; 87040; 96365; 96375; 96376; 99285; A9270; J0696; J1170; J1836; J2405; J7030; Q9967; J3490

== ENCOUNTER 2023-04-30 14:07 | Emergency (ER) | payer OTHER ==
[2023-04-30 14:29] LABS: EOSINOPHILS PERCENT AUTO 0.4 % (1.0-3.0); HEMATOCRIT 34.4 % (37.0-47.0); HEMOGLOBIN 10.5 g/dL (12.0-16.0); LYMPHOCYTES PERCENT AUTO 3.1 % (20.5-50.1); MEAN CORPUSCULAR HEMOGLOBIN 28.2 pg (27.0-34.0); MEAN CORPUSCULAR HGB CONC 30.5 g/dL (33.0-35.0); MEAN CORPUSCULAR VOLUME 92.2 fL (80-100); MONOCYTES PERCENT AUTO 2.6 % (2-8); NEUTROPHILS PERCENT AUTO 93.9 % (42.2-75.2); PLATELET COUNT,PLT 346 10^3/uL (150-450); RED BLOOD CELL COUNT 3.73 10^6/uL (4.2-5.4); WHITE BLOOD CELL COUNT,WBC 32.5 10^3/uL (5.0-10.0)
[2023-04-30 14:48] LABS: PROTHROMBIN TIME 10.8 SEC (9.0-12.0); PTT,PARTIAL THROMBOPLSTIN TIME 22.7 SEC (22.0-34.0)
[2023-04-30 14:52] LABS: LACTIC ACID 2.4 mmol/L (0.4-2.0)
[2023-04-30] MEDS: Sodium Chloride 0.9% 10 ML Syringe FLUSH PRN (14:54)
[2023-04-30] MEDS: Sodium Chloride 0.9% 1,000 ML IV ONE ×2 (14:55→16:53)
[2023-04-30] MEDS: HYDROmorphone 1 MG/ML Syringe IVPUSH ONE (14:55)
[2023-04-30 14:59] LABS: ANION GAP 13.2 mEq/L (7-13); BILIRUBIN TOTAL 0.6 mg/dL (0.2-1.0); BUN/CREATININE RATIO 12.6 (No establ ref range); C-REACTIVE PROTEIN 6.43 ng/dL (<=0.50); CALCIUM 8.9 mg/dL (8.5-10.1); CREATININE 0.95 mg/dL (0.55-1.02); EST CRCL DRUG DOSING (CG) 66.7 mL/min; MAGNESIUM 1.6 mg/dL (1.8-2.4); POTASSIUM,K 4.2 mmol/L (3.5-5.1); PROTEIN TOTAL,TP 6.9 g/dL (6.4-8.2)
[2023-04-30 15:05] LABS: A/G RATIO 0.77
[2023-04-30] MEDS: Iopamidol 612 MG/ML 100 ML Bottle IVPUSH ONE (15:28)
[2023-04-30 17:11] LABS: APPEARANCE,URINE CLEAR (CLEAR); BILIRUBIN,URINE NEGATIVE (NEGATIVE); COLOR,URINE YELLOW (YELLOW); GLUCOSE,URINE NEGATIVE (NEGATIVE); KETONES,URINE NEGATIVE (NEGATIVE); LEUKOCYTE ESTERASE,URINE NEGATIVE (NEGATIVE); NITRITE,URINE NEGATIVE (NEGATIVE); OCCULT BLOOD,URINE TRACE-INTACT (NEGATIVE); PH,URINE 5.5 (5.0-9.0); PROTEIN,URINE NEGATIVE (NEGATIVE); UROBILINOGEN,URINE 0.2 mg/dL (0.2-1.0)
[2023-04-30 17:15] LABS: AMPHETAMINES,URINE POSITIVE (NEGATIVE); BARBITURATES,URINE NEGATIVE (NEGATIVE); BENZODIAZEPINE,URINE NEGATIVE (NEGATIVE); MDMA (ECSTASY), URINE NEGATIVE (NEGATIVE); METHADONE,URINE NEGATIVE (NEGATIVE); METHAMPHETAMINES,URINE NEGATIVE (NEGATIVE); OPIATES,URINE POSITIVE (NEGATIVE); OXYCODONE,URINE NEGATIVE (NEGATIVE); PHENCYCLIDINE,URINE NEGATIVE (NEGATIVE); TCA,URINE NEGATIVE (NEGATIVE)
[2023-04-30 17:28] LABS: BACTERIA,URINE FEW /HPF (0-FEW/HPF); EPITHELIAL CELLS,URINE RARE /HPF (NOT SEEN); MUCUS,URINE FEW /LPF (NOT SEEN); WBC,URINE 0-5 /HPF (0-5/HPF)
[2023-04-30] MEDS: Cefepime 2 GM Vial IVPUSH ONE (17:43)
[2023-04-30 18:03] VITALS: BP 113/56; PULSE 81
== END 2023-04-30 17:45 ==
LOC: DL.ED 14:07
DX: A41.9 Sepsis, unspecified organism (principal); I11.0 Hypertensive heart disease with heart failure; I50.9 Heart failure, unspecified; E78.00 Pure hypercholesterolemia, unspecified; E03.9 Hypothyroidism, unspecified; E66.9 Obesity, unspecified; Z86.16 Personal history of COVID-19; Z88.6 Allergy status to analgesic agent; Z88.8 Allergy status to other drugs, medicaments and biological substances; Z79.82 Long term (current) use of aspirin; Z79.899 Other long term (current) drug therapy; Z68.39 Body mass index [BMI] 39.0-39.9, adult
CPT/HCPCS: 36415; 71045; 74177; 80053; 80305; 81001; 83605; 83735; 84145; 84484; 85025; 85610; 85730; 86140; 87040; 93005; 96361; 96374; 96375; 99285; J0692; J1170; J7030; Q9967; J3490

== ENCOUNTER 2023-05-24 09:25 | Emergency (ER) | payer OTHER | END 2023-05-24 12:01 | disposition left against medical advice (07) | LOC: DL.ED 09:25 | DX: Z53.21 Procedure and treatment not carried out due to patient leaving prior to being seen by health care provider (principal) ==

== ENCOUNTER 2023-08-11 00:19 | Emergency (ER) | payer OTHER ==
[2023-08-11] MEDS: Ondansetron 4 MG/2 ML SDV IVPUSH ONE (00:46)
[2023-08-11] MEDS: Morphine 4 MG/ML Syringe IVPUSH ONE ×2 (00:48→02:17)
[2023-08-11] MEDS: Sodium Chloride 0.9% 1,000 ML IV ONE (00:51)
[2023-08-11 01:01] LABS: HEMATOCRIT 30.6 % (37.0-47.0); HEMOGLOBIN 9.2 g/dL (12.0-16.0); MEAN CORPUSCULAR HEMOGLOBIN 25.9 pg (27.0-34.0); MEAN CORPUSCULAR HGB CONC 30.1 g/dL (33.0-35.0); MEAN CORPUSCULAR VOLUME 86.2 fL (80-100); PLATELET COUNT,PLT 394 10^3/uL (150-450); RED BLOOD CELL COUNT 3.55 10^6/uL (4.2-5.4); WHITE BLOOD CELL COUNT,WBC 13.2 10^3/uL (5.0-10.0)
[2023-08-11 01:04] LABS: LYMPHOCYTES PERCENT AUTO 9.8 % (20.5-50.1)
[2023-08-11 01:05] LABS: BASOPHILS PERCENT AUTO 0.1 % (0.0-1.0); EOSINOPHILS PERCENT AUTO 0.4 % (1.0-3.0); MONOCYTES PERCENT AUTO 6.7 % (2-8)
[2023-08-11 01:19] LABS: ALBUMIN 2.7 g/dL (3.4-5.0); ANION GAP 13.4 mEq/L (7-13); BILIRUBIN TOTAL 0.4 mg/dL (0.2-1.0); BUN/CREATININE RATIO 19.8 (No establ ref range); CALCIUM 7.9 mg/dL (8.5-10.1); CREATININE 0.86 mg/dL (0.55-1.02); EST CRCL DRUG DOSING (CG) 73.68 mL/min; MAGNESIUM 1.6 mg/dL (1.8-2.4); POTASSIUM,K 3.4 mmol/L (3.5-5.1); PROTEIN TOTAL,TP 6.3 g/dL (6.4-8.2)
[2023-08-11 01:20] LABS: A/G RATIO 0.75
[2023-08-11 01:21] LABS: APPEARANCE,URINE CLEAR (CLEAR); BILIRUBIN,URINE NEGATIVE (NEGATIVE); COLOR,URINE YELLOW (YELLOW); GLUCOSE,URINE NEGATIVE (NEGATIVE); KETONES,URINE NEGATIVE (NEGATIVE); LEUKOCYTE ESTERASE,URINE TRACE (NEGATIVE); NITRITE,URINE NEGATIVE (NEGATIVE); OCCULT BLOOD,URINE NEGATIVE (NEGATIVE); PROTEIN,URINE NEGATIVE (NEGATIVE); UROBILINOGEN,URINE 0.2 mg/dL (0.2-1.0)
[2023-08-11 01:22] LABS: LACTIC ACID 1.7 mmol/L (0.4-2.0)
[2023-08-11 01:27] LABS: BAND PERCENT MAN 2 %; LYMPHOCYTES PERCENT MAN 10 % (20-50); MONOCYTES PERCENT MAN 3 % (2-8); SEG NEUTROPHILS PERCENT MAN 85 % (42-75)
[2023-08-11 01:32] LABS: BACTERIA,URINE FEW /HPF (0-FEW/HPF); EPITHELIAL CELLS,URINE MODERATE /HPF (NOT SEEN); MUCUS,URINE MODERATE /LPF (NOT SEEN); RBC,URINE 0-5 /HPF (0-5); WBC,URINE 20-30 /HPF (0-5/HPF); YEAST,URINE FEW /HPF (NOT SEEN)
[2023-08-11] MEDS: cefTRIAXone 1 GM Vial IVPUSH ONE (01:42)
[2023-08-11] MEDS: Iopamidol 612 MG/ML 100 ML Bottle IVPUSH ONE (01:49)
[2023-08-11] MEDS: Magnesium Sulfate/Water 2 GM in Premix Bag 1 BAG IV ONE (02:10)
[2023-08-11] MEDS: Piperacillin/Tazobactam 4.5 GM in Sodium Chloride 0.9% 100 ML IV ONE (02:14)
[2023-08-11 04:07] VITALS: BP 116/76; PULSE 103
[2023-08-11] MEDS: Ketorolac 30 MG/ML SDV IVPUSH ONE (04:56)
[2023-08-11] MEDS: Take Home: Cephalexin 500 MG Cap, 6 Cap Pack PO ONE (05:07)
[2023-08-11] MEDS: Take Home: Ondansetron 4 MG Tab.DIS, 5 Tab Pack PO ONE (05:07)
[2023-08-11] MEDS: Take Home: Acetaminophen/HYDROcodone 325-5 MG, 5 Tab Pack PO ONE (05:07)
== END 2023-08-11 05:12 | disposition home or self-care (01) ==
LOC: DL.ED 00:19
DX: T81.49XA Infection following a procedure, other surgical site, initial encounter (principal); L03.311 Cellulitis of abdominal wall; E83.42 Hypomagnesemia; I11.0 Hypertensive heart disease with heart failure; I50.9 Heart failure, unspecified; K21.9 Gastro-esophageal reflux disease without esophagitis; E03.9 Hypothyroidism, unspecified; E66.9 Obesity, unspecified; Z86.16 Personal history of COVID-19; Z90.49 Acquired absence of other specified parts of digestive tract; Z90.710 Acquired absence of both cervix and uterus; Z79.890 Hormone replacement therapy; Z79.82 Long term (current) use of aspirin; Z79.899 Other long term (current) drug therapy; Z88.1 Allergy status to other antibiotic agents; Z88.5 Allergy status to narcotic agent; Z68.39 Body mass index [BMI] 39.0-39.9, adult
CPT/HCPCS: 36415; 71045; 74177; 80053; 81001; 83605; 83690; 83735; 85025; 87040; 87070; 87086; 96361; 96365; 96366; 96368; 96375; 96376; 99285; A9270; J0696; J1885; J2270; J2405; J2543; J3475; J3490; J7030; Q0162; Q9967; 87077; 87088; 87186

== ENCOUNTER 2023-08-15 07:30 | Inpatient (IN) | payer OTHER ==
[2023-08-15] MEDS: Morphine 2 MG/ML SYRINGE IVPUSH ONE ×2 (07:49→10:20)
[2023-08-15] MEDS: Ondansetron 4 MG/2 ML SDV IVPUSH ONE (07:49)
[2023-08-15 07:54] LABS: HEMATOCRIT 35.8 % (37.0-47.0); HEMOGLOBIN 11.1 g/dL (12.0-16.0); MEAN CORPUSCULAR HEMOGLOBIN 25.5 pg (27.0-34.0); MEAN CORPUSCULAR VOLUME 82.3 fL (80-100); PLATELET COUNT,PLT 511 10^3/uL (150-450); RED BLOOD CELL COUNT 4.35 10^6/uL (4.2-5.4); WHITE BLOOD CELL COUNT,WBC 14.2 10^3/uL (5.0-10.0)
[2023-08-15] MEDS: Iopamidol 612 MG/ML 100 ML Bottle IVPUSH ONE ×2 (08:14→08:19)
[2023-08-15 08:16] LABS: ALANINE AMINOTRANSFERASE,ALT 34 U/L (14-59); ALBUMIN 2.9 g/dL (3.4-5.0); ALKALINE PHOSPHATASE 104 U/L (46-116); ASPARTATE AMNIOTRANSFERASE,AST 21 U/L (15-37); BILIRUBIN TOTAL 0.4 mg/dL (0.2-1.0); BLOOD UREA NITROGEN,BUN 13 mg/dL (7-18); BUN/CREATININE RATIO 15.7 (No establ ref range); CALCIUM 9.3 mg/dL (8.5-10.1); CARBON DIOXIDE,CO2 24 mmol/L (21-32); CHLORIDE,CL 102 mmol/L (98-107); CREATININE 0.83 mg/dL (0.55-1.02); GLUCOSE RANDOM 157 mg/dL (70-99); LIPASE 27 U/L (16-77); MAGNESIUM 1.7 mg/dL (1.8-2.4); PROTEIN TOTAL,TP 7.3 g/dL (6.4-8.2); SODIUM,NA 141 mmol/L (136-145)
[2023-08-15 08:19] LABS: A/G RATIO 0.66; ESTIMATED GFR 83 mL/min (>=60)
[2023-08-15 08:20] LABS: LACTIC ACID 3.1 mmol/L (0.4-2.0)
[2023-08-15 08:21] LABS: BASOPHILS PERCENT AUTO 0.1 % (0.0-1.0); EOSINOPHILS PERCENT AUTO 1.6 % (1.0-3.0); LYMPHOCYTES PERCENT AUTO 14.4 % (20.5-50.1); MONOCYTES PERCENT AUTO 7.1 % (2-8); NEUTROPHILS PERCENT AUTO 76.8 % (42.2-75.2)
[2023-08-15 08:28] LABS: BAND PERCENT MAN 2 %; EOSINOPHILS PERCENT MAN 1 % (1-3); LYMPHOCYTES PERCENT MAN 16 % (20-50); MONOCYTES PERCENT MAN 3 % (2-8); SEG NEUTROPHILS PERCENT MAN 78 % (42-75)
[2023-08-15] MEDS: Potassium Chloride 20 MEQ in Premix Bag 1 BAG IV ONE (08:49)
[2023-08-15] MEDS: Sodium Chloride 0.9% 1,000 ML IV ONE (08:59)
[2023-08-15] MEDS: Magnesium Sulfate/Water 2 GM in Premix Bag 1 BAG IV ONE (09:00)
[2023-08-15 09:11] LABS: APPEARANCE,URINE CLEAR (CLEAR); BILIRUBIN,URINE NEGATIVE (NEGATIVE); COLOR,URINE YELLOW (YELLOW); GLUCOSE,URINE NEGATIVE (NEGATIVE); KETONES,URINE NEGATIVE (NEGATIVE); LEUKOCYTE ESTERASE,URINE NEGATIVE (NEGATIVE); NITRITE,URINE NEGATIVE (NEGATIVE); OCCULT BLOOD,URINE NEGATIVE (NEGATIVE); PH,URINE 6.5 (5.0-9.0); PROTEIN,URINE NEGATIVE (NEGATIVE); UROBILINOGEN,URINE 0.2 mg/dL (0.2-1.0)
[2023-08-15] MEDS: Piperacillin/Tazobactam 4.5 GM in Sodium Chloride 0.9% 100 ML IV ONE (09:21)
[2023-08-15] MEDS: Lidocaine 2% Jelly 10 ML Urojet MUCMEM ONE (10:20)
[2023-08-15] MEDS: Benzocaine 20% Topical Spray UD MUCMEM ONE (10:21)
[2023-08-15] MEDS ORDERED: Carboxymethylcellulose Sodium 1% Ophth Gel 0.4 ML UD EYEBOTH PRN (12:27)
[2023-08-15] MEDS ORDERED: Diclofenac Sodium 1% Gel 100 GM Tube TOP PRN (12:27)
[2023-08-15] MEDS ORDERED: Metoprolol Tartrate 5 MG/5 ML SDV IVPUSH PRN (12:31)
[2023-08-15] MEDS ORDERED: hydrALAZINE 20 MG/ML SDV IVPUSH PRN (12:31)
[2023-08-15] MEDS ORDERED: Naloxone 2 MG/2 ML Syringe IVPUSH PRN (12:32)
[2023-08-15] MEDS ORDERED: Simethicone 80 MG Tab.Chew PO PRN (12:42)
[2023-08-15] MEDS: Lactated Ringers 1,000 ML IV ONE (13:40)
[2023-08-15] MEDS: fentaNYL 100 MCG/2 ML SDV IVPUSH PRN (13:43)
[2023-08-15] MEDS: Metoclopramide 10 MG/2 ML SDV IVPUSH SCH (13:46)
[2023-08-15] MEDS: Piperacillin/Tazobactam 4.5 GM in Sodium Chloride 0.9% 100 ML IV SCH (13:51)
[2023-08-15] MEDS: Scopalamine 1mg/3day Transdermal Patch TOP ONE (13:52)
[2023-08-15] MEDS: Dextrose 5%-0.9% NaCl 1,000 ML IV SCH (17:58)
[2023-08-15] MEDS ORDERED: Piperacillin/Tazobactam 3.375 GM in Sodium Chloride 0.9% 100 ML IV SCH (18:00)
[2023-08-15] MEDS: Dexamethasone 4 MG/ML SDV IVPUSH ONE (20:12)
[2023-08-15] MEDS: Pantoprazole 40 MG Vial IVPUSH SCH (20:14)
[2023-08-15] MEDS: amLODIPine 5 MG Tab PO SCH (21:56)
[2023-08-15] MEDS: Gabapentin 100 MG Cap PO SCH (21:56)
[2023-08-15] MEDS: Saccharomyces Boulardii (Probiotic) 250 MG Cap PO SCH (21:57)
[2023-08-15] MEDS: Metoprolol Succinate 25 MG Tab.ER PO SCH (21:57)
[2023-08-15] MEDS: oxyCODONE ER 20 MG TAB.ER PO SCH (21:58)
[2023-08-15] MEDS: Polyvinyl Alcohol 1.4% Ophth Soln 15 ML Bottle EYEBOTH SCH (22:24)
[2023-08-16] MEDS: Levothyroxine 75 MCG Tab PO SCH (05:53)
[2023-08-16] MEDS ORDERED: Diclofenac Sodium 1% Gel 100 GM Tube TOP PRN (06:14)
[2023-08-16 07:44] LABS: HEMATOCRIT 31.1 % (37.0-47.0); HEMOGLOBIN 9.5 g/dL (12.0-16.0); MEAN CORPUSCULAR HEMOGLOBIN 25.7 pg (27.0-34.0); MEAN CORPUSCULAR HGB CONC 30.5 g/dL (33.0-35.0); MEAN CORPUSCULAR VOLUME 84.3 fL (80-100); PLATELET COUNT,PLT 446 10^3/uL (150-450); RED BLOOD CELL COUNT 3.69 10^6/uL (4.2-5.4); WHITE BLOOD CELL COUNT,WBC 11.9 10^3/uL (5.0-10.0)
[2023-08-16 07:58] LABS: BASOPHILS PERCENT AUTO 0.2 % (0.0-1.0); EOSINOPHILS PERCENT AUTO 0.4 % (1.0-3.0); LYMPHOCYTES PERCENT AUTO 9.6 % (20.5-50.1); MONOCYTES PERCENT AUTO 5.3 % (2-8); NEUTROPHILS PERCENT AUTO 84.5 % (42.2-75.2)
[2023-08-16 08:03] LABS: ALBUMIN 2.3 g/dL (3.4-5.0); BILIRUBIN TOTAL 0.5 mg/dL (0.2-1.0); BUN/CREATININE RATIO 20.3 (No establ ref range); C-REACTIVE PROTEIN 4.77 ng/dL (<=0.50); CALCIUM 8.5 mg/dL (8.5-10.1); CREATININE 0.69 mg/dL (0.55-1.02); EST CRCL DRUG DOSING (CG) 91.84 mL/min; MAGNESIUM 1.9 mg/dL (1.8-2.4); PROTEIN TOTAL,TP 6.1 g/dL (6.4-8.2)
[2023-08-16 08:05] LABS: BAND PERCENT MAN 1 %; LYMPHOCYTES PERCENT MAN 11 % (20-50); MONOCYTES PERCENT MAN 1 % (2-8); SEG NEUTROPHILS PERCENT MAN 87 % (42-75)
[2023-08-16 08:06] LABS: A/G RATIO 0.61
[2023-08-16] MEDS: predniSONE 5 MG Tab PO SCH (08:42)
[2023-08-16] MEDS: Folic Acid 1 MG Tab PO SCH (08:42)
[2023-08-16] MEDS: Enoxaparin 40 MG/0.4 ML Syringe SUBCUT SCH (08:43)
[2023-08-17 06:30] LABS: BASOPHILS PERCENT AUTO 0.1 % (0.0-1.0); EOSINOPHILS PERCENT AUTO 1.5 % (1.0-3.0); HEMATOCRIT 28.7 % (37.0-47.0); HEMOGLOBIN 8.5 g/dL (12.0-16.0); LYMPHOCYTES PERCENT AUTO 13.3 % (20.5-50.1); MEAN CORPUSCULAR HEMOGLOBIN 25.1 pg (27.0-34.0); MEAN CORPUSCULAR HGB CONC 29.6 g/dL (33.0-35.0); MEAN CORPUSCULAR VOLUME 84.9 fL (80-100); NEUTROPHILS PERCENT AUTO 77.1 % (42.2-75.2); PLATELET COUNT,PLT 415 10^3/uL (150-450); RED BLOOD CELL COUNT 3.38 10^6/uL (4.2-5.4); WHITE BLOOD CELL COUNT,WBC 10.8 10^3/uL (5.0-10.0)
[2023-08-17 07:00] LABS: A/G RATIO 0.61; ALBUMIN 2.2 g/dL (3.4-5.0); ANION GAP 12.6 mEq/L (7-13); BILIRUBIN TOTAL 0.3 mg/dL (0.2-1.0); BUN/CREATININE RATIO 15.1 (No establ ref range); C-REACTIVE PROTEIN 3.75 ng/dL (<=0.50); CALCIUM 8.7 mg/dL (8.5-10.1); CREATININE 0.73 mg/dL (0.55-1.02); EST CRCL DRUG DOSING (CG) 86.8 mL/min; MAGNESIUM 1.9 mg/dL (1.8-2.4); POTASSIUM,K 3.6 mmol/L (3.5-5.1); PROTEIN TOTAL,TP 5.8 g/dL (6.4-8.2)
[2023-08-17 08:32] VITALS: BP 125/82; PULSE 68
[2023-08-20] MEDS ORDERED: Methotrexate 2.5 MG Tab PO SCH (08:00)
== END 2023-08-17 11:15 | disposition home or self-care (01) | DRG 862 ==
LOC: DL.ED 07:30 → DL.MS 10:14 → DL.ED 10:28 → UNDODISIN 16:30
PROVIDERS: ADMIT Internal Medicine; ATTEND Internal Medicine
PROC: 0D9670Z Drainage of Stomach with Drainage Device, Via Natural or Artificial Opening (ICD-10-PCS; principal; 2023-08-15)
DX: T81.44XA Sepsis following a procedure, initial encounter (principal); R65.20 Severe sepsis without septic shock; K91.31 Postprocedural partial intestinal obstruction; E87.20 Acidosis, unspecified; E03.9 Hypothyroidism, unspecified; M06.9 Rheumatoid arthritis, unspecified; H54.7 Unspecified visual loss; E78.00 Pure hypercholesterolemia, unspecified; I11.0 Hypertensive heart disease with heart failure; I50.9 Heart failure, unspecified; K59.09 Other constipation; K21.9 Gastro-esophageal reflux disease without esophagitis; E66.9 Obesity, unspecified; M19.90 Unspecified osteoarthritis, unspecified site; E87.6 Hypokalemia; E83.42 Hypomagnesemia; D50.9 Iron deficiency anemia, unspecified; E83.52 Hypercalcemia; R73.9 Hyperglycemia, unspecified; E88.09 Other disorders of plasma-protein metabolism, not elsewhere classified; Z90.710 Acquired absence of both cervix and uterus; Z98.890 Other specified postprocedural states; Z88.8 Allergy status to other drugs, medicaments and biological substances; Z79.82 Long term (current) use of aspirin; Z79.899 Other long term (current) drug therapy; Z79.51 Long term (current) use of inhaled steroids; Z87.19 Personal history of other diseases of the digestive system; Z86.010 Personal history of colon polyps; Z68.37 Body mass index [BMI] 37.0-37.9, adult; Z86.16 Personal history of COVID-19; Z98.49 Cataract extraction status, unspecified eye; Z98.51 Tubal ligation status; Z90.49 Acquired absence of other specified parts of digestive tract
CPT/HCPCS: 36415; 43752; 71045; 74177; 80053; 81003; 83605; 83690; 83735; 84484; 85025; 86140; 87040; 93005; 93010; 96365; 96368; 96375; 99223; 99233; 99238; 99285; 99285-25; A9270-GY; C9113; J1100; J1650; J2270; J2405; J2543; J2765; J3010; J3475; J3480; J3490; J7030; J7042; J7120; J7512; Q9967

== ENCOUNTER 2023-09-10 21:41 | Emergency (ER) | payer OTHER ==
[2023-09-10] MEDS: Sodium Chloride 0.9% 10 ML Syringe FLUSH PRN (22:25)
[2023-09-10 22:34] LABS: BASOPHILS PERCENT AUTO 0.3 % (0.0-1.0); EOSINOPHILS PERCENT AUTO 1.9 % (1.0-3.0); HEMATOCRIT 33.4 % (37.0-47.0); HEMOGLOBIN 9.9 g/dL (12.0-16.0); LYMPHOCYTES PERCENT AUTO 14.7 % (20.5-50.1); MEAN CORPUSCULAR HGB CONC 29.6 g/dL (33.0-35.0); MEAN CORPUSCULAR VOLUME 87.7 fL (80-100); MONOCYTES PERCENT AUTO 7.7 % (2-8); NEUTROPHILS PERCENT AUTO 75.4 % (42.2-75.2); PLATELET COUNT,PLT 321 10^3/uL (150-450); RED BLOOD CELL COUNT 3.81 10^6/uL (4.2-5.4); WHITE BLOOD CELL COUNT,WBC 10.8 10^3/uL (5.0-10.0)
[2023-09-10 22:55] LABS: A/G RATIO 0.86; ALBUMIN 3.2 g/dL (3.4-5.0); ANION GAP 9.2 mEq/L (7-13); BILIRUBIN TOTAL 0.4 mg/dL (0.2-1.0); BUN/CREATININE RATIO 21.2 (No establ ref range); CALCIUM 9.3 mg/dL (8.5-10.1); CREATININE 1.18 mg/dL (0.55-1.02); EST CRCL DRUG DOSING (CG) 53.7 mL/min; POTASSIUM,K 3.2 mmol/L (3.5-5.1); PROTEIN TOTAL,TP 6.9 g/dL (6.4-8.2)
[2023-09-10 23:07] VITALS: BP 126/64; PULSE 89
[2023-09-10] MEDS: GI Cocktail Oral Solution 30 ML PO ONE (23:09)
== END 2023-09-10 23:40 | disposition home or self-care (01) ==
LOC: DL.ED 21:41
DX: K21.9 Gastro-esophageal reflux disease without esophagitis (principal); I11.0 Hypertensive heart disease with heart failure; I50.9 Heart failure, unspecified; E03.9 Hypothyroidism, unspecified; E66.9 Obesity, unspecified; Z86.16 Personal history of COVID-19; Z90.49 Acquired absence of other specified parts of digestive tract; Z68.37 Body mass index [BMI] 37.0-37.9, adult; Z79.52 Long term (current) use of systemic steroids; Z79.899 Other long term (current) drug therapy; Z79.890 Hormone replacement therapy; Z88.5 Allergy status to narcotic agent; Z88.1 Allergy status to other antibiotic agents
CPT/HCPCS: 36415; 80053; 83690; 84484; 85025; 93005; 99284; A9270; J3490

== ENCOUNTER 2023-11-14 13:43 | Emergency (ER) | payer OTHER ==
[2023-11-14 14:45] LABS: BASOPHILS PERCENT AUTO 0.2 % (0.0-1.0); EOSINOPHILS PERCENT AUTO 0.4 % (1.0-3.0); HEMATOCRIT 35.5 % (37.0-47.0); HEMOGLOBIN 10.9 g/dL (12.0-16.0); LYMPHOCYTES PERCENT AUTO 5.4 % (20.5-50.1); MEAN CORPUSCULAR HEMOGLOBIN 25.7 pg (27.0-34.0); MEAN CORPUSCULAR HGB CONC 30.7 g/dL (33.0-35.0); MEAN CORPUSCULAR VOLUME 83.7 fL (80-100); MONOCYTES PERCENT AUTO 4.4 % (2-8); NEUTROPHILS PERCENT AUTO 89.6 % (42.2-75.2); PLATELET COUNT,PLT 288 10^3/uL (150-450); RED BLOOD CELL COUNT 4.24 10^6/uL (4.2-5.4); WHITE BLOOD CELL COUNT,WBC 10.2 10^3/uL (5.0-10.0)
[2023-11-14 14:47] LABS: APPEARANCE,URINE SLIGHTLY CLOUDY (CLEAR); BILIRUBIN,URINE SMALL (NEGATIVE); COLOR,URINE DARK YELLOW (YELLOW); GLUCOSE,URINE NEGATIVE (NEGATIVE); KETONES,URINE NEGATIVE (NEGATIVE); LEUKOCYTE ESTERASE,URINE SMALL (NEGATIVE); NITRITE,URINE NEGATIVE (NEGATIVE); OCCULT BLOOD,URINE TRACE-INTACT (NEGATIVE); PH,URINE 5.5 (5.0-9.0); PROTEIN,URINE 100 (NEGATIVE); UROBILINOGEN,URINE 0.2 mg/dL (0.2-1.0)
[2023-11-14 14:53] VITALS: BP 117/81; PULSE 93
[2023-11-14 15:00] LABS: ANION GAP 13.7 mEq/L (7-13); BILIRUBIN TOTAL 0.8 mg/dL (0.2-1.0); BUN/CREATININE RATIO 16.7 (No establ ref range); C-REACTIVE PROTEIN 16.2 ng/dL (<=0.50); CALCIUM 8.9 mg/dL (8.5-10.1); CREATININE 1.26 mg/dL (0.55-1.02); EST CRCL DRUG DOSING (CG) 50.29 mL/min; MAGNESIUM 1.8 mg/dL (1.8-2.4); POTASSIUM,K 3.7 mmol/L (3.5-5.1); PROTEIN TOTAL,TP 7.2 g/dL (6.4-8.2)
[2023-11-14 15:00] LABS: BACTERIA,URINE FEW /HPF (0-FEW/HPF); EPITHELIAL CELLS,URINE MODERATE /HPF (NOT SEEN)
[2023-11-14 15:01] LABS: A/G RATIO 0.71
[2023-11-14] MEDS: Iopamidol 612 MG/ML 100 ML Bottle IVPUSH ONE (15:06)
[2023-11-14] MEDS: Sodium Chloride 0.9% 500 ML IV ONE (15:13)
[2023-11-14] MEDS: Cefuroxime 250 MG Tab PO ONE (16:51)
== END 2023-11-14 16:59 | disposition home or self-care (01) ==
LOC: DL.ED 13:43
DX: N39.0 Urinary tract infection, site not specified (principal); I11.0 Hypertensive heart disease with heart failure; I50.9 Heart failure, unspecified; E78.00 Pure hypercholesterolemia, unspecified; E03.9 Hypothyroidism, unspecified; K21.9 Gastro-esophageal reflux disease without esophagitis; E66.9 Obesity, unspecified; Z68.36 Body mass index [BMI] 36.0-36.9, adult; Z86.16 Personal history of COVID-19; Z90.49 Acquired absence of other specified parts of digestive tract; Z79.82 Long term (current) use of aspirin; Z79.899 Other long term (current) drug therapy; Z88.5 Allergy status to narcotic agent; Z88.1 Allergy status to other antibiotic agents
CPT/HCPCS: 36415; 74178; 80053; 81001; 83735; 85025; 86140; 87086; 87088; 87186; 96360; 99283; 99284-25; A9270-GY; J7040; Q9967

== ENCOUNTER 2024-01-28 17:08 | Emergency (ER) | payer OTHER ==
[2024-01-28 17:21] VITALS: BP 158/74; PULSE 75
[2024-01-28] MEDS: Take Home: Doxycycline 100 MG Cap, 4 Cap Pack PO ONE (17:36)
== END 2024-01-28 17:46 | disposition home or self-care (01) ==
LOC: DL.ED 17:08
DX: J01.00 Acute maxillary sinusitis, unspecified (principal); I11.0 Hypertensive heart disease with heart failure; I50.9 Heart failure, unspecified; K21.9 Gastro-esophageal reflux disease without esophagitis; E78.00 Pure hypercholesterolemia, unspecified; E66.9 Obesity, unspecified; E03.9 Hypothyroidism, unspecified; Z88.8 Allergy status to other drugs, medicaments and biological substances; Z79.82 Long term (current) use of aspirin; Z79.890 Hormone replacement therapy; Z79.899 Other long term (current) drug therapy; Z90.49 Acquired absence of other specified parts of digestive tract; Z68.37 Body mass index [BMI] 37.0-37.9, adult
CPT/HCPCS: 99283; A9270

== ENCOUNTER 2024-08-24 11:05 | Emergency (ER) | payer OTHER ==
[2024-08-24] MEDS ORDERED: Sodium Chloride 0.9% 10 ML Syringe FLUSH PRN (11:15)
[2024-08-24 11:22] LABS: BASOPHILS PERCENT AUTO 0.3 % (0.0-1.0); EOSINOPHILS PERCENT AUTO 2.6 % (1.0-3.0); HEMATOCRIT 40.2 % (37.0-47.0); HEMOGLOBIN 12.1 g/dL (12.0-16.0); LYMPHOCYTES PERCENT AUTO 17.1 % (20.5-50.1); MEAN CORPUSCULAR HEMOGLOBIN 25.5 pg (27.0-34.0); MEAN CORPUSCULAR HGB CONC 30.1 g/dL (33.0-35.0); MEAN CORPUSCULAR VOLUME 84.6 fL (80-100); PLATELET COUNT,PLT 241 10^3/uL (150-450); RED BLOOD CELL COUNT 4.75 10^6/uL (4.2-5.4); WHITE BLOOD CELL COUNT,WBC 6.9 10^3/uL (5.0-10.0)
[2024-08-24] MEDS: Ketorolac 30 MG/ML SDV IVPUSH ONE (11:35)
[2024-08-24 11:40] LABS: A/G RATIO 0.86; ANION GAP 9.6 mEq/L (7-13); BILIRUBIN TOTAL 0.5 mg/dL (0.2-1.0); BUN/CREATININE RATIO 18.6 (No establ ref range); C-REACTIVE PROTEIN 4.46 ng/dL (<=0.50); CALCIUM 8.2 mg/dL (8.5-10.1); CREATININE 0.86 mg/dL (0.55-1.02); EST CRCL DRUG DOSING (CG) 72.81 mL/min; MAGNESIUM 2.1 mg/dL (1.8-2.4); POTASSIUM,K 3.6 mmol/L (3.5-5.1); PROTEIN TOTAL,TP 6.5 g/dL (6.4-8.2)
[2024-08-24 11:45] LABS: LACTIC ACID 1.5 mmol/L (0.4-2.0)
[2024-08-24 11:57] LABS: APPEARANCE,URINE CLEAR (CLEAR); BILIRUBIN,URINE NEGATIVE (NEGATIVE); COLOR,URINE YELLOW (YELLOW); GLUCOSE,URINE NEGATIVE (NEGATIVE); KETONES,URINE NEGATIVE (NEGATIVE); LEUKOCYTE ESTERASE,URINE NEGATIVE (NEGATIVE); NITRITE,URINE NEGATIVE (NEGATIVE); OCCULT BLOOD,URINE NEGATIVE (NEGATIVE); PROTEIN,URINE NEGATIVE (NEGATIVE); UROBILINOGEN,URINE 0.2 mg/dL (0.2-1.0)
[2024-08-24 12:23] VITALS: BP 136/88; PULSE 75
== END 2024-08-24 12:09 | disposition home or self-care (01) ==
LOC: DL.ED 11:05
DX: A08.4 Viral intestinal infection, unspecified (principal); I11.0 Hypertensive heart disease with heart failure; I50.9 Heart failure, unspecified; E78.00 Pure hypercholesterolemia, unspecified; E03.9 Hypothyroidism, unspecified; Z86.16 Personal history of COVID-19; Z88.5 Allergy status to narcotic agent; Z88.8 Allergy status to other drugs, medicaments and biological substances; Z79.82 Long term (current) use of aspirin; Z79.899 Other long term (current) drug therapy; Z79.51 Long term (current) use of inhaled steroids
CPT/HCPCS: 36415; 80053; 81003; 83605; 83690; 83735; 85025; 86140; 96374; 99284-25; J1885

== ENCOUNTER 2024-08-24 22:21 | Emergency (ER) | payer OTHER ==
[2024-08-24] MEDS ORDERED: Sodium Chloride 0.9% 10 ML Syringe FLUSH PRN (23:17)
[2024-08-24 23:24] LABS: BASOPHILS PERCENT AUTO 0.1 % (0.0-1.0); EOSINOPHILS PERCENT AUTO 0.3 % (1.0-3.0); HEMATOCRIT 39.7 % (37.0-47.0); HEMOGLOBIN 12.1 g/dL (12.0-16.0); LYMPHOCYTES PERCENT AUTO 11.1 % (20.5-50.1); MEAN CORPUSCULAR HEMOGLOBIN 25.6 pg (27.0-34.0); MEAN CORPUSCULAR HGB CONC 30.5 g/dL (33.0-35.0); MEAN CORPUSCULAR VOLUME 83.9 fL (80-100); MONOCYTES PERCENT AUTO 5.9 % (2-8); NEUTROPHILS PERCENT AUTO 82.6 % (42.2-75.2); PLATELET COUNT,PLT 269 10^3/uL (150-450); RED BLOOD CELL COUNT 4.73 10^6/uL (4.2-5.4); WHITE BLOOD CELL COUNT,WBC 9.7 10^3/uL (5.0-10.0)
[2024-08-24] MEDS: Ondansetron 4 MG/2 ML SDV IVPUSH ONE (23:27)
[2024-08-24] MEDS: Sodium Chloride 0.9% 1,000 ML IV ONE (23:27)
[2024-08-24] MEDS: Pantoprazole 40 MG in Sodium Chloride 0.9% 100 ML IV ONE (23:27)
[2024-08-24 23:37] LABS: A/G RATIO 0.83; ANION GAP 13.5 mEq/L (7-13); BILIRUBIN TOTAL 0.4 mg/dL (0.2-1.0); BUN/CREATININE RATIO 18.1 (No establ ref range); CALCIUM 8.2 mg/dL (8.5-10.1); CREATININE 1.05 mg/dL (0.55-1.02); EST CRCL DRUG DOSING (CG) 59.63 mL/min; INR 0.9 (0.9-1.2); POTASSIUM,K 4.5 mmol/L (3.5-5.1); PROTEIN TOTAL,TP 6.6 g/dL (6.4-8.2); PROTHROMBIN TIME 9.7 SEC (9.0-12.0); PTT,PARTIAL THROMBOPLSTIN TIME 19.5 SEC (22.0-34.0)
[2024-08-24 23:41] LABS: LACTIC ACID 3.5 mmol/L (0.4-2.0)
[2024-08-24] MEDS: metroNIDAZOLE/Normal Saline 500 MG in Premix Bag 1 BAG IV ONE (23:57)
[2024-08-25] MEDS: HYDROmorphone 1 MG/ML Syringe IVPUSH ONE ×2 (00:28→03:27)
[2024-08-25] MEDS: Ciprofloxacin in D5W 400 MG in Premix Bag 1 BAG IV ONE (00:30)
[2024-08-25] MEDS: Sodium Chloride 0.9% 1,000 ML IV ONE ×2 (01:10→02:19)
[2024-08-25 01:41] LABS: APPEARANCE,URINE CLEAR (CLEAR); BILIRUBIN,URINE NEGATIVE (NEGATIVE); GLUCOSE,URINE NEGATIVE (NEGATIVE); KETONES,URINE NEGATIVE (NEGATIVE); LEUKOCYTE ESTERASE,URINE NEGATIVE (NEGATIVE); NITRITE,URINE NEGATIVE (NEGATIVE); OCCULT BLOOD,URINE NEGATIVE (NEGATIVE); PH,URINE 6.5 (5.0-9.0); PROTEIN,URINE NEGATIVE (NEGATIVE); UROBILINOGEN,URINE 0.2 mg/dL (0.2-1.0)
[2024-08-25 01:42] LABS: COLOR,URINE LIGHT YELLOW (YELLOW)
[2024-08-25 01:43] LABS: HEMATOCRIT 34.8 % (37.0-47.0); HEMOGLOBIN 10.4 g/dL (12.0-16.0)
[2024-08-25 02:12] LABS: LACTIC ACID 1.1 mmol/L (0.4-2.0)
[2024-08-25 03:16] VITALS: BP 152/84; PULSE 85
[2024-08-25] MEDS: Ondansetron 4 MG/2 ML SDV IVPUSH ONE (03:26)
== END 2024-08-25 04:08 ==
LOC: DL.ED 22:21
DX: K92.2 Gastrointestinal hemorrhage, unspecified (principal); R11.2 Nausea with vomiting, unspecified; I11.0 Hypertensive heart disease with heart failure; I50.9 Heart failure, unspecified; K21.9 Gastro-esophageal reflux disease without esophagitis; E66.9 Obesity, unspecified; E03.9 Hypothyroidism, unspecified; Z88.8 Allergy status to other drugs, medicaments and biological substances; Z79.82 Long term (current) use of aspirin; Z79.890 Hormone replacement therapy; Z79.899 Other long term (current) drug therapy; Z86.16 Personal history of COVID-19; Z90.49 Acquired absence of other specified parts of digestive tract
CPT/HCPCS: 36415; 71045; 74177; 80053; 81003; 82272; 83605; 84145; 85014; 85018; 85025; 85610; 85730; 86850; 86900; 86901; 86920; 86922; 87040; 93005; 96361; 96365; 96367; 96374; 96375; 99285; J0744; J1171; J1836; J2405; J2470; J7030

== ENCOUNTER 2024-10-04 18:02 | Emergency (ER) | payer OTHER ==
[2024-10-04 18:47] VITALS: BP 188/100; PULSE 101
[2024-10-04 18:51] LABS: APPEARANCE,URINE SLIGHTLY CLOUDY (CLEAR); GLUCOSE,URINE 500 (NEGATIVE); OCCULT BLOOD,URINE TRACE-INTACT (NEGATIVE)
[2024-10-04 19:01] LABS: EPITHELIAL CELLS,URINE FEW /HPF (NOT SEEN)
== END 2024-10-04 19:12 | disposition home or self-care (01) ==
LOC: DL.ED 18:02
DX: N30.00 Acute cystitis without hematuria (principal); I11.0 Hypertensive heart disease with heart failure; I50.9 Heart failure, unspecified; E66.9 Obesity, unspecified; E03.9 Hypothyroidism, unspecified; K21.9 Gastro-esophageal reflux disease without esophagitis; M19.90 Unspecified osteoarthritis, unspecified site; Z79.82 Long term (current) use of aspirin; Z79.899 Other long term (current) drug therapy; Z88.8 Allergy status to other drugs, medicaments and biological substances; Z88.5 Allergy status to narcotic agent; Z90.49 Acquired absence of other specified parts of digestive tract; Z68.37 Body mass index [BMI] 37.0-37.9, adult
CPT/HCPCS: 81001; 87086; 99283; A9270; 87088; 87186

== ENCOUNTER 2025-01-20 09:07 | Emergency (ER) | payer OTHER ==
[2025-01-20] MEDS: Ketorolac 30 MG/ML SDV IVPUSH ONE (09:29)
[2025-01-20] MEDS: Ondansetron 4 MG/2 ML SDV IVPUSH ONE (09:29)
[2025-01-20] MEDS: fentaNYL 100 MCG/2 ML SDV IVPUSH ONE ×2 (09:29→13:07)
[2025-01-20 09:30] LABS: BASOPHILS PERCENT AUTO 0.2 % (0.0-1.0); EOSINOPHILS PERCENT AUTO 1.2 % (1.0-3.0); LYMPHOCYTES PERCENT AUTO 10.2 % (20.5-50.1); MONOCYTES PERCENT AUTO 5.8 % (2-8); NEUTROPHILS PERCENT AUTO 82.6 % (42.2-75.2); PLATELET COUNT,PLT 203 10^3/uL (150-450); RED BLOOD CELL COUNT 4.75 10^6/uL (4.2-5.4); WHITE BLOOD CELL COUNT,WBC 17.7 10^3/uL (5.0-10.0)
[2025-01-20 09:41] LABS: A/G RATIO 1.0; ALANINE AMINOTRANSFERASE,ALT 45 U/L (14-59); ASPARTATE AMNIOTRANSFERASE,AST 20 U/L (15-37); BILIRUBIN TOTAL 0.9 mg/dL (0.2-1.0); BLOOD UREA NITROGEN,BUN 12 mg/dL (7-18); CARBON DIOXIDE,CO2 28 mmol/L (21-32); CHLORIDE,CL 105 mmol/L (98-107); CREATININE 0.87 mg/dL (0.55-1.02); EST CRCL DRUG DOSING (CG) 71.10 mL/min; GLUCOSE RANDOM 120 mg/dL (70-99); POTASSIUM,K 3.4 mmol/L (3.5-5.1); PROTEIN TOTAL,TP 7.3 g/dL (6.4-8.2); SODIUM,NA 143 mmol/L (136-145)
[2025-01-20 09:42] LABS: ESTIMATED GFR 77 mL/min (>=60); ETHANOL BLOOD MEDICAL < 3 mg/dL (0)
[2025-01-20 09:48] LABS: LACTIC ACID 2.0 mmol/L (0.4-2.0)
[2025-01-20] MEDS: Iopamidol 612 MG/ML 100 ML Bottle IVPUSH ONE (10:31)
[2025-01-20 12:33] LABS: APPEARANCE,URINE CLEAR (CLEAR); GLUCOSE,URINE NEGATIVE (NEGATIVE); OCCULT BLOOD,URINE NEGATIVE (NEGATIVE)
[2025-01-20 14:19] VITALS: BP 155/92; PULSE 91
== END 2025-01-20 14:00 | disposition home or self-care (01) ==
LOC: DL.ED 09:07
DX: B34.9 Viral infection, unspecified (principal); I11.0 Hypertensive heart disease with heart failure; I50.9 Heart failure, unspecified; E11.9 Type 2 diabetes mellitus without complications; E66.9 Obesity, unspecified; E03.9 Hypothyroidism, unspecified; F17.200 Nicotine dependence, unspecified, uncomplicated; K21.9 Gastro-esophageal reflux disease without esophagitis; M19.90 Unspecified osteoarthritis, unspecified site; Z90.49 Acquired absence of other specified parts of digestive tract; Z88.5 Allergy status to narcotic agent; Z88.8 Allergy status to other drugs, medicaments and biological substances
CPT/HCPCS: 36415; 70450; 74177; 80053; 80307; 81003; 83605; 83735; 85025; 87040; 87428; 96361; 96374; 96375; 96376; 99284; J1885; J2405; J3010; J7030; Q9967; 99283